=== PATIENT | female | born 1970 | race Caucasian/White ===

== ENCOUNTER 2017-11-04 19:08 | Emergency (ER) | payer OTHER ==
[~2017-11-04] VITALS: Ht 157.5 cm; Wt 70.8 kg
[2017-11-04] MEDS ORDERED: OSEL75CA15 (19:20)
[2017-11-04] MEDS ORDERED: HYDR473S34 (19:20)
[2017-11-04] MEDS ORDERED: CLON0.1T (19:20)
[2017-11-04] MEDS ORDERED: CEFD300C3 (19:20)
--- NOTE | 2017-11-04 19:28 | ED Back Pain ---
General Chief Complaint: Back Problems Stated Complaint: BACK PAIN Nursing Triage Note: LOWER BACK PAIN, NAUSEA TODAY. Nursing Sepsis Screen: No Definite Risk Source of Information: Patient Exam Limitations: No Limitations History of Present Illness Date Seen by Provider: Nov 04, 2017 Time Seen by Provider: 19:26 Initial Comments To ER with mid back pain, nausea today. No fever. Slight cough. She is on Tamiflu, hydrocodone/chlorpheniramine, Omnicef for testing positive for strep throat and influenza-like symptoms. She's been on these medicines since 11/02/17 prescribed by [facility] urgent care. Location: Paraspinous Muscles Timing/Duration: 1-2 Days Severity: Moderate Allergies and Home Medications Allergies Coded Allergies: No Known Drug Allergies (Unverified , 11/04/17) Home Medications Cefdinir 300 Mg Capsule, (Reported) Clonidine HCl 0.1 Mg Tablet, (Reported) Hydrocodone/Chlorphen P-Stirex 473 Ml Celia.er.12h, (Reported) Oseltamivir Phosphate 75 Mg Capsule, (Reported) Constitutional: see HPI EENTM: see HPI Respiratory: see HPI, cough Cardiovascular: no symptoms reported Genitourinary: no symptoms reported Musculoskeletal: no symptoms reported Skin: no symptoms reported Psychiatric/Neurological: No Symptoms Reported Past Otdvdys-Jtgiah-Jnkood Hx Patient Social History Alcohol Use: Rarely Uses Recreational Drug Use: No Smoking Status: Never a Smoker 2nd Hand Smoke Exposure: No Recent Foreign Travel: No Contact w/Someone Who Travel: No Recent Infectious Disease Expo: No Recent Hopitalizations: No Immunizations Up To Date Tetanus Booster (TDap): Unknown Seasonal Allergies Seasonal Allergies: Yes Surgeries History of Surgeries: Yes Surgeries: Appendectomy, Hysterectomy, Tonsillectomy Respiratory History of Respiratory Disorde: Yes Respiratory Disorders: Asthma Cardiovascular History of Cardiac Disorders: No Neurological History of Neurological Disord: No Reproductive System : No 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 Genitourinary History of Genitourinary Disor: No Gastrointestinal History of Gastrointestinal Di: No Musculoskeletal History of Musculoskeletal Dis: No Endocrine History of Endocrine Disorders: No HEENT History of HEENT Disorders: No Cancer History of Cancer: No Psychosocial History of Psychiatric Problem: No Integumentary History of Skin or Integumenta: No Blood Transfusions History of Blood Disorders: No Physical Exam Vital Signs Vital Sign - Last 12Hours 11/04/17 19:15 Temp 98.3 Pulse 109 Resp 18 B/P (MAP) 133/82 (99) Pulse Ox 95 O2 Delivery Room Air Capillary Refill : Less Than 3 Seconds General Appearance: No Apparent Distress, WD/WN HEENT: PERRL/EOMI, TMs Normal, Other (mild cobblestoning and erythema of the oropharynx without exudate. Tonsils are absent.) Neck: Full Range of Motion, Normal Inspection, Lymphadenopathy (L), Lymphadenopathy (R) Respiratory: Normal Breath Sounds, No Accessory Muscle Use, No Respiratory Distress Gastrointestinal: Non Tender, Soft Extremity: Normal Capillary Refill, Normal Inspection Neurologic/Psychiatric: Alert, Oriented x3 Skin: Normal Color, Warm/Dry Progress/Results/Core Measures Results/Orders Lab Results Laboratory Tests Test 11/04/17 19:20 11/04/17 19:25 11/04/17 20:10 11/04/17 20:38 Range/Units White Blood Count 21.5 H 4.3-11.0 10^3/uL Red Blood Count 4.46 4.35-5.85 10^6/uL Hemoglobin 13.4 11.5-16.0 G/DL Hematocrit 39 35-52 % Mean Corpuscular Volume 86 80-99 FL Mean Corpuscular Hemoglobin 30 25-34 PG Mean Corpuscular Hemoglobin Concent 35 32-36 G/DL Red Cell Distribution Width 13.0 10.0-14.5 % Platelet Count 293 130-400 10^3/uL Mean Platelet Volume 10.1 7.4-10.4 FL Neutrophils (%) (Auto) 81 H 42-75 % Lymphocytes (%) (Auto) 11 L 12-44 % Monocytes (%) (Auto) 5 0-12 % Eosinophils (%) (Auto) 2 0-10 % Basophils (%) (Auto) 1 0-10 % Neutrophils # (Auto) 17.5 H 1.8-7.8 X 10^3 Lymphocytes # (Auto) 2.4 1.0-4.0 X 10^3 Monocytes # (Auto) 1.1 H 0.0-1.0 X 10^3 Eosinophils # (Auto) 0.3 0.0-0.3 10^3/uL Basophils # (Auto) 0.2 H 0.0-0.1 10^3/uL Neutrophils % (Manual) 80 % Lymphocytes % (Manual) 15 % Monocytes % (Manual) 1 % Eosinophils % (Manual) 3 % Basophils % (Manual) 0 % Band Neutrophils 1 % Blood Morphology Comment NORMAL Sodium Level 140 135-145 MMOL/L Potassium Level 3.2 L 3.6-5.0 MMOL/L Chloride Level 98 98-107 MMOL/L Carbon Dioxide Level 24 21-32 MMOL/L Anion Gap 18 H 5-14 MMOL/L Blood Urea Nitrogen 10 7-18 MG/DL Creatinine 0.73 0.60-1.30 MG/DL Estimat Glomerular Filtration Rate > 60 BUN/Creatinine Ratio 14 Glucose Level 133 H 70-105 MG/DL Calcium Level 9.6 8.5-10.1 MG/DL Total Bilirubin 0.5 0.1-1.0 MG/DL Aspartate Amino Transf (AST/SGOT) 20 5-34 U/L Alanine Aminotransferase (ALT/SGPT) 45 0-55 U/L Alkaline Phosphatase 161 H 40-136 U/L Total Protein 8.6 H 6.4-8.2 GM/DL Albumin 4.1 3.2-4.5 GM/DL Lipase 34 8-78 U/L Urine Color YELLOW Urine Clarity SLIGHTLY CLOUDY Urine pH 5 5-9 Urine Specific Stedman 1.015 L 1.016-1.022 Urine Protein 2+ H NEGATIVE Urine Glucose (UA) NEGATIVE NEGATIVE Urine Ketones 3+ H NEGATIVE Urine Nitrite NEGATIVE NEGATIVE Urine Bilirubin NEGATIVE NEGATIVE Urine Urobilinogen NORMAL NORMAL MG/DL Urine Leukocyte Esterase 2+ H NEGATIVE Urine RBC (Auto) 3+ H NEGATIVE Urine RBC 2-5 H /HPF Urine WBC 5-10 H /HPF Urine Squamous Epithelial Cells 10-25 H /HPF Urine Crystals NONE /LPF Urine Bacteria TRACE /HPF Urine Casts NONE /LPF Urine Mucus MODERATE H /LPF Urine Yeast FEW H /HPF Urine Culture Indicated YES Urine Test NEGATIVE NEGATIVE Lactic Acid Level 1.08 0.50-2.00 MMOL/L Group A Streptococcus Screen NEGATIVE NEGATIVE My Orders Orders - MAYURI UREÑA APRN Cbc With Automated Diff (11/04/17 19:25) Comprehensive Metabolic Panel (11/04/17 19:25) Ua Culture If Indicated (11/04/17 19:25) Ketorolac Injection (Toradol Injection) (11/04/17 19:30) Lactated Ringers (Lr 1000 Ml Iv Solution (11/04/17 19:30) Lipase (11/04/17 19:25) Chest Pa/Lat (2 View) (11/04/17 19:25) Ondansetron Injection (Zofran Injectio (11/04/17 19:30) Saline Lock/Iv-Start (11/04/17 19:34) Manual Differential (11/04/17 19:20) Urine Culture (11/04/17 19:25) Ct Abdomen/Pelvis W (11/04/17 19:48) Hcg,Qualitative Urine (11/04/17 19:49) Iohexol Injection (Omnipaque 350 Mg/Ml 1 (11/04/17 20:00) Ns (Ivpb) (Sodium Chloride 0.9% Ivpb Bag (11/04/17 20:00) Blood Culture (11/04/17 19:52) Lactic Acid Analyzer (11/04/17 19:52) Rapid Strep A Screen (11/04/17 20:08) Ceftriaxone Injection (Rocephin Injectio (11/04/17 21:00) Potassium Chloride (Tablet) (Klor Con Ta (11/04/17 21:15) Fluconazole Tablet (Diflucan Tablet) (11/04/17 21:15) Potassium Chloride (Tablet) (K Dur Table (11/04/17 21:03) Fluconazole Tablet (Ed Only) (Diflucan T (11/04/17 21:03) Medications Given in ED Vital Signs/I&O Vital Sign - Last 12Hours 11/04/17 11/04/17 11/04/17 19:15 19:30 21:20 Temp 98.3 98.3 98.3 Pulse 109 72 Resp 18 16 B/P (MAP) 133/82 (99) Pulse Ox 95 98 O2 Delivery Room Air Room Air Intake and Output 11/05/17 00:00 Intake Total 1050 ml Balance 1050 ml Blood Pressure Mean: 99 Diagnostic Imaging Diagonstic Imaging: Xray Plain Films/CT/US/NM/MRI: chest Comments NAME: FILIPPO CABRAL Narcisa [facility] REC#: [id number] PT STATUS: REG ER : 1970 PHYSICIAN: MAYURI UREÑA APRN ADMIT DATE: 11/04/17/ER Draft Date of Exam:11/04/17 CHEST PA/LAT (2 VIEW) INDICATION: Left-sided chest pain PA and lateral chest Heart size and pulmonary vascularity are normal. Lungs are clear. There are no effusions or pneumothoraces. IMPRESSION: Negative chest Dictated on workstation # [id number] Dict: 11/04/171942 Trans: 11/04/171943 JOSE [id number] Interpreted by: MARINA GARBER MD Electronically signed by: NAME: FILIPPO CABRAL [facility] REC#: [id number] PT STATUS: REG ER : 1970 PHYSICIAN: MAYURI UREÑA CHHA ADMIT DATE: 11/04/17/ER Signed Date of Exam:11/04/17 CT ABDOMEN/PELVIS W PROCEDURE: CT abdomen and pelvis with contrast. TECHNIQUE: Multiple contiguous axial images were obtained through the abdomen and pelvis after administration of intravenous contrast. INDICATION: Left side abdominal pain Lung bases are clear. Liver appears normal. Gallbladder is present. Pancreas normal. Spleen is not enlarged. Kidneys and adrenals appear normal. There is diverticulosis of the colon with no evidence of diverticulitis. Small bowel is not dilated. Appendix appears to be surgically absent. Uterus appears to be surgically absent. There is no intraperitoneal free air or free fluid. IMPRESSION: Uncomplicated diverticulosis of the colon. No acute abnormalities seen. Dictated by: Dictated on workstation # [id number] Dict: 11/04/172011 Trans: 11/04/172025 JOSE [id number] Interpreted by: MARINA GARBER MD Electronically signed by: MARINA GARBER MD 11/04/172025 Departure Communication (Admissions) Progress Notes 2104-patient states that her back is feeling much better at this time. Her heart rate is down to 72, blood pressure 130s over 80s. Afebrile. She does have leukocytosis without obvious source. I will give Rocephin 1 g for the bladder infection as well as Diflucan and discharged home with return precautions. Impression Impression: Primary Impression: Leukocytosis Additional Impressions: Urinary tract infection recent streptococcal pharyngitis Disposition: HOME, SELF-CARE Condition: Stable Departure-Patient Inst. Decision time for Depature: 21:05 Referrals: [facility] (PCP/Family) Primary Care Physician Patient Instructions: Low Back Pain (DC), Urinary Tract Infection, Adult (DC) Add. Discharge Instructions: 1. Follow-up with your doctor next week for recheck. Please follow up within about 3-4 days. Your white blood cells were high tonight so we should recheck this next week. 2. Return to ER for any pain, fevers, any other concerns.. Continue taking your antibiotics. All discharge instructions reviewed with patient and/or family. Voiced understanding. Images Torso/Trunk 1 - Tenderness MAYURI UREÑA APRN Nov 04, 2017 19:28
[2017-11-04] MEDS ORDERED: LACTATED RINGERS 1,000 ML IV SCH (19:30)
[2017-11-04] MEDS ORDERED: ONDANSETRON 4 MG/2 ML (SDV) Z0FRAN IVP ONE (19:30)
[2017-11-04] MEDS ORDERED: KETOROLAC 30 MG/ML VIAL IVP ONE (19:30)
[2017-11-04 19:32] LABS: BILIRUBIN,URINE NEGATIVE (NEGATIVE); CLARITY,URINE SLIGHTLY CLOUDY; COLOR,URINE YELLOW; GLUCOSE, URINE (UA) NEGATIVE (NEGATIVE); KETONES,URINE 3+ (NEGATIVE); LEUKOCYTE ESTERASE ,URINE 2+ (NEGATIVE); NITRITE,URINE NEGATIVE (NEGATIVE); PH,URINE 5 (5-9); PROTEIN,URINE 2+ (NEGATIVE); UROBILINOGEN,URINE NORMAL (NORMAL)
[2017-11-04 19:33] LABS: BASOPHILS # (AUTO) 0.2 10^3/uL (0.0-0.1); BASOPHILS % (AUTO) 1 % (0-10); EOSINOPHILS # (AUTO) 0.3 10^3/uL (0.0-0.3); EOSINOPHILS % (AUTO) 2 % (0-10); HEMATOCRIT 39 % (35-52); HEMOGLOBIN 13.4 G/DL (11.5-16.0); LYMPHOCYTES # (AUTO) 2.4 X 10^3 (1.0-4.0); LYMPHOCYTES % (AUTO) 11 % (12-44); MEAN CORPUSCULAR HEMOGLOBIN 30 PG (25-34); MEAN CORPUSCULAR HGB CONC 35 G/DL (32-36); MEAN CORPUSCULAR VOLUME 86 FL (80-99); MEAN PLATELET VOLUME 10.1 FL (7.4-10.4); MONOCYTES # (AUTO) 1.1 X 10^3 (0.0-1.0); MONOCYTES % (AUTO) 5 % (0-12); NEUTROPHILS # (AUTO) 17.5 X 10^3 (1.8-7.8); NEUTROPHILS % (AUTO) 81 % (42-75); PLATELET COUNT 293 10^3/uL (130-400); RED BLOOD COUNT 4.46 10^6/uL (4.35-5.85); WHITE BLOOD COUNT 21.5 10^3/uL (4.3-11.0)
[2017-11-04 19:44] LABS: BACTERIA,URINE TRACE /HPF; YEAST,URINE FEW /HPF
--- NOTE | 2017-11-04 19:45 | Diagnostic Imaging Report ---
INDICATION: Left-sided chest pain PA and lateral chest Heart size and pulmonary vascularity are normal. Lungs are clear. There are no effusions or pneumothoraces. IMPRESSION: Negative chest Dictated by: Dictated on workstation # [id number]
[2017-11-04 19:49] LABS: BAND NEUTROPHILS 1 %; BASOPHILS % (MANUAL) 0 %; EOSINOPHILS % (MANUAL) 3 %; LYMPHOCYTES % (MANUAL) 15 %; MONOCYTES % (MANUAL) 1 %; NEUTROPHILS % (MANUAL) 80 %; RBC MORPH NORMAL
[2017-11-04 19:54] LABS: ALANINE AMINOTRANSFERASE 45 U/L (0-55); ALBUMIN 4.1 GM/DL (3.2-4.5); ALKALINE PHOSPHATASE 161 U/L (40-136); BILIRUBIN,TOTAL 0.5 MG/DL (0.1-1.0); BUN/CREATININE RATIO 14; CALCIUM 9.6 MG/DL (8.5-10.1); CARBON DIOXIDE 24 MMOL/L (21-32); CHLORIDE 98 MMOL/L (98-107); CREATININE SERUM 0.73 MG/DL (0.60-1.30); GFR ESTIMATED > 60; GLUCOSE 133 MG/DL (70-105); LIPASE 34 U/L (8-78); POTASSIUM 3.2 MMOL/L (3.6-5.0); SODIUM 140 MMOL/L (135-145); TOTAL PROTEIN 8.6 GM/DL (6.4-8.2)
[2017-11-04] MEDS ORDERED: NS 100 ML (IVPB) BAG IV ONE (20:00)
[2017-11-04] MEDS ORDERED: IOHEXOL 350 MG/ML 100 ML (OMNIPAQUE 350) VIAL IV ONE (20:00)
--- NOTE | 2017-11-04 20:16 | Diagnostic Imaging Report ---
PROCEDURE: CT abdomen and pelvis with contrast. TECHNIQUE: Multiple contiguous axial images were obtained through the abdomen and pelvis after administration of intravenous contrast. INDICATION: Left side abdominal pain Lung bases are clear. Liver appears normal. Gallbladder is present. Pancreas normal. Spleen is not enlarged. Kidneys and adrenals appear normal. There is diverticulosis of the colon with no evidence of diverticulitis. Small bowel is not dilated. Appendix appears to be surgically absent. Uterus appears to be surgically absent. There is no intraperitoneal free air or free fluid. IMPRESSION: Uncomplicated diverticulosis of the colon. No acute abnormalities seen. Dictated by: Dictated on workstation # [id number]
[2017-11-04] MEDS ORDERED: cefTRIAXone INJECTION 1,000 MG in D5W 50 ML IVPB SOLUTION 50 ML IV ONE (21:00)
[2017-11-04] MEDS ORDERED: KCL 20 MEQ TAB (K-DUR) PO ONE (21:03)
[2017-11-04] MEDS ORDERED: FLUCONAZOLE 150 MG TABLET (ED ONLY) ONE (21:03)
[2017-11-04] MEDS ORDERED: KCL 10 MEQ TAB (MICRO K) PO ONE (21:15)
[2017-11-04] MEDS ORDERED: fluCOnazole (DIFLUCAN) 100 MG TAB PO SCH (21:15)
[2017-11-04 21:20] VITALS: BP 134/71
== END 2017-11-04 21:20 | disposition home or self-care (01) ==
LOC: EDUNIT# 19:08 → ER 19:11
DX: D72.829 Elevated white blood cell count, unspecified (principal); N39.0 Urinary tract infection, site not specified; J02.0 Streptococcal pharyngitis; J45.909 Unspecified asthma, uncomplicated; Z90.710 Acquired absence of both cervix and uterus; Z90.89 Acquired absence of other organs; Z90.49 Acquired absence of other specified parts of digestive tract
CPT/HCPCS: 36415; 71046; 74177; 80053; 81000; 83605; 83690; 84703; 85007; 85027; 87040; 87088; 87430; 96374; 96375

== ENCOUNTER 2019-06-06 06:12 | Outpatient (CLI) | payer OTHER ==
[~2019-06-06] VITALS: Ht 157.5 cm; Wt 70.8 kg
[~2019-06-06 06:12] MED LIST: CEFD300C3; CLON0.1T; HYDR473S34; OSEL75CA15
[2019-06-06] MEDS ORDERED: RANI-613 PO (09:46)
[2019-06-06] MEDS ORDERED: ACYC400T7 PO (09:46)
== END 2019-06-07 09:22 | disposition home or self-care (01) ==
LOC: PREOP 06:12
PROVIDERS: ATTEND Surgery
DX: Z01.818 Encounter for other preprocedural examination (principal)

== ENCOUNTER 2019-06-11 06:42 | Day surgery (SDC) | payer BC, OTHER ==
[~2019-06-11] VITALS: Ht 157.5 cm; Wt 70.8 kg
[~2019-06-11 06:42] MED LIST changes: +ACYC400T7 PO; +RANI-613 PO
[2019-06-11 07:05] VITALS: BP 134/87
[2019-06-11] MEDS ORDERED: LACTATED RINGERS 1,000 ML IV ONE (07:12)
[2019-06-11] MEDS ORDERED: PROPOFOL INJECTION 50 ML IV ONE (07:18)
[2019-06-11] MEDS ORDERED: MIDAZOLAM 2 MG/2 ML (VERSED) VIAL ONE (07:18)
[2019-06-11] MEDS ORDERED: LACTATED RINGERS 1,000 ML IV STA (07:36)
--- NOTE | 2019-06-11 07:45 | Progress Note-Pre Operative ---
Pre-Operative Progress Note H&P Reviewed The H&P was reviewed, patient examined and no changes noted. Date Seen by Provider: Jun 11, 2019 Time Seen by Provider: 07:44 Date H&P Reviewed: Jun 11, 2019 Time H&P Reviewed: 07:45 Pre-Operative Diagnosis: blood in stools SOHEILA CAIN DO Jun 11, 2019 07:45
[2019-06-11 08:20] VITALS: BP 110/55
[2019-06-11 08:25] VITALS: BP 105/55
--- NOTE | 2019-06-11 08:28 | Progress Note-Post Operative ---
Post-Operative Progess Note Surgeon (s)/Sprinkler Worker (s) Surgeon SOHEILA CAIN DO Sprinkler Worker: na Pre-Operative Diagnosis blood in stools Post-Operative Diagnosis minimal diverticulosis, rectosigmoid polyp Procedure & Operative Findings Date of Procedure 06/11/19 Procedure Performed/Findings colonoscopy c snare polypectomy and lasha inking Anesthesia Type per cone picker Estimated Blood Loss Estimated blood loss (mL): min Specimens/Packing Specimens Removed rectosigmoid polyp SOHEILA CAIN DO Jun 11, 2019 08:28
[2019-06-11 08:30] VITALS: BP 110/59
--- NOTE | 2019-06-11 08:30 | Discharge Inst-Simple/Standard ---
Discharge Inst-Standard Patient Instructions/Follow Up Plan of Care/Instructions/FU: 2 weeks jesenia Activity as Tolerated: Yes Discharge Diet: Regular Diet (high fiber) SOHEILA CAIN DO Jun 11, 2019 08:30
[2019-06-11 08:55] VITALS: BP 130/72
[2019-06-11 09:11] VITALS: BP 110/59
--- NOTE | 2019-06-11 09:36 | OPERATIVE REPORT ---
DATE OF SERVICE: 06/11/2019 PREOPERATIVE DIAGNOSIS: Blood in stool. POSTOPERATIVE DIAGNOSES: 1. Minimal diverticulosis. 2. Rectosigmoid polyp. PROCEDURE: Colonoscopy with snare polypectomy with Veronica inking. SURGEON: Soheila Tucker DO ANESTHESIA: Per CALL CENTER RN. ESTIMATED BLOOD LOSS: None. COMPLICATIONS: None. INDICATIONS: The patient is a 48-year-old female with blood in stools. She understands risks and benefits of procedure and wished to proceed with procedure. Consent was signed in the chart. DESCRIPTION OF PROCEDURE: The patient was taken to the endoscopy suite, placed in left lateral recumbent position. Timeout was performed. Digital rectal exam was performed. There were no palpable polyps, masses or ulcerations. Scope was inserted in the rectum and advanced all the way to the cecum with minimal difficulty. Prep was adequate. Scope was then slowly retracted back. There were no polyps, masses or ulcerations of the cecum, ascending, transverse and descending colon. In the sigmoid colon, minimal amount of diverticulosis was present. No polyps, masses or ulcerations except over the rectosigmoid junction, a large pedunculated polyp was present. Snare polypectomy was performed. This had to be suctioned and withdrawn. Scope was inserted back into the area of snare polypectomy. Just distal to this area, 2 mL of Veronica ink was injected. The scope was then continuously retracted back noting no other polyps, masses or ulcerations. Once in the rectum, scope was retroflexed noting no other pathology. Scope was returned to its normal position, slowly withdrawn until completely removed. The patient tolerated the procedure well without any complications. She was taken to recovery room in stable condition. RECOMMENDATION: The patient will need repeat colonoscopy in 6 months to reevaluate this area. Any issues before that, will be seen at that time. The patient was recommended high fiber diet. Job ID: [id number] DocumentID: [id number] Dictated Date: 06/11/2019 08:33:16 Instrument Maker Date: 06/11/2019 09:36:07 Dictated By: SOHEILA TUCKER DO
--- NOTE | 2019-06-11 15:27 | Anesthesia-General Post-Op ---
MAC Patient Condition Mental Status/LOC: Same as Preop Cardiovascular: Satisfactory Nausea/Vomiting: Absent Respiratory: Satisfactory Pain: Controlled Complications: Absent Post Op Complications Complications None Follow Up Care/Instructions Patient Instructions None needed. Anesthesiology Discharge Order Discharge Order Patient was seen after the procedure and she was doing well, no complaints, stable vital signs, no apparent adverse anesthesia problems. PEDRO RAMIREZ DO Jun 11, 2019 15:27
== END 2019-06-11 09:00 | disposition home or self-care (01) ==
LOC: ENDO 06:42
PROVIDERS: ATTEND Surgery
DX: K62.1 Rectal polyp (principal); K51.40 Inflammatory polyps of colon without complications; K92.1 Melena; K21.9 Gastro-esophageal reflux disease without esophagitis; K57.30 Diverticulosis of large intestine without perforation or abscess without bleeding; J45.909 Unspecified asthma, uncomplicated; F41.9 Anxiety disorder, unspecified; Z90.89 Acquired absence of other organs; Z90.710 Acquired absence of both cervix and uterus; Z79.899 Other long term (current) drug therapy; Z88.0 Allergy status to penicillin; Z82.49 Family history of ischemic heart disease and other diseases of the circulatory system
CPT/HCPCS: 88305

== ENCOUNTER → 2019-09-23 | Outpatient (CLI) | payer BC ==
--- NOTE | 2019-09-23 11:29 | Diagnostic Imaging Report ---
PROCEDURE: MRI left joint lower extremity without contrast. TECHNIQUE: Multiplanar, multisequence non contrast-enhanced MRI of the left lower extremity was accomplished. INDICATION: Left ankle pain after injury. Pain is most pronounced at the posterolateral ankle. COMPARISON: None. FINDINGS: No acute fracture is seen in the left ankle. Alignment appears normal. No joint effusion is seen. The anterior and posterior syndesmotic ligaments are intact. The anterior talofibular ligament and posterior talofibular ligament are intact. The calcaneofibular ligament is intact. The deep fibers of the deltoid ligament demonstrate mild irregularity with small subcortical fluid signal at the medial talus. The spring ligament appears intact. There is thickening and increased signal at the origin of the central plantar fascia. There is partial tearing present. The sinus tarsi demonstrates normal fatty signal. The Achilles tendon is intact. There is mildly increased fluid in the peroneal tendon sheath without a tear seen. The flexor tendons appear intact. The extensor tendons are intact. The soft tissues about the ankle demonstrate no focal muscular atrophy. The tarsal tunnel is unremarkable. There is a small fluid collection at the lateral aspect of the posterior subtalar joint which measures 7 x 7 x 5 mm in size and likely represents a ganglion cyst. There is a fatty prominence overlying the anterolateral ankle measuring approximately 3.5 x 4.1 x 1.4 cm in size, may represent a subcutaneous lipoma. IMPRESSION: 1. Findings concerning for grade 2 sprain with underlying avulsive injury at the deep fibers of the deltoid ligament, however this does not correlate with the indicated site of pain. 2. Mild peroneal tenosynovitis. No tear is seen. 3. Small ganglion cyst at the lateral aspect of the posterior subtalar joint. 4. Fatty prominence at the anterolateral aspect of the left ankle, may represent a subcutaneous lipoma. 5. Findings concerning for plantar fasciitis with low-grade partial tearing of the fascia. Dictated by: Dictated on workstation # [id number]
== END ==
LOC: RAD 08:39
PROVIDERS: ATTEND Orthopaedic Surgery
DX: S86.012D Strain of left Achilles tendon, subsequent encounter (principal); M65.872 Other synovitis and tenosynovitis, left ankle and foot; M67.472 Ganglion, left ankle and foot; X58.XXXD Exposure to other specified factors, subsequent encounter
CPT/HCPCS: 73721

== ENCOUNTER 2020-02-21 06:30 | Outpatient (RCR) | payer BC ==
[~2020-02-21] VITALS: Ht 160 cm; Wt 71.8 kg
[~2020-02-21 06:30] MED LIST changes: +ACYC400T PO; +ESCI5TAB12 PO; -HYDR473S34; +HYDR473S61
== END 2020-02-21 15:43 | disposition home or self-care (01) ==
LOC: PREOP 06:30
PROVIDERS: ATTEND Surgery
DX: Z01.818 Encounter for other preprocedural examination (principal); Z11.59 Encounter for screening for other viral diseases; Z86.010 Personal history of colon polyps
CPT/HCPCS: 87635

== ENCOUNTER 2020-02-25 08:14 | Day surgery (SDC) | payer BC ==
[~2020-02-25] VITALS: Ht 160 cm; Wt 71.8 kg
[2020-02-25] VITALS (7 sets, daily range): BP systolic 103–132; BP diastolic 54–77
[~2020-02-25 08:14] MED LIST changes: +LACTATED RINGERS 1,000 ML IV ONE
[2020-02-25] MEDS ORDERED: LACTATED RINGERS 1,000 ML IV STA (08:23)
--- OUTSIDE RECORDS SUMMARY | 2020-02-25 08:36 | XMS REPORT | CCD ---
Author Author Kaleigh Faith Organization [facility] Address [address] [place] [address] Phone Care Team Providers Care Setup Technician Name Role Phone PP Unavailable CCM Unavailable Summary Purpose Interface Exchange Insurance Providers Payer name Policy type / Coverage type Covered libertarian ID Effective Begin Date Effective End Date [facility] mercial Insurance [id number] Unknown Unk nown Family history Mother Diagnosis Age At Onset Diabetes mellitus Type 2 Unknown Alcoholism Unknown Depression Unknown Father Diagnosis Age At Onset Diabetes mellitus Type 2 Unknown Social History Social History Element Codes Description Effective Dates Marital status Unknown M arried Garry 05/30/2019 Number of children Unknown 2 05/30/2019 Employment Unknown Curre ntly employed [employer] 05/30/[address]: 828613753077498 Current some days smoker 05/30/[address]: 878446014 Never drinks alcohol 05/30/2019 Allergies, Adverse Reactions, Alerts Substance Reaction Codes Entered Date Inactivated Date Status Penicillin Unknown 05/30/2019 No In active Date Active Past Medical History Illness Codes Condition Status Onset Date Resolved Date Pain in left ankle a nd joints of left foot ICD-9: 719.47 ICD-10: M25.572 Active 06/24/2019 Unknown Pain in left knee ICD-9: 719.46 ICD-10: M25.562 Active 06/24/2019 Unknown Encounter for genera l adult medical examination without abnormal findings ICD-9: V70.0 ICD-10: Z00.00 Active 05/30/2019 Unknown Generalized anxiety disorder ICD-9: 300.00 ICD-10: F41.1 Active 05/30/2019 Unknown Menopausal and femal e climacteric states ICD-9: 627.2 ICD-10: N95.1 Active 05/30/2019 Unknown Problems Condition Codes Effectiv e Dates Condition Status Pain in left ankle a nd joints of left foot ICD-9: 719.47 ICD-10: M25.572 06/24/2019 Active Pain in left knee ICD-9: 719.46 ICD-10: M25.562 06/24/2019 Active Encounter for genera l adult medical examination without abnormal findings ICD-9: V70.0 ICD-10: Z00.00 05/30/2019 Active Generalized anxiety disorder ICD-9: 300.00 ICD-10: F41.1 05/30/2019 Active Menopausal and femal e climacteric states ICD-9: 627.2 ICD-10: N95.1 05/30/2019 Active Medications Medication Codes Instruc tions Start Date Stop Date Sta tus Fill Instructions gabapentin 100 mg ca psule RxNorm: 758891 1 Capsule(s) PO QHS 06/27/2019 07/26/2019 Active naproxen 500 mg tablet RxNorm: 097974 1 Tablet(s) PO BID 06/24/2019 06/28/2019 Inactive escitalopram 5 mg ta blet RxNorm: 927259 1 Tablet(s) PO QHS 05/30/2019 11/25/2019 Active ranitidine 150 mg ca psule RxNorm: 736312 1 Capsule(s) PO BID No Start Date Active eszopiclone 1 mg tablet RxNorm: 458530 Tablet(s) PO as needed No Start Date Active acyclovir 400 mg tablet RxNorm: 616953 1 Tablet(s) PO PRN fever blisters No Start Date Active clonidine HCl 0.1 mg tablet RxNorm: 311189 Tablet(s) PO as needed No Start Date 05/29/2019 Inactive Medication Administered No Medication Administered data Immunizations No Immunization data Assessments Condition Codes Effectiv e Dates Pain in left knee ICD-10: M25.562 ICD-9: 719.46 06/27/2019 Pain in left ankle and joints of left foot ICD-10: M25.572 ICD-9: 719.47 06/27/2019 Generalized anxiety disorder ICD-10: F41.1 ICD-9: 300.00 05/30/2019 Encounter for general adult medical exam ination without abnormal findings ICD-10: Z00.00 ICD-9: V70.0 05/30/2019 Menopausal and female climacteric states ICD-10: N95.1 ICD-9: 627.2 05/30/2019 Reason For Visit Reason For Visit Effective Dates Notes lower leg pain 06/27/2019 lower leg pain 06/24/2019 anxiety 05/30/2019 Results No Results data Review of Systems System Result Effective Dates Constitutional No recent illness 06/27/2019 Constitutional No chills 06/27/2019 Constitutional No fever 06/27/2019 Eyes No eye erythema 09/2019 Ears/Nose/Throat/Neck No nasal discharge 06/27/2019 Cardiovascular No chest pain/pressure 06/27/2019 Cardiovascular No dyspnea 06/27/2019 Respiratory No cough 09/2019 Respiratory No dyspnea 0 06/27/2019 Musculoskeletal joint complaint 06/27/2019 Neurologic No alteration of consciousness 06/27/2019 Neurologic No mental status change 06/27/2019 Constitutional No recent illness 06/24/2019 Constitutional No chills 06/24/2019 Constitutional No fever 06/24/2019 Eyes No eye erythema 06/2019 Ears/Nose/Throat/Neck No nasal discharge 06/24/2019 Cardiovascular No chest pain/pressure 06/24/2019 Cardiovascular No dyspnea 06/24/2019 Respiratory No cough 06/2019 Respiratory No dyspnea 0 06/24/2019 Musculoskeletal joint complaint 06/24/2019 Neurologic No alteration of consciousness 06/24/2019 Neurologic No mental status change 06/24/2019 Constitutional No recent illness 05/30/2019 Constitutional No chills 05/30/2019 Constitutional No fatigue 05/30/2019 Constitutional No fever 05/30/2019 Constitutional No insomnia 05/30/2019 Constitutional No malaise 05/30/2019 Eyes No vision change Ears/Nose/Throat/Neck No dental pain 05/30/2019 Ears/Nose/Throat/Neck No dizziness 05/30/2019 Ears/Nose/Throat/Neck No dysphagia 05/30/2019 Ears/Nose/Throat/Neck No headache 05/30/2019 Ears/Nose/Throat/Neck No hearing loss 05/30/2019 Ears/Nose/Throat/Neck No nasal allergies 05/30/2019 Ears/Nose/Throat/Neck No sore throat 05/30/2019 Ears/Nose/Throat/Neck No postnasal drip 05/30/2019 Ears/Nose/Throat/Neck No sinus congestion 05/30/2019 Cardiovascular No chest pain/pressure 05/30/2019 Cardiovascular No dyspnea 05/30/2019 Cardiovascular No edema 05/30/2019 Cardiovascular No exercise intolerance 05/30/2019 Cardiovascular No fatigue 05/30/2019 Cardiovascular No near-syncope/dizziness 05/30/2019 Respiratory No chest tightness 05/30/2019 Respiratory No cough Respiratory No dyspnea 0 05/30/2019 Respiratory No pedal edema 05/30/2019 Gastrointestinal No abdominal pain 05/30/2019 Gastrointestinal No constipation 05/30/2019 Gastrointestinal No diarrhea 05/30/2019 Gastrointestinal No gastroesophageal reflu x 05/30/2019 Gastrointestinal No nausea 05/30/2019 Gastrointestinal No vomiting 05/30/2019 Genitourinary/Nephrology No dysuria 05/30/2019 Genitourinary/Nephrology No nocturia 05/30/2019 Genitourinary/Nephrology No urinary incontinence 05/30/2019 Musculoskeletal No stiffness 05/30/2019 Musculoskeletal No swelling 05/30/2019 Musculoskeletal No muscle weakness 05/30/2019 Musculoskeletal No myalgias 05/30/2019 Dermatologic No rash Dermatologic No sores Neurologic No dizziness 05/30/2019 Neurologic No headache 0 05/30/2019 Neurologic No neck pain 05/30/2019 Neurologic No syncope Psychiatric anxiety 05/16 Psychiatric No depression 05/30/2019 Physical Exam Exam Name System Name It em Name Status Result Effective Dates Notes Full Exam - Orthopedics Constitutional general appearance Overall: well nourished 06/27/2019 None Full Exam - Orthopedics Constitutional general appearance Overall: well developed 06/27/2019 None Full Exam - Orthopedics Constitutional general appearance Overall: in no acute distress 06/27/2019 None Full Exam - Orthopedics Eyes conjunctiva/eyelids Overall: conjunctiva clear 06/27/2019 None Full Exam - Orthopedics Eyes conjunctiva/eyelids Overall: eyelids normal 06/27/2019 None Full Exam - Orthopedics Ears/Nose/Throat lips/teeth/gingiva Overall: benign lips 06/27/2019 None Full Exam - Orthopedics Ears/Nose/Throat oral cavity/pharynx/larynx Overall: oral mucosa clear 06/27/2019 None Full Exam - Orthopedics Respiratory respiratory effort/rhythm Overall: no retractions 06/27/2019 None Full Exam - Orthopedics Respiratory respiratory effort/rhythm Overall: normal rate 06/27/2019 None Full Exam - Orthopedics MS: head/neck insp & palp - H/N Overall: head atraumatic 06/27/2019 None Full Exam - Orthopedics MS: left low er extremity insp & palp - LLE Ankle: joint swelling 06/27/2019 None Full Exam - Orthopedics MS: left low er extremity insp & palp - LLE Ankle: tender 06/27/2019 None Full Exam - Orthopedics MS: left low er extremity insp & palp - LLE Foot: tenderness at the calcaneus 06/27/2019 None Full Exam - Orthopedics Psychiatric orientation/consciousness Overall: oriented to person, place and time 06/27/2019 None Full Exam - Orthopedics Psychiatric mood and affect Overall: normal mood and affect 06/27/2019 None Full Exam - Orthopedics Psychiatric appearance Overall: well-groomed, good eye contact 06/27/2019 None Full Exam - Orthopedics MS: left low er extremity insp & palp - LLE Foot: tenderness at the metatarsals 06/27/2019 None Full Exam - Orthopedics Constitutional general appearance Overall: well nourished 06/24/2019 None Full Exam - Orthopedics Constitutional general appearance Overall: well developed 06/24/2019 None Full Exam - Orthopedics Constitutional general appearance Overall: in no acute distress 06/24/2019 None Full Exam - Orthopedics Eyes conjunctiva/eyelids Overall: conjunctiva clear 06/24/2019 None Full Exam - Orthopedics Eyes conjunctiva/eyelids Overall: eyelids normal 06/24/2019 None Full Exam - Orthopedics Ears/Nose/Throat lips/teeth/gingiva Overall: benign lips 06/24/2019 None Full Exam - Orthopedics Ears/Nose/Throat oral cavity/pharynx/larynx Overall: oral mucosa clear 06/24/2019 None Full Exam - Orthopedics Respiratory respiratory effort/rhythm Overall: no retractions 06/24/2019 None Full Exam - Orthopedics Respiratory respiratory effort/rhythm Overall: normal rate 06/24/2019 None Full Exam - Orthopedics Psychiatric orientation/consciousness Overall: oriented to person, place and time 06/24/2019 None Full Exam - Orthopedics Psychiatric mood and affect Overall: normal mood and affect 06/24/2019 None Full Exam - Orthopedics Psychiatric appearance Overall: well-groomed, good eye contact 06/24/2019 None Full Exam - Orthopedics MS: head/neck insp & palp - H/N Overall: head atraumatic 06/24/2019 None Full Exam - Orthopedics MS: left low er extremity insp & palp - LLE Knee: joint tenderness 06/24/2019 None Full Exam - Orthopedics MS: left low er extremity insp & palp - LLE Ankle: joint swelling 06/24/2019 None Full Exam - Orthopedics MS: left low er extremity insp & palp - LLE Ankle: tender 06/24/2019 None Full Exam - Orthopedics MS: left low er extremity insp & palp - LLE Foot: tenderness at the calcaneus 06/24/2019 None Full Exam - General 1994 Constitutional general appearance Development: well developed 05/30/2019 None Full Exam - General 1994 Constitutional general appearance Development: appears stated age 0805/30/2019 None Full Exam - General 1994 Constitutional general appearance Hygiene/Attention to Grooming: good hygiene 05/30/2019 None Full Exam - General 1994 Eyes conjunctiva/eyelids Overall: conjunctiva clear 05/30/2019 None Full Exam - General 1994 Eyes conjunctiva/eyelids Overall: cornea clear 05/30/2019 None Full Exam - General 1994 Eyes conjunctiva/eyelids Overall: eyelids normal 05/30/2019 None Full Exam - General 1994 Eyes pupils and irises Overall: pupils equal, round, reactive to light and accomodation 05/30/2019 None Full Exam - General 1994 Ears/Nose/Throat otoscopic exam Overall: external auditory canals clear 05/30/2019 None Full Exam - General 1994 Ears/Nose/Throat otoscopic exam Overall: tympanic membranes clear 05/30/2019 None Full Exam - General 1994 Ears/Nose/Throat lips/teeth/gingiva Overall: benign lips 05/30/2019 None Full Exam - General 1994 Ears/Nose/Throat lips/teeth/gingiva Overall: normal dentition 05/30/2019 None Full Exam - General 1994 Ears/Nose/Throat oral cavity/pharynx/larynx Overall: oral mucosa clear 05/30/2019 None Full Exam - General 1995 Ears/Nose/Throat oral cavity/pharynx/larynx Overall: oropharyngeal mucosa clear 05/30/2019 None Full Exam - General 1994 Ears/Nose/Throat oral cavity/pharynx/larynx Overall: hypopharynx benign 05/30/2019 None Full Exam - General 1994 Ears/Nose/Throat oral cavity/pharynx/larynx Overall: no masses 05/30/2019 None Full Exam - General 1994 Respiratory auscultation Overall: breath sounds clear bilaterally 05/30/2019 None Full Exam - General 1994 Respiratory respiratory effort/rhythm Overall: no retractions 05/30/2019 None Full Exam - General 1994 Respiratory respiratory effort/rhythm Overall: normal rate 05/30/2019 None Full Exam - General 1994 Cardiovascular extremities Overall: no clubbing 05/30/2019 None Full Exam - General 1994 Cardiovascular auscultation of heart Overall: regular rate 05/30/2019 None Full Exam - General 1994 Cardiovascular auscultation of heart Overall: normal heart sounds 05/30/2019 None Full Exam - General 1994 Abdomen abdominal exam Overall: no tenderness 05/30/2019 None Full Exam - General 1994 Abdomen abdominal exam Overall: normal bowel sounds 05/30/2019 None Full Exam - General 1994 Lymphatic neck nodes Overall: anterior cervical chain benign 05/30/2019 None Full Exam - General 1994 Lymphatic neck nodes Overall: posterior cervical chain benign 05/30/2019 None Full Exam - General 1994 Musculoskeletal spine, ribs and pelvis Overall: spine benign 05/30/2019 None Full Exam - General 1994 Musculoskeletal spine, ribs and pelvis Overall: sacroiliac joint benign 05/30/2019 None Full Exam - General 1994 Musculoskeletal spine, ribs and pelvis Overall: good posture 05/30/2019 None Full Exam - General 1994 Musculoskeletal head and neck Overall: head atraumatic 05/30/2019 None Full Exam - General 1994 Musculoskeletal head and neck Overall: cervical spine benign 05/30/2019 None Full Exam - General 1994 Integument inspection of skin Overall: few scattered moles, no gross abnormalities 05/30/2019 None Full Exam - General 1994 Neurologic deep tendon reflexes Overall: deep tendon reflexes intact 05/30/2019 None Full Exam - General 1994 Neurologic cranial nerves Overall: crainial nerves 2 - 12 grossly intact 05/30/2019 None Full Exam - General 1994 Psychiatric orientation/consciousness Overall: oriented to person, place and time 05/30/2019 None Full Exam - General 1994 Psychiatric mood and affect Overall: normal mood and affect 05/30/2019 None Procedures No Procedures data Vital Signs Date Vital 06/27/2019 Heart Rate 1: 68 bpm Height: Weight: 06/24/2019 Blood Pressure 1: 132/74 Code: 8480-6 BMI: 27.4 Code: 15219-9 Heart Rate 1: 66 bpm Height: 5'2" SpO2: 98% Weight: 150 lbs 05/30/2019 Blood Pressure 1: 104/60 Code: 8480-6 BMI: 27.5 Code: 93289-3 Heart Rate 1: 66 bpm Height: 5'2" SpO2: 98% Weight: 150 lbs 5 oz Functional Status No Functional Status data History of Present Illness Symptom Name Status Resu lt Effective Date Notes Location on the left 06/27/2019 None Quality constant 06/27/2019 None Onset and Resolution s udden in onset 06/27/2019 None Onset of Symptom 2 wee ks ago 06/27/2019 None Frequency of Episodes daily 06/27/2019 None Pertinent Findings dec reased range of motion 06/27/2019 None Pertinent Findings choe ping 06/27/2019 None Pertinent Findings pedro n with movement 06/27/2019 None Pertinent Findings sti ffness 06/27/2019 None Location on the left 06/24/2019 None Quality constant 06/24/2019 None Onset and Resolution s udden in onset 06/24/2019 None Onset of Symptom 2 wee ks ago 06/24/2019 None Frequency of Episodes daily 06/24/2019 None Pertinent Findings dec reased range of motion 06/24/2019 None Pertinent Findings choe ping 06/24/2019 None Pertinent Findings pedro n with movement 06/24/2019 None Pertinent Findings sti ffness 06/24/2019 None Quality intermittent 05/30/2019 None Onset and Resolution o ngoing 05/30/2019 None Quality intermittent 05/30/2019 None Onset and Resolution g radual in onset 05/30/2019 None Onset of Symptom 2 wee ks ago 05/30/2019 None Pertinent Findings blo ating 05/30/2019 hx of constipation Onset of Symptom Denie s _ years ago 05/30/2019 None Pertinent Findings Den ies nausea 05/30/2019 None Pertinent Findings Den ies decreased energy level 05/30/2019 None Advance Directives No Advance Directive data Encounters Encounter Performer Loca tion Codes Date 45139 EST. PATIENT, LEVEL III Diagnosis: Pain in left ankle and joints of left foot[ICD10: M25.572] Diagnosis: Pain in left knee[ICD10: M25.562] Jaycee Faith MD, [facility] CPT-4: 20999 06/27/2019 98229 EST. PATIENT, LEVEL III Diagnosis: Pain in left ankle and joints of left foot[ICD10: M25.572] Diagnosis: Pain in left knee[ICD10: M25.562] [facility] CPT-4: 50311 06/24/2019 ([id number]) PREV VISIT N EW AGE 40-64 Diagnosis: Encounter for general adult medical examination without abnormal findings[ICD10: Z00.00] [facility] CPT-4: 01932 05/30/2019 Plan of Care Planned Activity Notes C odes Status Date Visit Plan: Left knee, ankle, foot pain - will send RX - will refer to ortho - The pt is to use prn antiinflammatories to manage acute pain. The patient is to call the office if the pain is worsening or does not improve. 06/27/2019 Appointment: Jaycee Lindo WPtel: [facility] (30 min) Complex 06/27/2019 Patient Education: Patient Medication Summary Completed 06/27/2019 Care Plan: Referral Order SNOMED-CT : [id number] Pending 06/27/2019 Visit Plan: Left knee, ankle, foot pain - will send RX - if no improvement will refer to ortho - The pt is to use prn antiinflammatories to manage acute pain. The patient is to call the office if the pain is worsening or does not improve. 06/24/2019 Appointment: Jaycee Lindo WPtel: [facility] (30 min) Complex 06/24/2019 Patient Education: Patient Medication Summary Completed 06/24/2019 Visit Plan: Well Adult - pt was cou nseled about diet, exercise, and encouraged to follow a heart healthy diet and increase activity level. The patient was instructed to RTC yearly for well adult exams and PRN for acute illnesses. The pt was also instructed to have yearly labs for check of cholesterol, thyroid, chem panel, CBC, and renal functioning. Post-surgical menopause - I have advised the pt that we will look for her medications from [facility] to find out what her depo dose is so I can wean her off of it. Anxiety - the patient has uncontrolled anxiety and will benefit from an SSRI on a daily basis to attempt control of the symptoms of anxiety (tachycardia, overwhelming sensations, stress, insomnia, etc). stop clonidine due to hypotension 05/30/2019 Patient Education: Patient Medication Summary Completed 05/30/2019 Referral: Nathan Dudley Referral Appointment Confirmed Referral: Nathan Dudley Referral Completed Instructions Comment . Well Adult - pt wa s counseled about diet, exercise, and encouraged to follow a heart healthy diet and increase activity level. The patient was instructed to RTC yearly for well adult exams and PRN for acute illnesses. The pt was also instructed to have yearly labs for check of cholesterol, thyroid, chem panel, CBC, and renal functioning. Post-surgical menopause - I have advised the pt that we will look for her medications from [facility] to find out what her depo dose is so I can wean her off of it. Anxiety - the patient has uncontrolled anxiety and will benefit from an SSRI on a daily basis to attempt control of the symptoms of anxiety (tachycardia, overwhelming sensations, stress, insomnia, etc). stop clonidine due to hypotension tomorrow at 10:15 wi th the nurse practitioner. Left knee, ankle, foot pain - will send RX - will refer to ortho - The pt is to use prn antiinflammatories to manage acute pain. The patient is to call the office if the pain is worsening or does not improve. . Left knee, ankle, foot pain - will send RX - if no improvement will refer to ortho - The pt is to use prn antiinflammatories to manage acute pain. The patient is to call the office if the pain is worsening or does not improve.
--- OUTSIDE RECORDS SUMMARY | 2020-02-25 08:36 | XMS REPORT | CCD ---
Author Author Kaleigh Faith Organization [facility] Address [address] [place] [address] Phone Care Team Providers Care Wordpress Developer Name Role Phone PP Unavailable CCM Unavailable Summary Purpose Interface Exchange Insurance Providers Payer name Policy type / Coverage type Covered libertarian ID Effective Begin Date Effective End Date [facility] mercial Insurance [id number] Unknown Unk nown Family history Mother Diagnosis Age At Onset Diabetes mellitus Type 2 Unknown Alcoholism Unknown Depression Unknown Father Diagnosis Age At Onset Diabetes mellitus Type 2 Unknown Social History Social History Element Codes Description Effective Dates Marital status Unknown M arried Garry 05/30/2019 Number of children Unknown 2 05/30/2019 Employment Unknown Curre ntly employed [employer] 05/30/[address]: 313693890472958 Current some days smoker 05/30/[address]: 196832334 Never drinks alcohol 05/30/2019 Allergies, Adverse Reactions, [...] Instructions gabapentin 100 mg ca psule RxNorm: 449062 1 Capsule(s) PO QHS 06/27/2019 07/26/2019 Active naproxen 500 mg tablet RxNorm: 433615 1 Tablet(s) PO BID 06/24/2019 06/28/2019 Active escitalopram 5 mg ta blet RxNorm: 875539 1 Tablet(s) PO QHS 05/30/2019 11/25/2019 Active ranitidine 150 mg ca psule RxNorm: 445907 1 Capsule(s) PO BID No Start Date Active eszopiclone 1 mg tablet RxNorm: 949778 Tablet(s) PO as needed No Start Date Active acyclovir 400 mg tablet RxNorm: 965189 1 Tablet(s) PO PRN fever blisters No Start Date Active clonidine HCl 0.1 mg tablet RxNorm: 340228 Tablet(s) PO as needed No Start Date [...] 1: 132/74 Code: 8480-6 BMI: 27.4 Code: 72287-5 Heart Rate 1: 66 bpm Height: 5'2" SpO2: 98% Weight: 150 lbs 05/30/2019 Blood Pressure 1: 104/60 Code: 8480-6 BMI: 27.5 Code: 42628-2 Heart Rate 1: 66 bpm Height: 5'2" [...] Encounters Encounter Performer Loca tion Codes Date 60441 EST. PATIENT, LEVEL III Diagnosis: Pain in left ankle and joints of left foot[ICD10: M25.572] Diagnosis: Pain in left knee[ICD10: M25.562] Jaycee Faith MD, [facility] CPT-4: 95850 06/27/2019 10971 EST. PATIENT, LEVEL III Diagnosis: Pain in left ankle and joints of left foot[ICD10: M25.572] Diagnosis: Pain in left knee[ICD10: M25.562] [facility] CPT-4: 81292 06/24/2019 ([id number]) PREV VISIT N EW AGE 40-64 Diagnosis: Encounter for general adult medical examination without abnormal findings[ICD10: Z00.00] [facility] CPT-4: 29341 05/30/2019 Plan of Care Planned Activity Notes C odes Status Date Visit Plan: Left knee, ankle, foot pain - will send RX - will refer to ortho - The pt is to use prn antiinflammatories to manage acute pain. The patient is to call the office if the pain is worsening or does not improve. 06/27/2019 Patient Education: Patient Medication Summary Completed 06/27/2019 Care Plan: Referral Order SNOMED-CT : 701599908 Pending 06/27/2019 Visit Plan: Left knee, ankle, foot pain - will send RX - if no improvement will refer to ortho - The pt is to use prn antiinflammatories to manage acute pain. The patient is to call the office if the pain is worsening or does not improve. 06/24/2019 Appointment: Jaycee Lindo WPtel: [address] [place], [place] [phone] (30 min) [facility] 06/24/2019 Patient Education: Patient Medication Summary Completed [...] we will look for her medications from [facility] to find out what her depo [...] 05/30/2019 Referral: Nathan Dudley Referral Appointment Confirmed Instructions Comment . Well Adult - pt [...] we will look for her medications from [facility] to find out what her depo [...]
[2020-02-25] MEDS ORDERED: PROPOFOL INJECTION 50 ML IV ONE (08:37)
--- OUTSIDE RECORDS SUMMARY | 2020-02-25 08:37 | XMS REPORT | CCD ---
Author Author Kaleigh Faith Organization [facility] Address [address] [place] [address] Phone Care Team Providers Care Room Service Runner Name Role Phone PP Unavailable CCM Unavailable Summary Purpose Interface Exchange Insurance Providers Payer name Policy type / Coverage type Covered republican ID Effective Begin Date Effective End Date [facility] mercial Insurance [id number] Unknown Unk nown Family history Mother Diagnosis Age At Onset Diabetes mellitus Type 2 Unknown Alcoholism Unknown Depression Unknown Father Diagnosis Age At Onset Diabetes mellitus Type 2 Unknown Social History Social History Element Codes Description Effective Dates Marital status Unknown M arried Garry 05/30/2019 Number of children Unknown 2 05/30/2019 Employment Unknown Curre ntly employed [employer] 05/30/[address]: 990315218170768 Current some days smoker 05/30/[address]: 340203703 Never drinks alcohol 05/30/2019 Allergies, Adverse Reactions, [...] Date Stop Date Sta tus Fill Instructions naproxen 500 mg tablet RxNorm: 006052 1 Tablet(s) PO BID 06/24/2019 06/28/2019 Active escitalopram 5 mg ta blet RxNorm: 284948 1 Tablet(s) PO QHS 05/30/2019 11/25/2019 Active ranitidine 150 mg ca psule RxNorm: 212484 1 Capsule(s) PO BID No Start Date Active eszopiclone 1 mg tablet RxNorm: 269048 Tablet(s) PO as needed No Start Date Active acyclovir 400 mg tablet RxNorm: 054369 1 Tablet(s) PO PRN fever blisters No Start Date Active clonidine HCl 0.1 mg tablet RxNorm: 073028 Tablet(s) PO as needed No Start Date 05/29/2019 Inactive Medication Administered No Medication Administered data Immunizations No Immunization data Assessments Condition Codes Effectiv e Dates Pain in left ankle and joints of left foot ICD-10: M25.572 ICD-9: 719.47 06/24/2019 Pain in left knee ICD-10: M25.562 ICD-9: 719.46 06/24/2019 Generalized anxiety disorder ICD-10: F41.1 ICD-9: 300.00 05/30/2019 Encounter for general adult medical exam ination without abnormal findings ICD-10: Z00.00 ICD-9: V70.0 05/30/2019 Menopausal and female climacteric states ICD-10: N95.1 ICD-9: 627.2 05/30/2019 Reason For Visit Reason For Visit Effective Dates Notes lower leg pain 06/24/2019 anxiety 05/30/2019 Results No Results data Review of Systems System Result Effective Dates Constitutional No recent illness 06/24/2019 Constitutional No [...] - General 1994 Ears/Nose/Throat oral cavity/pharynx/larynx Overall: oropharyngeal mucosa clear [...] No Procedures data Vital Signs Date Vital 06/24/2019 Blood Pressure 1: 132/74 Code: 8480-6 BMI: 27.4 Code: 59968-6 Heart Rate 1: 66 bpm Height: 5'2" SpO2: 98% Weight: 150 lbs 05/30/2019 Blood Pressure 1: 104/60 Code: 8480-6 BMI: 27.5 Code: 32895-4 Heart Rate 1: 66 bpm Height: 5'2" SpO2: 98% Weight: 150 lbs 5 oz Functional Status No Functional Status data History of Present Illness Symptom Name Status Resu lt Effective Date Notes Location on the left 06/24/2019 None Quality [...] Encounters Encounter Performer Loca tion Codes Date 05250 EST. PATIENT, LEVEL III Diagnosis: Pain in left ankle and joints of left foot[ICD10: M25.572] Diagnosis: Pain in left knee[ICD10: M25.562] [facility] CPT-4: 36744 06/24/2019 (72058) PREV VISIT N EW AGE 40-64 Diagnosis: Encounter for general adult medical examination without abnormal findings[ICD10: Z00.00] [facility] CPT-4: 68365 05/30/2019 Plan of Care Planned Activity Notes C odes Status Date Visit Plan: Left knee, ankle, foot pain - will send RX - if no improvement will refer to ortho - The pt is to use prn antiinflammatories to manage acute pain. The patient is to call the office if the pain is worsening or does not improve. 06/24/2019 Patient Education: Patient Medication Summary Completed [...] we will look for her medications from [facility] to find out what her depo dose is so I can wean her off of it. Anxiety - the patient has uncontrolled anxiety and will benefit from an SSRI on a daily basis to attempt control of the symptoms of anxiety (tachycardia, overwhelming sensations, stress, insomnia, etc). stop clonidine due to hypotension 05/30/2019 Patient Education: Patient Medication Summary Completed 05/30/2019 Instructions Comment . Well Adult - pt [...] we will look for her medications from [facility] to find out what her depo dose is so I can wean her off of it. Anxiety - the patient has uncontrolled anxiety and will benefit from an SSRI on a daily basis to attempt control of the symptoms of anxiety (tachycardia, overwhelming sensations, stress, insomnia, etc). stop clonidine due to hypotension . Left knee, ankle, foot pain - will send RX - if no improvement will refer to ortho - The pt is to use prn antiinflammatories to manage acute pain. The patient is to call the office if the pain is worsening or does not improve.
--- OUTSIDE RECORDS SUMMARY | 2020-02-25 08:37 | XMS REPORT | Continuity of Care Document ---
Author Organization Unknown Address Unknown Phone Unavailable Allergies Active Description Code Type Severity Reaction Onset Reported/Identified Relationship to Patient Clinical Status Yes No Known Drug Allergies [id number] Drug Allergy Unknown N/A 11/04/2017 Yes Penicillins [id number] Drug Aller gy Unknown FROM CHILDHOOD 06/06/2019 Medications There is no data. Problems Date Dx Coded Attending Type Code Diagnosis Diagnosed By 09/14/1542 SOHEILA CAIN DO Ot Z01.818 ENCOUNTER FOR OTHER PREPROCEDURAL EXAMIN 09/14/1542 SOHEILA CAIN DO Ot Z11. 59 ENCOUNTER FOR SCREENING FOR OTHER VIRAL 09/14/1542 SOHEILA CAIN DO Ot Z86.010 PERSONAL HISTORY OF COLONIC POLYPS 11/04/2017 MAYURI UREÑA APRN Ot D72.829 ELEVATED WHITE BLOOD CELL COUNT, UNSPECI 11/04/2017 MAYURI UREÑA APRN Ot J02 .0 STREPTOCOCCAL PHARYNGITIS 11/04/2017 MAYURI UREÑA APRN Ot J45.909 UNSPECIFIED ASTHMA, UNCOMPLICATED 11/04/2017 MAYURI UREÑA APRN Ot M54 .6 PAIN IN THORACIC SPINE 11/04/2017 MAYURI UREÑA APRN Ot N39 .0 URINARY TRACT INFECTION, SITE NOT SPECIF 11/04/2017 MAYURI UREÑA APRN Ot Z90.49 ACQUIRED ABSENCE OF OTHER SPECIFIED PART 11/04/2017 MAYURI UREÑA APRN Ot Z90.710 ACQUIRED ABSENCE OF BOTH CERVIX AND UTER 11/04/2017 MAYURI UREÑA APRN Ot Z90.89 ACQUIRED ABSENCE OF OTHER ORGANS 06/07/2019 SOHEILA CAIN DO Ot Z01.818 ENCOUNTER FOR OTHER PREPROCEDURAL EXAMIN 06/07/2019 SOHEILA CAIN DO Ot Z01.818 ENCOUNTER FOR OTHER PREPROCEDURAL EXAMIN 06/11/2019 SOHEILA CAIN DO Ot F41. 9 ANXIETY DISORDER, UNSPECIFIED 06/11/2019 SOHEILA CAIN DO Ot J45.909 UNSPECIFIED ASTHMA, UNCOMPLICATED 06/11/2019 SOHEILA CAIN DO Ot K21. 9 GASTRO-ESOPHAGEAL REFLUX DISEASE WITHOUT 06/11/2019 SOHEILA CAIN DO Ot K51. 40 INFLAMMATORY POLYPS OF COLON WITHOUT COM 06/11/2019 SOHEILA CAIN DO Ot K57. 30 DVRTCLOS OF LG INT W/O PERFORATION OR AB 06/11/2019 SOHEILA CAIN DO Ot K62. 1 RECTAL POLYP 06/11/2019 SOHEILA CAIN DO Ot K92. 1 MELENA 06/11/2019 SOHEILA CAIN DO Ot Z79.899 OTHER LONGTERM (CURRENT) DRUG THERAPY 06/11/2019 SOHEILA CAIN DO Ot Z82. 49 FAMILY HX OF ISCHEM HEART DIS AND OTH DI 06/11/2019 SOHEILA CAIN DO Ot Z88. 0 ALLERGY STATUS TO PENICILLIN 06/11/2019 SOHEILA CAIN DO Ot Z90.710 ACQUIRED ABSENCE OF BOTH CERVIX AND UTER 06/11/2019 SOHEILA CAIN DO Ot Z90. 89 ACQUIRED ABSENCE OF OTHER ORGANS 06/18/2019 SOHEILA CAIN DO Ot F41. 9 ANXIETY DISORDER, UNSPECIFIED 06/18/2019 SOHEILA CAIN DO Ot J45.909 UNSPECIFIED ASTHMA, UNCOMPLICATED 06/18/2019 SOHEILA CAIN DO Ot K21. 9 GASTRO-ESOPHAGEAL REFLUX DISEASE WITHOUT 06/18/2019 SOHEILA CAIN DO Ot K51. 40 INFLAMMATORY POLYPS OF COLON WITHOUT COM 06/18/2019 SOHEILA CAIN DO Ot K57. 30 DVRTCLOS OF LG INT W/O PERFORATION OR AB 06/18/2019 SOHEILA CAIN DO Ot K62. 1 RECTAL POLYP 06/18/2019 SOHEILA CAIN DO Ot K92. 1 MELENA 06/18/2019 SOHEILA CAIN DO Ot Z79.899 OTHER LONGTERM (CURRENT) DRUG THERAPY 06/18/2019 SOHEILA CAIN DO Ot Z82. 49 FAMILY HX OF ISCHEM HEART DIS AND OTH DI 06/18/2019 SOHEILA CAIN DO Ot Z88. 0 ALLERGY STATUS TO PENICILLIN 06/18/2019 SOHEILA CAIN DO Ot Z90.710 ACQUIRED ABSENCE OF BOTH CERVIX AND UTER 06/18/2019 ANT SHEASOHEILA Parveen Ot Z90. 89 ACQUIRED ABSENCE OF OTHER ORGANS 09/27/2019 HAIDER SHELTON, ULISSES Thomson Ot M65.872 OTHER SYNOVITIS AND TENOSYNOVITIS, LEFT 09/27/2019 HAIDER SHELTON, ULISSES Thomson Ot M67.472 GANGLION, LEFT ANKLE AND FOOT 09/27/2019 HAIDER SHELTON, ULISSES Thomson Ot S86.012D STRAIN OF LEFT ACHILLES TENDON, SUBSEQUE 09/27/2019 ULISSES MALONEY MD Ot X58.XXXD EXPOSURE TO OTHER SPECIFIED FACTORS, SUB 09/27/2019 HAIDER SHELTON, ULISSES Thomson Ot M65.872 OTHER SYNOVITIS AND TENOSYNOVITIS, LEFT 09/27/2019 HAIDER SHELTON, ULISSES Thomson Ot M67.472 GANGLION, LEFT ANKLE AND FOOT 09/27/2019 HAIDER SHELTON, ULISSES Thomson Ot S86.012D STRAIN OF LEFT ACHILLES TENDON, SUBSEQUE 09/27/2019 ULISSES MALONEY MD Ot X58.XXXD EXPOSURE TO OTHER SPECIFIED FACTORS, SUB 11/01/2019 ULISSES MALONEY MD Ot M65.872 OTHER SYNOVITIS AND TENOSYNOVITIS, LEFT 11/01/2019 HAIDER SHELTON, ULISSES Thomson Ot M67.472 GANGLION, LEFT ANKLE AND FOOT 11/01/2019 ULISSES MALONEY MD Ot S86.012D STRAIN OF LEFT ACHILLES TENDON, SUBSEQUE 11/01/2019 ULISSES MALONEY MD Ot X58.XXXD EXPOSURE TO OTHER SPECIFIED FACTORS, SUB 12/13/2019 W N95.1 [place] pausal and female climacteric states [facility] 12/16/2019 W Z01.419 En counter for gynecological examination (general) (routine) without abnormal findings Farzana Cristina 12/17/2019 W Z01.419 En counter for gynecological examination (general) (routine) without abnormal findings Farzana Cristina 12/20/2019 W Z01.419 En counter for gynecological examination (general) (routine) without abnormal findings Farzana Cristina 12/31/2019 W N95.1 [place] pausal and female climacteric states [facility] Procedures There is no data. Results Test Result Range Complete blood count (CBC) with automate d white blood cell (WBC) differential - 11/04/17 19:20 Blood leukocytes automated count (number/volume) 21.5 10*3/uL 4.3-11.0 Blood erythrocytes automated count (number/volume) 4.46 10*6/uL 4.35-5.85 Venous blood hemoglobin measurement (mass/volume) 13.4 g/dL 11.5-16.0 Blood hematocrit (volume fraction) 39 % 35-52 Automated erythrocyte mean corpuscular volume 86 [ foz_us] 80-99 Automated erythrocyte mean corpuscular h emoglobin (mass per erythrocyte) 30 pg 25-34 Automated erythrocyte mean corpuscular h emoglobin concentration measurement (mass/volume) 35 g/dL 32-36 Automated erythrocyte distribution width ratio 13. 0 % 10.0- 14.5 Automated blood platelet count (count/volume) 293 10*3/uL 130-400 Automated blood platelet mean volume measurement 10.1 [foz_us] 7.4-10.4 Automated blood neutrophils/100 leukocytes 81 % 42-75 Automated blood lymphocytes/100 leukocytes 11 % 12-44 Blood monocytes/100 leukocytes 5 % 0-12 Automated blood eosinophils/100 leukocytes 2 % 0-10 Automated blood basophils/100 leukocytes 1 % 0-10 Blood neutrophils automated count (number/volume) 17.5 10*3 1.8-7.8 Blood lymphocytes automated count (number/volume) 2.4 10*3 1.0-4.0 Blood monocytes automated count (number/volume) 1. 1 10*3 0.0-1.0 Automated eosinophil count 0.3 10*3/uL 0 .0-0.3 Automated blood basophil count (count/volume) 0.2 10*3/uL 0.0-0.1 Blood manual differential performed dete ction - 11/04/17 19:20 Blood monocytes/100 leukocytes 1 % NRG Manual blood segmented neutrophils/100 leukocytes 80 % NRG Blood band neutrophils/100 leukocytes 1 % NRG Manual blood lymphocytes/100 leukocytes 15 % NRG Manual eosinophils/100 leukocytes in nose 3 % NRG Manual blood basophils/100 leukocytes 0 % NRG Blood erythrocyte morphology finding identification [facility] Comprehensive metabolic panel - 11/04/17 19:20 Serum or plasma sodium measurement (moles/volume) 140 mmol/L 135-145 Serum or plasma potassium measurement (moles/volume) 3.2 mmol/L 3.6-5.0 Serum or plasma chloride measurement (moles/volume) 98 mmol/L 98-107 Carbon dioxide 24 mmol/L 21-32 Serum or plasma anion gap determination (moles/volume) 18 mmol/L 5-14 Serum or plasma urea nitrogen measurement (mass/volume ) 10 mg/dL 7-18 Serum or plasma creatinine measurement (mass/volume) 0.73 mg/dL 0.60-1.30 Serum or plasma urea nitrogen/creatinine mass ratio 14 NRG Serum or plasma creatinine measurement w ith calculation of estimated glomerular filtration rate > NRG Serum or plasma glucose measurement (mass/volume) 133 mg/dL 70-105 Serum or plasma calcium measurement (mass/volume) 9.6 mg/dL 8.5-10.1 Serum or plasma total bilirubin measurement (mass/volu me) 0.5 mg/dL 0.1-1.0 Serum or plasma alkaline phosphatase obdulia surement (enzymatic activity/volume) 161 U/L 40-136 Serum or plasma aspartate aminotransfera se measurement (enzymatic activity/volume) 20 U/L 5-34 Serum or plasma alanine aminotransferase measurement (enzymatic activity/volume) 45 U/L 0-55 Serum or plasma protein measurement (mass/volume) 8.6 g/dL 6.4-8.2 Serum or plasma albumin measurement (mass/volume) 4.1 g/dL 3.2-4.5 Lipase - 11/04/17 19:20 Lipase 34 U/L 8-78 Complete urinalysis with reflex to cultu re - 11/04/17 19:25 Urine color determination YELLOW NRG Urine clarity determination SLIGHTLY CLOUDY NRG Urine pH measurement by test strip 5 5-9 Specific gravity of urine by test strip 1.015 1.016-1.022 Urine protein assay by test strip, semi-quantitative 2+ NEGATIVE Urine glucose detection by automated test strip NE GATIVE NEGATIVE Erythrocytes detection in urine sediment by light micr oscopy 3+ NEGATIVE Urine ketones detection by automated test strip 3+ NEGATIVE Urine nitrite detection by test strip NEGATIVE NEGATIVE Urine total bilirubin detection by test strip NEGA TIVE NEGATIVE Urine urobilinogen measurement by automated test strip (mass/volume) NORMAL NORMAL Urine leukocyte esterase detection by dipstick 2+ NEGATIVE Automated urine sediment erythrocyte cou nt by microscopy (number/high power field) [HPF] NRG Automated urine sediment leukocyte count by microscopy (number/high power field) [HPF] NRG Bacteria detection in urine sediment by light microsco py TRACE NRG Squamous epithelial cells detection in u rine sediment by light microscopy 10-25 NRG Crystals detection in urine sediment by light microsco py NONE NRG Casts detection in urine sediment by light microscopy NONE NRG Mucus detection in urine sediment by light microscopy MODERATE NRG Complete urinalysis with reflex to culture YES NRG Yeast detection in urine sediment by light microscopy FEW NRG Urine beta human chorionic gonadotropin (hCG) measurement - 11/04/17 19:25 Urine beta human chorionic gonadotropin (hCG) measurem ent NEGATIVE NEGATIVE Bacterial urine culture - 11/04/17 19:25 Bacterial urine culture [id number] NRG COLONY COUNT 10,000/ML - 100,000/ML NRG Blood lactic acid measurement (moles/vol ume) - 11/04/17 20:10 Blood lactic acid measurement (moles/volume) 1.08 mmol/L 0.50-2.00 Bacterial blood culture - 11/04/17 20:10 QUANTITY OF GROWTH . NRG Bacterial blood culture SEE COMMEN NRG Bacterial blood culture - 11/04/17 20:36 Bacterial blood culture NG NRG Streptococcus pyogenes antigen detection - 11/04/17 20:38 Streptococcus pyogenes antigen detection NEGATIVE NEGATIVE Bacterial throat culture - 11/04/17 20:3 8 Bacterial throat culture NBS NRG CMP - 01/08/18 11:54 GLUCOSE 77 mg/dL 65-99 UREA NITROGEN (BUN) 15 mg/dL 7-25 CREATININE 0.64 mg/dL 0.50-1.10 eGFR NON-AFR. SOMALI 105 mL/min/1.73m2 > OR = 60 eGFR 121 mL/min/1.73m2 > OR = 60 BUN/CREATININE RATIO NOT APPLICABLE (calc) 6-22 SODIUM 141 mmol/L 135-146 POTASSIUM 4.3 mmol/L 3.5-5.3 CHLORIDE 105 mmol/L 98-110 CARBON DIOXIDE 30 mmol/L 20-31 CALCIUM 9.3 mg/dL 8.6-10.2 PROTEIN, TOTAL 7.4 g/dL 6.1-8.1 ALBUMIN 4.7 g/dL 3.6-5.1 GLOBULIN 2.7 g/dL (calc) 1.9-3.7 ALBUMIN/GLOBULIN RATIO 1.7 (calc) 1.0-2. 5 BILIRUBIN, TOTAL 0.3 mg/dL 0.2-1.2 ALKALINE PHOSPHATASE 80 U/L 33-115 AST 26 U/L 10-35 ALT 30 U/L 6-29 TSH - 06/04/18 08:28 TSH 1.33 mIU/L NRG Coronavirus SARS-CoV-2 SO 2019 - 0 13:37 Coronavirus Ab [Units/volume] in Serum Negative Negative Encounters ACCT No. Visit Date/Time Discharge Status Pt. Type Provider Facility Loc./Unit Complaint [id number] 05/08/2019 12:57:00 05/08/2019 23:59: 00 DIS Outpatient BISHNU BAKER [id number] 04/07/2017 11:00:00 04/07/2017 23:59: 00 DIS Outpatient TYRON DANIELLE [id number] 03/30/2017 09:23:00 03/30/2017 23:59: 00 DIS Outpatient TYRON DANIELLE [id number] 05/02/2019 09:40:00 05/02/2019 23:59:5 9 CLS Outpatient BISHNU BAKER [facility] [id number] 06/04/2018 08:40:00 Document Registration [id number] 01/08/2018 11:20:00 Document Registration [id number] 05/14/2019 11:31:59 05/14/2019 23:59:5 9 CLS Outpatient [id number] 02/21/2020 06:30:00 15:43:00 DIS Outpatient SOHEILA CAIN DO [facility] PREOP COLONOSCOPY [id number] 01/21/2020 09:00:00 23:59:59 CLS Preadmit SOHEILA CAIN DO [facility] SDC HX POLYPS [id number] 09/23/2019 08:39:00 23:59:59 CLS Outpatient HAIDER SHELTON, ULISSES Thomson [facility] RAD STRAIN OF LT ACHILLES TENDON [id number] 06/11/2019 06:42:00 09:00:00 DIS Outpatient SOHEILA CAIN DO [facility] ENDO BLOOD IN STOOLS [id number] 06/06/2019 06:12:00 019 09:22:00 DIS Outpatient SOHEILA CAIN DO [facility] PREOP BLOOD IN STOOLS [id number] 11/04/2017 19:11:00 018 21:20:00 DIS Emergency MAYURI UREÑA APRN [facility] ER BACK PAIN [id number] 03/29/2017 11:37:00 017 23:59:59 CLS Preadmit TYRON DANIELLEP [facility] RAD SCREENING [id number] 02/25/2020 09:20:00 P EN Preadmit SOHEILA CAIN DO [facility] ENDO HX POLYPS
[2020-02-25] MEDS ORDERED: MIDAZOLAM 2 MG/2 ML (VERSED) VIAL ONE (08:38)
--- NOTE | 2020-02-25 09:08 | Progress Note-Post Operative ---
Post-Operative Progess Note Surgeon (s)/Cargo Broker (s) Surgeon SOHEILA CAIN DO Cargo Broker: na Pre-Operative Diagnosis history of colon polyps Post-Operative Diagnosis normal colon Procedure & Operative Findings Date of Procedure 02/25/20 Procedure Performed/Findings colonoscopy Anesthesia Type per special needs tutor Estimated Blood Loss Estimated blood loss (mL): min Specimens/Packing Specimens Removed SOHEILA Rivera DO February 25, 2020 09:08
--- NOTE | 2020-02-25 09:09 | Discharge Inst-Simple/Standard ---
Discharge Inst-Standard Patient Instructions/Follow Up Plan of Care/Instructions/FU: 5 years for repeat colonoscopy. Any issues before that be seen at that time. Activity as Tolerated: Yes Discharge Diet: Regular Diet SOHEILA CAIN DO February 25, 2020 09:09
--- NOTE | 2020-02-25 12:39 | OPERATIVE REPORT ---
DATE OF SERVICE: 02/25/2020 PREOPERATIVE DIAGNOSIS: History of polyps. POSTOPERATIVE DIAGNOSIS: Normal colon. PROCEDURE: Colonoscopy. SURGEON: Soheila Tucker DO ANESTHESIA: Per CELL MAKER. ESTIMATED BLOOD LOSS: None. COMPLICATIONS: None. INDICATIONS: The patient is a 49-year-old female with history of colon polyps. She understands risks and benefits of procedure and wished to proceed with procedure. Consent was signed in the chart. DESCRIPTION OF PROCEDURE: The patient was taken to the endoscopy suite, placed in left lateral recumbent position. Timeout was performed. Digital rectal exam was performed. There were no palpable polyps, masses or ulcerations. Scope was inserted in the rectum and advanced all the way to cecum with minimal difficulty. Prep was adequate. Scope was then slowly retracted back. There were no polyps, masses or ulcerations in the cecum, ascending, transverse and descending and sigmoid colon. The tattoo previously placed was identified. No evidence of any recurrence polyp. Scope was continuously retracted back in the rectum, it was also retroflexed noting no other pathology. Scope was returned to its normal position, slowly withdrawn until completely removed. The patient tolerated procedure well without any complications. She was taken to recovery room in stable condition. RECOMMENDATIONS: The patient will need repeat colonoscopy in 5 years. Any issues before that be seen at that time. Job ID: [id number] DocumentID: [id number] Dictated Date: 02/25/2020 09:11:34 Business And Services Instructor Date: 02/25/2020 12:39:00 Dictated By: SOHEILA TUCKER DO
--- NOTE | 2020-02-25 13:44 | Anesthesia-General Post-Op ---
MAC Patient Condition Mental Status/LOC: Same as Preop Cardiovascular: Satisfactory Nausea/Vomiting: Absent Respiratory: Satisfactory Pain: Controlled Complications: Absent Post Op Complications Complications None Follow Up Care/Instructions Patient Instructions None needed. Anesthesiology Discharge Order Discharge Order Patient is doing well, no complaints, stable vital signs, no apparent adverse anesthesia problems. No complications reported per nursing. FRANCIS SINHA CRNA February 25, 2020 13:44
== END 2020-02-25 09:50 | disposition home or self-care (01) ==
LOC: ENDO 08:14
PROVIDERS: ATTEND Surgery
DX: Z12.11 Encounter for screening for malignant neoplasm of colon (principal); K21.9 Gastro-esophageal reflux disease without esophagitis; J45.909 Unspecified asthma, uncomplicated; Z86.010 Personal history of colon polyps; Z88.0 Allergy status to penicillin; Z79.899 Other long term (current) drug therapy; Z87.891 Personal history of nicotine dependence; Z90.710 Acquired absence of both cervix and uterus; Z82.49 Family history of ischemic heart disease and other diseases of the circulatory system

== ENCOUNTER → 2021-09-20 | Outpatient (CLI) | payer BC ==
[~2021-09-20] MED LIST changes: -ACYC400T PO; +ACYC400T21 PO; +CLN.1T; -CLON0.1T; -ESCI5TAB12 PO; +ESCI5TAB16 PO; -LACTATED RINGERS 1,000 ML IV ONE
--- NOTE | 2021-09-20 16:34 | Diagnostic Imaging Report ---
PATIENT HISTORY: Chronic cough. TECHNIQUE: Two views of the chest. COMPARISON: 11/04/2017. FINDINGS: The lung volumes are normal. No focal consolidation is seen. No large pleural effusion or pneumothorax is seen. The cardiomediastinal silhouette is normal in size and contour. No acute osseous abnormality is seen. IMPRESSION: No acute pulmonary abnormality seen. Dictated by: Dictated on workstation # [id number]
== END ==
LOC: RAD 14:43
PROVIDERS: ATTEND Nurse Practitioner Family
DX: R05.3 Chronic cough (principal)
CPT/HCPCS: 71046

== ENCOUNTER 2021-10-07 05:28 | Outpatient (RCR) | payer BC ==
[~2021-10-07] VITALS: Ht 157.5 cm; Wt 72.6 kg
[~2021-10-07 05:28] MED LIST changes: +ATOR20TA66 PO; +ESCI-2 PO; +FEXO180T84 PO; +OMEP20TA7 PO; +RT-ALBUINH INH
[2021-10-12] MEDS ORDERED: PANT40TA2 PO (13:28)
== END 2021-10-07 08:39 | disposition home or self-care (01) ==
LOC: PREOP 05:28
PROVIDERS: ATTEND Surgery
DX: Z01.812 Encounter for preprocedural laboratory examination (principal); R13.10 Dysphagia, unspecified; Z20.822 Contact with and (suspected) exposure to COVID-19
CPT/HCPCS: 87635

== ENCOUNTER → 2021-10-12 | Day surgery (SDC) | payer BC ==
[~2021-10-12] VITALS: Ht 157.5 cm; Wt 72.6 kg
[~2021-10-12] MED LIST changes: +HURRICAINE EXT TUBE (BENZOCAINE) XX PRN; +LACTATED RINGERS 1,000 ML IV ONE; +LACTATED RINGERS 1,000 ML IV STA; +MIDAZOLAM 2 MG/2 ML (VERSED) VIAL ONE; +PANT40TA2 PO; +PROPOFOL INJECTION 50 ML IV ONE
--- OUTSIDE RECORDS SUMMARY | 2021-10-12 11:59 | XMS REPORT | CCD ---
Author Author Kaleigh Faith Organization Alena Faith MD, [facility] Address [address] [place] [address] Phone Care Team Providers Care Deputy Brand Inspector Name Role Phone Alena Faith PP Unavailable CCM Unavailable Summary Purpose Interface Exchange Insurance Providers Payer name Policy type / Coverage type Covered green party ID Effective Begin Date Effective End Date [facility] Commercial Insurance [id number] Unknown Unknown Family history Mother Diagnosis Age At Onset Diabetes mellitus Type 2 Unknown Alcoholism Unknown Depression Unknown Father Diagnosis Age At Onset Diabetes mellitus Type 2 Unknown Social History Social History Element Codes Description Effective Dates Marital status Unknown Garry 05/30/2019 Number of children Unknown 2 05/30/2019 Employment Unknown Currently employed [employer] 05/30/[address]: 05726532 Current some days smoker Alcohol history SNOMED CT: 072896636 Never drinks alcohol 2018 Allergies, Adverse Reactions, Alerts Substance Reaction Codes Entered Date Inactivated Date Status Penicillin Unknown 05/30/2019 No Inactive Date Active Problems Condition Codes Effective Dates Condition Status Chronic cough ICD-10: R05.3 ICD-9: 786.2 09/20/2021 Active Dysphagia ICD-10: r13.10 ICD-9: 787.20 09/20/2021 Active Laryngitis ICD-10: J04.0 ICD-9: 464.00 08/31/2021 Active Other allergic rhinitis ICD-10: J30.89 ICD-9: 477.8 05/26/2020 Active Acute bronchitis ICD-10: J20.9 ICD-9: 466.0 09/27/2019 Active Slow transit constipation ICD-10: K59.01 ICD-9: 564.01 08/31/2021 Active Cough ICD-10: R05.9 ICD-9: 786.2 08/09/2021 Active Encounter for screening mammogram for malignant neopla sm of breast ICD-10: Z12.31 ICD-9: V76.12 08/25/2020 Active Generalized anxiety disorder ICD-10: F41.9 ICD-9: 300.00 08/09/2021 Active Menopausal and female climacteric states ICD-10: N95.1 ICD-9: 627.2 05/30/2019 Active Encounter for general adult medical examination withou t abnormal findings ICD- 10: Z00.00 ICD-9: V70.0 05/30/2019 Active Screening, lipid ICD-10: Z13.220 ICD-9: V77.91 08/06/2020 Active Migraine without status migrainosus, not intractable, unspecified migraine type ICD-10: G43.909 ICD-9: 346.90 05/26/2020 Active Headache ICD-10: R51 ICD-9: 784.0 06/01/2020 Active Other acute sinusitis ICD-10: J01.80 ICD-9: 461.8 05/26/2020 Active Generalized anxiety disorder ICD-10: F41.1 ICD-9: 300.00 05/30/2019 Active Encounter for gynecological examination (general) (routine) without abnormal findings ICD-10: Z01.419 ICD-9: V72.31 12/16/2019 Active Cough ICD-10: R05 ICD-9: 786.2 09/27/2019 Active Body aches ICD-10: R52 ICD-9: 780.96 09/23/2019 Active Fever ICD-10: R50.9 ICD-9: 780.60 09/23/2019 Active Pain in left ankle and joints of left foot ICD-10: M25 .572 ICD-9: 719.47 06/24/2019 Active Pain in left knee ICD-10: M25.562 ICD-9: 719.46 06/24/2019 Active Medications Medication Codes Instructions Start Date Stop Date Status Fill Instructions escitalopram 10 mg tablet RxNorm: 457025 TAKE ONE TABLE T BY MOUTH EVERY NIGHT AT BEDTIME Tablet(s) Oral 09/29/2021 09/29/2021 Inactive albuterol sulfate HFA 90 mcg/actuation aerosol inhaler RxNor m: 0067873 Inhale 2 Inhalation every 4-6 hours as needed cough 09/20/2021 No Stop Date Activ e atorvastatin 20 mg tablet RxNorm: 344517 Take 1 Tablet( s) Oral every night at bedtime 09/01/2021 12/29/2021 Active Miralax 17 gram/dose oral powder RxNorm: 038869 Take 1 scoop Or al every day 08/31/2021 09/29/2021 Inactive Alysa Allergy 180 mg tablet RxNorm: 343944 Take 1 Tab let(s) Oral every day for first 5 days take twice daily 08/31/2021 No Stop Date Active omeprazole 20 mg tablet,delayed release RxNorm: 418022 Take 1 Tablet(s) Oral every day 08/31/2021 09/13/2021 Inactive prednisone 20 mg tablet RxNorm: 627268 Take 2 Tablet(s) Oral ev alex day 08/23/2021 08/27/2021 Inactive azithromycin 250 mg tablet RxNorm: 350140 Take 1 Tablet (s) Oral every day take 2 tablets day 1, then take 1 tablet daily on days 2-5 08/23/2021 08/27/20 21 Inactive Please disregard Cefdinir RX. cefdinir 300 mg capsule RxNorm: 674675 Take 1 Capsule(s) Oral t wo times a day 08/23/2021 08/23/2021 Inactive azithromycin 250 mg tablet RxNorm: 039861 Take 1 Tablet (s) Oral every day take 2 tablets day 1, then take 1 tablet daily on days 2-5 08/23/2021 08/23/20 21 Inactive Please disregard Cefdinir RX. promethazine 6.25 mg-codeine 10 mg/5 mL syrup RxNorm: 411311 Take 5 Milliliter(s) Oral every 4-6 hours as needed cough 08/09/2021 Inactive prednisone 20 mg tablet RxNorm: 083730 Take 2 Tablet(s) Oral ev alex day 08/09/2021 08/13/2021 Inactive promethazine 6.25 mg-codeine 10 mg/5 mL syrup RxNorm: 255506 Take 5 Milliliter(s) Oral every 4-6 hours as needed cough 08/09/2021 Inactive Kenalog 40 mg/mL suspension for injection RxNorm: 1218779 Take 1 Milliliter(s) Injection 08/09/2021 08/09/2021 Inactive alprazolam 0.5 mg tablet RxNorm: 274969 Take 1 Tablet(s ) Oral two times a day as needed FOR ANXIETY 07/30/2021 08/28/2021 Inactive alprazolam 0.5 mg tablet RxNorm: 912964 1 Tablet(s) Ora l two times a day as needed anxiety 06/03/2021 06/03/2021 Inactive Depo-Estradiol 5 mg/mL intramuscular oil RxNorm: 373862 0.75 Milliliter(s) Intramuscular 04/28/2021 04/28/2021 Inactive alprazolam 0.5 mg tablet RxNorm: 703398 1 Tablet(s) Ora l two times a day as needed anxiety 04/05/2021 04/05/2021 Inactive Depo-Estradiol 5 mg/mL intramuscular oil RxNorm: 476820 0.75 Milliliter(s) Intramuscular 03/03/2021 03/03/2021 Inactive alprazolam 0.5 mg tablet RxNorm: 608503 1 Tablet(s) Ora l two times a day as needed anxiety 03/01/2021 03/01/2021 Inactive alprazolam 0.5 mg tablet RxNorm: 366275 1 Tablet(s) Ora l two times a day as needed anxiety 01/28/2021 02/26/2021 Inactive Depo-Provera 150 mg/mL intramuscular suspension RxNorm: 1000 128 Milliliter(s) Intramuscular 01/05/2021 01/05/2021 Inactive alprazolam 0.5 mg tablet RxNorm: 502208 1 Tablet(s) Ora l two times a day as needed anxiety 12/30/2020 01/27/2021 Inactive escitalopram 10 mg tablet RxNorm: 022841 TAKE ONE TABLE T BY MOUTH EVERY NIGHT AT BEDTIME Tablet(s) Oral 12/30/2020 12/30/2020 Inactive escitalopram 5 mg tablet RxNorm: 382390 TAKE ONE TABLET BY MOUTH EVERY NIGHT AT BEDTIME 11/30/2020 12/29/2020 Inactive alprazolam 0.5 mg tablet RxNorm: 961605 1 Tablet(s) Ora l two times a day as needed anxiety 11/30/2020 12/29/2020 Inactive atorvastatin 20 mg tablet RxNorm: 938850 TAKE ONE TABLET BY RADHA TH DAILY 11/26/2020 11/26/2020 Inactive Depo-Estradiol 5 mg/mL intramuscular oil RxNorm: 236657 3/4 Milliliter(s) Intramuscular monthly 10/28/2020 12/27/2020 Inactive Depo-Provera 150 mg/mL intramuscular suspension RxNorm: 1000 128 Milliliter(s) Intramuscular 10/28/2020 10/28/2020 Inactive alprazolam 0.5 mg tablet RxNorm: 638590 1 Tablet(s) Ora l two times a day as needed anxiety 10/01/2020 10/29/2020 Inactive acyclovir 400 mg tablet RxNorm: 809007 TAKE ONE TABLET BY MOUTH FOUR TIMES A DAY 08/31/2020 09/01/2020 Inactive alprazolam 0.5 mg tablet RxNorm: 539456 1 Tablet(s) Ora l two times a day as needed anxiety 08/31/2020 09/29/2020 Inactive atorvastatin 20 mg tablet RxNorm: 239426 1 Tablet(s) Oral every day 08/18/2020 08/17/2020 Inactive atorvastatin 20 mg tablet RxNorm: 237707 1 Tablet(s) Oral every day 08/18/2020 11/25/2020 Inactive alprazolam 0.5 mg tablet RxNorm: 174457 1 Tablet(s) Ora l two times a day as needed anxiety 08/07/2020 08/30/2020 Inactive Depo-Provera 150 mg/mL intramuscular suspension RxNorm: 1000 128 Milliliter(s) Intramuscular 08/04/2020 08/04/2020 Inactive acyclovir 400 mg tablet RxNorm: 158410 TAKE ONE TABLET BY MOUTH FOUR TIMES A DAY 07/21/2020 08/30/2020 Inactive alprazolam 0.5 mg tablet RxNorm: 198785 1 Tablet(s) Ora l two times a day as needed anxiety 07/07/2020 08/05/2020 Inactive alprazolam 0.5 mg tablet RxNorm: 363706 1 Tablet(s) Ora l two times a day as needed anxiety 06/18/2020 07/05/2020 Inactive escitalopram 5 mg tablet RxNorm: 656972 1 Tablet(s) Oral every night at bedtime 06/08/2020 10/06/2020 Inactive prednisone 20 mg tablet RxNorm: 370921 2 Tablet(s) Oral every day 0 06/01/2020 06/06/2020 Inactive Depo-Provera 150 mg/mL intramuscular suspension RxNorm: 1000 128 0.75 Milliliter(s) Intramuscular 05/28/2020 05/28/2020 Inactive Kenalog 40 mg/mL suspension for injection RxNorm: 0610188 1 Milliliter(s) Injection 05/28/2020 05/28/2020 Inactive Zithromax Z-Kraig 250 mg tablet RxNorm: 376659 Tablet(s) Oral as directed 05/26/2020 04/04/2021 Inactive alprazolam 0.5 mg tablet RxNorm: 465236 1 Tablet(s) Ora l two times a day as needed anxiety 05/11/2020 06/09/2020 Inactive alprazolam 0.5 mg tablet RxNorm: 481246 1 Tablet(s) Ora l two times a day as needed anxiety 04/02/2020 05/10/2020 Inactive Depo-Provera 150 mg/mL intramuscular suspension RxNorm: 1000 128 Milliliter(s) Intramuscular 03/19/2020 03/19/2020 Inactive acyclovir 400 mg tablet RxNorm: 530742 1 Tablet(s) Oral four times a day fever blisters 01/02/2020 02/01/2020 Inactive Depo-Provera 150 mg/mL intramuscular suspension RxNorm: 1000 128 Milliliter(s) Intramuscular 12/27/2019 12/27/2019 Inactive pravastatin 10 mg tablet RxNorm: 806986 1 Tablet(s) Oral every night at bedtime 12/19/2019 12/18/2019 Inactive pravastatin 10 mg tablet RxNorm: 283374 1 Tablet(s) Oral every night at bedtime 12/19/2019 04/17/2020 Inactive Depo-Estradiol 5 mg/mL intramuscular oil RxNorm: 850392 3/4 Milliliter(s) Intramuscular monthly 10/24/2019 10/24/2019 Inactive Kenalog 40 mg/mL suspension for injection RxNorm: 9299720 Milliliter(s) Injection 09/27/2019 09/27/2019 Inactive Phenergan with Codeine Syrup RxNorm: 5-10 Millil iter(s) Oral Every 6 hrs as needed 09/27/2019 05/31/2020 Inactive prednisone 20 mg tablet RxNorm: 491724 2 Tablet(s) Oral every day 1 11/28/2018 10/02/2019 Inactive start tomorrow doxycycline hyclate 100 mg tablet RxNorm: 0943269 1 Tabl et(s) Oral two times a day 09/27/2019 10/04/2019 Inactive start if symptom s do not improve Depo-Estradiol 5 mg/mL intramuscular oil RxNorm: 310262 3/4 Milliliter(s) Intramuscular monthly 08/20/2019 08/20/2019 Inactive Depo-Estradiol 5 mg/mL intramuscular oil RxNorm: 232793 3/4 Milliliter(s) Intramuscular monthly 08/15/2019 09/14/2019 Inactive gabapentin 100 mg capsule RxNorm: 080983 1 Capsule(s) O ral every night at bedtime 07/31/2019 09/22/2019 Inactive gabapentin 100 mg capsule RxNorm: 296882 1 Capsule(s) PO QHS 201807/26/2019 Inactive naproxen 500 mg tablet RxNorm: 081328 1 Tablet(s) PO BID 06/24/2019 0 06/28/2019 Inactive escitalopram 5 mg tablet RxNorm: 908030 1 Tablet(s) PO QHS 05/30/20 19 09/22/2019 Inactive CoQ-10 oral RxNorm: 61707 oral 09/01/2021 Active ranitidine 150 mg capsule RxNorm: 898386 1 Capsule(s) PO BID 201809/22/2019 Inactive eszopiclone 1 mg tablet RxNorm: 669282 Tablet(s) PO as needed 06/0105/31/2020 Inactive acyclovir 400 mg tablet RxNorm: 558507 1 Tablet(s) PO PRN fever blisters 01/02/2020 01/01/2020 Inactive clonidine HCl 0.1 mg tablet RxNorm: 507214 Tablet(s) PO as needed 0 05/30/2019 05/29/2019 Inactive Medication Administered Medication Codes Instructions Start Date Status Kenalog 40 mg/mL suspension for injection RxNorm: 2927715 1Milli liter 08/09/2021 No longer Active Depo-Estradiol 5 mg/mL intramuscular oil RxNorm: 395684 0.75Mil liliter 04/28/2021 No longer Active Depo-Estradiol 5 mg/mL intramuscular oil RxNorm: 558022 0.75Mil liliter 03/03/2021 No longer Active Depo-Provera 150 mg/mL intramuscular suspension RxNorm: 1215304 Milliliter 01/05/2021 No longer Active Depo-Provera 150 mg/mL intramuscular suspension RxNorm: 2972031 Milliliter 10/28/2020 No longer Active Depo-Provera 150 mg/mL intramuscular suspension RxNorm: 1432873 Milliliter 08/04/2020 No longer Active Depo-Provera 150 mg/mL intramuscular suspension RxNorm: 6956620 0.75Milliliter 05/28/2020 No longer Active Kenalog 40 mg/mL suspension for injection RxNorm: 1506046 1Milli liter 05/28/2020 No longer Active Depo-Provera 150 mg/mL intramuscular suspension RxNorm: 0838364 Milliliter 03/19/2020 No longer Active Depo-Provera 150 mg/mL intramuscular suspension RxNorm: 7167547 Milliliter 12/27/2019 No longer Active Depo-Estradiol 5 mg/mL intramuscular oil RxNorm: 869580 3/4Mill ilitermonthly 10/24/2019 Active Kenalog 40 mg/mL suspension for injection RxNorm: 2902174 Millilite r 09/27/2019 No longer Active Depo-Estradiol 5 mg/mL intramuscular oil RxNorm: 865933 3/4Mill ilitermonthly 08/20/2019 Active Immunizations No Immunization data Results Observation Observation Code Item Item Code Result Date S [facility] Location Cbc With Differential Ord2 WBC 11.77 K/ul 021 Unknown Cbc With Differential Ord2 RBC 4.50 M/ul 08/31/20 21 Unknown Cbc With Differential Ord2 HGB 13.6 g/dl 08/31/20 21 Unknown Cbc With Differential Ord2 Neut% 69.1 % 08/31/20 21 Unknown Cbc With Differential Ord2 HCT 43.0 % 08/31/20 21 Unknown Cbc With Differential Ord2 MCV 95.6 fl 08/31/20 21 Unknown Cbc With Differential Ord2 Lymph% 22.0 % 08/31/20 21 Unknown Cbc With Differential Ord2 MCH 30.2 pg 08/31/20 21 Unknown Cbc With Differential Ord2 [place]% 6.0 % 08/31/20 21 Unknown Cbc With Differential Ord2 Eos% 2.6 % 08/31/20 21 Unknown Cbc With Differential Ord2 MCHC 31.6 pg 08/31/20 21 Unknown Cbc With Differential Ord2 PLT 288 K/ul 08/31/20 21 Unknown Cbc With Differential Ord2 Baso% 0.3 % 08/31/20 21 Unknown Cbc With Differential Ord2 RDW 13.5 % 08/31/20 21 Unknown Cbc With Differential Ord2 Neut ABS# 8.13 K/ul 08/31/20 21 Unknown Cbc With Differential Ord2 Lymph ABS# 2.59 K/ul 021 Unknown Cbc With Differential Ord2 [place] ABS# 0.7 K/ul 08/31/20 21 Unknown Cbc With Differential Ord2 Eos ABS# 0.3 K/ul 08/31/20 21 Unknown Cbc With Differential Ord2 Baso ABS# 0.0 K/ul 08/31/20 21 Unknown Comp Metabolic Xzb842 NA 142 mEq/L 08/31/2021 Unkn own Comp Metabolic Lgy869 K 4.4 mEq/L 08/31/2021 Unkn own Comp Metabolic Jqn167 CL 101 mEq/L 08/31/2021 Unkn own Comp Metabolic Fcr879 CO2 32.0 mEq/L 08/31/2021 Unk nown Comp Metabolic Fcb350 ANION GAP 13 08/31/2021 Unkn own Comp Metabolic Zjc652 GLUCOSE 89 mg/dL 08/31/2021 Unkn own Comp Metabolic Ejt751 Creat 0.7 mg/dL 08/31/2021 Unkn own Comp Metabolic Efa778 eGFR 90 ml/min/1.73m2 08/31/20 21 Unknown Comp Metabolic Sgk189 BUN 19 mg/dL 08/31/2021 Unkn own Comp Metabolic Ejf501 B/C Ratio 26.4 Ratio 08/31/2021 Unk nown Comp Metabolic Qoh327 CALCIUM 9.2 mg/dL 08/31/2021 Unkn own Comp Metabolic Dwb606 ALK PHOS 85 U/L 08/31/2021 Unkn own Comp Metabolic Bcu804 AST(SGOT) 16 U/L 08/31/2021 Unkn own Comp Metabolic Uod319 ALT(SGPT) 19 U/L 08/31/2021 Unkn own Comp Metabolic Fnt286 BILI T 0.6 mg/dL 08/31/2021 Unkn own Comp Metabolic Sru120 ALBUMIN 4.2 g/dL 08/31/2021 Unkn own Comp Metabolic Sye017 TPRO 7.1 g/dL 08/31/2021 Unkn own Comp Metabolic Qyd607 GLOB 2.9 g/dL 08/31/2021 Unkn own Comp Metabolic Jxe947 A/G Ratio 1.5 Ratio 08/31/2021 Unkn own Comp Metabolic Yqp138 Osmo 285 mOsmo 08/31/2021 Unkn own Tsh Ord6 TSH (3rd IS) 1.14 uIU/mL 08/31/2021 Unkn own Lipid Ord30 CHOL 233 mg/dL 08/31/2021 Unknown Lipid Ord30 HDL 54.0 mg/dl 08/31/2021 Unknown Lipid Ord30 TRIG 101 mg/dL 08/31/2021 Unknown Lipid Ord30 LDL 159 mg/dL 08/31/2021 Unknown Lipid Ord30 C/HDL 4.3 Ratio 08/31/2021 Unknown Lipid Ord30 CHOL 249 mg/dL 08/06/2020 Unknown Lipid Ord30 HDL 55.0 mg/dl 08/06/2020 Unknown Lipid Ord30 TRIG 82 mg/dL 08/06/2020 Unknown Lipid Ord30 LDL 178 mg/dL 08/06/2020 Unknown Lipid Ord30 C/HDL 4.5 Ratio 08/06/2020 Unknown Comp Metabolic Qcu020 NA 138 mEq/L 08/06/2020 Unkn own Comp Metabolic Gvh998 K 4.5 mEq/L 08/06/2020 Unkn own Comp Metabolic Bez746 CL 103 mEq/L 08/06/2020 Unkn own Comp Metabolic Wka804 CO2 28.0 mEq/L 08/06/2020 Unk nown Comp Metabolic Qri425 ANION GAP 12 08/06/2020 Unkn own Comp Metabolic Cqy428 GLUCOSE 90 mg/dL 08/06/2020 Unkn own Comp Metabolic Asv762 Creat 0.7 mg/dL 08/06/2020 Unkn own Comp Metabolic Xoo199 eGFR 88 ml/min/1.73m2 08/06/20 20 Unknown Comp Metabolic Oki852 BUN 20 mg/dL 08/06/2020 Unkn own Comp Metabolic Rgm570 B/C Ratio 27.0 Ratio 08/06/2020 Unk nown Comp Metabolic Xxr066 CALCIUM 9.5 mg/dL 08/06/2020 Unkn own Comp Metabolic Zkn813 ALK PHOS 87 U/L 08/06/2020 Unkn own Comp Metabolic Rqg868 AST(SGOT) 17 U/L 08/06/2020 Unkn own Comp Metabolic Djd846 ALT(SGPT) 20 U/L 08/06/2020 Unkn own Comp Metabolic Ile488 BILI T 0.6 mg/dL 08/06/2020 Unkn own Comp Metabolic Uay233 ALBUMIN 4.5 g/dL 08/06/2020 Unkn own Comp Metabolic Dst706 TPRO 7.6 g/dL 08/06/2020 Unkn own Comp Metabolic Upi417 GLOB 3.1 g/dL 08/06/2020 Unkn own Comp Metabolic Muy426 A/G Ratio 1.5 Ratio 08/06/2020 Unkn own Comp Metabolic Hjv815 Osmo 278 mOsmo 08/06/2020 Unkn own Cbc With Differential Ord2 WBC 10.56 K/ul 020 Unknown Cbc With Differential Ord2 RBC 4.44 M/ul 08/06/20 Unknown Cbc With Differential Ord2 HGB 14.0 g/dl 08/06/20 Unknown Cbc With Differential Ord2 HCT 42.8 % 08/06/20 Unknown Cbc With Differential Ord2 Neut% 73.9 % 08/06/20 Unknown Cbc With Differential Ord2 MCV 96.4 fl 08/06/20 Unknown Cbc With Differential Ord2 Lymph% 18.2 % 08/06/20 Unknown Cbc With Differential Ord2 MCH 31.5 pg 08/06/20 Unknown Cbc With Differential Ord2 [place]% 5.4 % 08/06/20 Unknown Cbc With Differential Ord2 MCHC 32.7 pg 08/06/20 Unknown Cbc With Differential Ord2 Eos% 2.2 % 08/06/20 Unknown Cbc With Differential Ord2 PLT 258 K/ul 08/06/20 Unknown Cbc With Differential Ord2 Baso% 0.3 % 08/06/20 Unknown Cbc With Differential Ord2 RDW 13.4 % 08/06/20 Unknown Cbc With Differential Ord2 Neut ABS# 7.81 K/ul 08/06/20 Unknown Cbc With Differential Ord2 Lymph ABS# 1.92 K/ul 020 Unknown Cbc With Differential Ord2 [place] ABS# 0.6 K/ul 08/06/20 Unknown Cbc With Differential Ord2 Eos ABS# 0.2 K/ul 08/06/20 Unknown Cbc With Differential Ord2 Baso ABS# 0.0 K/ul 10/22/20 20 Unknown Tsh Ord6 TSH (3rd IS) 1.38 uIU/mL 12/17/2019 Unkn own Comp Metabolic Bxf597 NA 141 mEq/L 12/17/2019 Unkn own Comp Metabolic Ttc604 K 4.3 mEq/L 12/17/2019 Unkn own Comp Metabolic Ypf955 CL 104 mEq/L 12/17/2019 Unkn own Comp Metabolic Koo178 CO2 29.0 mEq/L 12/17/2019 Unk nown Comp Metabolic Zsr899 ANION GAP 12 12/17/2019 Unkn own Comp Metabolic Tsb847 GLUCOSE 83 mg/dL 12/17/2019 Unkn own Comp Metabolic Bma950 Creat 0.7 mg/dL 12/17/2019 Unkn own Comp Metabolic Xad524 eGFR 102 ml/min/1.73m2 020 Unknown Comp Metabolic Wil224 BUN 16 mg/dL 12/17/2019 Unkn own Comp Metabolic Fqb352 B/C Ratio 24.6 Ratio 12/17/2019 Unk nown Comp Metabolic Bju244 CALCIUM 9.3 mg/dL 12/17/2019 Unkn own Comp Metabolic Wid669 ALK PHOS 79 U/L 12/17/2019 Unkn own Comp Metabolic Udt525 AST(SGOT) 19 U/L 12/17/2019 Unkn own Comp Metabolic Rnb909 ALT(SGPT) 26 U/L 12/17/2019 Unkn own Comp Metabolic Lsg663 BILI T 0.5 mg/dL 12/17/2019 Unkn own Comp Metabolic Vui961 ALBUMIN 4.2 g/dL 12/17/2019 Unkn own Comp Metabolic Jxa206 TPRO 7.0 g/dL 12/17/2019 Unkn own Comp Metabolic Twi695 GLOB 2.8 g/dL 12/17/2019 Unkn own Comp Metabolic Kaa921 A/G Ratio 1.5 Ratio 12/17/2019 Unkn own Comp Metabolic Nwe597 Osmo 282 mOsmo 12/17/2019 Unkn own Cbc With Differential Ord2 WBC 8.94 K/ul 12/17/19 20 Unknown Cbc With Differential Ord2 RBC 4.34 M/ul 12/17/19 20 Unknown Cbc With Differential Ord2 HGB 13.3 g/dl 12/17/19 20 Unknown Cbc With Differential Ord2 HCT 40.7 % 12/17/19 20 Unknown Cbc With Differential Ord2 Neut% 71.8 % 12/17/19 20 Unknown Cbc With Differential Ord2 MCV 93.8 fl 12/17/19 20 Unknown Cbc With Differential Ord2 Lymph% 19.5 % 12/17/19 20 Unknown Cbc With Differential Ord2 MCH 30.6 pg 12/17/19 20 Unknown Cbc With Differential Ord2 [place]% 6.2 % 12/17/19 20 Unknown Cbc With Differential Ord2 Eos% 2.2 % 12/17/19 20 Unknown Cbc With Differential Ord2 MCHC 32.7 pg 12/17/19 20 Unknown Cbc With Differential Ord2 Baso% 0.3 % 12/17/19 20 Unknown Cbc With Differential Ord2 PLT 262 K/ul 12/17/19 20 Unknown Cbc With Differential Ord2 RDW 13.4 % 12/17/19 20 Unknown Cbc With Differential Ord2 Neut ABS# 6.42 K/ul 12/17/19 20 Unknown Cbc With Differential Ord2 Lymph ABS# 1.74 K/ul 020 Unknown Cbc With Differential Ord2 [place] ABS# 0.6 K/ul 12/17/19 20 Unknown Cbc With Differential Ord2 Eos ABS# 0.2 K/ul 12/17/19 20 Unknown Cbc With Differential Ord2 Baso ABS# 0.0 K/ul 12/17/19 20 Unknown Lipid Ord30 CHOL 240 mg/dL 12/17/2019 Unknown Lipid Ord30 HDL 57.0 mg/dl 12/17/2019 Unknown Lipid Ord30 TRIG 80 mg/dL 12/17/2019 Unknown Lipid Ord30 LDL 167 mg/dL 12/17/2019 Unknown Lipid Ord30 C/HDL 4.2 Ratio 12/17/2019 Unknown C A/B FLU 1041136 Influenza A Scr Negative 09/23/2019 Unk nown C A/B FLU 1774464 Influenza B Scr Negative 09/23/2019 Unk nown C A/B FLU 8824802 Influenza Intrp B AG:PRID:PT:NOSE:NOM:IF See Footnote 09/23/2019 Unknown Procedures Procedure Codes Date THER/PROPH/DIAG INJ SC/IM CPT-4: 65018 04/28/2021 THER/PROPH/DIAG INJ SC/IM CPT-4: 55491 03/03/2021 THER/PROPH/DIAG INJ SC/IM CPT-4: 11416 01/05/2021 THER/PROPH/DIAG INJ SC/IM CPT-4: 44816 10/28/2020 THER/PROPH/DIAG INJ SC/IM CPT-4: 94070 08/04/2020 THER/PROPH/DIAG INJ SC/IM CPT-4: 23664 05/26/2020 TRIAMCINOLONE ACET INJ NOS 10 mg CPT-4: J3301 020 THER/PROPH/DIAG INJ SC/IM CPT-4: 83920 03/19/2020 THER/PROPH/DIAG INJ SC/IM CPT-4: 97343 12/27/2019 THER/PROPH/DIAG INJ SC/IM CPT-4: 78314 10/24/2019 TRIAMCINOLONE ACET INJ NOS 10 mg CPT-4: J3301 019 THER/PROPH/DIAG INJ SC/IM CPT-4: 35018 08/19/2019 Vital Signs Date Vital 09/20/2021 Blood Pressure 1: 110/80 Code: 8480-6 BMI: 30.2 Code: 56809-8 Heart Rate 1: 88 bpm Height: 5'2" Code: 8302-2 SpO2: 98% Temperature: 3 6.8 (C) / 98.2 (F) Weight: 165 lbs Code: 84927-4 08/31/2021 Blood Pressure 1: 156/82 Code: 8480-6 Heart Rate 1: 81 bpm Height: 5'2" Code: 8302-2 Height: 5'2" Code: 8302-2 SpO2: 99% Temperature: 3 6.2 (C) / 97.1 (F) Weight: Code: 50520-1 08/09/2021 Blood Pressure 1: 142/68 Code: 8480-6 BMI: 30.7 Code: 89854-5 Heart Rate 1: 63 bpm Height: 5'2" Code: 8302-2 SpO2: 97% Temperature: 3 6.4 (C) / 97.6 (F) Weight: 168 lbs Code: 79662-6 06/01/2020 Blood Pressure 1: 130/80 Code: 8480-6 BMI: 28.5 Code: 99137-5 Heart Rate 1: 69 bpm Height: 5'2" Code: 8302-2 SpO2: 97% Temperature: 3 6.9 (C) / 98.4 (F) Weight: 156 lbs Code: 08123-1 05/26/2020 Blood Pressure 1: 128/78 Code: 8480-6 Heart Rate 1: 74 bpm Height: Code: 8302-2 SpO2: 98% Weight: Code: 16330-4 04/02/2020 Height: Code: 8302-2 Weight: Code: 294 63-7 12/16/2019 Blood Pressure 1: 132/80 Code: 8480-6 BMI: 28.9 Code: 22598-0 Heart Rate 1: 68 bpm Height: 5'2" Code: 8302-2 SpO2: 97% Weight: 158 lb s Code: 02487-7 09/27/2019 Blood Pressure 1: 110/60 Code: 8480-6 BMI: 28.5 Code: 43782-1 Heart Rate 1: 76 bpm Height: 5'2" Code: 8302-2 SpO2: 98% Temperature: 3 6.9 (C) / 98.5 (F) Weight: 156 lbs Code: 10060-7 09/23/2019 Blood Pressure 1: 124/80 Code: 8480-6 Heart Rate 1: 81 bpm SpO2: 98% Temperature: 36.7 (C) / 98.1 (F) 08/19/2019 Blood Pressure 1: 130/78 Code: 8480-6 BMI: 28.0 Code: 45928-4 Heart Rate 1: 68 bpm Height: 5'2" Code: 8302-2 SpO2: 98% Weight: 153 lb s Code: 09187-4 06/27/2019 Heart Rate 1: 68 bpm Height: Code: 8302-2 Weigh t: Code: 02616-7 06/24/2019 Blood Pressure 1: 132/74 Code: 8480-6 BMI: 27.4 Code: 56880-2 Heart Rate 1: 66 bpm Height: 5'2" Code: 8302-2 SpO2: 98% Weight: 150 lb s Code: 13010-8 05/30/2019 Blood Pressure 1: 104/60 Code: 8480-6 BMI: 27.5 Code: 06346-0 Heart Rate 1: 66 bpm Height: 5'2" Code: 8302-2 SpO2: 98% Weight: 150 lb s 5 oz Code: 11235-1 Functional Status No Functional Status data Reason For Visit Reason For Visit Effective Dates Notes cough 09/20/2021 cough 08/31/2021 sinus congestion 08/09/2021 headache 06/01/2020 headache 05/26/2020 well woman exam (40-65 years) 12/16/2019 cough 09/27/2019 fever 09/23/2019 menopausal symptoms 08/19/2019 lower leg pain 06/27/2019 lower leg pain 06/24/2019 anxiety 05/30/2019 Encounters Encounter Performer Location Codes Date ([id number]) [id number] EST. PATIENT, LEVEL IV Diagnosis: Chronic cough[ICD10: R05.3] Diagnosis: Laryngitis[ICD10: J04.0] Diagnosis: Other allergic rhinitis[ICD10: J30.89] Diagnosis: Dysphagia[ICD10: r13.10] Mariel Faith MD, [facility] C PT-4: 92052 09/20/2021 ([id number]) [id number] EST. PATIENT, LEVEL IV Diagnosis: Acute bronchitis[ICD10: J20.9] Diagnosis: Laryngitis[ICD10: J04.0] Diagnosis: Other allergic rhinitis[ICD10: J30.89] Diagnosis: Slow transit constipation[ICD10: K59.01] Mariel Faith MD, [facility] CPT-4: 00776 08/31/2021 ([id number]) 91343 EST. PATIENT, LEVEL IV Diagnosis: Generalized anxiety disorder[ICD10: F41.9] Diagnosis: Cough[ICD10: R05.9] Diagnosis: Other allergic rhinitis[ICD10: J30.89] Diagnosis: Encounter for screening mammogram for malignant neoplasm of breast[ICD10: Z12.31] Mariel Faith MD, [facility] CPT-4: 98147 08/09/2021 ([id number]) 50064 EST. PATIENT, LEVEL III Diagnosis: Headache[ICD10: R51] Diagnosis: Other allergic rhinitis[ICD10: J30.89] [facility] CPT-4: 79534 06/01/2020 63978 EST. PATIENT, LEVEL III Diagnosis: Other acute sinusitis[ICD10: J01.80] Diagnosis: Other allergic rhinitis[ICD10: J30.89] Diagnosis: Migraine without status migrainosus, not intractable, unspecified migraine type[ICD10: G43.909] Diagnosis: Menopausal and female climacteric states[ICD10: N95.1] Jaycee Faith MD, [facility] CPT-4: 64238 05/26/2020 ([id number]) 49491 EST. PATIENT, LEVEL III Diagnosis: Generalized anxiety disorder[ICD10: F41.1] Alena Faith MD, [facility] CPT-4: 47707 04/02/2020 ([id number]) PREV VISIT EST AGE 40-64 Diagnosis: Encounter for gynecological examination (general) (routine) without abnormal findings[ICD10: Z01.419] Farzana Faith MD, [facility] CPT -4: 10016 12/16/2019 ([id number]) 77386 EST. PATIENT, LEVEL III Diagnosis: Cough[ICD10: R05] Diagnosis: Acute bronchitis[ICD10: J20.9] Farzana pulido MD, [facility] CPT-4: 91194 09/27/2019 ([id number]) 76804 EST. PATIENT, LEVEL III Diagnosis: Fever[ICD10: R50.9] Diagnosis: Body aches[ICD10: R52] Farzana Faith MD, [facility] CPT -4: 52955 09/23/2019 ([id number]) 73114 EST. PATIENT, LEVEL III Diagnosis: Menopausal and female climacteric states[ICD10: N95.1] Farzana Faith MD, [facility] CPT-4: 07967 08/19/2019 83267 EST. PATIENT, LEVEL III Diagnosis: Pain in left ankle and joints of left foot[ICD10: M25.572] Diagnosis: Pain in left knee[ICD10: M25.562] Jaycee gupta MD, [facility] CPT-4: 61090 06/27/2019 49676 EST. PATIENT, LEVEL III Diagnosis: Pain in left ankle and joints of left foot[ICD10: M25.572] Diagnosis: Pain in left knee[ICD10: M25.562] [facility] CPT-4: 20478 06/24/2019 ([id number]) PREV VISIT NEW AGE 40-64 Diagnosis: Encounter for general adult medical examination without abnormal findings[ICD10: Z00.00] [facility] CPT-4: 46978 05/30/2019 Plan of Care Planned Activity Notes Codes Status Date Visit Plan: Chronic cough/laryngitis - h as been persistent for the last 6 weeks, despite treatment of allergies, GERD, and URI with steroids and antibiotic. Will obtain CXR today and rx for Albuterol inhaler sent to pharmacy to see if improvement with use. Dysphagia - pt reports feeling as though food is getting caught in her esophagus. Pt was being treated for possible silent GERD as has had a persistent cough despite improvement in sinus congestion and drainage. Per pt request will refer for EGD with Dr. Cain. Pt reports family history of esophageal stricture. 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 09/20/2021 Appointment: [facility] Gil [facility] [place] (30 min) Complex 09/20/2021 Patient Education: Patient Medication Summary Completed 09/20/2021 Care Plan: CHEST X-RAY 2VW FRONTAL&LATL LOINC : 36346-6 Pending 09/20/2021 Visit Plan: Allergies - recent increase in nasal congestion that has been worsening cough. Has tried Claritin in the past without any relief. Discussed use of being aggressive with allergies to help decrease cough and loss of voice. Discussed use of Alysa twice a day x 5 days then decrease down to daily. BP elevated the last 2 visits, so discouraged use of Sudafed. Discussed us of Cloricidin HP as needed for congestions. Laryngitis - secondary to acute bronchitis that has worsened over the last month. Cough has improved, but pt reports tightness when lying down. Discussed possible silent GERD due to increas e in coughing. Recommended taking Omeprazole daily x 2 weeks. Acute Bronchitis - cough improved, denies chest congestion. Completed 2 rounds of antibiotics and 2 rounds of steroids. Discussed treat more aggressive with allergies and GERD. Pt encouraged to follow up in 2 weeks if no improvement. Slow transit constipation - encouraged use Miralax 1 capful daily, may titrate based on needed. Allergies exacerbation with cough - chronic - recommended pt to use allergy medication as prescribed. Pt has been counseled as to the appropriate use of the medication. Pt to call if allergy symptoms are not controlled with the medication. If using nasal spray, instructions as follows: Nasal spray- use twice daily, one spray per nostril twice daily, after 30 minutes, rinse out nose with saline spray.. Use opposite hand per nostril to spray in the nasal steroid allergy spray. Kenalog injection given at visit. Prednisone rx sent. Phenergan with codeine cough medicine sent. Screening mammogram - orders sent. Anxiety - controlled. Continue prn alprazolam at bedtime and escitalopram. Fasting lab orders sent 08/31/2021 Appointment: [phone] [facility] ([facility] min) Complex 08/31/2021 Patient Education: Patient Medication Summary Completed 08/31/2021 Patient Education: Patient Medication Summary Completed 08/23/2021 Visit Plan: Allergies exacerbation with cough - chronic - recommended pt to use allergy medication as prescribed. Pt has been counseled as to the appropriate use of the medication. Pt to call if allergy symptoms are not controlled with the medication. If using nasal spray, instructions as follows: Nasal spray- use twice daily, one spray per nostril twice daily, after 30 minutes, rinse out nose with saline spray.. Use opposite hand per nostril to spray in the nasal steroid allergy spray. Kenalog injection given at visit. Prednisone rx sent. Phenergan with codeine cough medicine sent. Screening mammogram - orders sent. Anxiety - controlled. Continue prn alprazolam at bedtime and escitalopram. Fasting lab orders sent 08/09/2021 Appointment: Mariel Gil [facility]el[facility] (30 min) Complex 08/09/2021 Patient Education: Patient Medication Summary Completed 08/09/2021 Patient Education: prednisone- [employer] [id number] Completed 08/09/2021 Appointment: Injection 04/28/2021 Patient Education: Patient Medication Summary Completed 04/28/2021 Appointment: Injection 03/03/2021 Patient Education: Patient Medication Summary Completed 03/03/2021 Appointment: Injection 03/01/2021 Appointment: Injection 01/05/2021 Patient Education: Patient Medication Summary Completed 01/05/2021 Appointment: Injection 10/28/2020 Patient Education: Patient Medication Summary Completed 10/28/2020 Patient Education: Patient Medication Summary Completed 08/25/2020 Patient Education: Patient Medication Summary Completed 08/06/2020 Appointment: Injection 08/04/2020 Patient Education: Patient Medication Summary Completed 08/04/2020 Visit Plan: Allergies - chronic - recomm ended pt to use allergy medication as prescribed. Pt has been counseled as to the appropriate use of the medication. Pt to call if allergy symptoms are not controlled with the medication. If using nasal spray, instructions as follows: Nasal spray- use twice daily, one spray per nostril twice daily, after 30 minutes, rinse out nose with saline spray.. Use opposite hand per nostril to spray in the nasal steroid allergy spray. Headache -will treat allergies/congestion - instructed patient to call if does not improve and we will order CT Head without contrast. 06/01/2020 Appointment: Farzana Cristina WPtel: [phone] [phone] (15 min) Moderate 06/01/2020 Patient Education: Patient Medication Summary Completed 06/01/2020 Visit Plan: Sinusitis - Pt has acute inf ection - pain in face, maxillary region, Pt informed to use decongestant, RX given to patient, sinus rinses also recommended. Call if symptoms do not show improvement. Allergies - chronic - recommended pt to use allergy medication as prescribed. Pt has been counseled as to the appropriate use of the medication. Pt to call if allergy symptoms are not controlled with the medication. If using nasal spray, instructions as follows: Nasal spray- use twice daily, one spray per nostril twice daily, after 30 minutes, rinse out nose with saline spray.. Use opposite hand per nostril to spray in the nasal steroid allergy spray. Migraine - will treat for sinus infection - pt is to notify clinic if symptoms do not improve, if they worsen, or with any changes, questions, or concerns. 05/26/2020 Appointment: Jaycee Lindo WPtel: [phone] [facility] (30 min) Complex 05/26/2020 Patient Education: Patient Medication Summary Completed 05/26/2020 Visit Plan: Anxiety - the patient has un controlled anxiety and will benefit from a short term dose of xanax for control of symptoms. 04/02/2020 Appointment: Alena Faith WPtel: [phone] [facility] TeleHealth 04/02/2020 Patient Education: Patient Medication Summary Completed 04/02/2020 Appointment: Injection 03/19/2020 Patient Education: Patient Medication Summary Completed 03/19/2020 Appointment: Injection 03/18/2020 Appointment: Injection 12/27/2019 Patient Education: Patient Medication Summary Completed 12/27/2019 Appointment: Alena Faith WPtel: [facility] Well Woman 12/24/2019 Visit Plan: Well Adult Female - exam com pleted. Pap and breast exam completed. Pt will be called with results of her testing. She was advised to continue with yearly annual exams. Safe sex practices discussed during office visit today. Call if any abnormal gynecologic issues during the next year, otherwise, RTC yearly or prn. 12/16/2019 Appointment: Farzana Cristina WPtel: [phone] Well Woman 12/16/2019 Patient Education: Patient Medication Summary Completed 12/16/2019 Appointment: Al[facility] Faith [facility]el[facility] (15 min) Moderate 12/03/2019 Appointment: Injection 10/24/2019 Patient Education: Patient Medication Summary Completed 10/24/2019 Visit Plan: Bronchitis - acute case of b ronchitis identified. Pt has been given antibiotics, breathing treatments as appropriate, and pt has been instructed to call if symptoms are not improved, or if symptoms acutely worsen. 09/27/2019 Appointment: Farzana Cristina WPtel: [phone] (15 min) Moderate 09/27/2019 Patient Education: Patient Medication Summary Completed 09/27/2019 Visit Plan: URI -viral -flu swab to r/o flu - Pt advised to increase fluids, vitamin C. Discussed natural and expected course of this diagnosis and need to alert me if symptoms do not follow expected course, or if any worse. 09/23/2019 Appointment: Farzana Cristina WPtel: [address] [place], [place] [phone] [place] (30 min) Complex 09/23/2019 Patient Education: Patient Medication Summary Completed 09/23/2019 Visit Plan: Post-surgical menopause - co ntinue to taper depo dose and eventually off medication completely -injection today in the office. 08/19/2019 Appointment: Farzana Cristina WPtel: [phone] [place] (15 min) Moderate 08/19/2019 Patient Education: Patient Medication Summary Completed 08/19/2019 Appointment: [facility] Cristina [facility]Ptel[phone] [place] (30 min) Complex 08/16/2019 Visit Plan: Left knee, ankle, foot pain - will send RX - will refer to ortho - The pt is to use prn antiinflammatories to manage acute pain. The patient is to call the office if the pain is worsening or does not improve. 06/27/2019 Appointment: Jaycee Lindo WPtel[facility] [place] (30 min) Complex 06/27/2019 Patient Education: Patient Medication Summary Completed 06/27/2019 Care Plan: Referral Order SNOMED-CT : [id number] Pending 06/27/2019 Visit Plan: Left knee, ankle, foot pain - will send RX - if no improvement will refer to ortho - The pt is to use prn antiinflammatories to manage acute pain. The patient is to call the office if the pain is worsening or does not improve. 06/24/2019 Appointment: Jaycee Lindo WPtel: [address] [place] [address] [place] (30 min) Complex 06/24/2019 Patient Education: Patient Medication Summary Completed 06/24/2019 Visit Plan: Well Adult - pt was counsele d about diet, exercise, and encouraged to follow [...] we will look for her medications from [facility] to find out what her depo dose is so I can wean her off of it. Anxiety - the patient has uncontrolled anxiety and will benefit from an SSRI on a daily basis to attempt control of the symptoms of anxiety (tachycardia, overwhelming sensations, stress, insomnia, etc). stop clonidine due to hypotension 05/30/2019 Patient Education: Patient Medication Summary Completed 05/30/2019 Referral: João Cain HPtel:[phone] [facility] [place] Referral Appointment Requested Referral: Nathan Dudley Referral Appointment Co nfirmed Referral: Nathan Dudley Referral Completed Instructions Comment Date CHEST XRAY TODAY ALBUTEROL INHALER 2 PUFFS EVERY 4-6 HOURS NEEDED WILL SEND REFERRAL TO DR CAIN FOR EGD WILL DISCUSS NEXT FOLLOW UP AFTER CHEST XRAY AND EFFECTIVENESS OF INHALER. CALL WITH UPDATE IN 1 WEEK. . Chronic cough/laryngitis - has been pe rsistent for the last 6 weeks, despite treatment of allergies, GERD, and URI with steroids and antibiotic. Will obtain CXR today and rx for Albuterol inhaler sent to pharmacy to see if improvement with use. Dysphagia - pt reports feeling as though food is getting caught in her esophagus. Pt was being treated for possible silent GERD as has had a persistent cough despite improvement in sinus congestion and drainage. Per pt request will refer for EGD with Dr. Cain. Pt reports family history of esophageal stricture. Allergies - pt reports sinus congestion and drainage has significantly improved since taking Alysa daily. 09/20/2021 GENERIC ALYSA OTC 1 TABLET TWICE A DAY FOR 5 DAYS, THEN DECREASE TO ONCE A DAY OMEPRAZOLE (GENERIC PRILOSEC) 20MG TAKE 1 DAILY X 14 CLORICIDIN HP OVER THE COUNTER DECONGESTANT NEEDED WHEN YOU FEEL MORE CONGESTED MIRALAX 17GM 1 CAPFUL MIX WITH WATER DAILY DUE FOR ANNUAL MAMMOGRAM- order faxed DUE TO [facility]NU[facility]- orders given at visit CONTINUE XYZOL OR ZYRTEC STEROID SHOT TODAY PREDNISONE TABLETS TAKE 2 TABLETS DAILY X 5 DAYS PHENERGAN W/CODEINE COUGH MEDICINE . Allergies - recent increase in nasal c ongestion that has been worsening cough. Has tried Claritin in the past without any relief. Discussed use of being aggressive with allergies to help decrease cough and loss of voice. Discussed use of Alysa twice a day x 5 days then decrease down to daily. BP elevated the last 2 visits, so discouraged use of Sudafed. Discussed us of Cloricidin HP as needed for congestions. Laryngitis - secondary to acute bronchitis that has worsened over the last month. Cough has improved, but pt reports tightness when lying down. Discussed possible silent GERD due to increase in coughing. Recommended taking Omeprazole daily x 2 weeks. Acute Bronchitis - cough improved, denies chest congestion. Completed 2 rounds of antibiotics and 2 rounds of steroids. Discussed treat more aggressive with allergies and GERD. Pt encouraged to follow up in 2 weeks if no improvement. Slow transit constipation - encouraged use Miralax 1 capful daily, may titrate based on needed. Allergies exacerbation with cough - chronic - recommended pt to use allergy medication as prescribed. Pt has been counseled as to the appropriate use of the medication. Pt to call if allergy symptoms are not controlled with the medication. If using nasal spray, instructions as follows: Nasal spray- use twice daily, one spray per nostril twice daily, after 30 minutes, rinse out nose with saline spray.. Use opposite hand per nostril to spray in the nasal steroid allergy spray. Kenalog injection given at visit. Prednisone rx sent. Phenergan with codeine cough medicine sent. Screening mammogram - orders sent. Anxiety - controlled. Continue prn alprazolam at bedtime and escitalopram. Fasting lab orders sent 08/31/2021 DUE FOR ANNUAL MAMMOGRAM- order faxed DUE TO [facility]- orders given at visit CONTINUE XYZOL OR ZYRTEC STEROID SHOT TODAY PREDNISONE TABLETS TAKE 2 TABLETS DAILY X 5 DAYS PHENERGAN W/CODEINE COUGH MEDICINE . Allergies exacerbation with cough - ch ronic - recommended pt to use allergy medication as prescribed. Pt has been counseled as to the appropriate use of the medication. Pt to call if allergy symptoms are not controlled with the medication. If using nasal spray, instructions as follows: Nasal spray- use twice daily, one spray per nostril twice daily, after 30 minutes, rinse out nose with saline spray.. Use opposite hand per nostril to spray in the nasal steroid allergy spray. Kenalog injection given at visit. Prednisone rx sent. Phenergan with codeine cough medicine sent. Screening mammogram - orders sent. Anxiety - controlled. Continue prn alprazolam at bedtime and escitalopram. Fasting lab orders sent 08/09/2021 . Allergies - chronic - recommended pt t o use allergy medication as prescribed. Pt has been counseled as to the appropriate use of the medication. Pt to call if allergy symptoms are not controlled with the medication. If using nasal spray, instructions as follows: Nasal spray- use twice daily, one spray per nostril twice daily, after 30 minutes, rinse out nose with saline spray.. Use opposite hand per nostril to spray in the nasal steroid allergy spray. Headache -will treat allergies/congestion - instructed patient to call if does not improve and we will order CT Head without contrast. 06/01/2020 . Sinusitis - Pt has acute infection - p ain in face, maxillary region, Pt informed to use decongestant, RX given to patient, sinus rinses also recommended. Call if symptoms do not show improvement. Allergies - chronic - recommended pt to use allergy medication as prescribed. Pt has been counseled as to the appropriate use of the medication. Pt to call if allergy symptoms are not controlled with the medication. If using nasal spray, instructions as follows: Nasal spray- use twice daily, one spray per nostril twice daily, after 30 minutes, rinse out nose with saline spray.. Use opposite hand per nostril to spray in the nasal steroid allergy spray. Migraine - will treat for sinus infection - pt is to notify clinic if symptoms do not improve, if they worsen, or with any changes, questions, or concerns. 05/26/2020 . Anxiety - the patient has uncontrolled anxiety and will benefit from a short term dose of xanax for control of symptoms. 04/02/2020 . Well Adult Female - exam completed. P ap and breast exam completed. Pt will be called with results of her testing. She was advised to continue with yearly annual exams. Safe sex practices discussed during office visit today. Call if any abnormal gynecologic issues during the next year, otherwise, RTC yearly or prn. 12/16/2019 kenaung . Bronchitis - acute case of bronchitis identified. Pt has been given antibiotics, breathing treatments as appropriate, and pt has been instructed to call if symptoms are not improved, or if symptoms acutely worsen. 09/27/2019 . URI -viral -flu swab to r/o flu - Pt a dvised to increase fluids, vitamin C. Discussed natural and expected course of this diagnosis and need to alert me if symptoms do not follow expected course, or if any worse. 09/23/2019 . Post-surgical menopause - continue to taper depo dose and eventually off medication completely -injection today in the office. 08/19/2019 tomorrow at 10:15 with the nurse pracdelilah isaacs. Left knee, ankle, foot pain - will send RX - will refer to ortho - The pt is to use prn antiinflammatories to manage acute pain. The patient is to call the office if the pain is worsening or does not improve. 06/27/2019 . Left knee, ankle, foot pain - will sen d RX - if no improvement will refer to ortho - The pt is to use prn antiinflammatories to manage acute pain. The patient is to call the office if the pain is worsening or does not improve. 06/24/2019 . Well Adult - pt was counseled about di et, exercise, and encouraged to follow a heart [...] we will look for her medications from [facility] to find out what her depo dose is so I can wean her off of it. Anxiety - the patient has uncontrolled anxiety and will benefit from an SSRI on a daily basis to attempt control of the symptoms of anxiety (tachycardia, overwhelming sensations, stress, insomnia, etc). stop clonidine due to hypotension 05/30/2019 Medical Equipment No Medical Equipment data Health Concerns Section Health Concerns data not found Goals Section Goals data not found Interventions Section Interventions data not found Health Status Evaluations/Outcomes Section Health Status Evaluations/Outcomes data not found Advance Directives No Advance Directive data
--- OUTSIDE RECORDS SUMMARY | 2021-10-12 11:59 | XMS REPORT | CCD ---
Author Author Kaleigh Faith Organization Alena Faith MD, [facility] Address [address] [place] [address] Phone Care Team Providers Care Gifted Program Teacher Name Role Phone Alena Faith PP Unavailable CCM Unavailable Summary Purpose Interface Exchange Insurance Providers Payer name Policy type / Coverage type Covered constitution party ID Effective Begin Date Effective End Date [facility] Commercial Insurance [id number] Unknown Unknown Family history Mother Diagnosis Age At Onset Diabetes mellitus Type 2 Unknown Alcoholism Unknown Depression Unknown Father Diagnosis Age At Onset Diabetes mellitus Type 2 Unknown Social History Social History Element Codes Description Effective Dates Marital status Unknown Garry 05/30/2019 Number of children Unknown 2 05/30/2019 Employment Unknown Currently employed [employer] 05/30/[address]: 47563508 Current some days smoker Alcohol history SNOMED CT: 605109574 Never drinks alcohol 2018 Allergies, Adverse Reactions, [...] Start Date Stop Date Status Fill Instructions albuterol sulfate HFA 90 mcg/actuation aerosol inhaler RxNor m: 2403267 Inhale 2 Inhalation every 4-6 hours as needed cough 09/20/2021 No Stop Date Activ e atorvastatin 20 mg tablet RxNorm: 373307 Take 1 Tablet( s) Oral every night at bedtime 09/01/2021 12/29/2021 Active Miralax 17 gram/dose oral powder RxNorm: 673730 Take 1 scoop Or al every day 08/31/2021 09/29/2021 Active Alysa Allergy 180 mg tablet RxNorm: 304736 Take 1 Tab let(s) Oral every day for first 5 days take twice daily 08/31/2021 No Stop Date Active omeprazole 20 mg tablet,delayed release RxNorm: 475043 Take 1 Tablet(s) Oral every day 08/31/2021 09/13/2021 Inactive prednisone 20 mg tablet RxNorm: 188136 Take 2 Tablet(s) Oral ev alex day 08/23/2021 08/27/2021 Inactive azithromycin 250 mg tablet RxNorm: 981353 Take 1 Tablet (s) Oral every day take 2 tablets day 1, then take 1 tablet daily on days 2-5 08/23/2021 08/27/20 21 Inactive Please disregard Cefdinir RX. cefdinir 300 mg capsule RxNorm: 097840 Take 1 Capsule(s) Oral t wo times a day 08/23/2021 08/23/2021 Inactive azithromycin 250 mg tablet RxNorm: 891606 Take 1 Tablet (s) Oral every day take 2 tablets day 1, then take 1 tablet daily on days 2-5 08/23/2021 08/23/20 21 Inactive Please disregard Cefdinir RX. promethazine 6.25 mg-codeine 10 mg/5 mL syrup RxNorm: 706535 Take 5 Milliliter(s) Oral every 4-6 hours as needed cough 08/09/2021 Inactive prednisone 20 mg tablet RxNorm: 453607 Take 2 Tablet(s) Oral ev alex day 08/09/2021 08/13/2021 Inactive promethazine 6.25 mg-codeine 10 mg/5 mL syrup RxNorm: 235981 Take 5 Milliliter(s) Oral every 4-6 hours as needed cough 08/09/2021 Inactive Kenalog 40 mg/mL suspension for injection RxNorm: 1805953 Take 1 Milliliter(s) Injection 08/09/2021 08/09/2021 Inactive alprazolam 0.5 mg tablet RxNorm: 295021 Take 1 Tablet(s ) Oral two times a day as needed FOR ANXIETY 07/30/2021 08/28/2021 Inactive alprazolam 0.5 mg tablet RxNorm: 580246 1 Tablet(s) Ora l two times a day as needed anxiety 06/03/2021 06/03/2021 Inactive Depo-Estradiol 5 mg/mL intramuscular oil RxNorm: 483011 0.75 Milliliter(s) Intramuscular 04/28/2021 04/28/2021 Inactive alprazolam 0.5 mg tablet RxNorm: 732016 1 Tablet(s) Ora l two times a day as needed anxiety 04/05/2021 04/05/2021 Inactive Depo-Estradiol 5 mg/mL intramuscular oil RxNorm: 739069 0.75 Milliliter(s) Intramuscular 03/03/2021 03/03/2021 Inactive alprazolam 0.5 mg tablet RxNorm: 955907 1 Tablet(s) Ora l two times a day as needed anxiety 03/01/2021 03/01/2021 Inactive alprazolam 0.5 mg tablet RxNorm: 241099 1 Tablet(s) Ora l two times a day as needed anxiety 01/28/2021 02/26/2021 Inactive Depo-Provera 150 mg/mL intramuscular suspension RxNorm: 1000 128 Milliliter(s) Intramuscular 01/05/2021 01/05/2021 Inactive escitalopram 10 mg tablet RxNorm: 550604 TAKE ONE TABLE T BY MOUTH EVERY NIGHT AT BEDTIME Tablet(s) Oral 12/30/2020 01/01/2021 Inactive alprazolam 0.5 mg tablet RxNorm: 875441 1 Tablet(s) Ora l two times a day as needed anxiety 12/30/2020 01/27/2021 Inactive escitalopram 5 mg tablet RxNorm: 186589 TAKE ONE TABLET BY MOUTH EVERY NIGHT AT BEDTIME 11/30/2020 12/29/2020 Inactive alprazolam 0.5 mg tablet RxNorm: 497201 1 Tablet(s) Ora l two times a day as needed anxiety 11/30/2020 12/29/2020 Inactive atorvastatin 20 mg tablet RxNorm: 895270 TAKE ONE TABLET BY RADHA TH DAILY 11/26/2020 11/26/2020 Inactive Depo-Estradiol 5 mg/mL intramuscular oil RxNorm: 943776 3/4 Milliliter(s) Intramuscular monthly 10/28/2020 12/27/2020 Inactive Depo-Provera 150 mg/mL intramuscular suspension RxNorm: 1000 128 Milliliter(s) Intramuscular 10/28/2020 10/28/2020 Inactive alprazolam 0.5 mg tablet RxNorm: 163679 1 Tablet(s) Ora l two times a day as needed anxiety 10/01/2020 10/29/2020 Inactive acyclovir 400 mg tablet RxNorm: 158622 TAKE ONE TABLET BY MOUTH FOUR TIMES A DAY 08/31/2020 09/01/2020 Inactive alprazolam 0.5 mg tablet RxNorm: 552408 1 Tablet(s) Ora l two times a day as needed anxiety 08/31/2020 09/29/2020 Inactive atorvastatin 20 mg tablet RxNorm: 204200 1 Tablet(s) Oral every day 08/18/2020 08/17/2020 Inactive atorvastatin 20 mg tablet RxNorm: 691158 1 Tablet(s) Oral every day 08/18/2020 11/25/2020 Inactive alprazolam 0.5 mg tablet RxNorm: 797185 1 Tablet(s) Ora l two times a day as needed anxiety 08/07/2020 08/30/2020 Inactive Depo-Provera 150 mg/mL intramuscular suspension RxNorm: 1000 128 Milliliter(s) Intramuscular 08/04/2020 08/04/2020 Inactive acyclovir 400 mg tablet RxNorm: 094161 TAKE ONE TABLET BY MOUTH FOUR TIMES A DAY 07/21/2020 08/30/2020 Inactive alprazolam 0.5 mg tablet RxNorm: 489699 1 Tablet(s) Ora l two times a day as needed anxiety 07/07/2020 08/05/2020 Inactive alprazolam 0.5 mg tablet RxNorm: 303025 1 Tablet(s) Ora l two times a day as needed anxiety 06/18/2020 07/05/2020 Inactive escitalopram 5 mg tablet RxNorm: 959012 1 Tablet(s) Oral every night at bedtime 06/08/2020 10/06/2020 Inactive prednisone 20 mg tablet RxNorm: 694465 2 Tablet(s) Oral every day 0 06/01/2020 06/06/2020 Inactive Depo-Provera 150 mg/mL intramuscular suspension RxNorm: 1000 128 0.75 Milliliter(s) Intramuscular 05/28/2020 05/28/2020 Inactive Kenalog 40 mg/mL suspension for injection RxNorm: 8262928 1 Milliliter(s) Injection 05/28/2020 05/28/2020 Inactive Zithromax Z-Kraig 250 mg tablet RxNorm: 549101 Tablet(s) Oral as directed 05/26/2020 04/04/2021 Inactive alprazolam 0.5 mg tablet RxNorm: 547875 1 Tablet(s) Ora l two times a day as needed anxiety 05/11/2020 06/09/2020 Inactive alprazolam 0.5 mg tablet RxNorm: 668638 1 Tablet(s) Ora l two times a day as needed anxiety 04/02/2020 05/10/2020 Inactive Depo-Provera 150 mg/mL intramuscular suspension RxNorm: 1000 128 Milliliter(s) Intramuscular 03/19/2020 03/19/2020 Inactive acyclovir 400 mg tablet RxNorm: 821486 1 Tablet(s) Oral four times a day fever blisters 01/02/2020 02/01/2020 Inactive Depo-Provera 150 mg/mL intramuscular suspension RxNorm: 1000 128 Milliliter(s) Intramuscular 12/27/2019 12/27/2019 Inactive pravastatin 10 mg tablet RxNorm: 724380 1 Tablet(s) Oral every night at bedtime 12/19/2019 12/18/2019 Inactive pravastatin 10 mg tablet RxNorm: 434670 1 Tablet(s) Oral every night at bedtime 12/19/2019 04/17/2020 Inactive Depo-Estradiol 5 mg/mL intramuscular oil RxNorm: 592841 3/4 Milliliter(s) Intramuscular monthly 10/24/2019 10/24/2019 Inactive Kenalog 40 mg/mL suspension for injection RxNorm: 4202260 Milliliter(s) Injection 09/27/2019 09/27/2019 Inactive Phenergan with Codeine Syrup RxNorm: 5-10 Millil iter(s) Oral Every 6 hrs as needed 09/27/2019 05/31/2020 Inactive prednisone 20 mg tablet RxNorm: 704291 2 Tablet(s) Oral every day 1 11/28/2018 10/02/2019 Inactive start tomorrow doxycycline hyclate 100 mg tablet RxNorm: 1981043 1 Tabl et(s) Oral two times a day 09/27/2019 10/04/2019 Inactive start if symptom s do not improve Depo-Estradiol 5 mg/mL intramuscular oil RxNorm: 612046 3/4 Milliliter(s) Intramuscular monthly 08/20/2019 08/20/2019 Inactive Depo-Estradiol 5 mg/mL intramuscular oil RxNorm: 327447 3/4 Milliliter(s) Intramuscular monthly 08/15/2019 09/14/2019 Inactive gabapentin 100 mg capsule RxNorm: 721375 1 Capsule(s) O ral every night at bedtime 07/31/2019 09/22/2019 Inactive gabapentin 100 mg capsule RxNorm: 572004 1 Capsule(s) PO QHS 201807/26/2019 Inactive naproxen 500 mg tablet RxNorm: 389363 1 Tablet(s) PO BID 06/24/2019 0 06/28/2019 Inactive escitalopram 5 mg tablet RxNorm: 143443 1 Tablet(s) PO QHS 05/30/20 19 09/22/2019 Inactive CoQ-10 oral RxNorm: 13015 oral 09/01/2021 Active ranitidine 150 mg capsule RxNorm: 535323 1 Capsule(s) PO BID 201809/22/2019 Inactive eszopiclone 1 mg tablet RxNorm: 462198 Tablet(s) PO as needed 06/0105/31/2020 Inactive acyclovir 400 mg tablet RxNorm: 344468 1 Tablet(s) PO PRN fever blisters 01/02/2020 01/01/2020 Inactive clonidine HCl 0.1 mg tablet RxNorm: 602357 Tablet(s) PO as needed 0 05/30/2019 05/29/2019 Inactive Medication Administered Medication Codes Instructions Start Date Status Kenalog 40 mg/mL suspension for injection RxNorm: 0916844 1Milli liter 08/09/2021 No longer Active Depo-Estradiol 5 mg/mL intramuscular oil RxNorm: 941319 0.75Mil liliter 04/28/2021 No longer Active Depo-Estradiol 5 mg/mL intramuscular oil RxNorm: 785563 0.75Mil liliter 03/03/2021 No longer Active Depo-Provera 150 mg/mL intramuscular suspension RxNorm: 1372978 Milliliter 01/05/2021 No longer Active Depo-Provera 150 mg/mL intramuscular suspension RxNorm: 3963440 Milliliter 10/28/2020 No longer Active Depo-Provera 150 mg/mL intramuscular suspension RxNorm: 2708149 Milliliter 08/04/2020 No longer Active Depo-Provera 150 mg/mL intramuscular suspension RxNorm: 1450047 0.75Milliliter 05/28/2020 No longer Active Kenalog 40 mg/mL suspension for injection RxNorm: 7861843 1Milli liter 05/28/2020 No longer Active Depo-Provera 150 mg/mL intramuscular suspension RxNorm: 0747128 Milliliter 03/19/2020 No longer Active Depo-Provera 150 mg/mL intramuscular suspension RxNorm: 6643328 Milliliter 12/27/2019 No longer Active Depo-Estradiol 5 mg/mL intramuscular oil RxNorm: 183845 3/4Mill ilitermonthly 10/24/2019 Active Kenalog 40 mg/mL suspension for injection RxNorm: 1450395 Millilite r 09/27/2019 No longer Active Depo-Estradiol 5 mg/mL intramuscular oil RxNorm: 942820 3/4Mill ilitermonthly 08/20/2019 Active Immunizations No Immunization data Results Observation Observation Code Item Item Code Result Date S [facility] Location Cbc With Differential Ord2 WBC 11.77 [...] 08/31/20 21 Unknown Cbc With Differential Ord2 [place]% 6.0 % 08/31/20 21 Unknown Cbc With [...] K/ul 021 Unknown Cbc With Differential Ord2 [place] ABS# 0.7 K/ul 08/31/20 21 Unknown Cbc With Differential Ord2 Eos ABS# 0.3 K/ul 08/31/20 21 Unknown Cbc With Differential Ord2 Baso ABS# 0.0 K/ul 08/31/20 21 Unknown Comp Metabolic Kbj783 NA 142 mEq/L 08/31/2021 Unkn own Comp Metabolic Acj386 K 4.4 mEq/L 08/31/2021 Unkn own Comp Metabolic Nxk314 CL 101 mEq/L 08/31/2021 Unkn own Comp Metabolic Xtm100 CO2 32.0 mEq/L 08/31/2021 Unk nown Comp Metabolic Uxg680 ANION GAP 13 08/31/2021 Unkn own Comp Metabolic Tmh022 GLUCOSE 89 mg/dL 08/31/2021 Unkn own Comp Metabolic Iux634 Creat 0.7 mg/dL 08/31/2021 Unkn own Comp Metabolic Pow187 eGFR 90 ml/min/1.73m2 08/31/20 21 Unknown Comp Metabolic Eua429 BUN 19 mg/dL 08/31/2021 Unkn own Comp Metabolic Voz179 B/C Ratio 26.4 Ratio 08/31/2021 Unk nown Comp Metabolic Wyp011 CALCIUM 9.2 mg/dL 08/31/2021 Unkn own Comp Metabolic Xhr746 ALK PHOS 85 U/L 08/31/2021 Unkn own Comp Metabolic Jrt173 AST(SGOT) 16 U/L 08/31/2021 Unkn own Comp Metabolic Puk194 ALT(SGPT) 19 U/L 08/31/2021 Unkn own Comp Metabolic Ldz049 BILI T 0.6 mg/dL 08/31/2021 Unkn own Comp Metabolic Wwn697 ALBUMIN 4.2 g/dL 08/31/2021 Unkn own Comp Metabolic Vki608 TPRO 7.1 g/dL 08/31/2021 Unkn own Comp Metabolic Ulr135 GLOB 2.9 g/dL 08/31/2021 Unkn own Comp Metabolic Lee043 A/G Ratio 1.5 Ratio 08/31/2021 Unkn own Comp Metabolic Hmv472 Osmo 285 mOsmo 08/31/2021 Unkn own Tsh [...] C/HDL 4.5 Ratio 08/06/2020 Unknown Comp Metabolic Tog400 NA 138 mEq/L 08/06/2020 Unkn own Comp Metabolic Rat065 K 4.5 mEq/L 08/06/2020 Unkn own Comp Metabolic Hze401 CL 103 mEq/L 08/06/2020 Unkn own Comp Metabolic Pql114 CO2 28.0 mEq/L 08/06/2020 Unk nown Comp Metabolic Xse289 ANION GAP 12 08/06/2020 Unkn own Comp Metabolic Wde458 GLUCOSE 90 mg/dL 08/06/2020 Unkn own Comp Metabolic Log200 Creat 0.7 mg/dL 08/06/2020 Unkn own Comp Metabolic Kav087 eGFR 88 ml/min/1.73m2 08/06/20 20 Unknown Comp Metabolic Hrv552 BUN 20 mg/dL 08/06/2020 Unkn own Comp Metabolic Bkr537 B/C Ratio 27.0 Ratio 08/06/2020 Unk nown Comp Metabolic Fkj317 CALCIUM 9.5 mg/dL 08/06/2020 Unkn own Comp Metabolic Cym789 ALK PHOS 87 U/L 08/06/2020 Unkn own Comp Metabolic Cjm680 AST(SGOT) 17 U/L 08/06/2020 Unkn own Comp Metabolic Wen034 ALT(SGPT) 20 U/L 08/06/2020 Unkn own Comp Metabolic Xwk563 BILI T 0.6 mg/dL 08/06/2020 Unkn own Comp Metabolic Yrl426 ALBUMIN 4.5 g/dL 08/06/2020 Unkn own Comp Metabolic Mxr520 TPRO 7.6 g/dL 08/06/2020 Unkn own Comp Metabolic Irc466 GLOB 3.1 g/dL 08/06/2020 Unkn own Comp Metabolic Kpk406 A/G Ratio 1.5 Ratio 08/06/2020 Unkn own Comp Metabolic Snf211 Osmo 278 mOsmo 08/06/2020 Unkn own Cbc [...] pg 08/06/20 Unknown Cbc With Differential Ord2 [place]% 5.4 % 08/06/20 Unknown Cbc With Differential Ord2 Eos% 2.2 % 08/06/20 Unknown Cbc With Differential Ord2 MCHC 32.7 pg 08/06/20 Unknown Cbc With Differential Ord2 PLT 258 K/ul 08/06/20 Unknown Cbc With Differential Ord2 Baso% 0.3 % 08/06/20 Unknown Cbc With Differential Ord2 Neut ABS# 7.81 K/ul 08/06/20 Unknown Cbc With Differential Ord2 RDW 13.4 % 08/06/20 Unknown Cbc With Differential Ord2 Lymph ABS# 1.92 K/ul 020 Unknown Cbc With Differential Ord2 [place] ABS# 0.6 K/ul 08/06/20 Unknown Cbc With Differential Ord2 Eos ABS# 0.2 K/ul 08/06/20 Unknown Cbc With Differential Ord2 Baso ABS# 0.0 K/ul 08/06/20 Unknown Tsh Ord6 TSH (3rd IS) 1.38 uIU/mL 12/17/2019 Unkn own Comp Metabolic Svw838 NA 141 mEq/L 12/17/2019 Unkn own Comp Metabolic Gzo597 K 4.3 mEq/L 12/17/2019 Unkn own Comp Metabolic Fzp977 CL 104 mEq/L 12/17/2019 Unkn own Comp Metabolic Ajp472 CO2 29.0 mEq/L 12/17/2019 Unk nown Comp Metabolic Lus386 ANION GAP 12 12/17/2019 Unkn own Comp Metabolic Lyn204 GLUCOSE 83 mg/dL 12/17/2019 Unkn own Comp Metabolic Amb293 Creat 0.7 mg/dL 12/17/2019 Unkn own Comp Metabolic Siu867 eGFR 102 ml/min/1.73m2 020 Unknown Comp Metabolic Uwm260 BUN 16 mg/dL 12/17/2019 Unkn own Comp Metabolic Feh753 B/C Ratio 24.6 Ratio 12/17/2019 Unk nown Comp Metabolic Fyo161 CALCIUM 9.3 mg/dL 12/17/2019 Unkn own Comp Metabolic Jdz816 ALK PHOS 79 U/L 12/17/2019 Unkn own Comp Metabolic Xeb237 AST(SGOT) 19 U/L 12/17/2019 Unkn own Comp Metabolic Whl656 ALT(SGPT) 26 U/L 12/17/2019 Unkn own Comp Metabolic Lss075 BILI T 0.5 mg/dL 12/17/2019 Unkn own Comp Metabolic Thn316 ALBUMIN 4.2 g/dL 12/17/2019 Unkn own Comp Metabolic Ejo463 TPRO 7.0 g/dL 12/17/2019 Unkn own Comp Metabolic Gct236 GLOB 2.8 g/dL 12/17/2019 Unkn own Comp Metabolic Leh172 A/G Ratio 1.5 Ratio 12/17/2019 Unkn own Comp Metabolic Zuz112 Osmo 282 mOsmo 12/17/2019 Unkn own Cbc [...] 12/17/19 20 Unknown Cbc With Differential Ord2 [place]% 6.2 % 12/17/19 20 Unknown Cbc With [...] K/ul 020 Unknown Cbc With Differential Ord2 [place] ABS# 0.6 K/ul 12/17/19 20 Unknown Cbc [...] 4.2 Ratio 12/17/2019 Unknown C A/B FLU 7579607 Influenza A Scr Negative 09/23/2019 Unk nown C A/B FLU [id number] Influenza B Scr Negative 09/23/2019 Unk nown C A/B FLU [id number] Influenza Intrp B AG:PRID:PT:NOSE:NOM:IF See Footnote 09/23/2019 Unknown Procedures Procedure Codes Date THER/PROPH/DIAG INJ SC/IM CPT-4: 89741 04/28/2021 THER/PROPH/DIAG INJ SC/IM CPT-4: 51994 03/03/2021 THER/PROPH/DIAG INJ SC/IM CPT-4: 79628 01/05/2021 THER/PROPH/DIAG INJ SC/IM CPT-4: 40608 10/28/2020 THER/PROPH/DIAG INJ SC/IM CPT-4: 89692 08/04/2020 THER/PROPH/DIAG INJ SC/IM CPT-4: 66079 05/26/2020 TRIAMCINOLONE ACET INJ NOS 10 mg CPT-4: J3301 020 THER/PROPH/DIAG INJ SC/IM CPT-4: 47178 03/19/2020 THER/PROPH/DIAG INJ SC/IM CPT-4: 35867 12/27/2019 THER/PROPH/DIAG INJ SC/IM CPT-4: 42097 10/24/2019 TRIAMCINOLONE ACET INJ NOS 10 mg CPT-4: J3301 019 THER/PROPH/DIAG INJ SC/IM CPT-4: 54817 08/19/2019 Vital Signs Date Vital 09/20/2021 Blood Pressure 1: 110/80 Code: 8480-6 BMI: 30.2 Code: 08899-3 Heart Rate 1: 88 bpm Height: 5'2" Code: 8302-2 SpO2: 98% Temperature: 3 6.8 (C) / 98.2 (F) Weight: 165 lbs Code: 65711-7 08/31/2021 Blood Pressure 1: 156/82 Code: 8480-6 Heart Rate 1: 81 bpm Height: 5'2" Code: 8302-2 Height: 5'2" Code: 8302-2 SpO2: 99% Temperature: 3 6.2 (C) / 97.1 (F) Weight: Code: 28927-8 08/09/2021 Blood Pressure 1: 142/68 Code: 8480-6 BMI: 30.7 Code: 20582-2 Heart Rate 1: 63 bpm Height: 5'2" Code: 8302-2 SpO2: 97% Temperature: 3 6.4 (C) / 97.6 (F) Weight: 168 lbs Code: 86382-7 06/01/2020 Blood Pressure 1: 130/80 Code: 8480-6 BMI: 28.5 Code: 99343-1 Heart Rate 1: 69 bpm Height: 5'2" Code: 8302-2 SpO2: 97% Temperature: 3 6.9 (C) / 98.4 (F) Weight: 156 lbs Code: 77225-6 05/26/2020 Blood Pressure 1: 128/78 Code: 8480-6 Heart Rate 1: 74 bpm Height: Code: 8302-2 SpO2: 98% Weight: Code: 74267-9 04/02/2020 Height: Code: 8302-2 Weight: Code: 294 63-7 12/16/2019 Blood Pressure 1: 132/80 Code: 8480-6 BMI: 28.9 Code: 59972-9 Heart Rate 1: 68 bpm Height: 5'2" Code: 8302-2 SpO2: 97% Weight: 158 lb s Code: 89778-6 09/27/2019 Blood Pressure 1: 110/60 Code: 8480-6 BMI: 28.5 Code: 96150-2 Heart Rate 1: 76 bpm Height: 5'2" Code: 8302-2 SpO2: 98% Temperature: 3 6.9 (C) / 98.5 (F) Weight: 156 lbs Code: 89416-5 09/23/2019 Blood Pressure 1: 124/80 Code: 8480-6 Heart Rate 1: 81 bpm SpO2: 98% Temperature: 36.7 (C) / 98.1 (F) 08/19/2019 Blood Pressure 1: 130/78 Code: 8480-6 BMI: 28.0 Code: 70003-8 Heart Rate 1: 68 bpm Height: 5'2" Code: 8302-2 SpO2: 98% Weight: 153 lb s Code: 81098-2 06/27/2019 Heart Rate 1: 68 bpm Height: Code: 8302-2 Weigh t: Code: 95258-2 06/24/2019 Blood Pressure 1: 132/74 Code: 8480-6 BMI: 27.4 Code: 22853-0 Heart Rate 1: 66 bpm Height: 5'2" Code: 8302-2 SpO2: 98% Weight: 150 lb s Code: 81144-7 05/30/2019 Blood Pressure 1: 104/60 Code: 8480-6 BMI: 27.5 Code: 52578-4 Heart Rate 1: 66 bpm Height: 5'2" Code: 8302-2 SpO2: 98% Weight: 150 lb s 5 oz Code: 59675-6 Functional Status No Functional Status data Reason For Visit Reason For Visit Effective Dates Notes cough 09/20/2021 cough 08/31/2021 sinus congestion 08/09/2021 headache 06/01/2020 headache 05/26/2020 well woman exam (40-65 years) 12/16/2019 cough 09/27/2019 fever 09/23/2019 menopausal symptoms 08/19/2019 lower leg pain 06/27/2019 lower leg pain 06/24/2019 anxiety 05/30/2019 Encounters Encounter Performer Location Codes Date () 74954 EST. PATIENT, LEVEL IV Diagnosis: Chronic cough[ICD10: R05.3] Diagnosis: Laryngitis[ICD10: J04.0] Diagnosis: Other allergic rhinitis[ICD10: J30.89] Diagnosis: Dysphagia[ICD10: r13.10] Mariel Faith MD, [facility] C PT-4: 94168 09/20/2021 ([id number]) 39758 EST. PATIENT, LEVEL IV Diagnosis: Acute bronchitis[ICD10: J20.9] Diagnosis: Laryngitis[ICD10: J04.0] Diagnosis: Other allergic rhinitis[ICD10: J30.89] Diagnosis: Slow transit constipation[ICD10: K59.01] Mariel aFith MD, [facility] CPT-4: 70832 08/31/2021 ([id number]) 66430 EST. PATIENT, LEVEL IV Diagnosis: Generalized anxiety disorder[ICD10: F41.9] Diagnosis: Cough[ICD10: R05.9] Diagnosis: Other allergic rhinitis[ICD10: J30.89] Diagnosis: Encounter for screening mammogram for malignant neoplasm of breast[ICD10: Z12.31] Mariel Faith MD, [facility] CPT-4: 44373 08/09/2021 ([id number]) 48402 EST. PATIENT, LEVEL III Diagnosis: Headache[ICD10: R51] Diagnosis: Other allergic rhinitis[ICD10: J30.89] Farzana Groves MD, [facility] CPT-4: 74569 06/01/2020 71381 EST. PATIENT, LEVEL III Diagnosis: Other acute sinusitis[ICD10: J01.80] Diagnosis: Other allergic rhinitis[ICD10: J30.89] Diagnosis: Migraine without status migrainosus, not intractable, unspecified migraine type[ICD10: G43.909] Diagnosis: Menopausal and female climacteric states[ICD10: N95.1] [facility] CPT-4: 49064 05/26/2020 ([id number]) 63410 EST. PATIENT, LEVEL III Diagnosis: Generalized anxiety disorder[ICD10: F41.1] [facility] CPT-4: 08261 04/02/2020 ([id number]) PREV VISIT EST AGE 40-64 Diagnosis: Encounter for gynecological examination (general) (routine) without abnormal findings[ICD10: Z01.419] Farzana Faith MD, [facility] CPT -4: 00466 12/16/2019 ([id number]) 41438 EST. PATIENT, LEVEL III Diagnosis: Cough[ICD10: R05] Diagnosis: Acute bronchitis[ICD10: J20.9] Farzana pulido MD, [facility] CPT-4: 13610 09/27/2019 ([id number]) 40254 EST. PATIENT, LEVEL III Diagnosis: Fever[ICD10: R50.9] Diagnosis: Body aches[ICD10: R52] Farzana Faith MD, [facility] CPT -4: 27553 09/23/2019 ([id number]) 75442 EST. PATIENT, LEVEL III Diagnosis: Menopausal and female climacteric states[ICD10: N95.1] Farzana Faith MD, [facility] CPT-4: 33193 08/19/2019 38974 EST. PATIENT, LEVEL III Diagnosis: Pain in left ankle and joints of left foot[ICD10: M25.572] Diagnosis: Pain in left knee[ICD10: M25.562] Jaycee gupta MD, [facility] CPT-4: 77575 06/27/2019 78333 EST. PATIENT, LEVEL III Diagnosis: Pain in left ankle and joints of left foot[ICD10: M25.572] Diagnosis: Pain in left knee[ICD10: M25.562] Jaycee gupta MD, [facility] CPT-4: 38876 06/24/2019 ([id number]) PREV VISIT NEW AGE 40-64 Diagnosis: Encounter for general adult medical examination without abnormal findings[ICD10: Z00.00] [facility] CPT-4: 20570 05/30/2019 Plan of Care Planned Activity Notes [...] Allergies - pt reports sinus congestion and dra chandler has significantly improved since taking Alysa daily. 09/20/2021 Patient Education: Patient Medication Summary Completed 09/20/2021 Care Plan: CHEST X-RAY 2VW FRONTAL&LATL LOINC : 34403-4 Pending 09/20/2021 Visit Plan: Allergies - recent [...] sent 08/31/2021 [phone] [facility] ([facility] Complex 08/31/2021 Patient Education: [...] orders sent 08/09/2021 [phone] [facility] ([facility] Complex 08/09/2021 Patient Education: Patient Medication Summary Completed 08/09/2021 Patient Education: prednisone- [employer] Coupon [id number] Completed 08/09/2021 Appointment: Injection 04/28/2021 Patient Education: [...] without contrast. 06/01/2020 Appointment: Farzana Cristina WPtel: [phone] [phone] (15 min) Moderate 06/01/2020 Patient Education: Patient [...] any changes, questions, or concerns. 05/26/2020 Appointment: Jayece Lindo WPtel: [phone] [facility] (30 min) Complex 05/26/2020 Patient Education: Patient Medication Summary Completed 05/26/2020 Visit Plan: Anxiety - the patient has un controlled anxiety and will benefit from a short term dose of xanax for control of symptoms. 04/02/2020 Appointment: Alena Faith WPtel: [facility] TeleHealth 04/02/2020 Patient Education: Patient Medication Summary Completed 04/02/2020 Appointment: Injection 03/19/2020 Patient Education: Patient Medication Summary Completed 03/19/2020 Appointment: Injection 03/18/2020 Appointment: Injection 12/27/2019 Patient Education: Patient Medication Summary Completed 12/27/2019 Appointment: Alena Faith WPtel[facility] [facility] 12/24/2019 Visit Plan: Well Adult Female - exam com pleted. Pap and breast exam completed. Pt will be called with results of her testing. She was advised to continue with yearly annual exams. Safe sex practices discussed during office visit today. Call if any abnormal gynecologic issues during the next year, otherwise, RTC yearly or prn. 12/16/2019 Appointment: Farzana Cristina WPtel: [phone] [facility] Woman 12/16/2019 Patient Education: Patient Medication Summary Completed 12/16/2019 Appointment: Alena Faith WPtel: [facility] (15 min) Moderate 12/03/2019 Appointment: Injection 10/24/2019 Patient Education: Patient Medication Summary Completed 10/24/2019 Visit Plan: Bronchitis - acute case of b ronchitis identified. Pt has been given antibiotics, breathing treatments as appropriate, and pt has been instructed to call if symptoms are not improved, or if symptoms acutely worsen. 09/27/2019 Appointment: Farzana Cristina WPtel: [address] [place], [place] [id number] (15 min) Moderate 09/27/2019 Patient Education: Patient Medication Summary Completed 09/27/2019 Visit Plan: URI -viral -flu swab to r/o flu - Pt advised to increase fluids, vitamin C. Discussed natural and expected course of this diagnosis and need to alert me if symptoms do not follow expected course, or if any worse. 09/23/2019 Appointment: Farzana Cristina WPtel: [phone] (30 min) Complex 09/23/2019 Patient Education: Patient Medication Summary Completed 09/23/2019 Visit Plan: Post-surgical menopause - co ntinue to taper depo dose and eventually off medication completely -injection today in the office. 08/19/2019 Appointment: Farzana Cristina WPtel: [phone] (15 min) Moderate 08/19/2019 Patient Education: Patient Medication Summary Completed 08/19/2019 [facility]ment: [phone] [phone] (30 min) Complex 08/16/2019 Visit Plan: Left knee, ankle, foot pain - will send RX - will refer to ortho - The pt is to use prn antiinflammatories to manage acute pain. The patient is to call the office if the pain is worsening or does not improve. 06/27/2019 Appointment: Jaycee Lindo WPtel: [phone] [phone] (30 min) Complex 06/27/2019 Patient Education: Patient Medication Summary Completed 06/27/2019 Care Plan: Referral Order SNOMED-CT : [id number] Pending 06/27/2019 Visit Plan: Left knee, ankle, foot pain - will send RX - if no improvement will refer to ortho - The pt is to use prn antiinflammatories to manage acute pain. The patient is to call the office if the pain is worsening or does not improve. 06/24/2019 Appointment: Jaycee Lindo WPtel[phone] ([facility] min) Complex 06/24/2019 Patient Education: Patient [...] look for her medications from [facility] to find out what her depo dose [...] Completed 05/30/2019 Referral: Nathan Dudley Referral Appointment Co nfirmed [...] year, otherwise, RTC yearly or prn. 12/16/2019 nurys . Bronchitis - acute case of bronchitis [...] 08/19/2019 tomorrow at 10:15 with the nurse sheron isaacs. Left knee, ankle, foot pain - [...] look for her medications from [facility] to find out what her depo dose [...]
--- OUTSIDE RECORDS SUMMARY | 2021-10-12 11:59 | XMS REPORT | CCD ---
Author Author Kaleigh Faith Organization Alena Faith MD, [facility] Address [address] [place] [address] Phone Care Team Providers Care Track And Field Coach Name Role Phone Alena Faith PP Unavailable CCM Unavailable Summary Purpose Interface Exchange Insurance Providers Payer name Policy type / Coverage type Covered democrat ID Effective Begin Date Effective End Date [facility] Commercial Insurance [id number] Unknown Unknown Family history Mother Diagnosis Age At Onset Diabetes mellitus Type 2 Unknown Alcoholism Unknown Depression Unknown Father Diagnosis Age At Onset Diabetes mellitus Type 2 Unknown Social History Social History Element Codes Description Effective Dates Marital status Unknown Garry 05/30/2019 Number of children Unknown 2 05/30/2019 Employment Unknown Currently employed [employer] 05/30/[address]: 16494438 Current some days smoker Alcohol history SNOMED CT: 333972433 Never drinks alcohol 2018 Allergies, Adverse Reactions, [...] HFA 90 mcg/actuation aerosol inhaler RxNor m: 4970137 Inhale 2 Inhalation every 4-6 hours as needed cough 09/20/2021 No Stop Date Activ e atorvastatin 20 mg tablet RxNorm: 934723 Take 1 Tablet( s) Oral every night at bedtime 09/01/2021 12/29/2021 Active Miralax 17 gram/dose oral powder RxNorm: 866851 Take 1 scoop Or al every day 08/31/2021 09/29/2021 Active Alysa Allergy 180 mg tablet RxNorm: 885409 Take 1 Tab let(s) Oral every day for first 5 days take twice daily 08/31/2021 No Stop Date Active omeprazole 20 mg tablet,delayed release RxNorm: 630149 Take 1 Tablet(s) Oral every day 08/31/2021 09/13/2021 Inactive prednisone 20 mg tablet RxNorm: 610787 Take 2 Tablet(s) Oral ev alex day 08/23/2021 08/27/2021 Inactive azithromycin 250 mg tablet RxNorm: 948932 Take 1 Tablet (s) Oral every day take 2 tablets day 1, then take 1 tablet daily on days 2-5 08/23/2021 08/27/20 21 Inactive Please disregard Cefdinir RX. cefdinir 300 mg capsule RxNorm: 936877 Take 1 Capsule(s) Oral t wo times a day 08/23/2021 08/23/2021 Inactive azithromycin 250 mg tablet RxNorm: 323338 Take 1 Tablet (s) Oral every day take 2 tablets day 1, then take 1 tablet daily on days 2-5 08/23/2021 08/23/20 21 Inactive Please disregard Cefdinir RX. promethazine 6.25 mg-codeine 10 mg/5 mL syrup RxNorm: 587227 Take 5 Milliliter(s) Oral every 4-6 hours as needed cough 08/09/2021 Inactive prednisone 20 mg tablet RxNorm: 731594 Take 2 Tablet(s) Oral ev alex day 08/09/2021 08/13/2021 Inactive promethazine 6.25 mg-codeine 10 mg/5 mL syrup RxNorm: 195386 Take 5 Milliliter(s) Oral every 4-6 hours as needed cough 08/09/2021 Inactive Kenalog 40 mg/mL suspension for injection RxNorm: 9407047 Take 1 Milliliter(s) Injection 08/09/2021 08/09/2021 Inactive alprazolam 0.5 mg tablet RxNorm: 254986 Take 1 Tablet(s ) Oral two times a day as needed FOR ANXIETY 07/30/2021 08/28/2021 Inactive alprazolam 0.5 mg tablet RxNorm: 051919 1 Tablet(s) Ora l two times a day as needed anxiety 06/03/2021 06/03/2021 Inactive Depo-Estradiol 5 mg/mL intramuscular oil RxNorm: 859011 0.75 Milliliter(s) Intramuscular 04/28/2021 04/28/2021 Inactive alprazolam 0.5 mg tablet RxNorm: 583885 1 Tablet(s) Ora l two times a day as needed anxiety 04/05/2021 04/05/2021 Inactive Depo-Estradiol 5 mg/mL intramuscular oil RxNorm: 493123 0.75 Milliliter(s) Intramuscular 03/03/2021 03/03/2021 Inactive alprazolam 0.5 mg tablet RxNorm: 557930 1 Tablet(s) Ora l two times a day as needed anxiety 03/01/2021 03/01/2021 Inactive alprazolam 0.5 mg tablet RxNorm: 209801 1 Tablet(s) Ora l two times a day as needed anxiety 01/28/2021 02/26/2021 Inactive Depo-Provera 150 mg/mL intramuscular suspension RxNorm: 1000 128 Milliliter(s) Intramuscular 01/05/2021 01/05/2021 Inactive escitalopram 10 mg tablet RxNorm: 663832 TAKE ONE TABLE T BY MOUTH EVERY NIGHT AT BEDTIME Tablet(s) Oral 12/30/2020 01/01/2021 Inactive alprazolam 0.5 mg tablet RxNorm: 307556 1 Tablet(s) Ora l two times a day as needed anxiety 12/30/2020 01/27/2021 Inactive escitalopram 5 mg tablet RxNorm: 718633 TAKE ONE TABLET BY MOUTH EVERY NIGHT AT BEDTIME 11/30/2020 12/29/2020 Inactive alprazolam 0.5 mg tablet RxNorm: 995545 1 Tablet(s) Ora l two times a day as needed anxiety 11/30/2020 12/29/2020 Inactive atorvastatin 20 mg tablet RxNorm: 161174 TAKE ONE TABLET BY RADHA TH DAILY 11/26/2020 11/26/2020 Inactive Depo-Estradiol 5 mg/mL intramuscular oil RxNorm: 575139 3/4 Milliliter(s) Intramuscular monthly 10/28/2020 12/27/2020 Inactive Depo-Provera 150 mg/mL intramuscular suspension RxNorm: 1000 128 Milliliter(s) Intramuscular 10/28/2020 10/28/2020 Inactive alprazolam 0.5 mg tablet RxNorm: 420574 1 Tablet(s) Ora l two times a day as needed anxiety 10/01/2020 10/29/2020 Inactive acyclovir 400 mg tablet RxNorm: 746757 TAKE ONE TABLET BY MOUTH FOUR TIMES A DAY 08/31/2020 09/01/2020 Inactive alprazolam 0.5 mg tablet RxNorm: 324055 1 Tablet(s) Ora l two times a day as needed anxiety 08/31/2020 09/29/2020 Inactive atorvastatin 20 mg tablet RxNorm: 472127 1 Tablet(s) Oral every day 08/18/2020 08/17/2020 Inactive atorvastatin 20 mg tablet RxNorm: 723746 1 Tablet(s) Oral every day 08/18/2020 11/25/2020 Inactive alprazolam 0.5 mg tablet RxNorm: 025524 1 Tablet(s) Ora l two times a day as needed anxiety 08/07/2020 08/30/2020 Inactive Depo-Provera 150 mg/mL intramuscular suspension RxNorm: 1000 128 Milliliter(s) Intramuscular 08/04/2020 08/04/2020 Inactive acyclovir 400 mg tablet RxNorm: 222676 TAKE ONE TABLET BY MOUTH FOUR TIMES A DAY 07/21/2020 08/30/2020 Inactive alprazolam 0.5 mg tablet RxNorm: 570876 1 Tablet(s) Ora l two times a day as needed anxiety 07/07/2020 08/05/2020 Inactive alprazolam 0.5 mg tablet RxNorm: 930340 1 Tablet(s) Ora l two times a day as needed anxiety 06/18/2020 07/05/2020 Inactive escitalopram 5 mg tablet RxNorm: 715752 1 Tablet(s) Oral every night at bedtime 06/08/2020 10/06/2020 Inactive prednisone 20 mg tablet RxNorm: 952300 2 Tablet(s) Oral every day 0 06/01/2020 06/06/2020 Inactive Depo-Provera 150 mg/mL intramuscular suspension RxNorm: 1000 128 0.75 Milliliter(s) Intramuscular 05/28/2020 05/28/2020 Inactive Kenalog 40 mg/mL suspension for injection RxNorm: 2942025 1 Milliliter(s) Injection 05/28/2020 05/28/2020 Inactive Zithromax Z-Kraig 250 mg tablet RxNorm: 537022 Tablet(s) Oral as directed 05/26/2020 04/04/2021 Inactive alprazolam 0.5 mg tablet RxNorm: 884676 1 Tablet(s) Ora l two times a day as needed anxiety 05/11/2020 06/09/2020 Inactive alprazolam 0.5 mg tablet RxNorm: 422131 1 Tablet(s) Ora l two times a day as needed anxiety 04/02/2020 05/10/2020 Inactive Depo-Provera 150 mg/mL intramuscular suspension RxNorm: 1000 128 Milliliter(s) Intramuscular 03/19/2020 03/19/2020 Inactive acyclovir 400 mg tablet RxNorm: 924411 1 Tablet(s) Oral four times a day fever blisters 01/02/2020 02/01/2020 Inactive Depo-Provera 150 mg/mL intramuscular suspension RxNorm: 1000 128 Milliliter(s) Intramuscular 12/27/2019 12/27/2019 Inactive pravastatin 10 mg tablet RxNorm: 113926 1 Tablet(s) Oral every night at bedtime 12/19/2019 12/18/2019 Inactive pravastatin 10 mg tablet RxNorm: 574582 1 Tablet(s) Oral every night at bedtime 12/19/2019 04/17/2020 Inactive Depo-Estradiol 5 mg/mL intramuscular oil RxNorm: 434100 3/4 Milliliter(s) Intramuscular monthly 10/24/2019 10/24/2019 Inactive Kenalog 40 mg/mL suspension for injection RxNorm: 5509528 Milliliter(s) Injection 09/27/2019 09/27/2019 Inactive Phenergan with Codeine Syrup RxNorm: 5-10 Millil iter(s) Oral Every 6 hrs as needed 09/27/2019 05/31/2020 Inactive prednisone 20 mg tablet RxNorm: 692734 2 Tablet(s) Oral every day 1 11/28/2018 10/02/2019 Inactive start tomorrow doxycycline hyclate 100 mg tablet RxNorm: 2698663 1 Tabl et(s) Oral two times a day 09/27/2019 10/04/2019 Inactive start if symptom s do not improve Depo-Estradiol 5 mg/mL intramuscular oil RxNorm: 388069 3/4 Milliliter(s) Intramuscular monthly 08/20/2019 08/20/2019 Inactive Depo-Estradiol 5 mg/mL intramuscular oil RxNorm: 613992 3/4 Milliliter(s) Intramuscular monthly 08/15/2019 09/14/2019 Inactive gabapentin 100 mg capsule RxNorm: 867497 1 Capsule(s) O ral every night at bedtime 07/31/2019 09/22/2019 Inactive gabapentin 100 mg capsule RxNorm: 153947 1 Capsule(s) PO QHS 201807/26/2019 Inactive naproxen 500 mg tablet RxNorm: 161210 1 Tablet(s) PO BID 06/24/2019 0 06/28/2019 Inactive escitalopram 5 mg tablet RxNorm: 489637 1 Tablet(s) PO QHS 05/30/20 19 09/22/2019 Inactive CoQ-10 oral RxNorm: 34999 oral 09/01/2021 Active ranitidine 150 mg capsule RxNorm: 432191 1 Capsule(s) PO BID 201809/22/2019 Inactive eszopiclone 1 mg tablet RxNorm: 548279 Tablet(s) PO as needed 06/0105/31/2020 Inactive acyclovir 400 mg tablet RxNorm: 252999 1 Tablet(s) PO PRN fever blisters 01/02/2020 01/01/2020 Inactive clonidine HCl 0.1 mg tablet RxNorm: 756803 Tablet(s) PO as needed 0 05/30/2019 05/29/2019 Inactive Medication Administered Medication Codes Instructions Start Date Status Kenalog 40 mg/mL suspension for injection RxNorm: 5039550 1Milli liter 08/09/2021 No longer Active Depo-Estradiol 5 mg/mL intramuscular oil RxNorm: 423895 0.75Mil liliter 04/28/2021 No longer Active Depo-Estradiol 5 mg/mL intramuscular oil RxNorm: 738894 0.75Mil liliter 03/03/2021 No longer Active Depo-Provera 150 mg/mL intramuscular suspension RxNorm: 8761853 Milliliter 01/05/2021 No longer Active Depo-Provera 150 mg/mL intramuscular suspension RxNorm: 6742970 Milliliter 10/28/2020 No longer Active Depo-Provera 150 mg/mL intramuscular suspension RxNorm: 1712861 Milliliter 08/04/2020 No longer Active Depo-Provera 150 mg/mL intramuscular suspension RxNorm: 7092411 0.75Milliliter 05/28/2020 No longer Active Kenalog 40 mg/mL suspension for injection RxNorm: 3720719 1Milli liter 05/28/2020 No longer Active Depo-Provera 150 mg/mL intramuscular suspension RxNorm: 8808036 Milliliter 03/19/2020 No longer Active Depo-Provera 150 mg/mL intramuscular suspension RxNorm: 0186950 Milliliter 12/27/2019 No longer Active Depo-Estradiol 5 mg/mL intramuscular oil RxNorm: 318603 3/4Mill ilitermonthly 10/24/2019 Active Kenalog 40 mg/mL suspension for injection RxNorm: 2943721 Millilite r 09/27/2019 No longer Active Depo-Estradiol 5 mg/mL intramuscular oil RxNorm: 810442 3/4Mill ilitermonthly 08/20/2019 Active Immunizations No Immunization data Results Observation Observation Code Item Item Code Result Date S [facility] Location Cbc With Differential Ord2 [...] 08/31/20 21 Unknown Cbc With Differential Ord2 [place]% 6.0 % 08/31/20 21 Unknown Cbc With [...] K/ul 021 Unknown Cbc With Differential Ord2 [place] ABS# 0.7 K/ul 08/31/20 21 Unknown Cbc With Differential Ord2 Eos ABS# 0.3 K/ul 08/31/20 21 Unknown Cbc With Differential Ord2 Baso ABS# 0.0 K/ul 08/31/20 21 Unknown Comp Metabolic Fjp706 NA 142 mEq/L 08/31/2021 Unkn own Comp Metabolic Miw319 K 4.4 mEq/L 08/31/2021 Unkn own Comp Metabolic Ais655 CL 101 mEq/L 08/31/2021 Unkn own Comp Metabolic Goz311 CO2 32.0 mEq/L 08/31/2021 Unk nown Comp Metabolic Pzv980 ANION GAP 13 08/31/2021 Unkn own Comp Metabolic Fel411 GLUCOSE 89 mg/dL 08/31/2021 Unkn own Comp Metabolic Gmc996 Creat 0.7 mg/dL 08/31/2021 Unkn own Comp Metabolic Jey647 eGFR 90 ml/min/1.73m2 08/31/20 21 Unknown Comp Metabolic Kvc738 BUN 19 mg/dL 08/31/2021 Unkn own Comp Metabolic Xek349 B/C Ratio 26.4 Ratio 08/31/2021 Unk nown Comp Metabolic Fzl853 CALCIUM 9.2 mg/dL 08/31/2021 Unkn own Comp Metabolic Yis257 ALK PHOS 85 U/L 08/31/2021 Unkn own Comp Metabolic Tyu925 AST(SGOT) 16 U/L 08/31/2021 Unkn own Comp Metabolic Mjw646 ALT(SGPT) 19 U/L 08/31/2021 Unkn own Comp Metabolic Pvj968 BILI T 0.6 mg/dL 08/31/2021 Unkn own Comp Metabolic Ckp793 ALBUMIN 4.2 g/dL 08/31/2021 Unkn own Comp Metabolic Glp178 TPRO 7.1 g/dL 08/31/2021 Unkn own Comp Metabolic Lim213 GLOB 2.9 g/dL 08/31/2021 Unkn own Comp Metabolic Beu865 A/G Ratio 1.5 Ratio 08/31/2021 Unkn own Comp Metabolic Ham227 Osmo 285 mOsmo 08/31/2021 Unkn own Tsh [...] C/HDL 4.5 Ratio 08/06/2020 Unknown Comp Metabolic Xpk299 NA 138 mEq/L 08/06/2020 Unkn own Comp Metabolic Qln492 K 4.5 mEq/L 08/06/2020 Unkn own Comp Metabolic Sdq999 CL 103 mEq/L 08/06/2020 Unkn own Comp Metabolic Rhz664 CO2 28.0 mEq/L 08/06/2020 Unk nown Comp Metabolic Gay653 ANION GAP 12 08/06/2020 Unkn own Comp Metabolic Yfw245 GLUCOSE 90 mg/dL 08/06/2020 Unkn own Comp Metabolic Lks314 Creat 0.7 mg/dL 08/06/2020 Unkn own Comp Metabolic Dgh086 eGFR 88 ml/min/1.73m2 08/06/20 20 Unknown Comp Metabolic Qcf419 BUN 20 mg/dL 08/06/2020 Unkn own Comp Metabolic Cve958 B/C Ratio 27.0 Ratio 08/06/2020 Unk nown Comp Metabolic Kxr203 CALCIUM 9.5 mg/dL 08/06/2020 Unkn own Comp Metabolic Bey632 ALK PHOS 87 U/L 08/06/2020 Unkn own Comp Metabolic Fhc317 AST(SGOT) 17 U/L 08/06/2020 Unkn own Comp Metabolic Jxh974 ALT(SGPT) 20 U/L 08/06/2020 Unkn own Comp Metabolic Jqs459 BILI T 0.6 mg/dL 08/06/2020 Unkn own Comp Metabolic Mfh996 ALBUMIN 4.5 g/dL 08/06/2020 Unkn own Comp Metabolic Fag522 TPRO 7.6 g/dL 08/06/2020 Unkn own Comp Metabolic Ndp608 GLOB 3.1 g/dL 08/06/2020 Unkn own Comp Metabolic Amt946 A/G Ratio 1.5 Ratio 08/06/2020 Unkn own Comp Metabolic Zid373 Osmo 278 mOsmo 08/06/2020 Unkn own Cbc [...] pg 08/06/20 Unknown Cbc With Differential Ord2 [place]% 5.4 % 08/06/20 Unknown Cbc With Differential [...] K/ul 020 Unknown Cbc With Differential Ord2 [place] ABS# 0.6 K/ul 08/06/20 Unknown Cbc With Differential Ord2 Eos ABS# 0.2 K/ul 08/06/20 Unknown Cbc With Differential Ord2 Baso ABS# 0.0 K/ul 08/06/20 Unknown Tsh Ord6 TSH (3rd IS) 1.38 uIU/mL 12/17/2019 Unkn own Comp Metabolic Zmm944 NA 141 mEq/L 12/17/2019 Unkn own Comp Metabolic Bgy783 K 4.3 mEq/L 12/17/2019 Unkn own Comp Metabolic Lyq312 CL 104 mEq/L 12/17/2019 Unkn own Comp Metabolic Xgu239 CO2 29.0 mEq/L 12/17/2019 Unk nown Comp Metabolic Ved797 ANION GAP 12 12/17/2019 Unkn own Comp Metabolic Tye770 GLUCOSE 83 mg/dL 12/17/2019 Unkn own Comp Metabolic Dmd734 Creat 0.7 mg/dL 12/17/2019 Unkn own Comp Metabolic Auw377 eGFR 102 ml/min/1.73m2 020 Unknown Comp Metabolic Pkb329 BUN 16 mg/dL 12/17/2019 Unkn own Comp Metabolic Wat910 B/C Ratio 24.6 Ratio 12/17/2019 Unk nown Comp Metabolic Ihe887 CALCIUM 9.3 mg/dL 12/17/2019 Unkn own Comp Metabolic All454 ALK PHOS 79 U/L 12/17/2019 Unkn own Comp Metabolic Nan799 AST(SGOT) 19 U/L 12/17/2019 Unkn own Comp Metabolic Doe413 ALT(SGPT) 26 U/L 12/17/2019 Unkn own Comp Metabolic Hsy979 BILI T 0.5 mg/dL 12/17/2019 Unkn own Comp Metabolic Kfk814 ALBUMIN 4.2 g/dL 12/17/2019 Unkn own Comp Metabolic Jkz844 TPRO 7.0 g/dL 12/17/2019 Unkn own Comp Metabolic Bsh349 GLOB 2.8 g/dL 12/17/2019 Unkn own Comp Metabolic Cpf353 A/G Ratio 1.5 Ratio 12/17/2019 Unkn own Comp Metabolic Nix100 Osmo 282 mOsmo 12/17/2019 Unkn own Cbc [...] 12/17/19 20 Unknown Cbc With Differential Ord2 [place]% 6.2 % 12/17/19 20 Unknown Cbc With [...] K/ul 020 Unknown Cbc With Differential Ord2 [place] ABS# 0.6 K/ul 12/17/19 20 Unknown Cbc [...] 4.2 Ratio 12/17/2019 Unknown C A/B FLU 3785267 Influenza A Scr Negative 09/23/2019 Unk nown C A/B FLU 0065634 Influenza B Scr Negative 09/23/2019 Unk nown C A/B FLU [id number] Influenza Intrp B AG:PRID:PT:NOSE:NOM:IF See Footnote 09/23/2019 Unknown Procedures Procedure Codes Date THER/PROPH/DIAG INJ SC/IM CPT-4: 77543 04/28/2021 THER/PROPH/DIAG INJ SC/IM CPT-4: 79792 03/03/2021 THER/PROPH/DIAG INJ SC/IM CPT-4: 08179 01/05/2021 THER/PROPH/DIAG INJ SC/IM CPT-4: 68709 10/28/2020 THER/PROPH/DIAG INJ SC/IM CPT-4: 24822 08/04/2020 THER/PROPH/DIAG INJ SC/IM CPT-4: 73682 05/26/2020 TRIAMCINOLONE ACET INJ NOS 10 mg CPT-4: J3301 020 THER/PROPH/DIAG INJ SC/IM CPT-4: 34083 03/19/2020 THER/PROPH/DIAG INJ SC/IM CPT-4: 55748 12/27/2019 THER/PROPH/DIAG INJ SC/IM CPT-4: 50652 10/24/2019 TRIAMCINOLONE ACET INJ NOS 10 mg CPT-4: J3301 019 THER/PROPH/DIAG INJ SC/IM CPT-4: 37576 08/19/2019 Vital Signs Date Vital 09/20/2021 Blood Pressure 1: 110/80 Code: 8480-6 BMI: 30.2 Code: 28778-6 Heart Rate 1: 88 bpm Height: 5'2" Code: 8302-2 SpO2: 98% Temperature: 3 6.8 (C) / 98.2 (F) Weight: 165 lbs Code: 65003-9 08/31/2021 Blood Pressure 1: 156/82 Code: 8480-6 Heart Rate 1: 81 bpm Height: 5'2" Code: 8302-2 Height: 5'2" Code: 8302-2 SpO2: 99% Temperature: 3 6.2 (C) / 97.1 (F) Weight: Code: 87548-3 08/09/2021 Blood Pressure 1: 142/68 Code: 8480-6 BMI: 30.7 Code: 41961-2 Heart Rate 1: 63 bpm Height: 5'2" Code: 8302-2 SpO2: 97% Temperature: 3 6.4 (C) / 97.6 (F) Weight: 168 lbs Code: 12261-4 06/01/2020 Blood Pressure 1: 130/80 Code: 8480-6 BMI: 28.5 Code: 11385-3 Heart Rate 1: 69 bpm Height: 5'2" Code: 8302-2 SpO2: 97% Temperature: 3 6.9 (C) / 98.4 (F) Weight: 156 lbs Code: 89699-2 05/26/2020 Blood Pressure 1: 128/78 Code: 8480-6 Heart Rate 1: 74 bpm Height: Code: 8302-2 SpO2: 98% Weight: Code: 83787-0 04/02/2020 Height: Code: 8302-2 Weight: Code: 294 63-7 12/16/2019 Blood Pressure 1: 132/80 Code: 8480-6 BMI: 28.9 Code: 90971-4 Heart Rate 1: 68 bpm Height: 5'2" Code: 8302-2 SpO2: 97% Weight: 158 lb s Code: 65786-5 09/27/2019 Blood Pressure 1: 110/60 Code: 8480-6 BMI: 28.5 Code: 32791-1 Heart Rate 1: 76 bpm Height: 5'2" Code: 8302-2 SpO2: 98% Temperature: 3 6.9 (C) / 98.5 (F) Weight: 156 lbs Code: 05564-5 09/23/2019 Blood Pressure 1: 124/80 Code: 8480-6 Heart Rate 1: 81 bpm SpO2: 98% Temperature: 36.7 (C) / 98.1 (F) 08/19/2019 Blood Pressure 1: 130/78 Code: 8480-6 BMI: 28.0 Code: 12702-7 Heart Rate 1: 68 bpm Height: 5'2" Code: 8302-2 SpO2: 98% Weight: 153 lb s Code: 22417-9 06/27/2019 Heart Rate 1: 68 bpm Height: Code: 8302-2 Weigh t: Code: 97141-8 06/24/2019 Blood Pressure 1: 132/74 Code: 8480-6 BMI: 27.4 Code: 75122-2 Heart Rate 1: 66 bpm Height: 5'2" Code: 8302-2 SpO2: 98% Weight: 150 lb s Code: 20593-7 05/30/2019 Blood Pressure 1: 104/60 Code: 8480-6 BMI: 27.5 Code: 38864-2 Heart Rate 1: 66 bpm Height: 5'2" Code: 8302-2 SpO2: 98% Weight: 150 lb s 5 oz Code: 62536-7 Functional Status No Functional Status data Reason For Visit Reason For Visit Effective Dates Notes cough 09/20/2021 cough 08/31/2021 sinus congestion 08/09/2021 headache 06/01/2020 headache 05/26/2020 well woman exam (40-65 years) 12/16/2019 cough 09/27/2019 fever 09/23/2019 menopausal symptoms 08/19/2019 lower leg pain 06/27/2019 lower leg pain 06/24/2019 anxiety 05/30/2019 Encounters Encounter Performer Location Codes Date () 96329 EST. PATIENT, LEVEL IV Diagnosis: Chronic cough[ICD10: R05.3] Diagnosis: Laryngitis[ICD10: J04.0] Diagnosis: Other allergic rhinitis[ICD10: J30.89] Diagnosis: Dysphagia[ICD10: r13.10] Mariel Faith MD, [facility] C PT-4: 93850 09/20/2021 ([id number]) 92870 EST. PATIENT, LEVEL IV Diagnosis: Acute bronchitis[ICD10: J20.9] Diagnosis: Laryngitis[ICD10: J04.0] Diagnosis: Other allergic rhinitis[ICD10: J30.89] Diagnosis: Slow transit constipation[ICD10: K59.01] Mariel Faith MD, [facility] CPT-4: 92248 08/31/2021 ([id number]) 45189 EST. PATIENT, LEVEL IV Diagnosis: Generalized anxiety disorder[ICD10: F41.9] Diagnosis: Cough[ICD10: R05.9] Diagnosis: Other allergic rhinitis[ICD10: J30.89] Diagnosis: Encounter for screening mammogram for malignant neoplasm of breast[ICD10: Z12.31] Mariel Faith MD, [facility] CPT-4: 12724 08/09/2021 ([id number]) 86236 EST. PATIENT, LEVEL III Diagnosis: Headache[ICD10: R51] Diagnosis: Other allergic rhinitis[ICD10: J30.89] Farzana Groves MD, [facility] CPT-4: 23947 06/01/2020 [id number] EST. PATIENT, LEVEL III Diagnosis: Other acute sinusitis[ICD10: J01.80] Diagnosis: Other allergic rhinitis[ICD10: J30.89] Diagnosis: Migraine without status migrainosus, not intractable, unspecified migraine type[ICD10: G43.909] Diagnosis: Menopausal and female climacteric states[ICD10: N95.1] [facility] CPT-4: 02509 05/26/2020 ([id number]) 17809 EST. PATIENT, LEVEL III Diagnosis: Generalized anxiety disorder[ICD10: F41.1] [facility] CPT-4: 84111 04/02/2020 ([id number]) PREV VISIT EST AGE 40-64 Diagnosis: Encounter for gynecological examination (general) (routine) without abnormal findings[ICD10: Z01.419] Farzana Faith MD, [facility] CPT -4: 42277 12/16/2019 ([id number]) 63279 EST. PATIENT, LEVEL III Diagnosis: Cough[ICD10: R05] Diagnosis: Acute bronchitis[ICD10: J20.9] Fazrana pulido MD, [facility] CPT-4: 51756 09/27/2019 ([id number]) 68206 EST. PATIENT, LEVEL III Diagnosis: Fever[ICD10: R50.9] Diagnosis: Body aches[ICD10: R52] Farzana Faith MD, [facility] CPT -4: 07230 09/23/2019 ([id number]) 92778 EST. PATIENT, LEVEL III Diagnosis: Menopausal and female climacteric states[ICD10: N95.1] Farzana Faith MD, [facility] CPT-4: 41072 08/19/2019 86637 EST. PATIENT, LEVEL III Diagnosis: Pain in left ankle and joints of left foot[ICD10: M25.572] Diagnosis: Pain in left knee[ICD10: M25.562] Jaycee gupta MD, [facility] CPT-4: 55583 06/27/2019 [id number] EST. PATIENT, LEVEL III Diagnosis: Pain in left ankle and joints of left foot[ICD10: M25.572] Diagnosis: Pain in left knee[ICD10: M25.562] Jaycee gupta MD, [facility] CPT-4: 76390 06/24/2019 ([id number]) PREV VISIT NEW AGE 40-64 Diagnosis: Encounter for general adult medical examination without abnormal findings[ICD10: Z00.00] [facility] CPT-4: 01110 05/30/2019 Plan of Care Planned Activity Notes [...] Alysa daily. 09/20/2021 [facility] [phone] [facility] [place] (30 min) Complex 09/20/2021 Patient Education: Patient Medication Summary Completed 09/20/2021 Care Plan: CHEST X-RAY 2VW FRONTAL&LATL LOINC : 07930-6 Pending 09/20/2021 Visit Plan: Allergies - recent [...] sent 08/31/2021 [facility]ment[facility] [phone] [facility] ([facility] min) Complex 08/31/2021 Patient Education: [...] sent 08/09/2021 [facility]ment[facility] [phone] [facility] ([facility] min) Complex 08/09/2021 Patient Education: Patient Medication Summary Completed 08/09/2021 Patient Education: prednisone- [employer] Coupon [id number] Completed 08/09/2021 Appointment: Injection 04/28/2021 Patient Education: [...] without contrast. 06/01/2020 Appointment: Farzana Cristina WPtel: [facility] [place] [phone] [place] [address] (15 min) Moderate 06/01/2020 Patient Education: Patient [...] or concerns. 05/26/2020 Appointment: Jaycee Lindo WPtel: [facility] (30 min) Complex 05/26/2020 Patient Education: Patient Medication Summary Completed 05/26/2020 Visit Plan: Anxiety - the patient has un controlled anxiety and will benefit from a short term dose of xanax for control of symptoms. 04/02/2020 Appointment: Alena Faith WPtel: [facility] TeleHealth 04/02/2020 Patient Education: Patient Medication Summary Completed 04/02/2020 Appointment: Injection 03/19/2020 Patient Education: Patient Medication Summary Completed 03/19/2020 Appointment: Injection 03/18/2020 Appointment: Injection 12/27/2019 Patient Education: Patient Medication Summary Completed 12/27/2019 Appointment: Alena Faith WPtel: [facility] [facility] 12/24/2019 Visit Plan: Well Adult Female - exam com pleted. Pap and breast exam completed. Pt will be called with results of her testing. She was advised to continue with yearly annual exams. Safe sex practices discussed during office visit today. Call if any abnormal gynecologic issues during the next year, otherwise, RTC yearly or prn. 12/16/2019 Appointment: Farzana Cristina WPtel: [id number] Well Woman 12/16/2019 Patient Education: Patient Medication Summary Completed 12/16/2019 Appointment: Alena Faith WPtel: [address] [place], [place] [id number] (15 min) Moderate 12/03/2019 Appointment: Injection 10/24/2019 Patient Education: Patient Medication Summary Completed 10/24/2019 Visit Plan: Bronchitis - acute case of b ronchitis identified. Pt has been given antibiotics, breathing treatments as appropriate, and pt has been instructed to call if symptoms are not improved, or if symptoms acutely worsen. 09/27/2019 Appointment: Farzana Cristina WPtel: [address] [place], [place] [id number] (15 min) Moderate 09/27/2019 Patient Education: Patient Medication Summary Completed 09/27/2019 Visit Plan: URI -viral -flu swab to r/o flu - Pt advised to increase fluids, vitamin C. Discussed natural and expected course of this diagnosis and need to alert me if symptoms do not follow expected course, or if any worse. 09/23/2019 Appointment: Farzana Cristina WPtel: [phone] (30 min) Complex 09/23/2019 Patient Education: Patient Medication Summary Completed 09/23/2019 Visit Plan: Post-surgical menopause - co ntinue to taper depo dose and eventually off medication completely -injection today in the office. 08/19/2019 Appointment: Farzana Cristina WPtel: [facility]5 [phone] [place] (15 min) Moderate 08/19/2019 Patient Education: Patient Medication Summary Completed 08/19/2019 Appointment: Farzana Cristina WPtel: [facility]5 [phone] [place] (30 min) Complex 08/16/2019 Visit Plan: Left knee, ankle, foot pain - will send RX - will refer to ortho - The pt is to use prn antiinflammatories to manage acute pain. The patient is to call the office if the pain is worsening or does not improve. 06/27/2019 Appointment: Jaycee Lindo WPtel: [phone] [place] (30 min) Complex 06/27/2019 Patient Education: Patient Medication Summary Completed 06/27/2019 Care Plan: Referral Order SNOMED-CT : [id number] Pending 06/27/2019 Visit Plan: Left knee, ankle, foot pain - will send RX - if no improvement will refer to ortho - The pt is to use prn antiinflammatories to manage acute pain. The patient is to call the office if the pain is worsening or does not improve. 06/24/2019 Appointment: Jaycee Lindo WPtel: [phone] (30 min) Complex 06/24/2019 Patient Education: [...] we will look for her medications from [facility] to find out what her depo [...] Medication Summary Completed 05/30/2019 [phone] [place] Referral Appointment Requested Referral: Nathan [...] year, otherwise, RTC yearly or prn. 12/16/2019 kenalog . Bronchitis - acute case of bronchitis [...] we will look for her medications from [facility] to find out what her depo [...]
--- OUTSIDE RECORDS SUMMARY | 2021-10-12 11:59 | XMS REPORT | CCD ---
Author Author Kaleigh Faith Organization Alena Faith MD, [facility] Address [address] [place] [address] Phone Care Team Providers Care Auctioneer Art Name Role Phone Alena Faith PP Unavailable CCM Unavailable Summary Purpose Interface Exchange Insurance Providers Payer name Policy type / Coverage type Covered libertarian ID Effective Begin Date Effective End Date [facility] Commercial Insurance [id number] Unknown Unknown Family history Mother Diagnosis Age At Onset Diabetes mellitus Type 2 Unknown Alcoholism Unknown Depression Unknown Father Diagnosis Age At Onset Diabetes mellitus Type 2 Unknown Social History Social History Element Codes Description Effective Dates Marital status Unknown Garry 05/30/2019 Number of children Unknown 2 05/30/2019 Employment Unknown Currently employed [employer] 05/30/[address]: 73648650 Current some days smoker Alcohol history SNOMED CT: 251710076 Never drinks alcohol 2018 Allergies, Adverse Reactions, [...] Start Date Stop Date Status Fill Instructions promethazine 6.25 mg-codeine 10 mg/5 mL syrup RxNorm: 078643 Take 5-10 Milliliter(s) Oral every 4-6 hours as needed cough 09/30/2021 10/09/2021 Active escitalopram 10 mg tablet RxNorm: 939783 TAKE ONE TABLE T BY MOUTH EVERY NIGHT AT BEDTIME Tablet(s) Oral 09/29/2021 09/29/2021 Inactive promethazine 6.25 mg-codeine 10 mg/5 mL syrup RxNorm: 848871 Take 5-10 Milliliter(s) Oral every 4-6 hours as needed cough 09/29/2021 1 Inactive promethazine 6.25 mg-codeine 10 mg/5 mL syrup RxNorm: 122405 Take 5-10 Milliliter(s) Oral every 4-6 hours as needed cough 09/29/2021 Inactive albuterol sulfate HFA 90 mcg/actuation aerosol inhaler RxNor m: 2346263 Inhale 2 Inhalation every 4-6 hours as needed cough 09/20/2021 No Stop Date Activ e atorvastatin 20 mg tablet RxNorm: 502501 Take 1 Tablet( s) Oral every night at bedtime 09/01/2021 12/29/2021 Active Miralax 17 gram/dose oral powder RxNorm: 007927 Take 1 scoop Or al every day 08/31/2021 09/29/2021 Inactive Alysa Allergy 180 mg tablet RxNorm: 225060 Take 1 Tab let(s) Oral every day for first 5 days take twice daily 08/31/2021 No Stop Date Active omeprazole 20 mg tablet,delayed release RxNorm: 340698 Take 1 Tablet(s) Oral every day 08/31/2021 09/13/2021 Inactive prednisone 20 mg tablet RxNorm: 872342 Take 2 Tablet(s) Oral ev 08/23/2021 08/27/2021 Inactive azithromycin 250 mg tablet RxNorm: 398983 Take 1 Tablet (s) Oral every day take 2 tablets day 1, then take 1 tablet daily on days 2-5 08/23/2021 08/27/20 21 Inactive Please disregard Cefdinir RX. cefdinir 300 mg capsule RxNorm: 386363 Take 1 Capsule(s) Oral t wo times a day 08/23/2021 08/23/2021 Inactive azithromycin 250 mg tablet RxNorm: 967273 Take 1 Tablet (s) Oral every day take 2 tablets day 1, then take 1 tablet daily on days 2-5 08/23/2021 08/23/20 21 Inactive Please disregard Cefdinir RX. promethazine 6.25 mg-codeine 10 mg/5 mL syrup RxNorm: 583579 Take 5 Milliliter(s) Oral every 4-6 hours as needed cough 08/09/2021 Inactive prednisone 20 mg tablet RxNorm: 197267 Take 2 Tablet(s) Oral ev alex day 08/09/2021 08/13/2021 Inactive promethazine 6.25 mg-codeine 10 mg/5 mL syrup RxNorm: 195875 Take 5 Milliliter(s) Oral every 4-6 hours as needed cough 08/09/2021 Inactive Kenalog 40 mg/mL suspension for injection RxNorm: 8645368 Take 1 Milliliter(s) Injection 08/09/2021 08/09/2021 Inactive alprazolam 0.5 mg tablet RxNorm: 813791 Take 1 Tablet(s ) Oral two times a day as needed FOR ANXIETY 07/30/2021 08/28/2021 Inactive alprazolam 0.5 mg tablet RxNorm: 795846 1 Tablet(s) Ora l two times a day as needed anxiety 06/03/2021 06/03/2021 Inactive Depo-Estradiol 5 mg/mL intramuscular oil RxNorm: 365580 0.75 Milliliter(s) Intramuscular 04/28/2021 04/28/2021 Inactive alprazolam 0.5 mg tablet RxNorm: 220689 1 Tablet(s) Ora l two times a day as needed anxiety 04/05/2021 04/05/2021 Inactive Depo-Estradiol 5 mg/mL intramuscular oil RxNorm: 487664 0.75 Milliliter(s) Intramuscular 03/03/2021 03/03/2021 Inactive alprazolam 0.5 mg tablet RxNorm: 306913 1 Tablet(s) Ora l two times a day as needed anxiety 03/01/2021 03/01/2021 Inactive alprazolam 0.5 mg tablet RxNorm: 023147 1 Tablet(s) Ora l two times a day as needed anxiety 01/28/2021 02/26/2021 Inactive Depo-Provera 150 mg/mL intramuscular suspension RxNorm: 1000 128 Milliliter(s) Intramuscular 01/05/2021 01/05/2021 Inactive alprazolam 0.5 mg tablet RxNorm: 671489 1 Tablet(s) Ora l two times a day as needed anxiety 12/30/2020 01/27/2021 Inactive escitalopram 10 mg tablet RxNorm: 007772 TAKE ONE TABLE T BY MOUTH EVERY NIGHT AT BEDTIME Tablet(s) Oral 12/30/2020 12/30/2020 Inactive escitalopram 5 mg tablet RxNorm: 870236 TAKE ONE TABLET BY MOUTH EVERY NIGHT AT BEDTIME 11/30/2020 12/29/2020 Inactive alprazolam 0.5 mg tablet RxNorm: 047402 1 Tablet(s) Ora l two times a day as needed anxiety 11/30/2020 12/29/2020 Inactive atorvastatin 20 mg tablet RxNorm: 174597 TAKE ONE TABLET BY RADHA TH DAILY 11/26/2020 11/26/2020 Inactive Depo-Estradiol 5 mg/mL intramuscular oil RxNorm: 370742 3/4 Milliliter(s) Intramuscular monthly 10/28/2020 12/27/2020 Inactive Depo-Provera 150 mg/mL intramuscular suspension RxNorm: 1000 128 Milliliter(s) Intramuscular 10/28/2020 10/28/2020 Inactive alprazolam 0.5 mg tablet RxNorm: 015599 1 Tablet(s) Ora l two times a day as needed anxiety 10/01/2020 10/29/2020 Inactive acyclovir 400 mg tablet RxNorm: 975258 TAKE ONE TABLET BY MOUTH FOUR TIMES A DAY 08/31/2020 09/01/2020 Inactive alprazolam 0.5 mg tablet RxNorm: 113798 1 Tablet(s) Ora l two times a day as needed anxiety 08/31/2020 09/29/2020 Inactive atorvastatin 20 mg tablet RxNorm: 220881 1 Tablet(s) Oral every day 08/18/2020 08/17/2020 Inactive atorvastatin 20 mg tablet RxNorm: 749531 1 Tablet(s) Oral every day 08/18/2020 11/25/2020 Inactive alprazolam 0.5 mg tablet RxNorm: 053808 1 Tablet(s) Ora l two times a day as needed anxiety 08/07/2020 08/30/2020 Inactive Depo-Provera 150 mg/mL intramuscular suspension RxNorm: 1000 128 Milliliter(s) Intramuscular 08/04/2020 08/04/2020 Inactive acyclovir 400 mg tablet RxNorm: 551269 TAKE ONE TABLET BY MOUTH FOUR TIMES A DAY 07/21/2020 08/30/2020 Inactive alprazolam 0.5 mg tablet RxNorm: 525787 1 Tablet(s) Ora l two times a day as needed anxiety 07/07/2020 08/05/2020 Inactive alprazolam 0.5 mg tablet RxNorm: 812850 1 Tablet(s) Ora l two times a day as needed anxiety 06/18/2020 07/05/2020 Inactive escitalopram 5 mg tablet RxNorm: 296651 1 Tablet(s) Oral every night at bedtime 06/08/2020 10/06/2020 Inactive prednisone 20 mg tablet RxNorm: 758878 2 Tablet(s) Oral every day 0 06/01/2020 06/06/2020 Inactive Depo-Provera 150 mg/mL intramuscular suspension RxNorm: 1000 128 0.75 Milliliter(s) Intramuscular 05/28/2020 05/28/2020 Inactive Kenalog 40 mg/mL suspension for injection RxNorm: 0782328 1 Milliliter(s) Injection 05/28/2020 05/28/2020 Inactive Zithromax Z-Kraig 250 mg tablet RxNorm: 028456 Tablet(s) Oral as directed 05/26/2020 04/04/2021 Inactive alprazolam 0.5 mg tablet RxNorm: 005200 1 Tablet(s) Ora l two times a day as needed anxiety 05/11/2020 06/09/2020 Inactive alprazolam 0.5 mg tablet RxNorm: 110420 1 Tablet(s) Ora l two times a day as needed anxiety 04/02/2020 05/10/2020 Inactive Depo-Provera 150 mg/mL intramuscular suspension RxNorm: 1000 128 Milliliter(s) Intramuscular 03/19/2020 03/19/2020 Inactive acyclovir 400 mg tablet RxNorm: 023878 1 Tablet(s) Oral four times a day fever blisters 01/02/2020 02/01/2020 Inactive Depo-Provera 150 mg/mL intramuscular suspension RxNorm: 1000 128 Milliliter(s) Intramuscular 12/27/2019 12/27/2019 Inactive pravastatin 10 mg tablet RxNorm: 595343 1 Tablet(s) Oral every night at bedtime 12/19/2019 12/18/2019 Inactive pravastatin 10 mg tablet RxNorm: 863880 1 Tablet(s) Oral every night at bedtime 12/19/2019 04/17/2020 Inactive Depo-Estradiol 5 mg/mL intramuscular oil RxNorm: 404239 3/4 Milliliter(s) Intramuscular monthly 10/24/2019 10/24/2019 Inactive Kenalog 40 mg/mL suspension for injection RxNorm: 9386971 Milliliter(s) Injection 09/27/2019 09/27/2019 Inactive Phenergan with Codeine Syrup RxNorm: 5-10 Millil iter(s) Oral Every 6 hrs as needed 09/27/2019 05/31/2020 Inactive prednisone 20 mg tablet RxNorm: 557197 2 Tablet(s) Oral every day 1 11/28/2018 10/02/2019 Inactive start tomorrow doxycycline hyclate 100 mg tablet RxNorm: 3867302 1 Tabl et(s) Oral two times a day 09/27/2019 10/04/2019 Inactive start if symptom s do not improve Depo-Estradiol 5 mg/mL intramuscular oil RxNorm: 232728 3/4 Milliliter(s) Intramuscular monthly 08/20/2019 08/20/2019 Inactive Depo-Estradiol 5 mg/mL intramuscular oil RxNorm: 037761 3/4 Milliliter(s) Intramuscular monthly 08/15/2019 09/14/2019 Inactive gabapentin 100 mg capsule RxNorm: 239830 1 Capsule(s) O ral every night at bedtime 07/31/2019 09/22/2019 Inactive gabapentin 100 mg capsule RxNorm: 415224 1 Capsule(s) PO QHS 201807/26/2019 Inactive naproxen 500 mg tablet RxNorm: 426690 1 Tablet(s) PO BID 06/24/2019 0 06/28/2019 Inactive escitalopram 5 mg tablet RxNorm: 987167 1 Tablet(s) PO QHS 05/30/20 19 09/22/2019 Inactive CoQ-10 oral RxNorm: 74319 oral 09/01/2021 Active ranitidine 150 mg capsule RxNorm: 564757 1 Capsule(s) PO BID 201809/22/2019 Inactive eszopiclone 1 mg tablet RxNorm: 345800 Tablet(s) PO as needed 06/0105/31/2020 Inactive acyclovir 400 mg tablet RxNorm: 286619 1 Tablet(s) PO PRN fever blisters 01/02/2020 01/01/2020 Inactive clonidine HCl 0.1 mg tablet RxNorm: 706077 Tablet(s) PO as needed 0 05/30/2019 05/29/2019 Inactive Medication Administered Medication Codes Instructions Start Date Status Kenalog 40 mg/mL suspension for injection RxNorm: 7572148 1Milli liter 08/09/2021 No longer Active Depo-Estradiol 5 mg/mL intramuscular oil RxNorm: 698790 0.75Mil liliter 04/28/2021 No longer Active Depo-Estradiol 5 mg/mL intramuscular oil RxNorm: 798926 0.75Mil liliter 03/03/2021 No longer Active Depo-Provera 150 mg/mL intramuscular suspension RxNorm: 5612789 Milliliter 01/05/2021 No longer Active Depo-Provera 150 mg/mL intramuscular suspension RxNorm: 3901122 Milliliter 10/28/2020 No longer Active Depo-Provera 150 mg/mL intramuscular suspension RxNorm: 0236791 Milliliter 08/04/2020 No longer Active Depo-Provera 150 mg/mL intramuscular suspension RxNorm: 3078647 0.75Milliliter 05/28/2020 No longer Active Kenalog 40 mg/mL suspension for injection RxNorm: 0131611 1Milli liter 05/28/2020 No longer Active Depo-Provera 150 mg/mL intramuscular suspension RxNorm: 6627677 Milliliter 03/19/2020 No longer Active Depo-Provera 150 mg/mL intramuscular suspension RxNorm: 5279637 Milliliter 12/27/2019 No longer Active Depo-Estradiol 5 mg/mL intramuscular oil RxNorm: 257496 3/4Mill ilitermonthly 10/24/2019 Active Kenalog 40 mg/mL suspension for injection RxNorm: 2300477 Millilite r 09/27/2019 No longer Active Depo-Estradiol 5 mg/mL intramuscular oil RxNorm: 516380 3/4Mill ilitermonthly 08/20/2019 Active Immunizations No Immunization data Results Observation Observation Code Item Item Code Result Date S ervice Location Cbc With Differential Ord2 WBC 11.77 [...] 08/31/20 21 Unknown Cbc With Differential Ord2 [place]% 6.0 % 08/31/20 21 Unknown Cbc With [...] K/ul 021 Unknown Cbc With Differential Ord2 [place] ABS# 0.7 K/ul 08/31/20 21 Unknown Cbc With Differential Ord2 Eos ABS# 0.3 K/ul 08/31/20 21 Unknown Cbc With Differential Ord2 Baso ABS# 0.0 K/ul 08/31/20 21 Unknown Comp Metabolic Jmf523 NA 142 mEq/L 08/31/2021 Unkn own Comp Metabolic Uux988 K 4.4 mEq/L 08/31/2021 Unkn own Comp Metabolic Bkp794 CL 101 mEq/L 08/31/2021 Unkn own Comp Metabolic Fao637 CO2 32.0 mEq/L 08/31/2021 Unk nown Comp Metabolic Pci187 ANION GAP 13 08/31/2021 Unkn own Comp Metabolic Kfq689 GLUCOSE 89 mg/dL 08/31/2021 Unkn own Comp Metabolic Emu189 Creat 0.7 mg/dL 08/31/2021 Unkn own Comp Metabolic Tbu076 eGFR 90 ml/min/1.73m2 08/31/20 21 Unknown Comp Metabolic Udt679 BUN 19 mg/dL 08/31/2021 Unkn own Comp Metabolic Zps700 B/C Ratio 26.4 Ratio 08/31/2021 Unk nown Comp Metabolic Omr896 CALCIUM 9.2 mg/dL 08/31/2021 Unkn own Comp Metabolic Rwz524 ALK PHOS 85 U/L 08/31/2021 Unkn own Comp Metabolic Mck288 AST(SGOT) 16 U/L 08/31/2021 Unkn own Comp Metabolic Vbk860 ALT(SGPT) 19 U/L 08/31/2021 Unkn own Comp Metabolic Egq175 BILI T 0.6 mg/dL 08/31/2021 Unkn own Comp Metabolic Nnq942 ALBUMIN 4.2 g/dL 08/31/2021 Unkn own Comp Metabolic Yxk193 TPRO 7.1 g/dL 08/31/2021 Unkn own Comp Metabolic Grl489 GLOB 2.9 g/dL 08/31/2021 Unkn own Comp Metabolic Jyu162 A/G Ratio 1.5 Ratio 08/31/2021 Unkn own Comp Metabolic Cjb546 Osmo 285 mOsmo 08/31/2021 Unkn own Tsh [...] C/HDL 4.5 Ratio 08/06/2020 Unknown Comp Metabolic Owr154 NA 138 mEq/L 08/06/2020 Unkn own Comp Metabolic Yqo934 K 4.5 mEq/L 08/06/2020 Unkn own Comp Metabolic Ofe385 CL 103 mEq/L 08/06/2020 Unkn own Comp Metabolic Gju239 CO2 28.0 mEq/L 08/06/2020 Unk nown Comp Metabolic Mtw843 ANION GAP 12 08/06/2020 Unkn own Comp Metabolic Gwh635 GLUCOSE 90 mg/dL 08/06/2020 Unkn own Comp Metabolic Dfi027 Creat 0.7 mg/dL 08/06/2020 Unkn own Comp Metabolic Bjr037 eGFR 88 ml/min/1.73m2 08/06/20 20 Unknown Comp Metabolic Pch406 BUN 20 mg/dL 08/06/2020 Unkn own Comp Metabolic Mcu464 B/C Ratio 27.0 Ratio 08/06/2020 Unk nown Comp Metabolic Ukz081 CALCIUM 9.5 mg/dL 08/06/2020 Unkn own Comp Metabolic Yis100 ALK PHOS 87 U/L 08/06/2020 Unkn own Comp Metabolic Phc659 AST(SGOT) 17 U/L 08/06/2020 Unkn own Comp Metabolic Dzz958 ALT(SGPT) 20 U/L 08/06/2020 Unkn own Comp Metabolic Oez113 BILI T 0.6 mg/dL 08/06/2020 Unkn own Comp Metabolic Epw581 ALBUMIN 4.5 g/dL 08/06/2020 Unkn own Comp Metabolic Gpr608 TPRO 7.6 g/dL 08/06/2020 Unkn own Comp Metabolic Bah062 GLOB 3.1 g/dL 08/06/2020 Unkn own Comp Metabolic Yrx451 A/G Ratio 1.5 Ratio 08/06/2020 Unkn own Comp Metabolic Meu644 Osmo 278 mOsmo 08/06/2020 Unkn own Cbc With Differential Ord2 WBC 10.56 K/ul 020 Unknown Cbc With Differential Ord2 RBC 4.44 M/ul 08/06/20 20 Unknown Cbc With Differential Ord2 HGB 14.0 g/dl 08/06/20 20 Unknown Cbc With Differential Ord2 HCT 42.8 % 08/06/20 Unknown Cbc With Differential Ord2 Neut% 73.9 % 08/06/20 Unknown Cbc With Differential Ord2 MCV 96.4 fl 08/06/20 Unknown Cbc With Differential Ord2 Lymph% 18.2 % 08/06/20 Unknown Cbc With Differential Ord2 MCH 31.5 pg 08/06/20 Unknown Cbc With Differential Ord2 [place]% 5.4 % 08/06/20 Unknown Cbc With Differential Ord2 MCHC 32.7 pg 08/06/20 Unknown Cbc With Differential Ord2 Eos% 2.2 % 10/22/20 20 Unknown Cbc With Differential Ord2 PLT 258 K/ul 08/06/20 20 Unknown Cbc With Differential Ord2 Baso% 0.3 % 08/06/20 Unknown Cbc With Differential Ord2 RDW 13.4 % 08/06/20 Unknown Cbc With Differential Ord2 Neut ABS# 7.81 K/ul 08/06/20 20 Unknown Cbc With Differential Ord2 Lymph ABS# 1.92 K/ul 020 Unknown Cbc With Differential Ord2 [place] ABS# 0.6 K/ul 08/06/20 20 Unknown Cbc With Differential Ord2 Eos ABS# 0.2 K/ul 08/06/20 20 Unknown Cbc With Differential Ord2 Baso ABS# 0.0 K/ul 08/06/20 20 Unknown Tsh Ord6 TSH (3rd IS) 1.38 uIU/mL 12/17/2019 Unkn own Comp Metabolic Uwa284 NA 141 mEq/L 12/17/2019 Unkn own Comp Metabolic Noq494 K 4.3 mEq/L 12/17/2019 Unkn own Comp Metabolic Aal265 CL 104 mEq/L 12/17/2019 Unkn own Comp Metabolic Tcr667 CO2 29.0 mEq/L 12/17/2019 Unk nown Comp Metabolic Ini517 ANION GAP 12 12/17/2019 Unkn own Comp Metabolic Dja567 GLUCOSE 83 mg/dL 12/17/2019 Unkn own Comp Metabolic Xne967 Creat 0.7 mg/dL 12/17/2019 Unkn own Comp Metabolic Fzt551 eGFR 102 ml/min/1.73m2 020 Unknown Comp Metabolic Vqf968 BUN 16 mg/dL 12/17/2019 Unkn own Comp Metabolic Yzb331 B/C Ratio 24.6 Ratio 12/17/2019 Unk nown Comp Metabolic Omk415 CALCIUM 9.3 mg/dL 12/17/2019 Unkn own Comp Metabolic Tew740 ALK PHOS 79 U/L 12/17/2019 Unkn own Comp Metabolic Sjt949 AST(SGOT) 19 U/L 12/17/2019 Unkn own Comp Metabolic Kbn773 ALT(SGPT) 26 U/L 12/17/2019 Unkn own Comp Metabolic Mfw303 BILI T 0.5 mg/dL 12/17/2019 Unkn own Comp Metabolic Dub701 ALBUMIN 4.2 g/dL 12/17/2019 Unkn own Comp Metabolic Xkz343 TPRO 7.0 g/dL 12/17/2019 Unkn own Comp Metabolic Bma794 GLOB 2.8 g/dL 12/17/2019 Unkn own Comp Metabolic Cgf565 A/G Ratio 1.5 Ratio 12/17/2019 Unkn own Comp Metabolic Swy798 Osmo 282 mOsmo 12/17/2019 Unkn own Cbc [...] 12/17/19 20 Unknown Cbc With Differential Ord2 [place]% 6.2 % 12/17/19 20 Unknown Cbc With [...] K/ul 020 Unknown Cbc With Differential Ord2 [place] ABS# 0.6 K/ul 12/17/19 20 Unknown Cbc [...] 4.2 Ratio 12/17/2019 Unknown C A/B FLU 4254209 Influenza A Scr Negative 09/23/2019 Unk nown C A/B FLU 6559434 Influenza B Scr Negative 09/23/2019 Unk nown C A/B FLU [id number] Influenza Intrp B AG:PRID:PT:NOSE:NOM:IF See Footnote 09/23/2019 Unknown Procedures Procedure Codes Date THER/PROPH/DIAG INJ SC/IM CPT-4: 03484 04/28/2021 THER/PROPH/DIAG INJ SC/IM CPT-4: 52983 03/03/2021 THER/PROPH/DIAG INJ SC/IM CPT-4: 97377 01/05/2021 THER/PROPH/DIAG INJ SC/IM CPT-4: 30615 10/28/2020 THER/PROPH/DIAG INJ SC/IM CPT-4: 91946 08/04/2020 THER/PROPH/DIAG INJ SC/IM CPT-4: 52678 05/26/2020 TRIAMCINOLONE ACET INJ NOS 10 mg CPT-4: J3301 020 THER/PROPH/DIAG INJ SC/IM CPT-4: 86709 03/19/2020 THER/PROPH/DIAG INJ SC/IM CPT-4: 76970 12/27/2019 THER/PROPH/DIAG INJ SC/IM CPT-4: 55036 10/24/2019 TRIAMCINOLONE ACET INJ NOS 10 mg CPT-4: J3301 019 THER/PROPH/DIAG INJ SC/IM CPT-4: 00436 08/19/2019 Vital Signs Date Vital 09/20/2021 Blood Pressure 1: 110/80 Code: 8480-6 BMI: 30.2 Code: 37376-8 Heart Rate 1: 88 bpm Height: 5'2" Code: 8302-2 SpO2: 98% Temperature: 3 6.8 (C) / 98.2 (F) Weight: 165 lbs Code: 11959-0 08/31/2021 Blood Pressure 1: 156/82 Code: 8480-6 Heart Rate 1: 81 bpm Height: 5'2" Code: 8302-2 Height: 5'2" Code: 8302-2 SpO2: 99% Temperature: 3 6.2 (C) / 97.1 (F) Weight: Code: 60623-6 08/09/2021 Blood Pressure 1: 142/68 Code: 8480-6 BMI: 30.7 Code: 74646-2 Heart Rate 1: 63 bpm Height: 5'2" Code: 8302-2 SpO2: 97% Temperature: 3 6.4 (C) / 97.6 (F) Weight: 168 lbs Code: 09578-3 06/01/2020 Blood Pressure 1: 130/80 Code: 8480-6 BMI: 28.5 Code: 79800-7 Heart Rate 1: 69 bpm Height: 5'2" Code: 8302-2 SpO2: 97% Temperature: 3 6.9 (C) / 98.4 (F) Weight: 156 lbs Code: 07500-5 05/26/2020 Blood Pressure 1: 128/78 Code: 8480-6 Heart Rate 1: 74 bpm Height: Code: 8302-2 SpO2: 98% Weight: Code: 17788-6 04/02/2020 Height: Code: 8302-2 Weight: Code: 294 63-7 12/16/2019 Blood Pressure 1: 132/80 Code: 8480-6 BMI: 28.9 Code: 89317-1 Heart Rate 1: 68 bpm Height: 5'2" Code: 8302-2 SpO2: 97% Weight: 158 lb s Code: 10722-1 09/27/2019 Blood Pressure 1: 110/60 Code: 8480-6 BMI: 28.5 Code: 35143-8 Heart Rate 1: 76 bpm Height: 5'2" Code: 8302-2 SpO2: 98% Temperature: 3 6.9 (C) / 98.5 (F) Weight: 156 lbs Code: 51840-7 09/23/2019 Blood Pressure 1: 124/80 Code: 8480-6 Heart Rate 1: 81 bpm SpO2: 98% Temperature: 36.7 (C) / 98.1 (F) 08/19/2019 Blood Pressure 1: 130/78 Code: 8480-6 BMI: 28.0 Code: 34112-3 Heart Rate 1: 68 bpm Height: 5'2" Code: 8302-2 SpO2: 98% Weight: 153 lb s Code: 96318-4 06/27/2019 Heart Rate 1: 68 bpm Height: Code: 8302-2 Weigh t: Code: 26791-2 06/24/2019 Blood Pressure 1: 132/74 Code: 8480-6 BMI: 27.4 Code: 23388-1 Heart Rate 1: 66 bpm Height: 5'2" Code: 8302-2 SpO2: 98% Weight: 150 lb s Code: 68522-7 05/30/2019 Blood Pressure 1: 104/60 Code: 8480-6 BMI: 27.5 Code: 65330-3 Heart Rate 1: 66 bpm Height: 5'2" Code: 8302-2 SpO2: 98% Weight: 150 lb s 5 oz Code: 74709-0 Functional Status No Functional Status data Reason For Visit Reason For Visit Effective Dates Notes cough 09/20/2021 cough 08/31/2021 sinus congestion 08/09/2021 headache 06/01/2020 headache 05/26/2020 well woman exam (40-65 years) 12/16/2019 cough 09/27/2019 fever 09/23/2019 menopausal symptoms 08/19/2019 lower leg pain 06/27/2019 lower leg pain 06/24/2019 anxiety 05/30/2019 Encounters Encounter Performer Location Codes Date 72905 EST. PATIENT, LEVEL IV Diagnosis: Chronic cough[ICD10: R05.3] Diagnosis: Laryngitis[ICD10: J04.0] Diagnosis: Other allergic rhinitis[ICD10: J30.89] Diagnosis: Dysphagia[ICD10: r13.10] Mariel Faith MD, [facility] C PT-4: 59932 09/20/2021 ([id number]) 57214 EST. PATIENT, LEVEL IV Diagnosis: Acute bronchitis[ICD10: J20.9] Diagnosis: Laryngitis[ICD10: J04.0] Diagnosis: Other allergic rhinitis[ICD10: J30.89] Diagnosis: Slow transit constipation[ICD10: K59.01] [facility] CPT-[facility]: 68160 08/31/2021 ([id number]) 80982 EST. PATIENT, LEVEL IV Diagnosis: Generalized anxiety disorder[ICD10: F41.9] Diagnosis: Cough[ICD10: R05.9] Diagnosis: Other allergic rhinitis[ICD10: J30.89] Diagnosis: Encounter for screening mammogram for malignant neoplasm of breast[ICD10: Z12.31] [facility] CPT-4: 24688 08/09/2021 ([id number]) 54001 EST. PATIENT, LEVEL III Diagnosis: Headache[ICD10: R51] Diagnosis: Other allergic rhinitis[ICD10: J30.89] Farzana Groves MD, [facility] CPT-4: 33484 06/01/2020 [id number] EST. PATIENT, LEVEL III Diagnosis: Other acute sinusitis[ICD10: J01.80] Diagnosis: Other allergic rhinitis[ICD10: J30.89] Diagnosis: Migraine without status migrainosus, not intractable, unspecified migraine type[ICD10: G43.909] Diagnosis: Menopausal and female climacteric states[ICD10: N95.1] Jaycee Faith MD, [facility] CPT-4: 06890 05/26/2020 ([id number]) 49610 EST. PATIENT, LEVEL III Diagnosis: Generalized anxiety disorder[ICD10: F41.1] Alena Faith MD, [facility] CPT-4: 97436 04/02/2020 ([id number]) PREV VISIT EST AGE 40-64 Diagnosis: Encounter for gynecological examination (general) (routine) without abnormal findings[ICD10: Z01.419] Farzana Faith MD, [facility] CPT -4: 50990 12/16/2019 ([id number]) 34469 EST. PATIENT, LEVEL III Diagnosis: Cough[ICD10: R05] Diagnosis: Acute bronchitis[ICD10: J20.9] Farzana pulido MD, [facility] CPT-4: 08057 09/27/2019 ([id number]) 76305 EST. PATIENT, LEVEL III Diagnosis: Fever[ICD10: R50.9] Diagnosis: Body aches[ICD10: R52] Farzana Faith MD, [facility] CPT -4: 97291 09/23/2019 ([id number]) 02624 EST. PATIENT, LEVEL III Diagnosis: Menopausal and female climacteric states[ICD10: N95.1] Farzana Faith MD, [facility] CPT-4: 12003 08/19/2019 73619 EST. PATIENT, LEVEL III Diagnosis: Pain in left ankle and joints of left foot[ICD10: M25.572] Diagnosis: Pain in left knee[ICD10: M25.562] [facility] CPT-4: 03957 06/27/2019 86090 EST. PATIENT, LEVEL III Diagnosis: Pain in left ankle and joints of left foot[ICD10: M25.572] Diagnosis: Pain in left knee[ICD10: M25.562] [facility] CPT-4: 15418 06/24/2019 ([id number]) PREV VISIT NEW AGE 40-64 Diagnosis: Encounter for general adult medical examination without abnormal findings[ICD10: Z00.00] [facility] CPT-4: 70109 05/30/2019 Plan of Care Planned Activity Notes [...] Alysa daily. 09/20/2021 Appointment: Mariel Gil WPtel[phone] [place] ([facility] Complex 09/20/2021 Patient Education: Patient Medication Summary Completed 09/20/2021 Care Plan: CHEST X-RAY 2VW FRONTAL&LATL LOINC : 19780-7 Pending 09/20/2021 Visit Plan: Allergies - recent [...] orders sent 08/31/2021 Appointment: Mariel Gil WPtel: [phone] [place] (30 min) Complex 08/31/2021 Patient Education: Patient [...] orders sent 08/09/2021 Appointment: Mariel Gil WPtel[id number] [place] ([facility] min) Complex 08/09/2021 Patient Education: Patient Medication Summary Completed 08/09/2021 Patient Education: prednisone- [employer] C[employer] [id number] Completed 08/09/2021 Appointment: Injection 04/28/2021 Patient Education: [...] without contrast. 06/01/2020 Appointment: Farzana Cristina WPtel: [address] [place], [place] [phone] (15 min) Moderate 06/01/2020 Patient Education: Patient [...] or concerns. 05/26/2020 Appointment: Jaycee Lindo WPtel: [address] [facility] (30 min) Complex 05/26/2020 Patient Education: Patient Medication Summary Completed 05/26/2020 Visit Plan: Anxiety - the patient has un controlled anxiety and will benefit from a short term dose of xanax for control of symptoms. 04/02/2020 Appointment: Alena Faith WPtel: [facility]6 [id number]Health 04/02/2020 Patient Education: Patient Medication Summary Completed 04/02/2020 Appointment: Injection 03/19/2020 Patient Education: Patient Medication Summary Completed 03/19/2020 Appointment: Injection 03/18/2020 Appointment: Injection 12/27/2019 Patient Education: Patient Medication Summary Completed 12/27/2019 Appointment: Alena Faith WPtel: [id number] Well Woman 12/24/2019 Visit Plan: Well Adult Female - exam com pleted. Pap and breast exam completed. Pt will be called with results of her testing. She was advised to continue with yearly annual exams. Safe sex practices discussed during office visit today. Call if any abnormal gynecologic issues during the next year, otherwise, RTC yearly or prn. 12/16/2019 Appointment: Farzana Cristina WPtel: [phone] Well Woman 12/16/2019 Patient Education: Patient Medication Summary Completed 12/16/2019 Appointment: Alena Faith WPtel: [phone] [id number] (15 min) Moderate 12/03/2019 Appointment: Injection 10/24/2019 Patient Education: Patient Medication Summary Completed 10/24/2019 Visit Plan: Bronchitis - acute case of b ronchitis identified. Pt has been given antibiotics, breathing treatments as appropriate, and pt has been instructed to call if symptoms are not improved, or if symptoms acutely worsen. 09/27/2019 Appointment: Farzana Cristina WPtel: [address] [place], [place] [phone] (15 min) Moderate 09/27/2019 Patient Education: Patient Medication Summary Completed 09/27/2019 Visit Plan: URI -viral -flu swab to r/o flu - Pt advised to increase fluids, vitamin C. Discussed natural and expected course of this diagnosis and need to alert me if symptoms do not follow expected course, or if any worse. 09/23/2019 Appointment: Farzana Cristina WPtel: [address] [place], [place] [phone] (30 min) Complex 09/23/2019 Patient Education: Patient Medication Summary Completed 09/23/2019 Visit Plan: Post-surgical menopause - co ntinue to taper depo dose and eventually off medication completely -injection today in the office. 08/19/2019 Appointment: Farzana Cristina WPtel: [address] [place], [place] [phone] (15 min) Moderate 08/19/2019 Patient Education: Patient Medication Summary Completed 08/19/2019 Appointment: Farzana Cristina WPtel: [address] [place], [place] [phone] (30 min) Complex 08/16/2019 Visit Plan: Left knee, ankle, foot pain - will send RX - will refer to ortho - The pt is to use prn antiinflammatories to manage acute pain. The patient is to call the office if the pain is worsening or does not improve. 06/27/2019 Appointment: Jaycee Lindo WPtel: [id number] (30 min) Complex 06/27/2019 Patient Education: Patient Medication Summary Completed 06/27/2019 Care Plan: Referral Order SNOMED-CT : [id number] Pending 06/27/2019 Visit Plan: Left knee, ankle, foot pain - will send RX - if no improvement will refer to ortho - The pt is to use prn antiinflammatories to manage acute pain. The patient is to call the office if the pain is worsening or does not improve. 06/24/2019 Appointment: Jaycee Lindo WPtel: [phone] [facility] (30 min) Complex 06/24/2019 Patient Education: [...] we will look for her medications from [facility] to find out what her depo [...] Medication Summary Completed 05/30/2019 Referral: João Cain HPtel:[phone] [id number] [facility] App[facility]ment Requested Referral: Nathan Dudley Referral [...] . Allergies exacerbation with cough - ch vania - recommended pt to use allergy medication [...] we will look for her medications from [facility] to find out what her depo [...]
--- OUTSIDE RECORDS SUMMARY | 2021-10-12 11:59 | XMS REPORT | CCD ---
Author Author Kaleigh Faith Organization Alena Faith MD, [facility] Address [address] [place] [address] Phone Care Team Providers Care Cartoon Animator Name Role Phone Alena Faith PP Unavailable CCM Unavailable Summary Purpose Interface Exchange Insurance Providers Payer name Policy type / Coverage type Covered democrat ID Effective Begin Date Effective End Date [facility] Commercial Insurance [id number] Unknown Unknown Family history Mother Diagnosis Age At Onset Diabetes mellitus Type 2 Unknown Alcoholism Unknown Depression Unknown Father Diagnosis Age At Onset Diabetes mellitus Type 2 Unknown Social History Social History Element Codes Description Effective Dates Marital status Unknown Garry 05/30/2019 Number of children Unknown 2 05/30/2019 Employment Unknown Currently employed [employer] 05/30/[address]: 82637822 Current some days smoker Alcohol history SNOMED CT: 867114347 Never drinks alcohol 2018 Allergies, Adverse Reactions, [...] 6.25 mg-codeine 10 mg/5 mL syrup RxNorm: 350555 Take 5-10 Milliliter(s) Oral every 4-6 hours as needed cough 09/29/2021 10/08/2021 Active escitalopram 10 mg tablet RxNorm: 831841 TAKE ONE TABLE T BY MOUTH EVERY NIGHT AT BEDTIME Tablet(s) Oral 09/29/2021 09/29/2021 Inactive promethazine 6.25 mg-codeine 10 mg/5 mL syrup RxNorm: 071635 Take 5-10 Milliliter(s) Oral every 4-6 hours as needed cough 09/29/2021 Inactive albuterol sulfate HFA 90 mcg/actuation aerosol inhaler RxNor m: 3142550 Inhale 2 Inhalation every 4-6 hours as needed cough 09/20/2021 No Stop Date Activ e atorvastatin 20 mg tablet RxNorm: 155655 Take 1 Tablet( s) Oral every night at bedtime 09/01/2021 12/29/2021 Active Miralax 17 gram/dose oral powder RxNorm: 563094 Take 1 scoop Or al every day 08/31/2021 09/29/2021 Inactive Alysa Allergy 180 mg tablet RxNorm: 598856 Take 1 Tab let(s) Oral every day for first 5 days take twice daily 08/31/2021 No Stop Date Active omeprazole 20 mg tablet,delayed release RxNorm: 021565 Take 1 Tablet(s) Oral every day 08/31/2021 09/13/2021 Inactive prednisone 20 mg tablet RxNorm: 582259 Take 2 Tablet(s) Oral ev alex day 08/23/2021 08/27/2021 Inactive azithromycin 250 mg tablet RxNorm: 706958 Take 1 Tablet (s) Oral every day take 2 tablets day 1, then take 1 tablet daily on days 2-5 08/23/2021 08/27/20 21 Inactive Please disregard Cefdinir RX. cefdinir 300 mg capsule RxNorm: 623187 Take 1 Capsule(s) Oral t wo times a day 08/23/2021 08/23/2021 Inactive azithromycin 250 mg tablet RxNorm: 808421 Take 1 Tablet (s) Oral every day take 2 tablets day 1, then take 1 tablet daily on days 2-5 08/23/2021 08/23/20 21 Inactive Please disregard Cefdinir RX. promethazine 6.25 mg-codeine 10 mg/5 mL syrup RxNorm: 333761 Take 5 Milliliter(s) Oral every 4-6 hours as needed cough 08/09/2021 Inactive prednisone 20 mg tablet RxNorm: 198166 Take 2 Tablet(s) Oral ev alex day 08/09/2021 08/13/2021 Inactive promethazine 6.25 mg-codeine 10 mg/5 mL syrup RxNorm: 295796 Take 5 Milliliter(s) Oral every 4-6 hours as needed cough 08/09/2021 Inactive Kenalog 40 mg/mL suspension for injection RxNorm: 9230324 Take 1 Milliliter(s) Injection 08/09/2021 08/09/2021 Inactive alprazolam 0.5 mg tablet RxNorm: 043167 Take 1 Tablet(s ) Oral two times a day as needed FOR ANXIETY 07/30/2021 08/28/2021 Inactive alprazolam 0.5 mg tablet RxNorm: 034052 1 Tablet(s) Ora l two times a day as needed anxiety 06/03/2021 06/03/2021 Inactive Depo-Estradiol 5 mg/mL intramuscular oil RxNorm: 093886 0.75 Milliliter(s) Intramuscular 04/28/2021 04/28/2021 Inactive alprazolam 0.5 mg tablet RxNorm: 535637 1 Tablet(s) Ora l two times a day as needed anxiety 04/05/2021 04/05/2021 Inactive Depo-Estradiol 5 mg/mL intramuscular oil RxNorm: 600197 0.75 Milliliter(s) Intramuscular 03/03/2021 03/03/2021 Inactive alprazolam 0.5 mg tablet RxNorm: 633345 1 Tablet(s) Ora l two times a day as needed anxiety 03/01/2021 03/01/2021 Inactive alprazolam 0.5 mg tablet RxNorm: 428270 1 Tablet(s) Ora l two times a day as needed anxiety 01/28/2021 02/26/2021 Inactive Depo-Provera 150 mg/mL intramuscular suspension RxNorm: 1000 128 Milliliter(s) Intramuscular 01/05/2021 01/05/2021 Inactive alprazolam 0.5 mg tablet RxNorm: 030403 1 Tablet(s) Ora l two times a day as needed anxiety 12/30/2020 01/27/2021 Inactive escitalopram 10 mg tablet RxNorm: 649375 TAKE ONE TABLE T BY MOUTH EVERY NIGHT AT BEDTIME Tablet(s) Oral 12/30/2020 12/30/2020 Inactive escitalopram 5 mg tablet RxNorm: 962756 TAKE ONE TABLET BY MOUTH EVERY NIGHT AT BEDTIME 11/30/2020 12/29/2020 Inactive alprazolam 0.5 mg tablet RxNorm: 494100 1 Tablet(s) Ora l two times a day as needed anxiety 11/30/2020 12/29/2020 Inactive atorvastatin 20 mg tablet RxNorm: 644770 TAKE ONE TABLET BY RADHA TH DAILY 11/26/2020 11/26/2020 Inactive Depo-Estradiol 5 mg/mL intramuscular oil RxNorm: 962319 3/4 Milliliter(s) Intramuscular monthly 10/28/2020 12/27/2020 Inactive Depo-Provera 150 mg/mL intramuscular suspension RxNorm: 1000 128 Milliliter(s) Intramuscular 10/28/2020 10/28/2020 Inactive alprazolam 0.5 mg tablet RxNorm: 908379 1 Tablet(s) Ora l two times a day as needed anxiety 10/01/2020 10/29/2020 Inactive acyclovir 400 mg tablet RxNorm: 216427 TAKE ONE TABLET BY MOUTH FOUR TIMES A DAY 08/31/2020 09/01/2020 Inactive alprazolam 0.5 mg tablet RxNorm: 418715 1 Tablet(s) Ora l two times a day as needed anxiety 08/31/2020 09/29/2020 Inactive atorvastatin 20 mg tablet RxNorm: 293207 1 Tablet(s) Oral every day 08/18/2020 08/17/2020 Inactive atorvastatin 20 mg tablet RxNorm: 228531 1 Tablet(s) Oral every day 08/18/2020 11/25/2020 Inactive alprazolam 0.5 mg tablet RxNorm: 781251 1 Tablet(s) Ora l two times a day as needed anxiety 08/07/2020 08/30/2020 Inactive Depo-Provera 150 mg/mL intramuscular suspension RxNorm: 1000 128 Milliliter(s) Intramuscular 08/04/2020 08/04/2020 Inactive acyclovir 400 mg tablet RxNorm: 186036 TAKE ONE TABLET BY MOUTH FOUR TIMES A DAY 07/21/2020 08/30/2020 Inactive alprazolam 0.5 mg tablet RxNorm: 984031 1 Tablet(s) Ora l two times a day as needed anxiety 07/07/2020 08/05/2020 Inactive alprazolam 0.5 mg tablet RxNorm: 509241 1 Tablet(s) Ora l two times a day as needed anxiety 06/18/2020 07/05/2020 Inactive escitalopram 5 mg tablet RxNorm: 859693 1 Tablet(s) Oral every night at bedtime 06/08/2020 10/06/2020 Inactive prednisone 20 mg tablet RxNorm: 427057 2 Tablet(s) Oral every day 0 06/01/2020 06/06/2020 Inactive Depo-Provera 150 mg/mL intramuscular suspension RxNorm: 1000 128 0.75 Milliliter(s) Intramuscular 05/28/2020 05/28/2020 Inactive Kenalog 40 mg/mL suspension for injection RxNorm: 1694957 1 Milliliter(s) Injection 05/28/2020 05/28/2020 Inactive Zithromax Z-Kraig 250 mg tablet RxNorm: 999730 Tablet(s) Oral as directed 05/26/2020 04/04/2021 Inactive alprazolam 0.5 mg tablet RxNorm: 070130 1 Tablet(s) Ora l two times a day as needed anxiety 05/11/2020 06/09/2020 Inactive alprazolam 0.5 mg tablet RxNorm: 916740 1 Tablet(s) Ora l two times a day as needed anxiety 04/02/2020 05/10/2020 Inactive Depo-Provera 150 mg/mL intramuscular suspension RxNorm: 1000 128 Milliliter(s) Intramuscular 03/19/2020 03/19/2020 Inactive acyclovir 400 mg tablet RxNorm: 979486 1 Tablet(s) Oral four times a day fever blisters 01/02/2020 02/01/2020 Inactive Depo-Provera 150 mg/mL intramuscular suspension RxNorm: 1000 128 Milliliter(s) Intramuscular 12/27/2019 12/27/2019 Inactive pravastatin 10 mg tablet RxNorm: 469617 1 Tablet(s) Oral every night at bedtime 12/19/2019 12/18/2019 Inactive pravastatin 10 mg tablet RxNorm: 414137 1 Tablet(s) Oral every night at bedtime 12/19/2019 04/17/2020 Inactive Depo-Estradiol 5 mg/mL intramuscular oil RxNorm: 362760 3/4 Milliliter(s) Intramuscular monthly 10/24/2019 10/24/2019 Inactive Kenalog 40 mg/mL suspension for injection RxNorm: 4342660 Milliliter(s) Injection 09/27/2019 09/27/2019 Inactive Phenergan with Codeine Syrup RxNorm: 5-10 Millil iter(s) Oral Every 6 hrs as needed 09/27/2019 05/31/2020 Inactive prednisone 20 mg tablet RxNorm: 916689 2 Tablet(s) Oral every day 1 11/28/2018 10/02/2019 Inactive start tomorrow doxycycline hyclate 100 mg tablet RxNorm: 9286521 1 Tabl et(s) Oral two times a day 09/27/2019 10/04/2019 Inactive start if symptom s do not improve Depo-Estradiol 5 mg/mL intramuscular oil RxNorm: 092171 3/4 Milliliter(s) Intramuscular monthly 08/20/2019 08/20/2019 Inactive Depo-Estradiol 5 mg/mL intramuscular oil RxNorm: 045786 3/4 Milliliter(s) Intramuscular monthly 08/15/2019 09/14/2019 Inactive gabapentin 100 mg capsule RxNorm: 472948 1 Capsule(s) O ral every night at bedtime 07/31/2019 09/22/2019 Inactive gabapentin 100 mg capsule RxNorm: 625214 1 Capsule(s) PO QHS 201807/26/2019 Inactive naproxen 500 mg tablet RxNorm: 791346 1 Tablet(s) PO BID 06/24/2019 0 06/28/2019 Inactive escitalopram 5 mg tablet RxNorm: 822986 1 Tablet(s) PO QHS 05/30/20 19 09/22/2019 Inactive CoQ-10 oral RxNorm: 84554 oral 09/01/2021 Active ranitidine 150 mg capsule RxNorm: 909659 1 Capsule(s) PO BID 201809/22/2019 Inactive eszopiclone 1 mg tablet RxNorm: 893218 Tablet(s) PO as needed 06/0105/31/2020 Inactive acyclovir 400 mg tablet RxNorm: 206488 1 Tablet(s) PO PRN fever blisters 01/02/2020 01/01/2020 Inactive clonidine HCl 0.1 mg tablet RxNorm: 796253 Tablet(s) PO as needed 0 05/30/2019 05/29/2019 Inactive Medication Administered Medication Codes Instructions Start Date Status Kenalog 40 mg/mL suspension for injection RxNorm: 3893150 1Milli liter 08/09/2021 No longer Active Depo-Estradiol 5 mg/mL intramuscular oil RxNorm: 704162 0.75Mil liliter 04/28/2021 No longer Active Depo-Estradiol 5 mg/mL intramuscular oil RxNorm: 064235 0.75Mil liliter 03/03/2021 No longer Active Depo-Provera 150 mg/mL intramuscular suspension RxNorm: 5353498 Milliliter 01/05/2021 No longer Active Depo-Provera 150 mg/mL intramuscular suspension RxNorm: 3436509 Milliliter 10/28/2020 No longer Active Depo-Provera 150 mg/mL intramuscular suspension RxNorm: 8602690 Milliliter 08/04/2020 No longer Active Depo-Provera 150 mg/mL intramuscular suspension RxNorm: 2043423 0.75Milliliter 05/28/2020 No longer Active Kenalog 40 mg/mL suspension for injection RxNorm: 3679833 1Milli liter 05/28/2020 No longer Active Depo-Provera 150 mg/mL intramuscular suspension RxNorm: 9058002 Milliliter 03/19/2020 No longer Active Depo-Provera 150 mg/mL intramuscular suspension RxNorm: 4131611 Milliliter 12/27/2019 No longer Active Depo-Estradiol 5 mg/mL intramuscular oil RxNorm: 834981 3/4Mill ilitermonthly 10/24/2019 Active Kenalog 40 mg/mL suspension for injection RxNorm: 1064773 Millilite r 09/27/2019 No longer Active Depo-Estradiol 5 mg/mL intramuscular oil RxNorm: 746388 3/4Mill ilitermonthly 08/20/2019 Active Immunizations No Immunization [...] 08/31/20 21 Unknown Cbc With Differential Ord2 Branch% 6.0 % 08/31/20 21 Unknown Cbc With [...] K/ul 021 Unknown Cbc With Differential Ord2 Branch ABS# 0.7 K/ul 08/31/20 21 Unknown Cbc With Differential Ord2 Eos ABS# 0.3 K/ul 08/31/20 21 Unknown Cbc With Differential Ord2 Baso ABS# 0.0 K/ul 08/31/20 21 Unknown Comp Metabolic Ucn772 NA 142 mEq/L 08/31/2021 Unkn own Comp Metabolic Uqt832 K 4.4 mEq/L 08/31/2021 Unkn own Comp Metabolic Ylp522 CL 101 mEq/L 08/31/2021 Unkn own Comp Metabolic Bnt472 CO2 32.0 mEq/L 08/31/2021 Unk nown Comp Metabolic Yoq617 ANION GAP 13 08/31/2021 Unkn own Comp Metabolic Vjl992 GLUCOSE 89 mg/dL 08/31/2021 Unkn own Comp Metabolic Ygt019 Creat 0.7 mg/dL 08/31/2021 Unkn own Comp Metabolic Xok934 eGFR 90 ml/min/1.73m2 08/31/20 21 Unknown Comp Metabolic Zix449 BUN 19 mg/dL 08/31/2021 Unkn own Comp Metabolic Phx653 B/C Ratio 26.4 Ratio 08/31/2021 Unk nown Comp Metabolic Lky841 CALCIUM 9.2 mg/dL 08/31/2021 Unkn own Comp Metabolic Pcp298 ALK PHOS 85 U/L 08/31/2021 Unkn own Comp Metabolic Dzj398 AST(SGOT) 16 U/L 08/31/2021 Unkn own Comp Metabolic Ckl559 ALT(SGPT) 19 U/L 08/31/2021 Unkn own Comp Metabolic Bze532 BILI T 0.6 mg/dL 08/31/2021 Unkn own Comp Metabolic Vyw572 ALBUMIN 4.2 g/dL 08/31/2021 Unkn own Comp Metabolic Qjq490 TPRO 7.1 g/dL 08/31/2021 Unkn own Comp Metabolic Vlv254 GLOB 2.9 g/dL 08/31/2021 Unkn own Comp Metabolic Jxt003 A/G Ratio 1.5 Ratio 08/31/2021 Unkn own Comp Metabolic Npn455 Osmo 285 mOsmo 08/31/2021 Unkn own Tsh [...] C/HDL 4.5 Ratio 08/06/2020 Unknown Comp Metabolic Kji920 NA 138 mEq/L 08/06/2020 Unkn own Comp Metabolic Svx607 K 4.5 mEq/L 08/06/2020 Unkn own Comp Metabolic Eeq800 CL 103 mEq/L 08/06/2020 Unkn own Comp Metabolic Eia707 CO2 28.0 mEq/L 08/06/2020 Unk nown Comp Metabolic Azy069 ANION GAP 12 08/06/2020 Unkn own Comp Metabolic Wbj899 GLUCOSE 90 mg/dL 08/06/2020 Unkn own Comp Metabolic Kfh967 Creat 0.7 mg/dL 08/06/2020 Unkn own Comp Metabolic Izx582 eGFR 88 ml/min/1.73m2 08/06/20 20 Unknown Comp Metabolic Bpm444 BUN 20 mg/dL 08/06/2020 Unkn own Comp Metabolic Hqr440 B/C Ratio 27.0 Ratio 08/06/2020 Unk nown Comp Metabolic Vxf301 CALCIUM 9.5 mg/dL 08/06/2020 Unkn own Comp Metabolic Ios243 ALK PHOS 87 U/L 08/06/2020 Unkn own Comp Metabolic Ikh921 AST(SGOT) 17 U/L 08/06/2020 Unkn own Comp Metabolic Sbk073 ALT(SGPT) 20 U/L 08/06/2020 Unkn own Comp Metabolic Nxm130 BILI T 0.6 mg/dL 08/06/2020 Unkn own Comp Metabolic Ccy961 ALBUMIN 4.5 g/dL 08/06/2020 Unkn own Comp Metabolic Tda191 TPRO 7.6 g/dL 08/06/2020 Unkn own Comp Metabolic Iwx926 GLOB 3.1 g/dL 08/06/2020 Unkn own Comp Metabolic Bty942 A/G Ratio 1.5 Ratio 08/06/2020 Unkn own Comp Metabolic Bic250 Osmo 278 mOsmo 08/06/2020 Unkn own Cbc [...] pg 08/06/20 Unknown Cbc With Differential Ord2 Branch% 5.4 % 08/06/20 Unknown Cbc With Differential Ord2 MCHC 32.7 pg 08/06/20 Unknown Cbc With Differential Ord2 Eos% 2.2 % 08/06/20 Unknown Cbc With Differential Ord2 PLT 258 K/ul 08/06/20 Unknown Cbc With Differential Ord2 Baso% 0.3 % 08/06/20 Unknown Cbc With Differential Ord2 RDW 13.4 % 10/22/20 20 Unknown Cbc With Differential Ord2 Neut ABS# 7.81 K/ul 08/06/20 20 Unknown Cbc With Differential Ord2 Lymph ABS# 1.92 K/ul 020 Unknown Cbc With Differential Ord2 Branch ABS# 0.6 K/ul 08/06/20 20 Unknown Cbc With Differential Ord2 Eos ABS# 0.2 K/ul 08/06/20 20 Unknown Cbc With Differential Ord2 Baso ABS# 0.0 K/ul 08/06/20 20 Unknown Tsh Ord6 TSH (3rd IS) 1.38 uIU/mL 12/17/2019 Unkn own Comp Metabolic Tay985 NA 141 mEq/L 12/17/2019 Unkn own Comp Metabolic Ffu861 K 4.3 mEq/L 12/17/2019 Unkn own Comp Metabolic Ulm030 CL 104 mEq/L 12/17/2019 Unkn own Comp Metabolic Vin305 CO2 29.0 mEq/L 12/17/2019 Unk nown Comp Metabolic Gmx794 ANION GAP 12 12/17/2019 Unkn own Comp Metabolic Kzk526 GLUCOSE 83 mg/dL 12/17/2019 Unkn own Comp Metabolic Tup426 Creat 0.7 mg/dL 12/17/2019 Unkn own Comp Metabolic Lar610 eGFR 102 ml/min/1.73m2 020 Unknown Comp Metabolic Bll767 BUN 16 mg/dL 12/17/2019 Unkn own Comp Metabolic Gca951 B/C Ratio 24.6 Ratio 12/17/2019 Unk nown Comp Metabolic Cyj621 CALCIUM 9.3 mg/dL 12/17/2019 Unkn own Comp Metabolic Ggt199 ALK PHOS 79 U/L 12/17/2019 Unkn own Comp Metabolic Bmo132 AST(SGOT) 19 U/L 12/17/2019 Unkn own Comp Metabolic Pvr002 ALT(SGPT) 26 U/L 12/17/2019 Unkn own Comp Metabolic Fym756 BILI T 0.5 mg/dL 12/17/2019 Unkn own Comp Metabolic Kuu671 ALBUMIN 4.2 g/dL 12/17/2019 Unkn own Comp Metabolic Kyb577 TPRO 7.0 g/dL 12/17/2019 Unkn own Comp Metabolic Njr886 GLOB 2.8 g/dL 12/17/2019 Unkn own Comp Metabolic Xdt735 A/G Ratio 1.5 Ratio 12/17/2019 Unkn own Comp Metabolic Alg503 Osmo 282 mOsmo 12/17/2019 Unkn own Cbc [...] 12/17/19 20 Unknown Cbc With Differential Ord2 Branch% 6.2 % 12/17/19 20 Unknown Cbc With [...] K/ul 020 Unknown Cbc With Differential Ord2 Branch ABS# 0.6 K/ul 12/17/19 20 Unknown Cbc [...] 4.2 Ratio 12/17/2019 Unknown C A/B FLU [id number] Influenza A Scr Negative 09/23/2019 Unk nown C A/B FLU [id number] Influenza B Scr Negative 09/23/2019 Unk nown C A/B FLU [id number] Influenza Intrp B AG:PRID:PT:NOSE:NOM:IF See Footnote 09/23/2019 Unknown Procedures Procedure Codes Date THER/PROPH/DIAG INJ SC/IM CPT-4: 33240 04/28/2021 THER/PROPH/DIAG INJ SC/IM CPT-4: 66039 03/03/2021 THER/PROPH/DIAG INJ SC/IM CPT-4: 48040 01/05/2021 THER/PROPH/DIAG INJ SC/IM CPT-4: 09625 10/28/2020 THER/PROPH/DIAG INJ SC/IM CPT-4: 37991 08/04/2020 THER/PROPH/DIAG INJ SC/IM CPT-4: 15941 05/26/2020 TRIAMCINOLONE ACET INJ NOS 10 mg CPT-4: J3301 020 THER/PROPH/DIAG INJ SC/IM CPT-4: 45491 03/19/2020 THER/PROPH/DIAG INJ SC/IM CPT-4: 11968 12/27/2019 THER/PROPH/DIAG INJ SC/IM CPT-4: 53612 10/24/2019 TRIAMCINOLONE ACET INJ NOS 10 mg CPT-4: J3301 019 THER/PROPH/DIAG INJ SC/IM CPT-4: 81119 08/19/2019 Vital Signs Date Vital 09/20/2021 Blood Pressure 1: 110/80 Code: 8480-6 BMI: 30.2 Code: 57381-1 Heart Rate 1: 88 bpm Height: 5'2" Code: 8302-2 SpO2: 98% Temperature: 3 6.8 (C) / 98.2 (F) Weight: 165 lbs Code: 45132-8 08/31/2021 Blood Pressure 1: 156/82 Code: 8480-6 Heart Rate 1: 81 bpm Height: 5'2" Code: 8302-2 Height: 5'2" Code: 8302-2 SpO2: 99% Temperature: 3 6.2 (C) / 97.1 (F) Weight: Code: 33269-2 08/09/2021 Blood Pressure 1: 142/68 Code: 8480-6 BMI: 30.7 Code: 02963-2 Heart Rate 1: 63 bpm Height: 5'2" Code: 8302-2 SpO2: 97% Temperature: 3 6.4 (C) / 97.6 (F) Weight: 168 lbs Code: 91090-1 06/01/2020 Blood Pressure 1: 130/80 Code: 8480-6 BMI: 28.5 Code: 67259-3 Heart Rate 1: 69 bpm Height: 5'2" Code: 8302-2 SpO2: 97% Temperature: 3 6.9 (C) / 98.4 (F) Weight: 156 lbs Code: 01130-6 05/26/2020 Blood Pressure 1: 128/78 Code: 8480-6 Heart Rate 1: 74 bpm Height: Code: 8302-2 SpO2: 98% Weight: Code: 38975-9 04/02/2020 Height: Code: 8302-2 Weight: Code: 294 63-7 12/16/2019 Blood Pressure 1: 132/80 Code: 8480-6 BMI: 28.9 Code: 99754-3 Heart Rate 1: 68 bpm Height: 5'2" Code: 8302-2 SpO2: 97% Weight: 158 lb s Code: 10951-3 09/27/2019 Blood Pressure 1: 110/60 Code: 8480-6 BMI: 28.5 Code: 91276-9 Heart Rate 1: 76 bpm Height: 5'2" Code: 8302-2 SpO2: 98% Temperature: 3 6.9 (C) / 98.5 (F) Weight: 156 lbs Code: 40477-0 09/23/2019 Blood Pressure 1: 124/80 Code: 8480-6 Heart Rate 1: 81 bpm SpO2: 98% Temperature: 36.7 (C) / 98.1 (F) 08/19/2019 Blood Pressure 1: 130/78 Code: 8480-6 BMI: 28.0 Code: 03834-2 Heart Rate 1: 68 bpm Height: 5'2" Code: 8302-2 SpO2: 98% Weight: 153 lb s Code: 50344-6 06/27/2019 Heart Rate 1: 68 bpm Height: Code: 8302-2 Weigh t: Code: 60059-9 06/24/2019 Blood Pressure 1: 132/74 Code: 8480-6 BMI: 27.4 Code: 34138-7 Heart Rate 1: 66 bpm Height: 5'2" Code: 8302-2 SpO2: 98% Weight: 150 lb s Code: 41993-1 05/30/2019 Blood Pressure 1: 104/60 Code: 8480-6 BMI: 27.5 Code: 33426-3 Heart Rate 1: 66 bpm Height: 5'2" Code: 8302-2 SpO2: 98% Weight: 150 lb s 5 oz Code: 62554-9 Functional Status No Functional Status data Reason For Visit Reason For Visit Effective Dates Notes cough 09/20/2021 cough 08/31/2021 sinus congestion 08/09/2021 headache 06/01/2020 headache 05/26/2020 well woman exam (40-65 years) 12/16/2019 cough 09/27/2019 fever 09/23/2019 menopausal symptoms 08/19/2019 lower leg pain 06/27/2019 lower leg pain 06/24/2019 anxiety 05/30/2019 Encounters Encounter Performer Location Codes Date ( EST. PATIENT, LEVEL IV Diagnosis: Chronic cough[ICD10: R05.3] Diagnosis: Laryngitis[ICD10: J04.0] Diagnosis: Other allergic rhinitis[ICD10: J30.89] Diagnosis: Dysphagia[ICD10: r13.10] Mariel Faith MD, [facility] C PT-4: 49586 09/20/2021 ([id number]) 86625 EST. PATIENT, LEVEL IV Diagnosis: Acute bronchitis[ICD10: J20.9] Diagnosis: Laryngitis[ICD10: J04.0] Diagnosis: Other allergic rhinitis[ICD10: J30.89] Diagnosis: Slow transit constipation[ICD10: K59.01] Mariel Faith MD, [facility] CPT-4: 03485 08/31/2021 ([id number]) 24328 EST. PATIENT, LEVEL IV Diagnosis: Generalized anxiety disorder[ICD10: F41.9] Diagnosis: Cough[ICD10: R05.9] Diagnosis: Other allergic rhinitis[ICD10: J30.89] Diagnosis: Encounter for screening mammogram for malignant neoplasm of breast[ICD10: Z12.31] Mariel Faith MD, [facility] CPT-4: 72656 08/09/2021 ([id number] 23025 EST. PATIENT, LEVEL III Diagnosis: Headache[ICD10: R51] Diagnosis: Other allergic rhinitis[ICD10: J30.89] Farzana Groves MD, [facility] CPT-4: 64351 06/01/2020 [id number] EST. PATIENT, LEVEL III Diagnosis: Other acute sinusitis[ICD10: J01.80] Diagnosis: Other allergic rhinitis[ICD10: J30.89] Diagnosis: Migraine without status migrainosus, not intractable, unspecified migraine type[ICD10: G43.909] Diagnosis: Menopausal and female climacteric states[ICD10: N95.1] Jaycee Faith MD, [facility] CPT-4: 17853 05/26/2020 ([id number]) 15900 EST. PATIENT, LEVEL III Diagnosis: Generalized anxiety disorder[ICD10: F41.1] Alena Faith MD, [facility] CPT-4: 65560 04/02/2020 ([id number]) PREV VISIT EST AGE 40-64 Diagnosis: Encounter for gynecological examination (general) (routine) without abnormal findings[ICD10: Z01.419] Farzana Faith MD, [facility] CPT -4: 40140 12/16/2019 ([id number]) 51890 EST. PATIENT, LEVEL III Diagnosis: Cough[ICD10: R05] Diagnosis: Acute bronchitis[ICD10: J20.9] Farzana pulido MD, [facility] CPT-4: 31279 09/27/2019 ([id number]) 62151 EST. PATIENT, LEVEL III Diagnosis: Fever[ICD10: R50.9] Diagnosis: Body aches[ICD10: R52] Farzana Faith MD, [facility] CPT -4: 27531 09/23/2019 ([id number]) 12197 EST. PATIENT, LEVEL III Diagnosis: Menopausal and female climacteric states[ICD10: N95.1] Farzana Faith MD, [facility] CPT-4: 62715 08/19/2019 [id number] EST. PATIENT, LEVEL III Diagnosis: Pain in left ankle and joints of left foot[ICD10: M25.572] Diagnosis: Pain in left knee[ICD10: M25.562] Jaycee gupta MD, [facility] CPT-4: 96728 06/27/2019 [id number] EST. PATIENT, LEVEL III Diagnosis: Pain in left ankle and joints of left foot[ICD10: M25.572] Diagnosis: Pain in left knee[ICD10: M25.562] [facility] CPT-4: 48750 06/24/2019 ([id number]) PREV VISIT NEW AGE 40-64 Diagnosis: Encounter for general adult medical examination without abnormal findings[ICD10: Z00.00] [facility] CPT-4: 65586 05/30/2019 Plan of Care Planned Activity Notes [...] daily. 09/20/2021 [phone] [id number] [place] ([facility] Complex 09/20/2021 Patient Education: Patient Medication Summary Completed 09/20/2021 Care Plan: CHEST X-RAY 2VW FRONTAL&LATL LOINC : 46661-4 Pending 09/20/2021 Visit Plan: Allergies - recent [...] sent 08/31/2021 [facility]ment[phone] [phone] ([facility] Complex 08/31/2021 Patient Education: [...] sent 08/09/2021 [facility]ment[phone] [facility] [place] ([facility] [place]) Complex 08/09/2021 Patient Education: Patient Medication Summary Completed 08/09/2021 Patient Education: prednisone- [employer] Coupon [id number] Completed 08/09/2021 Appointment: Injection 04/28/2021 Patient Education: [...] without contrast. 06/01/2020 Appointment: Farzana Cristina WPtel: [address] [place], [place] [phone] (15 min) Moderate 06/01/2020 Patient Education: Patient [...] or concerns. 05/26/2020 Appointment: Jaycee Lindo WPtel: [facility] [id number] (30 min) Complex 05/26/2020 Patient Education: Patient Medication Summary Completed 05/26/2020 Visit Plan: Anxiety - the patient has un controlled anxiety and will benefit from a short term dose of xanax for control of symptoms. 04/02/2020 Appointment: Alena Faith WPtel: [address] [place], [place] [phone] TeleHealth 04/02/2020 Patient Education: Patient Medication Summary Completed 04/02/2020 Appointment: Injection 03/19/2020 Patient Education: Patient Medication Summary Completed 03/19/2020 Appointment: Injection 03/18/2020 Appointment: Injection 12/27/2019 Patient Education: Patient Medication Summary Completed 12/27/2019 Appointment: Alena Faith WPtel: [address] [place], [place] [id number] [facility] 12/24/2019 Visit Plan: Well Adult Female - exam com pleted. Pap and breast exam completed. Pt will be called with results of her testing. She was advised to continue with yearly annual exams. Safe sex practices discussed during office visit today. Call if any abnormal gynecologic issues during the next year, otherwise, RTC yearly or prn. 12/16/2019 Appointment: Farzana Cristina WPtel: [id number] [facility] 12/16/2019 Patient Education: Patient Medication Summary Completed 12/16/2019 Appointment: Alena Faith WPtel: [address] [place], [place] [id number] [phone] min) Moderate 12/03/2019 Appointment: Injection 10/24/2019 Patient Education: Patient Medication Summary Completed 10/24/2019 Visit Plan: Bronchitis - acute case of b ronchitis identified. Pt has been given antibiotics, breathing treatments as appropriate, and pt has been instructed to call if symptoms are not improved, or if symptoms acutely worsen. 09/27/2019 Appointment: Farzana Cristina WPtel: [phone] [place] (15 min) Moderate 09/27/2019 Patient Education: Patient Medication Summary Completed 09/27/2019 Visit Plan: URI -viral -flu swab to r/o flu - Pt advised to increase fluids, vitamin C. Discussed natural and expected course of this diagnosis and need to alert me if symptoms do not follow expected course, or if any worse. 09/23/2019 Appointment: Farzana Cristina WPtel: [address] [place], [place] [phone] [place] (30 min) Complex 09/23/2019 Patient Education: Patient Medication Summary Completed 09/23/2019 Visit Plan: Post-surgical menopause - co ntinue to taper depo dose and eventually off medication completely -injection today in the office. 08/19/2019 Appointment: Farzana Cristina WPtel: [phone] [place] (15 min) Moderate 08/19/2019 Patient Education: Patient Medication Summary Completed 08/19/2019 Appointment: Farzana Cristina WPtel: [phone] [place] (30 min) Complex 08/16/2019 Visit Plan: Left knee, ankle, foot pain - will send RX - will refer to ortho - The pt is to use prn antiinflammatories to manage acute pain. The patient is to call the office if the pain is worsening or does not improve. 06/27/2019 Appointment: Jaycee Lindo WPtel: [address] [place], [place] [phone] [place] (30 min) Complex 06/27/2019 Patient Education: Patient Medication Summary Completed 06/27/2019 Care Plan: Referral Order SNOMED-CT : [id number] Pending 06/27/2019 Visit Plan: Left knee, ankle, foot pain - will send RX - if no improvement will refer to ortho - The pt is to use prn antiinflammatories to manage acute pain. The patient is to call the office if the pain is worsening or does not improve. 06/24/2019 Appointment: Jaycee Lindo WPtel: [address] [place], [place] [phone] [place] (30 min) Complex 06/24/2019 Patient Education: [...] we will look for her medications from [facility] to find out what her [...] Medication Summary Completed 05/30/2019 Referral: João Cain HPtel:[phone] [facility] [place] [place] Referral Appointment Requested Referral: Nathan Dudley [...] . Allergies exacerbation with cough - ch ron - recommended pt to use allergy medication [...] we will look for her medications from [facility] to find out what her [...]
--- OUTSIDE RECORDS SUMMARY | 2021-10-12 11:59 | XMS REPORT | CCD ---
Author Author Kaleigh Faith Organization Alena Faith MD, [facility] Address [address] [place] [address] Phone Care Team Providers Care Bicycle Racer Name Role Phone Alena Faith PP Unavailable CCM Unavailable Summary Purpose Interface Exchange Insurance Providers Payer name Policy type / Coverage type Covered democrat ID Effective Begin Date Effective End Date [facility] Commercial Insurance [id number] Unknown Unknown Family history Mother Diagnosis Age At Onset Diabetes mellitus Type 2 Unknown Alcoholism Unknown Depression Unknown Father Diagnosis Age At Onset Diabetes mellitus Type 2 Unknown Social History Social History Element Codes Description Effective Dates Marital status Unknown Garry 05/30/2019 Number of children Unknown 2 05/30/2019 Employment Unknown Currently employed [employer] 05/30/[address]: 14683346 Current some days smoker Alcohol history SNOMED CT: 457325873 Never drinks alcohol 2018 Allergies, Adverse Reactions, Alerts Substance Reaction Codes Entered Date Inactivated Date Status Penicillin Unknown 05/30/2019 No Inactive Date Active Problems Condition Codes Effective Dates Condition Status Acute bronchitis ICD-10: J20.9 ICD-9: 466.0 09/27/2019 Active Laryngitis ICD-10: J04.0 ICD-9: 464.00 08/31/2021 Active Other allergic rhinitis ICD-10: J30.89 ICD-9: 477.8 05/26/2020 Active Slow transit constipation ICD-10: K59.01 ICD-9: [...] Start Date Stop Date Status Fill Instructions atorvastatin 20 mg tablet RxNorm: 639125 Take 1 Tablet( s) Oral every night at bedtime 09/01/2021 12/29/2021 Active Miralax 17 gram/dose oral powder RxNorm: 058144 Take 1 scoop Or al every day 08/31/2021 09/29/2021 Active Alysa Allergy 180 mg tablet RxNorm: 403391 Take 1 Tab let(s) Oral every day for first 5 days take twice daily 08/31/2021 No Stop Date Active omeprazole 20 mg tablet,delayed release RxNorm: 429754 Take 1 Tablet(s) Oral every day 08/31/2021 09/13/2021 Active prednisone 20 mg tablet RxNorm: 242137 Take 2 Tablet(s) Oral ev alex day 08/23/2021 08/27/2021 Inactive azithromycin 250 mg tablet RxNorm: 715356 Take 1 Tablet (s) Oral every day take 2 tablets day 1, then take 1 tablet daily on days 2-5 08/23/2021 08/27/20 21 Inactive Please disregard Cefdinir RX. cefdinir 300 mg capsule RxNorm: 297071 Take 1 Capsule(s) Oral t wo times a day 08/23/2021 08/23/2021 Inactive azithromycin 250 mg tablet RxNorm: 096254 Take 1 Tablet (s) Oral every day take 2 tablets day 1, then take 1 tablet daily on days 2-5 08/23/2021 08/23/20 21 Inactive Please disregard Cefdinir RX. promethazine 6.25 mg-codeine 10 mg/5 mL syrup RxNorm: 687235 Take 5 Milliliter(s) Oral every 4-6 hours as needed cough 08/09/2021 Inactive prednisone 20 mg tablet RxNorm: 495802 Take 2 Tablet(s) Oral ev alex day 08/09/2021 08/13/2021 Inactive promethazine 6.25 mg-codeine 10 mg/5 mL syrup RxNorm: 920792 Take 5 Milliliter(s) Oral every 4-6 hours as needed cough 08/09/2021 Inactive Kenalog 40 mg/mL suspension for injection RxNorm: 6132344 Take 1 Milliliter(s) Injection 08/09/2021 08/09/2021 Inactive alprazolam 0.5 mg tablet RxNorm: 167324 Take 1 Tablet(s ) Oral two times a day as needed FOR ANXIETY 07/30/2021 08/28/2021 Inactive alprazolam 0.5 mg tablet RxNorm: 123283 1 Tablet(s) Ora l two times a day as needed anxiety 06/03/2021 06/03/2021 Inactive Depo-Estradiol 5 mg/mL intramuscular oil RxNorm: 706890 0.75 Milliliter(s) Intramuscular 04/28/2021 04/28/2021 Inactive alprazolam 0.5 mg tablet RxNorm: 961698 1 Tablet(s) Ora l two times a day as needed anxiety 04/05/2021 04/05/2021 Inactive Depo-Estradiol 5 mg/mL intramuscular oil RxNorm: 718965 0.75 Milliliter(s) Intramuscular 03/03/2021 03/03/2021 Inactive alprazolam 0.5 mg tablet RxNorm: 371914 1 Tablet(s) Ora l two times a day as needed anxiety 03/01/2021 03/01/2021 Inactive alprazolam 0.5 mg tablet RxNorm: 762199 1 Tablet(s) Ora l two times a day as needed anxiety 01/28/2021 02/26/2021 Inactive Depo-Provera 150 mg/mL intramuscular suspension RxNorm: 1000 128 Milliliter(s) Intramuscular 01/05/2021 01/05/2021 Inactive escitalopram 10 mg tablet RxNorm: 303211 TAKE ONE TABLE T BY MOUTH EVERY NIGHT AT BEDTIME Tablet(s) Oral 12/30/2020 01/01/2021 Inactive alprazolam 0.5 mg tablet RxNorm: 290300 1 Tablet(s) Ora l two times a day as needed anxiety 12/30/2020 01/27/2021 Inactive escitalopram 5 mg tablet RxNorm: 011179 TAKE ONE TABLET BY MOUTH EVERY NIGHT AT BEDTIME 11/30/2020 12/29/2020 Inactive alprazolam 0.5 mg tablet RxNorm: 035246 1 Tablet(s) Ora l two times a day as needed anxiety 11/30/2020 12/29/2020 Inactive atorvastatin 20 mg tablet RxNorm: 519617 TAKE ONE TABLET BY RADHA TH DAILY 11/26/2020 11/26/2020 Inactive Depo-Estradiol 5 mg/mL intramuscular oil RxNorm: 020364 3/4 Milliliter(s) Intramuscular monthly 10/28/2020 12/27/2020 Inactive Depo-Provera 150 mg/mL intramuscular suspension RxNorm: 1000 128 Milliliter(s) Intramuscular 10/28/2020 10/28/2020 Inactive alprazolam 0.5 mg tablet RxNorm: 775460 1 Tablet(s) Ora l two times a day as needed anxiety 10/01/2020 10/29/2020 Inactive acyclovir 400 mg tablet RxNorm: 855827 TAKE ONE TABLET BY MOUTH FOUR TIMES A DAY 08/31/2020 09/01/2020 Inactive alprazolam 0.5 mg tablet RxNorm: 994169 1 Tablet(s) Ora l two times a day as needed anxiety 08/31/2020 09/29/2020 Inactive atorvastatin 20 mg tablet RxNorm: 393488 1 Tablet(s) Oral every day 08/18/2020 08/17/2020 Inactive atorvastatin 20 mg tablet RxNorm: 185435 1 Tablet(s) Oral every day 08/18/2020 11/25/2020 Inactive alprazolam 0.5 mg tablet RxNorm: 697697 1 Tablet(s) Ora l two times a day as needed anxiety 08/07/2020 08/30/2020 Inactive Depo-Provera 150 mg/mL intramuscular suspension RxNorm: 1000 128 Milliliter(s) Intramuscular 08/04/2020 08/04/2020 Inactive acyclovir 400 mg tablet RxNorm: 706579 TAKE ONE TABLET BY MOUTH FOUR TIMES A DAY 07/21/2020 08/30/2020 Inactive alprazolam 0.5 mg tablet RxNorm: 586841 1 Tablet(s) Ora l two times a day as needed anxiety 07/07/2020 08/05/2020 Inactive alprazolam 0.5 mg tablet RxNorm: 852665 1 Tablet(s) Ora l two times a day as needed anxiety 06/18/2020 07/05/2020 Inactive escitalopram 5 mg tablet RxNorm: 393911 1 Tablet(s) Oral every night at bedtime 06/08/2020 10/06/2020 Inactive prednisone 20 mg tablet RxNorm: 592109 2 Tablet(s) Oral every day 0 06/01/2020 06/06/2020 Inactive Depo-Provera 150 mg/mL intramuscular suspension RxNorm: 1000 128 0.75 Milliliter(s) Intramuscular 05/28/2020 05/28/2020 Inactive Kenalog 40 mg/mL suspension for injection RxNorm: 7716619 1 Milliliter(s) Injection 05/28/2020 05/28/2020 Inactive Zithromax Z-Kraig 250 mg tablet RxNorm: 986061 Tablet(s) Oral as directed 05/26/2020 04/04/2021 Inactive alprazolam 0.5 mg tablet RxNorm: 931163 1 Tablet(s) Ora l two times a day as needed anxiety 05/11/2020 06/09/2020 Inactive alprazolam 0.5 mg tablet RxNorm: 623976 1 Tablet(s) Ora l two times a day as needed anxiety 04/02/2020 05/10/2020 Inactive Depo-Provera 150 mg/mL intramuscular suspension RxNorm: 1000 128 Milliliter(s) Intramuscular 03/19/2020 03/19/2020 Inactive acyclovir 400 mg tablet RxNorm: 941457 1 Tablet(s) Oral four times a day fever blisters 01/02/2020 02/01/2020 Inactive Depo-Provera 150 mg/mL intramuscular suspension RxNorm: 1000 128 Milliliter(s) Intramuscular 12/27/2019 12/27/2019 Inactive pravastatin 10 mg tablet RxNorm: 834024 1 Tablet(s) Oral every night at bedtime 12/19/2019 12/18/2019 Inactive pravastatin 10 mg tablet RxNorm: 060171 1 Tablet(s) Oral every night at bedtime 12/19/2019 04/17/2020 Inactive Depo-Estradiol 5 mg/mL intramuscular oil RxNorm: 802469 3/4 Milliliter(s) Intramuscular monthly 10/24/2019 10/24/2019 Inactive Kenalog 40 mg/mL suspension for injection RxNorm: 7624952 Milliliter(s) Injection 09/27/2019 09/27/2019 Inactive Phenergan with Codeine Syrup RxNorm: 5-10 Millil iter(s) Oral Every 6 hrs as needed 09/27/2019 05/31/2020 Inactive prednisone 20 mg tablet RxNorm: 651542 2 Tablet(s) Oral every day 1 11/28/2018 10/02/2019 Inactive start tomorrow doxycycline hyclate 100 mg tablet RxNorm: 4283692 1 Tabl et(s) Oral two times a day 09/27/2019 10/04/2019 Inactive start if symptom s do not improve Depo-Estradiol 5 mg/mL intramuscular oil RxNorm: 666144 3/4 Milliliter(s) Intramuscular monthly 08/20/2019 08/20/2019 Inactive Depo-Estradiol 5 mg/mL intramuscular oil RxNorm: 093595 3/4 Milliliter(s) Intramuscular monthly 08/15/2019 09/14/2019 Inactive gabapentin 100 mg capsule RxNorm: 864705 1 Capsule(s) O ral every night at bedtime 07/31/2019 09/22/2019 Inactive gabapentin 100 mg capsule RxNorm: 687157 1 Capsule(s) PO QHS 201807/26/2019 Inactive naproxen 500 mg tablet RxNorm: 725365 1 Tablet(s) PO BID 06/24/2019 0 06/28/2019 Inactive escitalopram 5 mg tablet RxNorm: 343404 1 Tablet(s) PO QHS 05/30/20 19 09/22/2019 Inactive CoQ-10 oral RxNorm: 93419 oral 09/01/2021 Active ranitidine 150 mg capsule RxNorm: 753929 1 Capsule(s) PO BID 201809/22/2019 Inactive eszopiclone 1 mg tablet RxNorm: 325898 Tablet(s) PO as needed 06/0105/31/2020 Inactive acyclovir 400 mg tablet RxNorm: 193994 1 Tablet(s) PO PRN fever blisters 01/02/2020 01/01/2020 Inactive clonidine HCl 0.1 mg tablet RxNorm: 451981 Tablet(s) PO as needed 0 05/30/2019 05/29/2019 Inactive Medication Administered Medication Codes Instructions Start Date Status Kenalog 40 mg/mL suspension for injection RxNorm: 2790837 1Milli liter 08/09/2021 No longer Active Depo-Estradiol 5 mg/mL intramuscular oil RxNorm: 894908 0.75Mil liliter 04/28/2021 No longer Active Depo-Estradiol 5 mg/mL intramuscular oil RxNorm: 581640 0.75Mil liliter 03/03/2021 No longer Active Depo-Provera 150 mg/mL intramuscular suspension RxNorm: 4624576 Milliliter 01/05/2021 No longer Active Depo-Provera 150 mg/mL intramuscular suspension RxNorm: 2168202 Milliliter 10/28/2020 No longer Active Depo-Provera 150 mg/mL intramuscular suspension RxNorm: 7234908 Milliliter 08/04/2020 No longer Active Depo-Provera 150 mg/mL intramuscular suspension RxNorm: 1116041 0.75Milliliter 05/28/2020 No longer Active Kenalog 40 mg/mL suspension for injection RxNorm: 7834012 1Milli liter 05/28/2020 No longer Active Depo-Provera 150 mg/mL intramuscular suspension RxNorm: 0208176 Milliliter 03/19/2020 No longer Active Depo-Provera 150 mg/mL intramuscular suspension RxNorm: 6841293 Milliliter 12/27/2019 No longer Active Depo-Estradiol 5 mg/mL intramuscular oil RxNorm: 093912 3/4Mill ilitermonthly 10/24/2019 Active Kenalog 40 mg/mL suspension for injection RxNorm: 0226335 Millilite r 09/27/2019 No longer Active Depo-Estradiol 5 mg/mL intramuscular oil RxNorm: 232593 3/4Mill ilitermonthly 08/20/2019 Active Immunizations No Immunization data Results Observation Observation Code Item Item Code Result Date S [facility] Location Cbc With Differential Ord2 WBC [...] 08/31/20 21 Unknown Cbc With Differential Ord2 [place]% 6.0 % 08/31/20 21 Unknown Cbc With Differential Ord2 Eos% 2.6 % 08/31/20 21 Unknown Cbc With Differential Ord2 MCHC 31.6 pg 08/31/20 21 Unknown Cbc With Differential Ord2 PLT 288 K/ul 08/31/20 21 Unknown Cbc With Differential Ord2 Baso% 0.3 % 08/31/20 21 Unknown Cbc With Differential Ord2 RDW 13.5 % 08/31/20 21 Unknown Cbc With Differential Ord2 Neut ABS# 8.13 K/ul 11/16/20 21 Unknown Cbc With Differential Ord2 Lymph ABS# 2.59 K/ul 021 Unknown Cbc With Differential Ord2 [place] ABS# 0.7 K/ul 08/31/20 21 Unknown Cbc With Differential Ord2 Eos ABS# 0.3 K/ul 08/31/20 21 Unknown Cbc With Differential Ord2 Baso ABS# 0.0 K/ul 08/31/20 21 Unknown Comp Metabolic Imy088 NA 142 mEq/L 08/31/2021 Unkn own Comp Metabolic Aqm796 K 4.4 mEq/L 08/31/2021 Unkn own Comp Metabolic Ogh745 CL 101 mEq/L 08/31/2021 Unkn own Comp Metabolic Rec770 CO2 32.0 mEq/L 08/31/2021 Unk nown Comp Metabolic Cjl734 ANION GAP 13 08/31/2021 Unkn own Comp Metabolic Uue543 GLUCOSE 89 mg/dL 08/31/2021 Unkn own Comp Metabolic Rwp614 Creat 0.7 mg/dL 08/31/2021 Unkn own Comp Metabolic Brd281 eGFR 90 ml/min/1.73m2 08/31/20 21 Unknown Comp Metabolic Xvz464 BUN 19 mg/dL 08/31/2021 Unkn own Comp Metabolic Zka968 B/C Ratio 26.4 Ratio 08/31/2021 Unk nown Comp Metabolic Vip946 CALCIUM 9.2 mg/dL 08/31/2021 Unkn own Comp Metabolic Lel041 ALK PHOS 85 U/L 08/31/2021 Unkn own Comp Metabolic Zvf993 AST(SGOT) 16 U/L 08/31/2021 Unkn own Comp Metabolic Unm654 ALT(SGPT) 19 U/L 08/31/2021 Unkn own Comp Metabolic Qqs961 BILI T 0.6 mg/dL 08/31/2021 Unkn own Comp Metabolic Tdl264 ALBUMIN 4.2 g/dL 08/31/2021 Unkn own Comp Metabolic Bft966 TPRO 7.1 g/dL 08/31/2021 Unkn own Comp Metabolic Exk688 GLOB 2.9 g/dL 08/31/2021 Unkn own Comp Metabolic Qod057 A/G Ratio 1.5 Ratio 08/31/2021 Unkn own Comp Metabolic Zcz059 Osmo 285 mOsmo 08/31/2021 Unkn own Tsh [...] C/HDL 4.5 Ratio 08/06/2020 Unknown Comp Metabolic Idc612 NA 138 mEq/L 08/06/2020 Unkn own Comp Metabolic Aek149 K 4.5 mEq/L 08/06/2020 Unkn own Comp Metabolic Yol262 CL 103 mEq/L 08/06/2020 Unkn own Comp Metabolic Xxq498 CO2 28.0 mEq/L 08/06/2020 Unk nown Comp Metabolic Yvk184 ANION GAP 12 08/06/2020 Unkn own Comp Metabolic Nos425 GLUCOSE 90 mg/dL 08/06/2020 Unkn own Comp Metabolic Tbw157 Creat 0.7 mg/dL 08/06/2020 Unkn own Comp Metabolic Xxk138 eGFR 88 ml/min/1.73m2 08/06/20 20 Unknown Comp Metabolic Vxo424 BUN 20 mg/dL 08/06/2020 Unkn own Comp Metabolic Nri073 B/C Ratio 27.0 Ratio 08/06/2020 Unk nown Comp Metabolic Ujk015 CALCIUM 9.5 mg/dL 08/06/2020 Unkn own Comp Metabolic Uyb467 ALK PHOS 87 U/L 08/06/2020 Unkn own Comp Metabolic Hix326 AST(SGOT) 17 U/L 08/06/2020 Unkn own Comp Metabolic Tmn556 ALT(SGPT) 20 U/L 08/06/2020 Unkn own Comp Metabolic Wix633 BILI T 0.6 mg/dL 08/06/2020 Unkn own Comp Metabolic Vre714 ALBUMIN 4.5 g/dL 08/06/2020 Unkn own Comp Metabolic Ypv804 TPRO 7.6 g/dL 08/06/2020 Unkn own Comp Metabolic Kgy053 GLOB 3.1 g/dL 08/06/2020 Unkn own Comp Metabolic Uol704 A/G Ratio 1.5 Ratio 08/06/2020 Unkn own Comp Metabolic Bkf732 Osmo 278 mOsmo 08/06/2020 Unkn own Cbc [...] pg 08/06/20 Unknown Cbc With Differential Ord2 [place]% 5.4 % 08/06/20 Unknown Cbc With Differential [...] K/ul 020 Unknown Cbc With Differential Ord2 [place] ABS# 0.6 K/ul 08/06/20 Unknown Cbc With Differential Ord2 Eos ABS# 0.2 K/ul 08/06/20 Unknown Cbc With Differential Ord2 Baso ABS# 0.0 K/ul 08/06/20 Unknown Tsh Ord6 TSH (3rd IS) 1.38 uIU/mL 12/17/2019 Unkn own Comp Metabolic Kdv973 NA 141 mEq/L 12/17/2019 Unkn own Comp Metabolic Bbs098 K 4.3 mEq/L 12/17/2019 Unkn own Comp Metabolic Gbw319 CL 104 mEq/L 12/17/2019 Unkn own Comp Metabolic Jfa003 CO2 29.0 mEq/L 12/17/2019 Unk nown Comp Metabolic Min519 ANION GAP 12 12/17/2019 Unkn own Comp Metabolic Vuk462 GLUCOSE 83 mg/dL 12/17/2019 Unkn own Comp Metabolic Cfs235 Creat 0.7 mg/dL 12/17/2019 Unkn own Comp Metabolic Ydf295 eGFR 102 ml/min/1.73m2 020 Unknown Comp Metabolic Dsr513 BUN 16 mg/dL 12/17/2019 Unkn own Comp Metabolic Ivx954 B/C Ratio 24.6 Ratio 12/17/2019 Unk nown Comp Metabolic Dwm902 CALCIUM 9.3 mg/dL 12/17/2019 Unkn own Comp Metabolic Pgz003 ALK PHOS 79 U/L 12/17/2019 Unkn own Comp Metabolic Mjh177 AST(SGOT) 19 U/L 12/17/2019 Unkn own Comp Metabolic Rcu401 ALT(SGPT) 26 U/L 12/17/2019 Unkn own Comp Metabolic Jcy786 BILI T 0.5 mg/dL 12/17/2019 Unkn own Comp Metabolic Qlw460 ALBUMIN 4.2 g/dL 12/17/2019 Unkn own Comp Metabolic Bnp668 TPRO 7.0 g/dL 12/17/2019 Unkn own Comp Metabolic Emr789 GLOB 2.8 g/dL 12/17/2019 Unkn own Comp Metabolic Ftw466 A/G Ratio 1.5 Ratio 12/17/2019 Unkn own Comp Metabolic Sab200 Osmo 282 mOsmo 12/17/2019 Unkn own Cbc [...] 12/17/19 20 Unknown Cbc With Differential Ord2 [place]% 6.2 % 12/17/19 20 Unknown Cbc With [...] K/ul 020 Unknown Cbc With Differential Ord2 [place] ABS# 0.6 K/ul 12/17/19 20 Unknown Cbc [...] 4.2 Ratio 12/17/2019 Unknown C A/B FLU [id number] Influenza A Scr Negative 09/23/2019 Unk nown C A/B FLU [id number] Influenza B Scr Negative 09/23/2019 Unk nown C A/B FLU [id number] Influenza Intrp B AG:PRID:PT:NOSE:NOM:IF See Footnote 09/23/2019 Unknown Procedures Procedure Codes Date THER/PROPH/DIAG INJ SC/IM CPT-4: 77755 04/28/2021 THER/PROPH/DIAG INJ SC/IM CPT-4: 94575 03/03/2021 THER/PROPH/DIAG INJ SC/IM CPT-4: 54629 01/05/2021 THER/PROPH/DIAG INJ SC/IM CPT-4: 42753 10/28/2020 THER/PROPH/DIAG INJ SC/IM CPT-4: 09993 08/04/2020 THER/PROPH/DIAG INJ SC/IM CPT-4: 84893 05/26/2020 TRIAMCINOLONE ACET INJ NOS 10 mg CPT-4: J3301 020 THER/PROPH/DIAG INJ SC/IM CPT-4: 29225 03/19/2020 THER/PROPH/DIAG INJ SC/IM CPT-4: 99019 12/27/2019 THER/PROPH/DIAG INJ SC/IM CPT-4: 43250 10/24/2019 TRIAMCINOLONE ACET INJ NOS 10 mg CPT-4: J3301 019 THER/PROPH/DIAG INJ SC/IM CPT-4: 36313 08/19/2019 Vital Signs Date Vital 08/31/2021 Blood Pressure 1: 156/82 Code: 8480-6 Heart Rate 1: 81 bpm Height: 5'2" Code: 8302-2 Height: 5'2" Code: 8302-2 SpO2: 99% Temperature: 3 6.2 (C) / 97.1 (F) Weight: Code: 32930-7 08/09/2021 Blood Pressure 1: 142/68 Code: 8480-6 BMI: 30.7 Code: 30157-5 Heart Rate 1: 63 bpm Height: 5'2" Code: 8302-2 SpO2: 97% Temperature: 3 6.4 (C) / 97.6 (F) Weight: 168 lbs Code: 52908-5 06/01/2020 Blood Pressure 1: 130/80 Code: 8480-6 BMI: 28.5 Code: 10418-0 Heart Rate 1: 69 bpm Height: 5'2" Code: 8302-2 SpO2: 97% Temperature: 3 6.9 (C) / 98.4 (F) Weight: 156 lbs Code: 94536-6 05/26/2020 Blood Pressure 1: 128/78 Code: 8480-6 Heart Rate 1: 74 bpm Height: Code: 8302-2 SpO2: 98% Weight: Code: 09447-9 04/02/2020 Height: Code: 8302-2 Weight: Code: 294 63-7 12/16/2019 Blood Pressure 1: 132/80 Code: 8480-6 BMI: 28.9 Code: 65330-8 Heart Rate 1: 68 bpm Height: 5'2" Code: 8302-2 SpO2: 97% Weight: 158 lb s Code: 65765-3 09/27/2019 Blood Pressure 1: 110/60 Code: 8480-6 BMI: 28.5 Code: 06198-6 Heart Rate 1: 76 bpm Height: 5'2" Code: 8302-2 SpO2: 98% Temperature: 3 6.9 (C) / 98.5 (F) Weight: 156 lbs Code: 79449-0 09/23/2019 Blood Pressure 1: 124/80 Code: 8480-6 Heart Rate 1: 81 bpm SpO2: 98% Temperature: 36.7 (C) / 98.1 (F) 08/19/2019 Blood Pressure 1: 130/78 Code: 8480-6 BMI: 28.0 Code: 83499-0 Heart Rate 1: 68 bpm Height: 5'2" Code: 8302-2 SpO2: 98% Weight: 153 lb s Code: 18456-7 06/27/2019 Heart Rate 1: 68 bpm Height: Code: 8302-2 Weigh t: Code: 90200-8 06/24/2019 Blood Pressure 1: 132/74 Code: 8480-6 BMI: 27.4 Code: 04785-6 Heart Rate 1: 66 bpm Height: 5'2" Code: 8302-2 SpO2: 98% Weight: 150 lb s Code: 55200-7 05/30/2019 Blood Pressure 1: 104/60 Code: 8480-6 BMI: 27.5 Code: 94574-7 Heart Rate 1: 66 bpm Height: 5'2" Code: 8302-2 SpO2: 98% Weight: 150 lb s 5 oz Code: 15659-7 Functional Status No Functional Status data Reason For Visit Reason For Visit Effective Dates Notes cough 08/31/2021 sinus congestion 08/09/2021 headache 06/01/2020 headache 05/26/2020 well woman exam (40-65 years) 12/16/2019 cough 09/27/2019 fever 09/23/2019 menopausal symptoms 08/19/2019 lower leg pain 06/27/2019 lower leg pain 06/24/2019 anxiety 05/30/2019 Encounters Encounter Performer Location Codes Date ([id number]) 34840 EST. PATIENT, LEVEL IV Diagnosis: Acute bronchitis[ICD10: J20.9] Diagnosis: Laryngitis[ICD10: J04.0] Diagnosis: Other allergic rhinitis[ICD10: J30.89] Diagnosis: Slow transit constipation[ICD10: K59.01] Mariel Faith MD, [facility] CPT-4: 51470 08/31/2021 ([id number]) 94795 EST. PATIENT, LEVEL IV Diagnosis: Generalized anxiety disorder[ICD10: F41.9] Diagnosis: Cough[ICD10: R05.9] Diagnosis: Other allergic rhinitis[ICD10: J30.89] Diagnosis: Encounter for screening mammogram for malignant neoplasm of breast[ICD10: Z12.31] Mariel Faith MD, [facility] CPT-4: 44907 08/09/2021 ([id number]) 40823 EST. PATIENT, LEVEL III Diagnosis: Headache[ICD10: R51] Diagnosis: Other allergic rhinitis[ICD10: J30.89] Farzana Groves MD, [facility] CPT-4: 76543 06/01/2020 86982 EST. PATIENT, LEVEL III Diagnosis: Other acute sinusitis[ICD10: J01.80] Diagnosis: Other allergic rhinitis[ICD10: J30.89] Diagnosis: Migraine without status migrainosus, not intractable, unspecified migraine type[ICD10: G43.909] Diagnosis: Menopausal and female climacteric states[ICD10: N95.1] Jaycee Faith MD, [facility] CPT-4: 44204 05/26/2020 ([id number]) 70997 EST. PATIENT, LEVEL III Diagnosis: Generalized anxiety disorder[ICD10: F41.1] Alena Faith MD, [facility] CPT-4: 81635 04/02/2020 ([id number]) PREV VISIT EST AGE 40-64 Diagnosis: Encounter for gynecological examination (general) (routine) without abnormal findings[ICD10: Z01.419] Farzana Faith MD, [facility] CPT -4: 40567 12/16/2019 ([id number]) 43055 EST. PATIENT, LEVEL III Diagnosis: Cough[ICD10: R05] Diagnosis: Acute bronchitis[ICD10: J20.9] Farzana pulido MD, [facility] CPT-4: 83628 09/27/2019 ([id number]) 64220 EST. PATIENT, LEVEL III Diagnosis: Fever[ICD10: R50.9] Diagnosis: Body aches[ICD10: R52] Farzana Faith MD, [facility] CPT -4: 95256 09/23/2019 ([id number]) 53199 EST. PATIENT, LEVEL III Diagnosis: Menopausal and female climacteric states[ICD10: N95.1] Farzana Faith MD, [facility] CPT-4: 59763 08/19/2019 77425 EST. PATIENT, LEVEL III Diagnosis: Pain in left ankle and joints of left foot[ICD10: M25.572] Diagnosis: Pain in left knee[ICD10: M25.562] [facility] CPT-4: 98132 06/27/2019 [id number] EST. PATIENT, LEVEL III Diagnosis: Pain in left ankle and joints of left foot[ICD10: M25.572] Diagnosis: Pain in left knee[ICD10: M25.562] [facility] CPT-4: 33746 06/24/2019 ([id number]) PREV VISIT NEW AGE 40-64 Diagnosis: Encounter for general adult medical examination without abnormal findings[ICD10: Z00.00] [facility] CPT-4: 27899 05/30/2019 Plan of Care Planned Activity Notes Codes Status Date Visit Plan: Allergies - recent increase in [...] Completed 08/09/2021 Patient Education: prednisone- [employer] Coupon [id number] Completed 08/09/2021 Appointment: Injection 04/28/2021 Patient Education: [...] without contrast. 06/01/2020 Appointment: Farzana Cristina WPtel: [facility] [place] [phone] [place] [address] (15 min) Moderate 06/01/2020 Patient Education: Patient [...] or concerns. 05/26/2020 Appointment: Jaycee Lindo WPtel: [facility]8 [facility]66[facility] (30 min) Complex 05/26/2020 Patient Education: Patient Medication Summary Completed 05/26/2020 Visit Plan: Anxiety - the patient has un controlled anxiety and will benefit from a short term dose of xanax for control of symptoms. 04/02/2020 Appointment: Alena Faith WPtel: [facility]3 [facility]66[facility] TeleHealth 04/02/2020 Patient Education: Patient Medication Summary Completed 04/02/2020 Appointment: Injection 03/19/2020 Patient Education: Patient Medication Summary Completed 03/19/2020 Appointment: Injection 03/18/2020 Appointment: Injection 12/27/2019 Patient Education: Patient Medication Summary Completed 12/27/2019 Appointment: Alena Faith WPtel: [address] [place], [place] [phone] [facility] 12/24/2019 Visit Plan: Well Adult Female - exam com pleted. Pap and breast exam completed. Pt will be called with results of her testing. She was advised to continue with yearly annual exams. Safe sex practices discussed during office visit today. Call if any abnormal gynecologic issues during the next year, otherwise, RTC yearly or prn. 12/16/2019 Appointment: Farzana Cristina WPtel: [address] [place], [place] [phone] [facility] 12/16/2019 Patient Education: Patient Medication Summary Completed 12/16/2019 Appointment: Alena Faith WPtel: [address] [place], [place] [phone] (15 min) Moderate 12/03/2019 Appointment: Injection 10/24/2019 Patient Education: Patient Medication Summary Completed 10/24/2019 Visit Plan: Bronchitis - acute case of b ronchitis identified. Pt has been given antibiotics, breathing treatments as appropriate, and pt has been instructed to call if symptoms are not improved, or if symptoms acutely worsen. 09/27/2019 Appointment: Farzana Cristina WPtel: [address] [place], [place] [phone] (15 min) Moderate 09/27/2019 Patient Education: Patient Medication Summary Completed 09/27/2019 Visit Plan: URI -viral -flu swab to r/o flu - Pt advised to increase fluids, vitamin C. Discussed natural and expected course of this diagnosis and need to alert me if symptoms do not follow expected course, or if any worse. 09/23/2019 Appointment: Farzana Cristina WPtel: [facility] [phone] (30 min) Complex 09/23/2019 Patient Education: Patient Medication Summary Completed 09/23/2019 Visit Plan: Post-surgical menopause - co ntinue to taper depo dose and eventually off medication completely -injection today in the office. 08/19/2019 Appointment: Farzana Cristina WPtel: [facility] [phone] [place] (15 min) Moderate 08/19/2019 Patient Education: Patient Medication Summary Completed 08/19/2019 Appointment: Farzana Cristina WPtel: [facility] [phone] [place] (30 min) Complex 08/16/2019 Visit Plan: Left knee, ankle, foot pain - will send RX - will refer to ortho - The pt is to use prn antiinflammatories to manage acute pain. The patient is to call the office if the pain is worsening or does not improve. 06/27/2019 Appointment: Jaycee Lindo WPtel: [facility] [phone] (30 min) Complex 06/27/2019 Patient Education: Patient Medication Summary Completed 06/27/2019 Care Plan: Referral Order SNOMED-CT : [id number] Pending 06/27/2019 Visit Plan: Left knee, ankle, foot pain - will send RX - if no improvement will refer to ortho - The pt is to use prn antiinflammatories to manage acute pain. The patient is to call the office if the pain is worsening or does not improve. 06/24/2019 Appointment: Jaycee Lindo WPtel: [facility] [phone] (30 min) Complex 06/24/2019 Patient Education: [...] we will look for her medications from [facility] to find out what her [...] Referral: Nathan Dudley Referral Completed Instructions Comment GENERIC ALYSA OTC 1 TABLET TWICE A [...] bedtime and escitalopram. Fasting lab orders sent DUE FOR ANNUAL MAMMOGRAM- order faxed DUE [...] bedtime and escitalopram. Fasting lab orders sent . Allergies - chronic - recommended pt [...] we will order CT Head without contrast. . Sinusitis - Pt has acute infection [...] or with any changes, questions, or concerns. . Anxiety - the patient has uncontrolled anxiety and will benefit from a short term dose of xanax for control of symptoms. . Well Adult Female - exam completed. P ap and breast exam completed. Pt will be called with results of her testing. She was advised to continue with yearly annual exams. Safe sex practices discussed during office visit today. Call if any abnormal gynecologic issues during the next year, otherwise, RTC yearly or prn. kenalog . Bronchitis - acute case of bronchitis identified. Pt has been given antibiotics, breathing treatments as appropriate, and pt has been instructed to call if symptoms are not improved, or if symptoms acutely worsen. . URI -viral -flu swab to r/o flu - Pt a dvised to increase fluids, vitamin C. Discussed natural and expected course of this diagnosis and need to alert me if symptoms do not follow expected course, or if any worse. . Post-surgical menopause - continue to taper depo dose and eventually off medication completely -injection today in the office. tomorrow at 10:15 with the nurse pracdelilah [...] is worsening or does not improve. . Well Adult - pt was counseled [...] we will look for her medications from [facility] to find out what her depo dose is so I can wean her off of it. Anxiety - the patient has uncontrolled anxiety and will benefit from an SSRI on a daily basis to attempt control of the symptoms of anxiety (tachycardia, overwhelming sensations, stress, insomnia, etc). stop clonidine due to hypotension Medical Equipment No Medical Equipment data Health Concerns Section Health Concerns data not found Goals Section Goals data not found Interventions Section Interventions data not found Health Status Evaluations/Outcomes Section Health Status Evaluations/Outcomes data not found Advance Directives No Advance Directive data
--- OUTSIDE RECORDS SUMMARY | 2021-10-12 12:00 | XMS REPORT | CCD ---
Author Author Kaleigh Faith Organization Alena Faith MD, [facility] Address [address] [place] [address] Phone Care Team Providers Care Shower Maid Name Role Phone Alena Faith PP Unavailable CCM Unavailable Summary Purpose Interface Exchange Insurance Providers Payer name Policy type / Coverage type Covered democrat ID Effective Begin Date Effective End Date [facility] Commercial Insurance [id number] Unknown Unknown Family history Mother Diagnosis Age At Onset Diabetes mellitus Type 2 Unknown Alcoholism Unknown Depression Unknown Father Diagnosis Age At Onset Diabetes mellitus Type 2 Unknown Social History Social History Element Codes Description Effective Dates Marital status Unknown Garry 05/30/2019 Number of children Unknown 2 05/30/2019 Employment Unknown Currently employed [employer] 05/30/[address]: 35613800 Current some days smoker Alcohol history SNOMED CT: 589417674 Never drinks alcohol 2018 Allergies, Adverse Reactions, [...] Fill Instructions atorvastatin 20 mg tablet RxNorm: 680060 Take 1 Tablet( s) Oral every night at bedtime 09/01/2021 12/29/2021 Active Miralax 17 gram/dose oral powder RxNorm: 493977 Take 1 scoop Or al every day 08/31/2021 09/29/2021 Active Alysa Allergy 180 mg tablet RxNorm: 895463 Take 1 Tab let(s) Oral every day for first 5 days take twice daily 08/31/2021 No Stop Date Active omeprazole 20 mg tablet,delayed release RxNorm: 936358 Take 1 Tablet(s) Oral every day 08/31/2021 09/13/2021 Active prednisone 20 mg tablet RxNorm: 470269 Take 2 Tablet(s) Oral ev alex day 08/23/2021 08/27/2021 Inactive azithromycin 250 mg tablet RxNorm: 103285 Take 1 Tablet (s) Oral every day take 2 tablets day 1, then take 1 tablet daily on days 2-5 08/23/2021 08/27/20 21 Inactive Please disregard Cefdinir RX. cefdinir 300 mg capsule RxNorm: 409282 Take 1 Capsule(s) Oral t wo times a day 08/23/2021 08/23/2021 Inactive azithromycin 250 mg tablet RxNorm: 611591 Take 1 Tablet (s) Oral every day take 2 tablets day 1, then take 1 tablet daily on days 2-5 08/23/2021 08/23/20 21 Inactive Please disregard Cefdinir RX. promethazine 6.25 mg-codeine 10 mg/5 mL syrup RxNorm: 945909 Take 5 Milliliter(s) Oral every 4-6 hours as needed cough 08/09/2021 Inactive prednisone 20 mg tablet RxNorm: 130616 Take 2 Tablet(s) Oral ev alex day 08/09/2021 08/13/2021 Inactive promethazine 6.25 mg-codeine 10 mg/5 mL syrup RxNorm: 984856 Take 5 Milliliter(s) Oral every 4-6 hours as needed cough 08/09/2021 Inactive Kenalog 40 mg/mL suspension for injection RxNorm: 6093315 Take 1 Milliliter(s) Injection 08/09/2021 08/09/2021 Inactive alprazolam 0.5 mg tablet RxNorm: 633200 Take 1 Tablet(s ) Oral two times a day as needed FOR ANXIETY 07/30/2021 08/28/2021 Inactive alprazolam 0.5 mg tablet RxNorm: 091013 1 Tablet(s) Ora l two times a day as needed anxiety 06/03/2021 06/03/2021 Inactive Depo-Estradiol 5 mg/mL intramuscular oil RxNorm: 998543 0.75 Milliliter(s) Intramuscular 04/28/2021 04/28/2021 Inactive alprazolam 0.5 mg tablet RxNorm: 856819 1 Tablet(s) Ora l two times a day as needed anxiety 04/05/2021 04/05/2021 Inactive Depo-Estradiol 5 mg/mL intramuscular oil RxNorm: 702311 0.75 Milliliter(s) Intramuscular 03/03/2021 03/03/2021 Inactive alprazolam 0.5 mg tablet RxNorm: 227226 1 Tablet(s) Ora l two times a day as needed anxiety 03/01/2021 03/01/2021 Inactive alprazolam 0.5 mg tablet RxNorm: 234368 1 Tablet(s) Ora l two times a day as needed anxiety 01/28/2021 02/26/2021 Inactive Depo-Provera 150 mg/mL intramuscular suspension RxNorm: 1000 128 Milliliter(s) Intramuscular 01/05/2021 01/05/2021 Inactive escitalopram 10 mg tablet RxNorm: 522025 TAKE ONE TABLE T BY MOUTH EVERY NIGHT AT BEDTIME Tablet(s) Oral 12/30/2020 01/01/2021 Inactive alprazolam 0.5 mg tablet RxNorm: 763626 1 Tablet(s) Ora l two times a day as needed anxiety 12/30/2020 01/27/2021 Inactive escitalopram 5 mg tablet RxNorm: 891183 TAKE ONE TABLET BY MOUTH EVERY NIGHT AT BEDTIME 11/30/2020 12/29/2020 Inactive alprazolam 0.5 mg tablet RxNorm: 316785 1 Tablet(s) Ora l two times a day as needed anxiety 11/30/2020 12/29/2020 Inactive atorvastatin 20 mg tablet RxNorm: 932827 TAKE ONE TABLET BY RADHA TH DAILY 11/26/2020 11/26/2020 Inactive Depo-Estradiol 5 mg/mL intramuscular oil RxNorm: 713541 3/4 Milliliter(s) Intramuscular monthly 10/28/2020 12/27/2020 Inactive Depo-Provera 150 mg/mL intramuscular suspension RxNorm: 1000 128 Milliliter(s) Intramuscular 10/28/2020 10/28/2020 Inactive alprazolam 0.5 mg tablet RxNorm: 486011 1 Tablet(s) Ora l two times a day as needed anxiety 10/01/2020 10/29/2020 Inactive acyclovir 400 mg tablet RxNorm: 100427 TAKE ONE TABLET BY MOUTH FOUR TIMES A DAY 08/31/2020 09/01/2020 Inactive alprazolam 0.5 mg tablet RxNorm: 695779 1 Tablet(s) Ora l two times a day as needed anxiety 08/31/2020 09/29/2020 Inactive atorvastatin 20 mg tablet RxNorm: 910495 1 Tablet(s) Oral every day 08/18/2020 08/17/2020 Inactive atorvastatin 20 mg tablet RxNorm: 901908 1 Tablet(s) Oral every day 08/18/2020 11/25/2020 Inactive alprazolam 0.5 mg tablet RxNorm: 535562 1 Tablet(s) Ora l two times a day as needed anxiety 08/07/2020 08/30/2020 Inactive Depo-Provera 150 mg/mL intramuscular suspension RxNorm: 1000 128 Milliliter(s) Intramuscular 08/04/2020 08/04/2020 Inactive acyclovir 400 mg tablet RxNorm: 259954 TAKE ONE TABLET BY MOUTH FOUR TIMES A DAY 07/21/2020 08/30/2020 Inactive alprazolam 0.5 mg tablet RxNorm: 617613 1 Tablet(s) Ora l two times a day as needed anxiety 07/07/2020 08/05/2020 Inactive alprazolam 0.5 mg tablet RxNorm: 992620 1 Tablet(s) Ora l two times a day as needed anxiety 06/18/2020 07/05/2020 Inactive escitalopram 5 mg tablet RxNorm: 036631 1 Tablet(s) Oral every night at bedtime 06/08/2020 10/06/2020 Inactive prednisone 20 mg tablet RxNorm: 318562 2 Tablet(s) Oral every day 0 06/01/2020 06/06/2020 Inactive Depo-Provera 150 mg/mL intramuscular suspension RxNorm: 1000 128 0.75 Milliliter(s) Intramuscular 05/28/2020 05/28/2020 Inactive Kenalog 40 mg/mL suspension for injection RxNorm: 1917928 1 Milliliter(s) Injection 05/28/2020 05/28/2020 Inactive Zithromax Z-Kraig 250 mg tablet RxNorm: 952157 Tablet(s) Oral as directed 05/26/2020 04/04/2021 Inactive alprazolam 0.5 mg tablet RxNorm: 914199 1 Tablet(s) Ora l two times a day as needed anxiety 05/11/2020 06/09/2020 Inactive alprazolam 0.5 mg tablet RxNorm: 495072 1 Tablet(s) Ora l two times a day as needed anxiety 04/02/2020 05/10/2020 Inactive Depo-Provera 150 mg/mL intramuscular suspension RxNorm: 1000 128 Milliliter(s) Intramuscular 03/19/2020 03/19/2020 Inactive acyclovir 400 mg tablet RxNorm: 035816 1 Tablet(s) Oral four times a day fever blisters 01/02/2020 02/01/2020 Inactive Depo-Provera 150 mg/mL intramuscular suspension RxNorm: 1000 128 Milliliter(s) Intramuscular 12/27/2019 12/27/2019 Inactive pravastatin 10 mg tablet RxNorm: 321614 1 Tablet(s) Oral every night at bedtime 12/19/2019 12/18/2019 Inactive pravastatin 10 mg tablet RxNorm: 543076 1 Tablet(s) Oral every night at bedtime 12/19/2019 04/17/2020 Inactive Depo-Estradiol 5 mg/mL intramuscular oil RxNorm: 974327 3/4 Milliliter(s) Intramuscular monthly 10/24/2019 10/24/2019 Inactive Kenalog 40 mg/mL suspension for injection RxNorm: 0679192 Milliliter(s) Injection 09/27/2019 09/27/2019 Inactive Phenergan with Codeine Syrup RxNorm: 5-10 Millil iter(s) Oral Every 6 hrs as needed 09/27/2019 05/31/2020 Inactive prednisone 20 mg tablet RxNorm: 995954 2 Tablet(s) Oral every day 1 11/28/2018 10/02/2019 Inactive start tomorrow doxycycline hyclate 100 mg tablet RxNorm: 9611281 1 Tabl et(s) Oral two times a day 09/27/2019 10/04/2019 Inactive start if symptom s do not improve Depo-Estradiol 5 mg/mL intramuscular oil RxNorm: 507411 3/4 Milliliter(s) Intramuscular monthly 08/20/2019 08/20/2019 Inactive Depo-Estradiol 5 mg/mL intramuscular oil RxNorm: 520215 3/4 Milliliter(s) Intramuscular monthly 08/15/2019 09/14/2019 Inactive gabapentin 100 mg capsule RxNorm: 794942 1 Capsule(s) O ral every night at bedtime 07/31/2019 09/22/2019 Inactive gabapentin 100 mg capsule RxNorm: 171621 1 Capsule(s) PO QHS 201807/26/2019 Inactive naproxen 500 mg tablet RxNorm: 732693 1 Tablet(s) PO BID 06/24/2019 0 06/28/2019 Inactive escitalopram 5 mg tablet RxNorm: 875900 1 Tablet(s) PO QHS 05/30/20 19 09/22/2019 Inactive CoQ-10 oral RxNorm: 21035 oral 09/01/2021 Active ranitidine 150 mg capsule RxNorm: 896067 1 Capsule(s) PO BID 201809/22/2019 Inactive eszopiclone 1 mg tablet RxNorm: 024764 Tablet(s) PO as needed 06/0105/31/2020 Inactive acyclovir 400 mg tablet RxNorm: 093679 1 Tablet(s) PO PRN fever blisters 01/02/2020 01/01/2020 Inactive clonidine HCl 0.1 mg tablet RxNorm: 783037 Tablet(s) PO as needed 0 05/30/2019 05/29/2019 Inactive Medication Administered Medication Codes Instructions Start Date Status Kenalog 40 mg/mL suspension for injection RxNorm: 2767528 1Milli liter 08/09/2021 No longer Active Depo-Estradiol 5 mg/mL intramuscular oil RxNorm: 825695 0.75Mil liliter 04/28/2021 No longer Active Depo-Estradiol 5 mg/mL intramuscular oil RxNorm: 542869 0.75Mil liliter 03/03/2021 No longer Active Depo-Provera 150 mg/mL intramuscular suspension RxNorm: 7119847 Milliliter 01/05/2021 No longer Active Depo-Provera 150 mg/mL intramuscular suspension RxNorm: 1603604 Milliliter 10/28/2020 No longer Active Depo-Provera 150 mg/mL intramuscular suspension RxNorm: 8892271 Milliliter 08/04/2020 No longer Active Depo-Provera 150 mg/mL intramuscular suspension RxNorm: 1406403 0.75Milliliter 05/28/2020 No longer Active Kenalog 40 mg/mL suspension for injection RxNorm: 8354357 1Milli liter 05/28/2020 No longer Active Depo-Provera 150 mg/mL intramuscular suspension RxNorm: 5439698 Milliliter 03/19/2020 No longer Active Depo-Provera 150 mg/mL intramuscular suspension RxNorm: 5128137 Milliliter 12/27/2019 No longer Active Depo-Estradiol 5 mg/mL intramuscular oil RxNorm: 208541 3/4Mill ilitermonthly 10/24/2019 Active Kenalog 40 mg/mL suspension for injection RxNorm: 3467804 Millilite r 09/27/2019 No longer Active Depo-Estradiol 5 mg/mL intramuscular oil RxNorm: 857128 3/4Mill ilitermonthly 08/20/2019 Active Immunizations No Immunization data Results Observation Observation Code Item Item Code Result Date S [facility] Location Cbc With Differential Ord2 WBC [...] 08/31/20 21 Unknown Cbc With Differential Ord2 Bailey% 6.0 % 08/31/20 21 Unknown Cbc With [...] K/ul 021 Unknown Cbc With Differential Ord2 Bailey ABS# 0.7 K/ul 08/31/20 21 Unknown Cbc With Differential Ord2 Eos ABS# 0.3 K/ul 08/31/20 21 Unknown Cbc With Differential Ord2 Baso ABS# 0.0 K/ul 08/31/20 21 Unknown Comp Metabolic Hqk002 NA 142 mEq/L 08/31/2021 Unkn own Comp Metabolic Yqm467 K 4.4 mEq/L 08/31/2021 Unkn own Comp Metabolic Vwg938 CL 101 mEq/L 08/31/2021 Unkn own Comp Metabolic Wdl058 CO2 32.0 mEq/L 08/31/2021 Unk nown Comp Metabolic Ftu128 ANION GAP 13 08/31/2021 Unkn own Comp Metabolic Rtl898 GLUCOSE 89 mg/dL 08/31/2021 Unkn own Comp Metabolic Szo919 Creat 0.7 mg/dL 08/31/2021 Unkn own Comp Metabolic Dcg554 eGFR 90 ml/min/1.73m2 08/31/20 21 Unknown Comp Metabolic Uyj746 BUN 19 mg/dL 08/31/2021 Unkn own Comp Metabolic Cfk654 B/C Ratio 26.4 Ratio 08/31/2021 Unk nown Comp Metabolic Xny941 CALCIUM 9.2 mg/dL 08/31/2021 Unkn own Comp Metabolic Wgm651 ALK PHOS 85 U/L 08/31/2021 Unkn own Comp Metabolic Gas769 AST(SGOT) 16 U/L 08/31/2021 Unkn own Comp Metabolic Bdu779 ALT(SGPT) 19 U/L 08/31/2021 Unkn own Comp Metabolic Jml475 BILI T 0.6 mg/dL 08/31/2021 Unkn own Comp Metabolic Qox231 ALBUMIN 4.2 g/dL 08/31/2021 Unkn own Comp Metabolic Jes160 TPRO 7.1 g/dL 08/31/2021 Unkn own Comp Metabolic Vnv016 GLOB 2.9 g/dL 08/31/2021 Unkn own Comp Metabolic Xpu612 A/G Ratio 1.5 Ratio 08/31/2021 Unkn own Comp Metabolic Yfk514 Osmo 285 mOsmo 08/31/2021 Unkn own Tsh [...] C/HDL 4.5 Ratio 08/06/2020 Unknown Comp Metabolic Clf762 NA 138 mEq/L 08/06/2020 Unkn own Comp Metabolic Ubv643 K 4.5 mEq/L 08/06/2020 Unkn own Comp Metabolic Cjs448 CL 103 mEq/L 08/06/2020 Unkn own Comp Metabolic Koo617 CO2 28.0 mEq/L 08/06/2020 Unk nown Comp Metabolic Ykl737 ANION GAP 12 08/06/2020 Unkn own Comp Metabolic Aqg159 GLUCOSE 90 mg/dL 08/06/2020 Unkn own Comp Metabolic Zlt699 Creat 0.7 mg/dL 08/06/2020 Unkn own Comp Metabolic Axp020 eGFR 88 ml/min/1.73m2 08/06/20 20 Unknown Comp Metabolic Vmn791 BUN 20 mg/dL 08/06/2020 Unkn own Comp Metabolic Vtf956 B/C Ratio 27.0 Ratio 08/06/2020 Unk nown Comp Metabolic Tvu474 CALCIUM 9.5 mg/dL 08/06/2020 Unkn own Comp Metabolic Ubo353 ALK PHOS 87 U/L 08/06/2020 Unkn own Comp Metabolic Zrn974 AST(SGOT) 17 U/L 08/06/2020 Unkn own Comp Metabolic Lqh325 ALT(SGPT) 20 U/L 08/06/2020 Unkn own Comp Metabolic Ybc521 BILI T 0.6 mg/dL 08/06/2020 Unkn own Comp Metabolic Gcz003 ALBUMIN 4.5 g/dL 08/06/2020 Unkn own Comp Metabolic Wak650 TPRO 7.6 g/dL 08/06/2020 Unkn own Comp Metabolic Lum986 GLOB 3.1 g/dL 08/06/2020 Unkn own Comp Metabolic Gct219 A/G Ratio 1.5 Ratio 08/06/2020 Unkn own Comp Metabolic Axz413 Osmo 278 mOsmo 08/06/2020 Unkn own Cbc [...] pg 08/06/20 Unknown Cbc With Differential Ord2 Bailey% 5.4 % 08/06/20 Unknown Cbc With Differential [...] K/ul 020 Unknown Cbc With Differential Ord2 Bailey ABS# 0.6 K/ul 08/06/20 Unknown Cbc With Differential Ord2 Eos ABS# 0.2 K/ul 08/06/20 Unknown Cbc With Differential Ord2 Baso ABS# 0.0 K/ul 08/06/20 Unknown Tsh Ord6 TSH (3rd IS) 1.38 uIU/mL 12/17/2019 Unkn own Comp Metabolic Kfl887 NA 141 mEq/L 12/17/2019 Unkn own Comp Metabolic Lzi017 K 4.3 mEq/L 12/17/2019 Unkn own Comp Metabolic Hve536 CL 104 mEq/L 12/17/2019 Unkn own Comp Metabolic Pfn549 CO2 29.0 mEq/L 12/17/2019 Unk nown Comp Metabolic Pbt714 ANION GAP 12 12/17/2019 Unkn own Comp Metabolic Oms805 GLUCOSE 83 mg/dL 12/17/2019 Unkn own Comp Metabolic Jel250 Creat 0.7 mg/dL 12/17/2019 Unkn own Comp Metabolic Wiy694 eGFR 102 ml/min/1.73m2 020 Unknown Comp Metabolic Fsg805 BUN 16 mg/dL 12/17/2019 Unkn own Comp Metabolic Jvr294 B/C Ratio 24.6 Ratio 12/17/2019 Unk nown Comp Metabolic Crz641 CALCIUM 9.3 mg/dL 12/17/2019 Unkn own Comp Metabolic Plr312 ALK PHOS 79 U/L 12/17/2019 Unkn own Comp Metabolic Nrn056 AST(SGOT) 19 U/L 12/17/2019 Unkn own Comp Metabolic Dvl858 ALT(SGPT) 26 U/L 12/17/2019 Unkn own Comp Metabolic Ljl512 BILI T 0.5 mg/dL 12/17/2019 Unkn own Comp Metabolic Tot226 ALBUMIN 4.2 g/dL 12/17/2019 Unkn own Comp Metabolic Upu628 TPRO 7.0 g/dL 12/17/2019 Unkn own Comp Metabolic Qnb752 GLOB 2.8 g/dL 12/17/2019 Unkn own Comp Metabolic Zgh944 A/G Ratio 1.5 Ratio 12/17/2019 Unkn own Comp Metabolic Fcg598 Osmo 282 mOsmo 12/17/2019 Unkn own Cbc [...] 12/17/19 20 Unknown Cbc With Differential Ord2 Bailey% 6.2 % 12/17/19 20 Unknown Cbc With [...] K/ul 020 Unknown Cbc With Differential Ord2 Bailey ABS# 0.6 K/ul 12/17/19 20 Unknown Cbc [...] 4.2 Ratio 12/17/2019 Unknown C A/B FLU [id number] Influenza A Scr Negative 09/23/2019 Unk nown C A/B FLU [id number] Influenza B Scr Negative 09/23/2019 Unk nown C A/B FLU [id number] Influenza Intrp B AG:PRID:PT:NOSE:NOM:IF See Footnote 09/23/2019 Unknown Procedures Procedure Codes Date THER/PROPH/DIAG INJ SC/IM CPT-4: 07406 04/28/2021 THER/PROPH/DIAG INJ SC/IM CPT-4: 60035 03/03/2021 THER/PROPH/DIAG INJ SC/IM CPT-4: 98863 01/05/2021 THER/PROPH/DIAG INJ SC/IM CPT-4: 79360 10/28/2020 THER/PROPH/DIAG INJ SC/IM CPT-4: 47403 08/04/2020 THER/PROPH/DIAG INJ SC/IM CPT-4: 26000 05/26/2020 TRIAMCINOLONE ACET INJ NOS 10 mg CPT-4: J3301 020 THER/PROPH/DIAG INJ SC/IM CPT-4: 66019 03/19/2020 THER/PROPH/DIAG INJ SC/IM CPT-4: 75562 12/27/2019 THER/PROPH/DIAG INJ SC/IM CPT-4: 52959 10/24/2019 TRIAMCINOLONE ACET INJ NOS 10 mg CPT-4: J3301 019 THER/PROPH/DIAG INJ SC/IM CPT-4: 29715 08/19/2019 Vital Signs Date Vital 08/31/2021 Blood Pressure 1: 156/82 Code: 8480-6 Heart Rate 1: 81 bpm Height: 5'2" Code: 8302-2 Height: 5'2" Code: 8302-2 SpO2: 99% Temperature: 3 6.2 (C) / 97.1 (F) Weight: Code: 42674-3 08/09/2021 Blood Pressure 1: 142/68 Code: 8480-6 BMI: 30.7 Code: 11900-1 Heart Rate 1: 63 bpm Height: 5'2" Code: 8302-2 SpO2: 97% Temperature: 3 6.4 (C) / 97.6 (F) Weight: 168 lbs Code: 14509-4 06/01/2020 Blood Pressure 1: 130/80 Code: 8480-6 BMI: 28.5 Code: 06920-8 Heart Rate 1: 69 bpm Height: 5'2" Code: 8302-2 SpO2: 97% Temperature: 3 6.9 (C) / 98.4 (F) Weight: 156 lbs Code: 98614-5 05/26/2020 Blood Pressure 1: 128/78 Code: 8480-6 Heart Rate 1: 74 bpm Height: Code: 8302-2 SpO2: 98% Weight: Code: 61084-0 04/02/2020 Height: Code: 8302-2 Weight: Code: 294 63-7 12/16/2019 Blood Pressure 1: 132/80 Code: 8480-6 BMI: 28.9 Code: 23399-2 Heart Rate 1: 68 bpm Height: 5'2" Code: 8302-2 SpO2: 97% Weight: 158 lb s Code: 61597-1 09/27/2019 Blood Pressure 1: 110/60 Code: 8480-6 BMI: 28.5 Code: 50267-4 Heart Rate 1: 76 bpm Height: 5'2" Code: 8302-2 SpO2: 98% Temperature: 3 6.9 (C) / 98.5 (F) Weight: 156 lbs Code: 02485-3 09/23/2019 Blood Pressure 1: 124/80 Code: 8480-6 Heart Rate 1: 81 bpm SpO2: 98% Temperature: 36.7 (C) / 98.1 (F) 08/19/2019 Blood Pressure 1: 130/78 Code: 8480-6 BMI: 28.0 Code: 06447-8 Heart Rate 1: 68 bpm Height: 5'2" Code: 8302-2 SpO2: 98% Weight: 153 lb s Code: 23136-9 06/27/2019 Heart Rate 1: 68 bpm Height: Code: 8302-2 Weigh t: Code: 69513-9 06/24/2019 Blood Pressure 1: 132/74 Code: 8480-6 BMI: 27.4 Code: 17338-1 Heart Rate 1: 66 bpm Height: 5'2" Code: 8302-2 SpO2: 98% Weight: 150 lb s Code: 73644-9 05/30/2019 Blood Pressure 1: 104/60 Code: 8480-6 BMI: 27.5 Code: 45747-2 Heart Rate 1: 66 bpm Height: 5'2" Code: 8302-2 SpO2: 98% Weight: 150 lb s 5 oz Code: 52779-1 Functional Status No Functional Status data Reason For Visit Reason For Visit Effective Dates Notes cough 08/31/2021 sinus congestion 08/09/2021 headache 06/01/2020 headache 05/26/2020 well woman exam (40-65 years) 12/16/2019 cough 09/27/2019 fever 09/23/2019 menopausal symptoms 08/19/2019 lower leg pain 06/27/2019 lower leg pain 06/24/2019 anxiety 05/30/2019 Encounters Encounter Performer Location Codes Date ([id number]) 29919 EST. PATIENT, LEVEL IV Diagnosis: Acute bronchitis[ICD10: J20.9] Diagnosis: Laryngitis[ICD10: J04.0] Diagnosis: Other allergic rhinitis[ICD10: J30.89] Diagnosis: Slow transit constipation[ICD10: K59.01] Mariel Faith MD, [facility] CPT-4: 73607 08/31/2021 ([id number]) 50822 EST. PATIENT, LEVEL IV Diagnosis: Generalized anxiety disorder[ICD10: F41.9] Diagnosis: Cough[ICD10: R05.9] Diagnosis: Other allergic rhinitis[ICD10: J30.89] Diagnosis: Encounter for screening mammogram for malignant neoplasm of breast[ICD10: Z12.31] Mariel Faith MD, [facility] CPT-4: 31392 08/09/2021 ([id number]) 56090 EST. PATIENT, LEVEL III Diagnosis: Headache[ICD10: R51] Diagnosis: Other allergic rhinitis[ICD10: J30.89] Farzana Groves MD, [facility] CPT-4: 35258 06/01/2020 29866 EST. PATIENT, LEVEL III Diagnosis: Other acute sinusitis[ICD10: J01.80] Diagnosis: Other allergic rhinitis[ICD10: J30.89] Diagnosis: Migraine without status migrainosus, not intractable, unspecified migraine type[ICD10: G43.909] Diagnosis: Menopausal and female climacteric states[ICD10: N95.1] Jaycee Faith MD, [facility] CPT-4: 06837 05/26/2020 ([id number]) 85764 EST. PATIENT, LEVEL III Diagnosis: Generalized anxiety disorder[ICD10: F41.1] Alena Faith MD, [facility] CPT-4: 27442 04/02/2020 ([id number]) PREV VISIT EST AGE 40-64 Diagnosis: Encounter for gynecological examination (general) (routine) without abnormal findings[ICD10: Z01.419] Farzana Faith MD, [facility] CPT -4: 60634 12/16/2019 ([id number]) 52174 EST. PATIENT, LEVEL III Diagnosis: Cough[ICD10: R05] Diagnosis: Acute bronchitis[ICD10: J20.9] Farznaa pulido MD, [facility] CPT-4: 44811 09/27/2019 ([id number]) 68568 EST. PATIENT, LEVEL III Diagnosis: Fever[ICD10: R50.9] Diagnosis: Body aches[ICD10: R52] Farzana Faith MD, [facility] CPT -4: 57146 09/23/2019 ([id number]) 20436 EST. PATIENT, LEVEL III Diagnosis: Menopausal and female climacteric states[ICD10: N95.1] Farzana Faith MD, [facility] CPT-4: 53023 08/19/2019 96400 EST. PATIENT, LEVEL III Diagnosis: Pain in left ankle and joints of left foot[ICD10: M25.572] Diagnosis: Pain in left knee[ICD10: M25.562] [facility] CPT-4: 77307 06/27/2019 36373 EST. PATIENT, LEVEL III Diagnosis: Pain in left ankle and joints of left foot[ICD10: M25.572] Diagnosis: Pain in left knee[ICD10: M25.562] [facility] CPT-4: 71659 06/24/2019 ([id number]) PREV VISIT NEW AGE 40-64 Diagnosis: Encounter for general adult medical examination without abnormal findings[ICD10: Z00.00] [facility] CPT-4: 63269 05/30/2019 Plan of Care Planned Activity Notes [...] sent 08/31/2021 [facility]ment[phone] [facility] ([facility] 08/31/2021 Patient [...] sent 08/09/2021 [facility]ment[phone] [facility] ([facility] Complex 08/09/2021 Patient Education: Patient Medication Summary Completed 08/09/2021 Patient Education: prednisone- [employer] Coupon [id number] Completed 08/09/2021 Appointment: Injection 04/28/2021 Patient Education: [...] without contrast. 06/01/2020 Appointment: Farzana Cristina WPtel: [facility] [place] [phone] [place] [address] (15 min) Moderate 06/01/2020 Patient Education: Patient [...] or concerns. 05/26/2020 Appointment: Jaycee Lindo WPtel: [facility] (30 min) Complex 05/26/2020 Patient Education: Patient Medication Summary Completed 05/26/2020 Visit Plan: Anxiety - the patient has un controlled anxiety and will benefit from a short term dose of xanax for control of symptoms. 04/02/2020 Appointment: Alena Faith WPtel: [facility]6 [facility]66[facility] TeleHealth 04/02/2020 Patient Education: Patient Medication Summary Completed 04/02/2020 Appointment: Injection 03/19/2020 Patient Education: Patient Medication Summary Completed 03/19/2020 Appointment: Injection 03/18/2020 Appointment: Injection 12/27/2019 Patient Education: Patient Medication Summary Completed 12/27/2019 Appointment: Alena Faith WPtel: [address] [place], [place] [phone] [facility] 12/24/2019 Visit Plan: Well Adult Female - exam com pleted. Pap and breast exam completed. Pt will be called with results of her testing. She was advised to continue with yearly annual exams. Safe sex practices discussed during office visit today. Call if any abnormal gynecologic issues during the next year, otherwise, RTC yearly or prn. 12/16/2019 Appointment: Farzana Cristina WPtel: [address] [place], [place] [phone] [facility] 12/16/2019 Patient Education: Patient Medication Summary Completed 12/16/2019 Appointment: Alena Faith WPtel: [address] [place], [place] [address] (15 min) Moderate 12/03/2019 Appointment: Injection 10/24/2019 Patient Education: Patient Medication Summary Completed 10/24/2019 Visit Plan: Bronchitis - acute case of b ronchitis identified. Pt has been given antibiotics, breathing treatments as appropriate, and pt has been instructed to call if symptoms are not improved, or if symptoms acutely worsen. 09/27/2019 Appointment: Farzana Cristina WPtel: [address] [place], [place] [phone] (15 min) Moderate 09/27/2019 Patient Education: Patient Medication Summary Completed 09/27/2019 Visit Plan: URI -viral -flu swab to r/o flu - Pt advised to increase fluids, vitamin C. Discussed natural and expected course of this diagnosis and need to alert me if symptoms do not follow expected course, or if any worse. 09/23/2019 Appointment: Farzana Cristina WPtel: [phone] (30 min) Complex 09/23/2019 Patient Education: Patient Medication Summary Completed 09/23/2019 Visit Plan: Post-surgical menopause - co ntinue to taper depo dose and eventually off medication completely -injection today in the office. 08/19/2019 Appointment: Farzana Cristina WPtel: [phone] [place] (15 min) Moderate 08/19/2019 Patient Education: Patient Medication Summary Completed 08/19/2019 Appointment: Farzana Cristina WPtel: [phone] [place] (30 min) Complex 08/16/2019 Visit Plan: Left knee, ankle, foot pain - will send RX - will refer to ortho - The pt is to use prn antiinflammatories to manage acute pain. The patient is to call the office if the pain is worsening or does not improve. 06/27/2019 Appointment: Jaycee Lindo WPtel: [facility] (30 min) Complex 06/27/2019 Patient Education: Patient Medication Summary Completed 06/27/2019 Care Plan: Referral Order SNOMED-CT : [id number] Pending 06/27/2019 Visit Plan: Left knee, ankle, foot pain - will send RX - if no improvement will refer to ortho - The pt is to use prn antiinflammatories to manage acute pain. The patient is to call the office if the pain is worsening or does not improve. 06/24/2019 Appointment: Jaycee Lindo WPtel: [facility] (30 min) Complex 06/24/2019 Patient [...] we will look for her medications from [facility] to find out what her depo [...] we will look for her medications from [facility] to find out what her depo [...]
--- OUTSIDE RECORDS SUMMARY | 2021-10-12 12:00 | XMS REPORT | CCD ---
Author Author Kaleigh Faith Organization [facility] Address [address] [place] [address] Phone Care Team Providers Care Glass Selector Name Role Phone [facility] Unavailable CCM Unavailable Summary Purpose Interface Exchange Insurance Providers Payer name Policy type / Coverage type Covered alliance party ID Effective Begin Date Effective End Date [facility] Commercial Insurance [id number] Unknown Unknown Family history Mother Diagnosis Age At Onset Diabetes mellitus Type 2 Unknown Alcoholism Unknown Depression Unknown Father Diagnosis Age At Onset Diabetes mellitus Type 2 Unknown Social History Social History Element Codes Description Effective Dates Marital status Unknown Garry 05/30/2019 Number of children Unknown 2 05/30/2019 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 Current some days smoker Alcohol history SNOMED CT: 427663802 Never drinks alcohol 2018 Allergies, Adverse Reactions, Alerts Substance Reaction Codes Entered Date Inactivated Date Status Penicillin Unknown 05/30/2019 No Inactive Date Active Problems Condition Codes Effective Dates Condition Status Acute bronchitis ICD-10: J20.9 ICD-9: 466.0 09/27/2019 Active Cough ICD-10: R05.9 ICD-9: 786.2 08/09/2021 Active Encounter for screening mammogram for malignant neopla sm of breast ICD-10: Z12.31 ICD-9: V76.12 08/25/2020 Active Generalized anxiety disorder ICD-10: F41.9 ICD-9: 300.00 08/09/2021 Active Other allergic rhinitis ICD-10: J30.89 ICD-9: 477.8 05/26/2020 Active Menopausal and female climacteric states ICD-10: [...] Start Date Stop Date Status Fill Instructions prednisone 20 mg tablet RxNorm: 711402 Take 2 Tablet(s) Oral ev alex day 08/23/2021 08/27/2021 Active cefdinir 300 mg capsule RxNorm: 737778 Take 1 Capsule(s) Oral t wo times a day 08/23/2021 08/29/2021 Active promethazine 6.25 mg-codeine 10 mg/5 mL syrup RxNorm: 274930 Take 5 Milliliter(s) Oral every 4-6 hours as needed cough 08/09/2021 Inactive prednisone 20 mg tablet RxNorm: 981416 Take 2 Tablet(s) Oral ev alex day 08/09/2021 08/13/2021 Inactive promethazine 6.25 mg-codeine 10 mg/5 mL syrup RxNorm: 193590 Take 5 Milliliter(s) Oral every 4-6 hours as needed cough 08/09/2021 Inactive Kenalog 40 mg/mL suspension for injection RxNorm: 8682681 Take 1 Milliliter(s) Injection 08/09/2021 08/09/2021 Inactive alprazolam 0.5 mg tablet RxNorm: 582416 Take 1 Tablet(s ) Oral two times a day as needed FOR ANXIETY 07/30/2021 08/28/2021 Active alprazolam 0.5 mg tablet RxNorm: 790201 1 Tablet(s) Ora l two times a day as needed anxiety 06/03/2021 06/03/2021 Inactive Depo-Estradiol 5 mg/mL intramuscular oil RxNorm: 576509 0.75 Milliliter(s) Intramuscular 04/28/2021 04/28/2021 Inactive alprazolam 0.5 mg tablet RxNorm: 725419 1 Tablet(s) Ora l two times a day as needed anxiety 04/05/2021 04/05/2021 Inactive Depo-Estradiol 5 mg/mL intramuscular oil RxNorm: 013453 0.75 Milliliter(s) Intramuscular 03/03/2021 03/03/2021 Inactive alprazolam 0.5 mg tablet RxNorm: 051421 1 Tablet(s) Ora l two times a day as needed anxiety 03/01/2021 03/01/2021 Inactive alprazolam 0.5 mg tablet RxNorm: 728155 1 Tablet(s) Ora l two times a day as needed anxiety 01/28/2021 02/26/2021 Inactive Depo-Provera 150 mg/mL intramuscular suspension RxNorm: 1000 128 Milliliter(s) Intramuscular 01/05/2021 01/05/2021 Inactive escitalopram 10 mg tablet RxNorm: 837834 TAKE ONE TABLE T BY MOUTH EVERY NIGHT AT BEDTIME Tablet(s) Oral 12/30/2020 01/01/2021 Inactive alprazolam 0.5 mg tablet RxNorm: 111723 1 Tablet(s) Ora l two times a day as needed anxiety 12/30/2020 01/27/2021 Inactive escitalopram 5 mg tablet RxNorm: 911065 TAKE ONE TABLET BY MOUTH EVERY NIGHT AT BEDTIME 11/30/2020 12/29/2020 Inactive alprazolam 0.5 mg tablet RxNorm: 360624 1 Tablet(s) Ora l two times a day as needed anxiety 11/30/2020 12/29/2020 Inactive atorvastatin 20 mg tablet RxNorm: 524711 TAKE ONE TABLET BY RADHA TH DAILY 11/26/2020 No Stop Date Active Depo-Estradiol 5 mg/mL intramuscular oil RxNorm: 467289 3/4 Milliliter(s) Intramuscular monthly 10/28/2020 12/27/2020 Inactive Depo-Provera 150 mg/mL intramuscular suspension RxNorm: 1000 128 Milliliter(s) Intramuscular 10/28/2020 10/28/2020 Inactive alprazolam 0.5 mg tablet RxNorm: 485477 1 Tablet(s) Ora l two times a day as needed anxiety 10/01/2020 10/29/2020 Inactive acyclovir 400 mg tablet RxNorm: 866451 TAKE ONE TABLET BY MOUTH FOUR TIMES A DAY 08/31/2020 09/01/2020 Inactive alprazolam 0.5 mg tablet RxNorm: 932892 1 Tablet(s) Ora l two times a day as needed anxiety 08/31/2020 09/29/2020 Inactive atorvastatin 20 mg tablet RxNorm: 288267 1 Tablet(s) Oral every day 08/18/2020 08/17/2020 Inactive atorvastatin 20 mg tablet RxNorm: 945051 1 Tablet(s) Oral every day 08/18/2020 11/25/2020 Inactive alprazolam 0.5 mg tablet RxNorm: 405134 1 Tablet(s) Ora l two times a day as needed anxiety 08/07/2020 08/30/2020 Inactive Depo-Provera 150 mg/mL intramuscular suspension RxNorm: 1000 128 Milliliter(s) Intramuscular 08/04/2020 08/04/2020 Inactive acyclovir 400 mg tablet RxNorm: 922812 TAKE ONE TABLET BY MOUTH FOUR TIMES A DAY 07/21/2020 08/30/2020 Inactive alprazolam 0.5 mg tablet RxNorm: 110666 1 Tablet(s) Ora l two times a day as needed anxiety 07/07/2020 08/05/2020 Inactive alprazolam 0.5 mg tablet RxNorm: 426877 1 Tablet(s) Ora l two times a day as needed anxiety 06/18/2020 07/05/2020 Inactive escitalopram 5 mg tablet RxNorm: 793831 1 Tablet(s) Oral every night at bedtime 06/08/2020 10/06/2020 Inactive prednisone 20 mg tablet RxNorm: 384841 2 Tablet(s) Oral every day 0 06/01/2020 06/06/2020 Inactive Depo-Provera 150 mg/mL intramuscular suspension RxNorm: 1000 128 0.75 Milliliter(s) Intramuscular 05/28/2020 05/28/2020 Inactive Kenalog 40 mg/mL suspension for injection RxNorm: 0867716 1 Milliliter(s) Injection 05/28/2020 05/28/2020 Inactive Zithromax Z-Kraig 250 mg tablet RxNorm: 298360 Tablet(s) Oral as directed 05/26/2020 04/04/2021 Inactive alprazolam 0.5 mg tablet RxNorm: 606519 1 Tablet(s) Ora l two times a day as needed anxiety 05/11/2020 06/09/2020 Inactive alprazolam 0.5 mg tablet RxNorm: 113753 1 Tablet(s) Ora l two times a day as needed anxiety 04/02/2020 05/10/2020 Inactive Depo-Provera 150 mg/mL intramuscular suspension RxNorm: 1000 128 Milliliter(s) Intramuscular 03/19/2020 03/19/2020 Inactive acyclovir 400 mg tablet RxNorm: 854612 1 Tablet(s) Oral four times a day fever blisters 01/02/2020 02/01/2020 Inactive Depo-Provera 150 mg/mL intramuscular suspension RxNorm: 1000 128 Milliliter(s) Intramuscular 12/27/2019 12/27/2019 Inactive pravastatin 10 mg tablet RxNorm: 116164 1 Tablet(s) Oral every night at bedtime 12/19/2019 12/18/2019 Inactive pravastatin 10 mg tablet RxNorm: 939107 1 Tablet(s) Oral every night at bedtime 12/19/2019 04/17/2020 Inactive Depo-Estradiol 5 mg/mL intramuscular oil RxNorm: 642732 3/4 Milliliter(s) Intramuscular monthly 10/24/2019 10/24/2019 Inactive Kenalog 40 mg/mL suspension for injection RxNorm: 0700396 Milliliter(s) Injection 09/27/2019 09/27/2019 Inactive Phenergan with Codeine Syrup RxNorm: 5-10 Millil iter(s) Oral Every 6 hrs as needed 09/27/2019 05/31/2020 Inactive prednisone 20 mg tablet RxNorm: 582978 2 Tablet(s) Oral every day 1 11/28/2018 10/02/2019 Inactive start tomorrow doxycycline hyclate 100 mg tablet RxNorm: 6046160 1 Tabl et(s) Oral two times a day 09/27/2019 10/04/2019 Inactive start if symptom s do not improve Depo-Estradiol 5 mg/mL intramuscular oil RxNorm: 636303 3/4 Milliliter(s) Intramuscular monthly 08/20/2019 08/20/2019 Inactive Depo-Estradiol 5 mg/mL intramuscular oil RxNorm: 137129 3/4 Milliliter(s) Intramuscular monthly 08/15/2019 09/14/2019 Inactive gabapentin 100 mg capsule RxNorm: 653196 1 Capsule(s) O ral every night at bedtime 07/31/2019 09/22/2019 Inactive gabapentin 100 mg capsule RxNorm: 562872 1 Capsule(s) PO QHS 201807/26/2019 Inactive naproxen 500 mg tablet RxNorm: 013388 1 Tablet(s) PO BID 06/24/2019 0 06/28/2019 Inactive escitalopram 5 mg tablet RxNorm: 521748 1 Tablet(s) PO QHS 05/30/20 19 09/22/2019 Inactive ranitidine 150 mg capsule RxNorm: 630702 1 Capsule(s) PO BID 201809/22/2019 Inactive eszopiclone 1 mg tablet RxNorm: 397428 Tablet(s) PO as needed 06/0105/31/2020 Inactive acyclovir 400 mg tablet RxNorm: 241806 1 Tablet(s) PO PRN fever blisters 01/02/2020 01/01/2020 Inactive clonidine HCl 0.1 mg tablet RxNorm: 370873 Tablet(s) PO as needed 0 05/30/2019 05/29/2019 Inactive Medication Administered Medication Codes Instructions Start Date Status Kenalog 40 mg/mL suspension for injection RxNorm: 0011450 1Milli liter 08/09/2021 No longer Active Depo-Estradiol 5 mg/mL intramuscular oil RxNorm: 490792 0.75Mil liliter 04/28/2021 No longer Active Depo-Estradiol 5 mg/mL intramuscular oil RxNorm: 589941 0.75Mil liliter 03/03/2021 No longer Active Depo-Provera 150 mg/mL intramuscular suspension RxNorm: 5201981 Milliliter 01/05/2021 No longer Active Depo-Provera 150 mg/mL intramuscular suspension RxNorm: 8983300 Milliliter 10/28/2020 No longer Active Depo-Provera 150 mg/mL intramuscular suspension RxNorm: 7746476 Milliliter 08/04/2020 No longer Active Depo-Provera 150 mg/mL intramuscular suspension RxNorm: 5982343 0.75Milliliter 05/28/2020 No longer Active Kenalog 40 mg/mL suspension for injection RxNorm: 6549196 1Milli liter 05/28/2020 No longer Active Depo-Provera 150 mg/mL intramuscular suspension RxNorm: 4512372 Milliliter 03/19/2020 No longer Active Depo-Provera 150 mg/mL intramuscular suspension RxNorm: 6217166 Milliliter 12/27/2019 No longer Active Depo-Estradiol 5 mg/mL intramuscular oil RxNorm: 749235 3/4Mill ilitermonthly 10/24/2019 Active Kenalog 40 mg/mL suspension for injection RxNorm: 4360115 Millilite r 09/27/2019 No longer Active Depo-Estradiol 5 mg/mL intramuscular oil RxNorm: 942719 3/4Mill ilitermonthly 08/20/2019 Active Immunizations No Immunization data Results Observation Observation Code Item Item Code Result Date S ervice Location Lipid Ord30 CHOL 249 mg/dL 08/06/2020 Unknown Lipid Ord30 HDL 55.0 mg/dl 08/06/2020 Unknown Lipid Ord30 TRIG 82 mg/dL 08/06/2020 Unknown Lipid Ord30 LDL 178 mg/dL 08/06/2020 Unknown Lipid Ord30 C/HDL 4.5 Ratio 08/06/2020 Unknown Comp Metabolic Hvm753 NA 138 mEq/L 08/06/2020 Unkn own Comp Metabolic Naq423 K 4.5 mEq/L 08/06/2020 Unkn own Comp Metabolic Vvl774 CL 103 mEq/L 08/06/2020 Unkn own Comp Metabolic Fwr751 CO2 28.0 mEq/L 08/06/2020 Unk nown Comp Metabolic Bxk879 ANION GAP 12 08/06/2020 Unkn own Comp Metabolic Pcj336 GLUCOSE 90 mg/dL 08/06/2020 Unkn own Comp Metabolic Vpq465 Creat 0.7 mg/dL 08/06/2020 Unkn own Comp Metabolic Cab938 eGFR 88 ml/min/1.73m2 08/06/20 20 Unknown Comp Metabolic Ryu014 BUN 20 mg/dL 08/06/2020 Unkn own Comp Metabolic Xxb023 B/C Ratio 27.0 Ratio 08/06/2020 Unk nown Comp Metabolic Spp899 CALCIUM 9.5 mg/dL 08/06/2020 Unkn own Comp Metabolic Ijy142 ALK PHOS 87 U/L 08/06/2020 Unkn own Comp Metabolic Uwa701 AST(SGOT) 17 U/L 08/06/2020 Unkn own Comp Metabolic Kvh717 ALT(SGPT) 20 U/L 08/06/2020 Unkn own Comp Metabolic Vuo521 BILI T 0.6 mg/dL 08/06/2020 Unkn own Comp Metabolic Utc676 ALBUMIN 4.5 g/dL 08/06/2020 Unkn own Comp Metabolic Nsd631 TPRO 7.6 g/dL 08/06/2020 Unkn own Comp Metabolic Xdd886 GLOB 3.1 g/dL 08/06/2020 Unkn own Comp Metabolic Giz036 A/G Ratio 1.5 Ratio 08/06/2020 Unkn own Comp Metabolic Oyp217 Osmo 278 mOsmo 08/06/2020 Unkn own Cbc [...] pg 08/06/20 Unknown Cbc With Differential Ord2 [place]% 5.4 % 08/06/20 Unknown Cbc With Differential Ord2 Eos% 2.2 % 10/22/20 20 Unknown Cbc With Differential Ord2 MCHC 32.7 pg 08/06/20 20 Unknown Cbc With Differential Ord2 PLT 258 K/ul 08/06/20 20 Unknown Cbc With Differential Ord2 Baso% 0.3 % 08/06/20 Unknown Cbc With Differential Ord2 Neut ABS# 7.81 K/ul 08/06/20 20 Unknown Cbc With Differential Ord2 RDW 13.4 % 08/06/20 Unknown Cbc With Differential Ord2 Lymph ABS# 1.92 K/ul 020 Unknown Cbc With Differential Ord2 [place] ABS# 0.6 K/ul 08/06/20 20 Unknown Cbc With Differential Ord2 Eos ABS# 0.2 K/ul 08/06/20 20 Unknown Cbc With Differential Ord2 Baso ABS# 0.0 K/ul 08/06/20 Unknown Tsh Ord6 TSH (3rd IS) 1.38 uIU/mL 12/17/2019 Unkn own Comp Metabolic Mnl054 NA 141 mEq/L 12/17/2019 Unkn own Comp Metabolic Ywy578 K 4.3 mEq/L 12/17/2019 Unkn own Comp Metabolic Gws309 CL 104 mEq/L 12/17/2019 Unkn own Comp Metabolic Exb907 CO2 29.0 mEq/L 12/17/2019 Unk nown Comp Metabolic Kjh516 ANION GAP 12 12/17/2019 Unkn own Comp Metabolic Vgd981 GLUCOSE 83 mg/dL 12/17/2019 Unkn own Comp Metabolic Suo825 Creat 0.7 mg/dL 12/17/2019 Unkn own Comp Metabolic Doz694 eGFR 102 ml/min/1.73m2 020 Unknown Comp Metabolic Wmg814 BUN 16 mg/dL 12/17/2019 Unkn own Comp Metabolic Itc146 B/C Ratio 24.6 Ratio 12/17/2019 Unk nown Comp Metabolic Lcj807 CALCIUM 9.3 mg/dL 12/17/2019 Unkn own Comp Metabolic Wxe905 ALK PHOS 79 U/L 12/17/2019 Unkn own Comp Metabolic Zbv637 AST(SGOT) 19 U/L 12/17/2019 Unkn own Comp Metabolic Nud090 ALT(SGPT) 26 U/L 12/17/2019 Unkn own Comp Metabolic Cfa266 BILI T 0.5 mg/dL 12/17/2019 Unkn own Comp Metabolic Njs174 ALBUMIN 4.2 g/dL 12/17/2019 Unkn own Comp Metabolic Qfw277 TPRO 7.0 g/dL 12/17/2019 Unkn own Comp Metabolic Dyu019 GLOB 2.8 g/dL 12/17/2019 Unkn own Comp Metabolic Aya695 A/G Ratio 1.5 Ratio 12/17/2019 Unkn own Comp Metabolic Lup282 Osmo 282 mOsmo 12/17/2019 Unkn own Cbc [...] 12/17/19 20 Unknown Cbc With Differential Ord2 [place]% 6.2 % 12/17/19 20 Unknown Cbc With [...] K/ul 020 Unknown Cbc With Differential Ord2 [place] ABS# 0.6 K/ul 12/17/19 20 Unknown Cbc [...] 4.2 Ratio 12/17/2019 Unknown C A/B FLU 0479662 Influenza A Scr Negative 09/23/2019 Unk nown C A/B FLU 8140262 Influenza B Scr Negative 09/23/2019 Unk nown C A/B FLU 2519351 Influenza Intrp B AG:PRID:PT:NOSE:NOM:IF See Footnote 09/23/2019 Unknown Procedures Procedure Codes Date THER/PROPH/DIAG INJ SC/IM CPT-4: 05922 04/28/2021 THER/PROPH/DIAG INJ SC/IM CPT-4: 15501 03/03/2021 THER/PROPH/DIAG INJ SC/IM CPT-4: 11513 01/05/2021 THER/PROPH/DIAG INJ SC/IM CPT-4: 95664 10/28/2020 THER/PROPH/DIAG INJ SC/IM CPT-4: 59366 08/04/2020 THER/PROPH/DIAG INJ SC/IM CPT-4: 06666 05/26/2020 TRIAMCINOLONE ACET INJ NOS 10 mg CPT-4: J3301 020 THER/PROPH/DIAG INJ SC/IM CPT-4: 61943 03/19/2020 THER/PROPH/DIAG INJ SC/IM CPT-4: 33343 12/27/2019 THER/PROPH/DIAG INJ SC/IM CPT-4: 62653 10/24/2019 TRIAMCINOLONE ACET INJ NOS 10 mg CPT-4: J3301 019 THER/PROPH/DIAG INJ SC/IM CPT-4: 86541 08/19/2019 Vital Signs Date Vital 08/09/2021 Blood Pressure 1: 142/68 Code: 8480-6 BMI: 30.7 Code: 71831-7 Heart Rate 1: 63 bpm Height: 5'2" Code: 8302-2 SpO2: 97% Temperature: 3 6.4 (C) / 97.6 (F) Weight: 168 lbs Code: 04091-4 06/01/2020 Blood Pressure 1: 130/80 Code: 8480-6 BMI: 28.5 Code: 64461-1 Heart Rate 1: 69 bpm Height: 5'2" Code: 8302-2 SpO2: 97% Temperature: 3 6.9 (C) / 98.4 (F) Weight: 156 lbs Code: 33370-7 05/26/2020 Blood Pressure 1: 128/78 Code: 8480-6 Heart Rate 1: 74 bpm Height: Code: 8302-2 SpO2: 98% Weight: Code: 60349-2 04/02/2020 Height: Code: 8302-2 Weight: Code: 294 63-7 12/16/2019 Blood Pressure 1: 132/80 Code: 8480-6 BMI: 28.9 Code: 94731-8 Heart Rate 1: 68 bpm Height: 5'2" Code: 8302-2 SpO2: 97% Weight: 158 lb s Code: 21873-7 09/27/2019 Blood Pressure 1: 110/60 Code: 8480-6 BMI: 28.5 Code: 25944-3 Heart Rate 1: 76 bpm Height: 5'2" Code: 8302-2 SpO2: 98% Temperature: 3 6.9 (C) / 98.5 (F) Weight: 156 lbs Code: 30316-0 09/23/2019 Blood Pressure 1: 124/80 Code: 8480-6 Heart Rate 1: 81 bpm SpO2: 98% Temperature: 36.7 (C) / 98.1 (F) 08/19/2019 Blood Pressure 1: 130/78 Code: 8480-6 BMI: 28.0 Code: 52486-8 Heart Rate 1: 68 bpm Height: 5'2" Code: 8302-2 SpO2: 98% Weight: 153 lb s Code: 26696-1 06/27/2019 Heart Rate 1: 68 bpm Height: Code: 8302-2 Weigh t: Code: 93984-4 06/24/2019 Blood Pressure 1: 132/74 Code: 8480-6 BMI: 27.4 Code: 90951-3 Heart Rate 1: 66 bpm Height: 5'2" Code: 8302-2 SpO2: 98% Weight: 150 lb s Code: 17521-3 05/30/2019 Blood Pressure 1: 104/60 Code: 8480-6 BMI: 27.5 Code: 15596-7 Heart Rate 1: 66 bpm Height: 5'2" Code: 8302-2 SpO2: 98% Weight: 150 lb s 5 oz Code: 01286-5 Functional Status No Functional Status data Reason For Visit Reason For Visit Effective Dates Notes sinus congestion 08/09/2021 headache 06/01/2020 headache 05/26/2020 well woman exam (40-65 years) 12/16/2019 cough 09/27/2019 fever 09/23/2019 menopausal symptoms 08/19/2019 lower leg pain 06/27/2019 lower leg pain 06/24/2019 anxiety 05/30/2019 Encounters Encounter Performer Location Codes Date ([id number]) 60127 EST. PATIENT, LEVEL IV Diagnosis: Generalized anxiety disorder[ICD10: F41.9] Diagnosis: Cough[ICD10: R05.9] Diagnosis: Other allergic rhinitis[ICD10: J30.89] Diagnosis: Encounter for screening mammogram for malignant neoplasm of breast[ICD10: Z12.31] [facility] CPT-4: 41677 08/09/2021 ([id number]) 03044 EST. PATIENT, LEVEL III Diagnosis: Headache[ICD10: R51] Diagnosis: Other allergic rhinitis[ICD10: J30.89] Farzana Groves MD, [facility] CPT-4: 70211 06/01/2020 65196 EST. PATIENT, LEVEL III Diagnosis: Other acute sinusitis[ICD10: J01.80] Diagnosis: Other allergic rhinitis[ICD10: J30.89] Diagnosis: Migraine without status migrainosus, not intractable, unspecified migraine type[ICD10: G43.909] Diagnosis: Menopausal and female climacteric states[ICD10: N95.1] [facility] CPT-4: 24722 05/26/2020 ([id number]) 67426 EST. PATIENT, LEVEL III Diagnosis: Generalized anxiety disorder[ICD10: F41.1] Alena [facility] MD, [facility] CPT-4: 07366 04/02/2020 ([id number]) PREV VISIT EST AGE 40-64 Diagnosis: Encounter for gynecological examination (general) (routine) without abnormal findings[ICD10: Z01.419] [facility] CPT -4: 89179 12/16/2019 ([id number]) 11440 EST. PATIENT, LEVEL III Diagnosis: Cough[ICD10: R05] Diagnosis: Acute bronchitis[ICD10: J20.9] [facility] CPT-4: 25492 09/27/2019 ([id number]) 96291 EST. PATIENT, LEVEL III Diagnosis: Fever[ICD10: R50.9] Diagnosis: Body aches[ICD10: R52] Farzana Faith MD, [facility] CPT -4: 48401 09/23/2019 ([id number]) 68017 EST. PATIENT, LEVEL III Diagnosis: Menopausal and female climacteric states[ICD10: N95.1] Farzana Faith MD, [facility] CPT-4: 25784 08/19/2019 09115 EST. PATIENT, LEVEL III Diagnosis: Pain in left ankle and joints of left foot[ICD10: M25.572] Diagnosis: Pain in left knee[ICD10: M25.562] Jaycee gupta MD, [facility] CPT-4: 44484 06/27/2019 36516 EST. PATIENT, LEVEL III Diagnosis: Pain in left ankle and joints of left foot[ICD10: M25.572] Diagnosis: Pain in left knee[ICD10: M25.562] Jaycee gupta MD, [facility] CPT-4: 77670 06/24/2019 ([id number]) PREV VISIT NEW AGE 40-64 Diagnosis: Encounter for general adult medical examination without abnormal findings[ICD10: Z00.00] Alena Faith MD, [facility] CPT-4: 41553 05/30/2019 Plan of Care Planned Activity Notes Codes Status Date Patient Education: Patient Medication Summary Completed 08/23/2021 [...] sent 08/09/2021 [facility] [phone] [facility] ([facility] min[facility] Complex 08/09/2021 Patient Education: Patient Medication Summary Completed 08/09/2021 Patient Education: prednisone- [employer] Coupon [id number] Completed 08/09/2021 Care Plan: Lipid Pending 08/09/2021 Care Plan: Cbc With Differential Pending 08/09/2021 Care Plan: Comp Metabolic Pending Care Plan: Tsh Pending 08/09/2021 Appointment: Injection 04/28/2021 Patient Education: Patient [...] without contrast. 06/01/2020 [facility] [phone] [phone] (15 min) Moderate 06/01/2020 Patient Education: Patient [...] or concerns. 05/26/2020 Appointment: Jaycee Lindo WPtel: [phone] (30 min) Complex 05/26/2020 Patient Education: Patient Medication Summary Completed 05/26/2020 Visit Plan: Anxiety - the patient has un controlled anxiety and will benefit from a short term dose of xanax for control of symptoms. 04/02/2020 Appointment: Alena Faith WPtel: [facility] TeleHealth 04/02/2020 Patient Education: Patient Medication Summary Completed 04/02/2020 Appointment: Injection 03/19/2020 Patient Education: Patient Medication Summary Completed 03/19/2020 Appointment: Injection 03/18/2020 Appointment: Injection 12/27/2019 Patient Education: Patient Medication Summary Completed 12/27/2019 Appointment: Alena Faith WPtel: [facility] Well Woman 12/24/2019 Visit Plan: Well Adult [...] prn. 12/16/2019 Appointment: Farzana Cristina WPtel: [phone] [facility] 12/16/2019 Patient Education: Patient Medication Summary Completed 12/16/2019 Appointment: Alena Faith WPtel: [facility] (15 min) Moderate 12/03/2019 Appointment: Injection 10/24/2019 Patient Education: Patient Medication Summary Completed 10/24/2019 Visit Plan: Bronchitis - acute case of b ronchitis identified. Pt has been given antibiotics, breathing treatments as appropriate, and pt has been instructed to call if symptoms are not improved, or if symptoms acutely worsen. 09/27/2019 Appointment: Farzana Cristina WPtel: [phone] (15 min) Moderate 09/27/2019 Patient Education: Patient Medication Summary Completed 09/27/2019 Visit Plan: URI -viral -flu swab to r/o flu - Pt advised to increase fluids, vitamin C. Discussed natural and expected course of this diagnosis and need to alert me if symptoms do not follow expected course, or if any worse. 09/23/2019 Appointment: Farzana Cristina WPtel: [address] [place], [place] [phone] (30 min) Complex 09/23/2019 Patient Education: Patient Medication Summary Completed 09/23/2019 Visit Plan: Post-surgical menopause - co ntinue to taper depo dose and eventually off medication completely -injection today in the office. 08/19/2019 Appointment: Farzana Cristina WPtel: [phone] (15 min) Moderate 08/19/2019 Patient Education: Patient Medication Summary Completed 08/19/2019 Appointment: Farzana Cristina WPtel: [phone] (30 min) Complex 08/16/2019 Visit Plan: Left knee, ankle, foot pain - will send RX - will refer to ortho - The pt is to use prn antiinflammatories to manage acute pain. The patient is to call the office if the pain is worsening or does not improve. 06/27/2019 Appointment: Jaycee Lindo WPtel: [phone] (30 min) Complex 06/27/2019 Patient Education: Patient Medication Summary Completed 06/27/2019 Care Plan: Referral Order SNOMED-CT : 30 [id number] Pending 06/27/2019 Visit Plan: Left knee, ankle, foot pain - will send RX - if no improvement will refer to ortho - The pt is to use prn antiinflammatories to manage acute pain. The patient is to call the office if the pain is worsening or does not improve. 06/24/2019 Appointment: Jaycee Lindo WPtel[facility] ([facility] min) [facility] 06/24/2019 Patient Education: Patient Medication Summary Completed [...] Referral: Nathan Dudley Referral Completed Instructions Comment DUE FOR ANNUAL MAMMOGRAM- order faxed DUE TO ANNU[facility]- orders given at visit CONTINUE XYZOL OR ZYRTEC STEROID SHOT TODAY PREDNISONE TABLETS TAKE 2 TABLETS DAILY X 5 DAYS PHENERGAN W/CODEINE COUGH MEDICINE . Allergies exacerbation with cough - jimena caro - recommended pt to use allergy medication [...] office. tomorrow at 10:15 with the nurse practit ferny. Left knee, ankle, foot pain - will [...]
--- OUTSIDE RECORDS SUMMARY | 2021-10-12 12:00 | XMS REPORT | CCD ---
Author Author Kaleigh Faith Organization Alena Faith MD, [facility] Address [address] [place] [address] Phone Care Team Providers Care Associate Broker Name Role Phone Alena Faith PP Unavailable CCM Unavailable Summary Purpose Interface Exchange Insurance Providers Payer name Policy type / Coverage type Covered republican ID Effective Begin Date Effective End Date [facility] Commercial Insurance [id number] Unknown Unknown Family history Mother Diagnosis Age At Onset Diabetes mellitus Type 2 Unknown Alcoholism Unknown Depression Unknown Father Diagnosis Age At Onset Diabetes mellitus Type 2 Unknown Social History Social History Element Codes Description Effective Dates Marital status Unknown Garry 05/30/2019 Number of children Unknown 2 05/30/2019 Employment Unknown Currently employed [employer] 05/30/[address]: 51202157 Current some days smoker Alcohol history SNOMED CT: 339200278 Never drinks alcohol 2018 Allergies, Adverse Reactions, [...] Fill Instructions atorvastatin 20 mg tablet RxNorm: 556876 Take 1 Tablet( s) Oral every night at bedtime 09/01/2021 12/29/2021 Active Miralax 17 gram/dose oral powder RxNorm: 842501 Take 1 scoop Or al every day 08/31/2021 09/29/2021 Active Alysa Allergy 180 mg tablet RxNorm: 708979 Take 1 Tab let(s) Oral every day for first 5 days take twice daily 08/31/2021 No Stop Date Active omeprazole 20 mg tablet,delayed release RxNorm: 600405 Take 1 Tablet(s) Oral every day 08/31/2021 09/13/2021 Active prednisone 20 mg tablet RxNorm: 366745 Take 2 Tablet(s) Oral ev alex day 08/23/2021 08/27/2021 Inactive azithromycin 250 mg tablet RxNorm: 101885 Take 1 Tablet (s) Oral every day take 2 tablets day 1, then take 1 tablet daily on days 2-5 08/23/2021 08/27/20 21 Inactive Please disregard Cefdinir RX. cefdinir 300 mg capsule RxNorm: 552648 Take 1 Capsule(s) Oral t wo times a day 08/23/2021 08/23/2021 Inactive azithromycin 250 mg tablet RxNorm: 012963 Take 1 Tablet (s) Oral every day take 2 tablets day 1, then take 1 tablet daily on days 2-5 08/23/2021 08/23/20 21 Inactive Please disregard Cefdinir RX. promethazine 6.25 mg-codeine 10 mg/5 mL syrup RxNorm: 611581 Take 5 Milliliter(s) Oral every 4-6 hours as needed cough 08/09/2021 Inactive prednisone 20 mg tablet RxNorm: 274232 Take 2 Tablet(s) Oral ev alex day 08/09/2021 08/13/2021 Inactive promethazine 6.25 mg-codeine 10 mg/5 mL syrup RxNorm: 634194 Take 5 Milliliter(s) Oral every 4-6 hours as needed cough 08/09/2021 Inactive Kenalog 40 mg/mL suspension for injection RxNorm: 2964915 Take 1 Milliliter(s) Injection 08/09/2021 08/09/2021 Inactive alprazolam 0.5 mg tablet RxNorm: 518204 Take 1 Tablet(s ) Oral two times a day as needed FOR ANXIETY 07/30/2021 08/28/2021 Inactive alprazolam 0.5 mg tablet RxNorm: 288511 1 Tablet(s) Ora l two times a day as needed anxiety 06/03/2021 06/03/2021 Inactive Depo-Estradiol 5 mg/mL intramuscular oil RxNorm: 751299 0.75 Milliliter(s) Intramuscular 04/28/2021 04/28/2021 Inactive alprazolam 0.5 mg tablet RxNorm: 257974 1 Tablet(s) Ora l two times a day as needed anxiety 04/05/2021 04/05/2021 Inactive Depo-Estradiol 5 mg/mL intramuscular oil RxNorm: 809997 0.75 Milliliter(s) Intramuscular 03/03/2021 03/03/2021 Inactive alprazolam 0.5 mg tablet RxNorm: 937927 1 Tablet(s) Ora l two times a day as needed anxiety 03/01/2021 03/01/2021 Inactive alprazolam 0.5 mg tablet RxNorm: 335990 1 Tablet(s) Ora l two times a day as needed anxiety 01/28/2021 02/26/2021 Inactive Depo-Provera 150 mg/mL intramuscular suspension RxNorm: 1000 128 Milliliter(s) Intramuscular 01/05/2021 01/05/2021 Inactive escitalopram 10 mg tablet RxNorm: 829361 TAKE ONE TABLE T BY MOUTH EVERY NIGHT AT BEDTIME Tablet(s) Oral 12/30/2020 01/01/2021 Inactive alprazolam 0.5 mg tablet RxNorm: 621823 1 Tablet(s) Ora l two times a day as needed anxiety 12/30/2020 01/27/2021 Inactive escitalopram 5 mg tablet RxNorm: 399411 TAKE ONE TABLET BY MOUTH EVERY NIGHT AT BEDTIME 11/30/2020 12/29/2020 Inactive alprazolam 0.5 mg tablet RxNorm: 544823 1 Tablet(s) Ora l two times a day as needed anxiety 11/30/2020 12/29/2020 Inactive atorvastatin 20 mg tablet RxNorm: 683565 TAKE ONE TABLET BY RADHA TH DAILY 11/26/2020 11/26/2020 Inactive Depo-Estradiol 5 mg/mL intramuscular oil RxNorm: 565480 3/4 Milliliter(s) Intramuscular monthly 10/28/2020 12/27/2020 Inactive Depo-Provera 150 mg/mL intramuscular suspension RxNorm: 1000 128 Milliliter(s) Intramuscular 10/28/2020 10/28/2020 Inactive alprazolam 0.5 mg tablet RxNorm: 645582 1 Tablet(s) Ora l two times a day as needed anxiety 10/01/2020 10/29/2020 Inactive acyclovir 400 mg tablet RxNorm: 363003 TAKE ONE TABLET BY MOUTH FOUR TIMES A DAY 08/31/2020 09/01/2020 Inactive alprazolam 0.5 mg tablet RxNorm: 095946 1 Tablet(s) Ora l two times a day as needed anxiety 08/31/2020 09/29/2020 Inactive atorvastatin 20 mg tablet RxNorm: 224334 1 Tablet(s) Oral every day 08/18/2020 08/17/2020 Inactive atorvastatin 20 mg tablet RxNorm: 159898 1 Tablet(s) Oral every day 08/18/2020 11/25/2020 Inactive alprazolam 0.5 mg tablet RxNorm: 012867 1 Tablet(s) Ora l two times a day as needed anxiety 08/07/2020 08/30/2020 Inactive Depo-Provera 150 mg/mL intramuscular suspension RxNorm: 1000 128 Milliliter(s) Intramuscular 08/04/2020 08/04/2020 Inactive acyclovir 400 mg tablet RxNorm: 284666 TAKE ONE TABLET BY MOUTH FOUR TIMES A DAY 07/21/2020 08/30/2020 Inactive alprazolam 0.5 mg tablet RxNorm: 737313 1 Tablet(s) Ora l two times a day as needed anxiety 07/07/2020 08/05/2020 Inactive alprazolam 0.5 mg tablet RxNorm: 801299 1 Tablet(s) Ora l two times a day as needed anxiety 06/18/2020 07/05/2020 Inactive escitalopram 5 mg tablet RxNorm: 430734 1 Tablet(s) Oral every night at bedtime 06/08/2020 10/06/2020 Inactive prednisone 20 mg tablet RxNorm: 759491 2 Tablet(s) Oral every day 0 06/01/2020 06/06/2020 Inactive Depo-Provera 150 mg/mL intramuscular suspension RxNorm: 1000 128 0.75 Milliliter(s) Intramuscular 05/28/2020 05/28/2020 Inactive Kenalog 40 mg/mL suspension for injection RxNorm: 5932397 1 Milliliter(s) Injection 05/28/2020 05/28/2020 Inactive Zithromax Z-Kraig 250 mg tablet RxNorm: 855444 Tablet(s) Oral as directed 05/26/2020 04/04/2021 Inactive alprazolam 0.5 mg tablet RxNorm: 686267 1 Tablet(s) Ora l two times a day as needed anxiety 05/11/2020 06/09/2020 Inactive alprazolam 0.5 mg tablet RxNorm: 129650 1 Tablet(s) Ora l two times a day as needed anxiety 04/02/2020 05/10/2020 Inactive Depo-Provera 150 mg/mL intramuscular suspension RxNorm: 1000 128 Milliliter(s) Intramuscular 03/19/2020 03/19/2020 Inactive acyclovir 400 mg tablet RxNorm: 166453 1 Tablet(s) Oral four times a day fever blisters 01/02/2020 02/01/2020 Inactive Depo-Provera 150 mg/mL intramuscular suspension RxNorm: 1000 128 Milliliter(s) Intramuscular 12/27/2019 12/27/2019 Inactive pravastatin 10 mg tablet RxNorm: 135192 1 Tablet(s) Oral every night at bedtime 12/19/2019 12/18/2019 Inactive pravastatin 10 mg tablet RxNorm: 948351 1 Tablet(s) Oral every night at bedtime 12/19/2019 04/17/2020 Inactive Depo-Estradiol 5 mg/mL intramuscular oil RxNorm: 751358 3/4 Milliliter(s) Intramuscular monthly 10/24/2019 10/24/2019 Inactive Kenalog 40 mg/mL suspension for injection RxNorm: 0620308 Milliliter(s) Injection 09/27/2019 09/27/2019 Inactive Phenergan with Codeine Syrup RxNorm: 5-10 Millil iter(s) Oral Every 6 hrs as needed 09/27/2019 05/31/2020 Inactive prednisone 20 mg tablet RxNorm: 045437 2 Tablet(s) Oral every day 1 11/28/2018 10/02/2019 Inactive start tomorrow doxycycline hyclate 100 mg tablet RxNorm: 0482235 1 Tabl et(s) Oral two times a day 09/27/2019 10/04/2019 Inactive start if symptom s do not improve Depo-Estradiol 5 mg/mL intramuscular oil RxNorm: 274144 3/4 Milliliter(s) Intramuscular monthly 08/20/2019 08/20/2019 Inactive Depo-Estradiol 5 mg/mL intramuscular oil RxNorm: 132024 3/4 Milliliter(s) Intramuscular monthly 08/15/2019 09/14/2019 Inactive gabapentin 100 mg capsule RxNorm: 581753 1 Capsule(s) O ral every night at bedtime 07/31/2019 09/22/2019 Inactive gabapentin 100 mg capsule RxNorm: 859519 1 Capsule(s) PO QHS 201807/26/2019 Inactive naproxen 500 mg tablet RxNorm: 563959 1 Tablet(s) PO BID 06/24/2019 0 06/28/2019 Inactive escitalopram 5 mg tablet RxNorm: 653435 1 Tablet(s) PO QHS 05/30/20 19 09/22/2019 Inactive ranitidine 150 mg capsule RxNorm: 731225 1 Capsule(s) PO BID 201809/22/2019 Inactive eszopiclone 1 mg tablet RxNorm: 373882 Tablet(s) PO as needed 06/0105/31/2020 Inactive acyclovir 400 mg tablet RxNorm: 754836 1 Tablet(s) PO PRN fever blisters 01/02/2020 01/01/2020 Inactive clonidine HCl 0.1 mg tablet RxNorm: 789470 Tablet(s) PO as needed 0 05/30/2019 05/29/2019 Inactive Medication Administered Medication Codes Instructions Start Date Status Kenalog 40 mg/mL suspension for injection RxNorm: 1706786 1Milli liter 08/09/2021 No longer Active Depo-Estradiol 5 mg/mL intramuscular oil RxNorm: 238889 0.75Mil liliter 04/28/2021 No longer Active Depo-Estradiol 5 mg/mL intramuscular oil RxNorm: 713009 0.75Mil liliter 03/03/2021 No longer Active Depo-Provera 150 mg/mL intramuscular suspension RxNorm: 9853931 Milliliter 01/05/2021 No longer Active Depo-Provera 150 mg/mL intramuscular suspension RxNorm: 6522997 Milliliter 10/28/2020 No longer Active Depo-Provera 150 mg/mL intramuscular suspension RxNorm: 0798818 Milliliter 08/04/2020 No longer Active Depo-Provera 150 mg/mL intramuscular suspension RxNorm: 0572365 0.75Milliliter 05/28/2020 No longer Active Kenalog 40 mg/mL suspension for injection RxNorm: 7131822 1Milli liter 05/28/2020 No longer Active Depo-Provera 150 mg/mL intramuscular suspension RxNorm: 8474808 Milliliter 03/19/2020 No longer Active Depo-Provera 150 mg/mL intramuscular suspension RxNorm: 8554727 Milliliter 12/27/2019 No longer Active Depo-Estradiol 5 mg/mL intramuscular oil RxNorm: 188758 3/4Mill ilitermonthly 10/24/2019 Active Kenalog 40 mg/mL suspension for injection RxNorm: 3478988 Millilite r 09/27/2019 No longer Active Depo-Estradiol 5 mg/mL intramuscular oil RxNorm: 462590 3/4Mill ilitermonthly 08/20/2019 Active Immunizations No Immunization data Results Observation Observation Code Item Item Code Result Date S [facility] Location Cbc With Differential Ord2 [...] 08/31/20 21 Unknown Cbc With Differential Ord2 [place]% 6.0 % 08/31/20 21 Unknown Cbc With [...] K/ul 021 Unknown Cbc With Differential Ord2 [place] ABS# 0.7 K/ul 08/31/20 21 Unknown Cbc With Differential Ord2 Eos ABS# 0.3 K/ul 08/31/20 21 Unknown Cbc With Differential Ord2 Baso ABS# 0.0 K/ul 08/31/20 21 Unknown Comp Metabolic Ydu560 NA 142 mEq/L 08/31/2021 Unkn own Comp Metabolic Ggs292 K 4.4 mEq/L 08/31/2021 Unkn own Comp Metabolic Afl920 CL 101 mEq/L 08/31/2021 Unkn own Comp Metabolic Zak856 CO2 32.0 mEq/L 08/31/2021 Unk nown Comp Metabolic Wys858 ANION GAP 13 08/31/2021 Unkn own Comp Metabolic Dzp844 GLUCOSE 89 mg/dL 08/31/2021 Unkn own Comp Metabolic Ygy367 Creat 0.7 mg/dL 08/31/2021 Unkn own Comp Metabolic Nmt417 eGFR 90 ml/min/1.73m2 08/31/20 21 Unknown Comp Metabolic Mak317 BUN 19 mg/dL 08/31/2021 Unkn own Comp Metabolic Hzb415 B/C Ratio 26.4 Ratio 08/31/2021 Unk nown Comp Metabolic Uot026 CALCIUM 9.2 mg/dL 08/31/2021 Unkn own Comp Metabolic Tlf677 ALK PHOS 85 U/L 08/31/2021 Unkn own Comp Metabolic Aok114 AST(SGOT) 16 U/L 08/31/2021 Unkn own Comp Metabolic Mpb415 ALT(SGPT) 19 U/L 08/31/2021 Unkn own Comp Metabolic Bxu369 BILI T 0.6 mg/dL 08/31/2021 Unkn own Comp Metabolic Elk852 ALBUMIN 4.2 g/dL 08/31/2021 Unkn own Comp Metabolic Jve047 TPRO 7.1 g/dL 08/31/2021 Unkn own Comp Metabolic Vuq819 GLOB 2.9 g/dL 08/31/2021 Unkn own Comp Metabolic Irc733 A/G Ratio 1.5 Ratio 08/31/2021 Unkn own Comp Metabolic Fno162 Osmo 285 mOsmo 08/31/2021 Unkn own Tsh [...] C/HDL 4.5 Ratio 08/06/2020 Unknown Comp Metabolic Cpg509 NA 138 mEq/L 08/06/2020 Unkn own Comp Metabolic Iar661 K 4.5 mEq/L 08/06/2020 Unkn own Comp Metabolic Vra397 CL 103 mEq/L 08/06/2020 Unkn own Comp Metabolic Qga732 CO2 28.0 mEq/L 08/06/2020 Unk nown Comp Metabolic Mcz703 ANION GAP 12 08/06/2020 Unkn own Comp Metabolic Vby619 GLUCOSE 90 mg/dL 08/06/2020 Unkn own Comp Metabolic Yth963 Creat 0.7 mg/dL 08/06/2020 Unkn own Comp Metabolic Rgd520 eGFR 88 ml/min/1.73m2 08/06/20 20 Unknown Comp Metabolic Ujb238 BUN 20 mg/dL 08/06/2020 Unkn own Comp Metabolic Xus193 B/C Ratio 27.0 Ratio 08/06/2020 Unk nown Comp Metabolic Igu948 CALCIUM 9.5 mg/dL 08/06/2020 Unkn own Comp Metabolic Kwg211 ALK PHOS 87 U/L 08/06/2020 Unkn own Comp Metabolic Qdp609 AST(SGOT) 17 U/L 08/06/2020 Unkn own Comp Metabolic Nzy471 ALT(SGPT) 20 U/L 08/06/2020 Unkn own Comp Metabolic Bkb961 BILI T 0.6 mg/dL 08/06/2020 Unkn own Comp Metabolic Uli383 ALBUMIN 4.5 g/dL 08/06/2020 Unkn own Comp Metabolic Rje933 TPRO 7.6 g/dL 08/06/2020 Unkn own Comp Metabolic Snl320 GLOB 3.1 g/dL 08/06/2020 Unkn own Comp Metabolic Fhe957 A/G Ratio 1.5 Ratio 08/06/2020 Unkn own Comp Metabolic Nlr494 Osmo 278 mOsmo 08/06/2020 Unkn own Cbc [...] pg 08/06/20 Unknown Cbc With Differential Ord2 Morrill% 5.4 % 08/06/20 Unknown Cbc With Differential [...] K/ul 020 Unknown Cbc With Differential Ord2 [place] ABS# 0.6 K/ul 08/06/20 Unknown Cbc With Differential Ord2 Eos ABS# 0.2 K/ul 08/06/20 Unknown Cbc With Differential Ord2 Baso ABS# 0.0 K/ul 08/06/20 Unknown Tsh Ord6 TSH (3rd IS) 1.38 uIU/mL 12/17/2019 Unkn own Comp Metabolic Pcd891 NA 141 mEq/L 12/17/2019 Unkn own Comp Metabolic Ydy914 K 4.3 mEq/L 12/17/2019 Unkn own Comp Metabolic Wgo751 CL 104 mEq/L 12/17/2019 Unkn own Comp Metabolic Waq584 CO2 29.0 mEq/L 12/17/2019 Unk nown Comp Metabolic Pyk775 ANION GAP 12 12/17/2019 Unkn own Comp Metabolic Nwx347 GLUCOSE 83 mg/dL 12/17/2019 Unkn own Comp Metabolic Rbo906 Creat 0.7 mg/dL 12/17/2019 Unkn own Comp Metabolic Teq103 eGFR 102 ml/min/1.73m2 020 Unknown Comp Metabolic Zmu398 BUN 16 mg/dL 12/17/2019 Unkn own Comp Metabolic Bka608 B/C Ratio 24.6 Ratio 12/17/2019 Unk nown Comp Metabolic Lfg100 CALCIUM 9.3 mg/dL 12/17/2019 Unkn own Comp Metabolic Xdq865 ALK PHOS 79 U/L 12/17/2019 Unkn own Comp Metabolic Kvj618 AST(SGOT) 19 U/L 12/17/2019 Unkn own Comp Metabolic Pto196 ALT(SGPT) 26 U/L 12/17/2019 Unkn own Comp Metabolic Xlj976 BILI T 0.5 mg/dL 12/17/2019 Unkn own Comp Metabolic Fcp812 ALBUMIN 4.2 g/dL 12/17/2019 Unkn own Comp Metabolic Ljg233 TPRO 7.0 g/dL 12/17/2019 Unkn own Comp Metabolic Pzy947 GLOB 2.8 g/dL 12/17/2019 Unkn own Comp Metabolic Cbu547 A/G Ratio 1.5 Ratio 12/17/2019 Unkn own Comp Metabolic Qdv457 Osmo 282 mOsmo 12/17/2019 Unkn own Cbc [...] 12/17/19 20 Unknown Cbc With Differential Ord2 Morrill% 6.2 % 12/17/19 20 Unknown Cbc With [...] K/ul 020 Unknown Cbc With Differential Ord2 [place] ABS# 0.6 K/ul 12/17/19 20 Unknown Cbc [...] 4.2 Ratio 12/17/2019 Unknown C A/B FLU 5335719 Influenza A Scr Negative 09/23/2019 Unk nown C A/B FLU 2522504 Influenza B Scr Negative 09/23/2019 Unk nown C A/B FLU [id number] Influenza Intrp B AG:PRID:PT:[email or web address]:NOM:IF See Footnote 09/23/2019 Unknown Procedures Procedure Codes Date THER/PROPH/DIAG INJ SC/IM CPT-4: 67913 04/28/2021 THER/PROPH/DIAG INJ SC/IM CPT-4: 22482 03/03/2021 THER/PROPH/DIAG INJ SC/IM CPT-4: 20032 01/05/2021 THER/PROPH/DIAG INJ SC/IM CPT-4: 01681 10/28/2020 THER/PROPH/DIAG INJ SC/IM CPT-4: 42076 08/04/2020 THER/PROPH/DIAG INJ SC/IM CPT-4: 43413 05/26/2020 TRIAMCINOLONE ACET INJ NOS 10 mg CPT-4: J3301 020 THER/PROPH/DIAG INJ SC/IM CPT-4: 83338 03/19/2020 THER/PROPH/DIAG INJ SC/IM CPT-4: 89109 12/27/2019 THER/PROPH/DIAG INJ SC/IM CPT-4: 52552 10/24/2019 TRIAMCINOLONE ACET INJ NOS 10 mg CPT-4: J3301 019 THER/PROPH/DIAG INJ SC/IM CPT-4: 71283 08/19/2019 Vital Signs Date Vital 08/31/2021 Blood Pressure 1: 156/82 Code: 8480-6 Heart Rate 1: 81 bpm Height: 5'2" Code: 8302-2 Height: 5'2" Code: 8302-2 SpO2: 99% Temperature: 3 6.2 (C) / 97.1 (F) Weight: Code: 24028-5 08/09/2021 Blood Pressure 1: 142/68 Code: 8480-6 BMI: 30.7 Code: 51158-7 Heart Rate 1: 63 bpm Height: 5'2" Code: 8302-2 SpO2: 97% Temperature: 3 6.4 (C) / 97.6 (F) Weight: 168 lbs Code: 30885-2 06/01/2020 Blood Pressure 1: 130/80 Code: 8480-6 BMI: 28.5 Code: 52064-1 Heart Rate 1: 69 bpm Height: 5'2" Code: 8302-2 SpO2: 97% Temperature: 3 6.9 (C) / 98.4 (F) Weight: 156 lbs Code: 04506-6 05/26/2020 Blood Pressure 1: 128/78 Code: 8480-6 Heart Rate 1: 74 bpm Height: Code: 8302-2 SpO2: 98% Weight: Code: 45690-1 04/02/2020 Height: Code: 8302-2 Weight: Code: 294 63-7 12/16/2019 Blood Pressure 1: 132/80 Code: 8480-6 BMI: 28.9 Code: 93343-0 Heart Rate 1: 68 bpm Height: 5'2" Code: 8302-2 SpO2: 97% Weight: 158 lb s Code: 31268-8 09/27/2019 Blood Pressure 1: 110/60 Code: 8480-6 BMI: 28.5 Code: 54346-2 Heart Rate 1: 76 bpm Height: 5'2" Code: 8302-2 SpO2: 98% Temperature: 3 6.9 (C) / 98.5 (F) Weight: 156 lbs Code: 82915-1 09/23/2019 Blood Pressure 1: 124/80 Code: 8480-6 Heart Rate 1: 81 bpm SpO2: 98% Temperature: 36.7 (C) / 98.1 (F) 08/19/2019 Blood Pressure 1: 130/78 Code: 8480-6 BMI: 28.0 Code: 02505-7 Heart Rate 1: 68 bpm Height: 5'2" Code: 8302-2 SpO2: 98% Weight: 153 lb s Code: 36504-1 06/27/2019 Heart Rate 1: 68 bpm Height: Code: 8302-2 Weigh t: Code: 74214-2 06/24/2019 Blood Pressure 1: 132/74 Code: 8480-6 BMI: 27.4 Code: 46102-7 Heart Rate 1: 66 bpm Height: 5'2" Code: 8302-2 SpO2: 98% Weight: 150 lb s Code: 45196-8 05/30/2019 Blood Pressure 1: 104/60 Code: 8480-6 BMI: 27.5 Code: 86324-9 Heart Rate 1: 66 bpm Height: 5'2" Code: 8302-2 SpO2: 98% Weight: 150 lb s 5 oz Code: 34046-1 Functional Status No Functional Status data Reason For Visit Reason For Visit Effective Dates Notes cough 08/31/2021 sinus congestion 08/09/2021 headache 06/01/2020 headache 05/26/2020 well woman exam (40-65 years) 12/16/2019 cough 09/27/2019 fever 09/23/2019 menopausal symptoms 08/19/2019 lower leg pain 06/27/2019 lower leg pain 06/24/2019 anxiety 05/30/2019 Encounters Encounter Performer Location Codes Date ([id number]) 21178 EST. PATIENT, LEVEL IV Diagnosis: Acute bronchitis[ICD10: J20.9] Diagnosis: Laryngitis[ICD10: J04.0] Diagnosis: Other allergic rhinitis[ICD10: J30.89] Diagnosis: Slow transit constipation[ICD10: K59.01] Mariel Faith MD, [facility] CPT-4: 63068 08/31/2021 ([id number]) 25241 EST. PATIENT, LEVEL IV Diagnosis: Generalized anxiety disorder[ICD10: F41.9] Diagnosis: Cough[ICD10: R05.9] Diagnosis: Other allergic rhinitis[ICD10: J30.89] Diagnosis: Encounter for screening mammogram for malignant neoplasm of breast[ICD10: Z12.31] [facility] CPT-4: 67154 08/09/2021 ([id number]) 11637 EST. PATIENT, LEVEL III Diagnosis: Headache[ICD10: R51] Diagnosis: Other allergic rhinitis[ICD10: J30.89] Farzana Groves MD, [facility] CPT-4: 63388 06/01/2020 [id number] EST. PATIENT, LEVEL III Diagnosis: Other acute sinusitis[ICD10: J01.80] Diagnosis: Other allergic rhinitis[ICD10: J30.89] Diagnosis: Migraine without status migrainosus, not intractable, unspecified migraine type[ICD10: G43.909] Diagnosis: Menopausal and female climacteric states[ICD10: N95.1] Jaycee Faith MD, [facility] CPT-4: 13822 05/26/2020 ([id number]) 56930 EST. PATIENT, LEVEL III Diagnosis: Generalized anxiety disorder[ICD10: F41.1] Alena Faith MD, [facility] CPT-4: 90448 04/02/2020 ([id number]) PREV VISIT EST AGE 40-64 Diagnosis: Encounter for gynecological examination (general) (routine) without abnormal findings[ICD10: Z01.419] Farzana Faith MD, [facility] CPT -4: 11963 12/16/2019 ([id number]) 21815 EST. PATIENT, LEVEL III Diagnosis: Cough[ICD10: R05] Diagnosis: Acute bronchitis[ICD10: J20.9] Farzana pulido MD, [facility] CPT-4: 87738 09/27/2019 ([id number]) 29290 EST. PATIENT, LEVEL III Diagnosis: Fever[ICD10: R50.9] Diagnosis: Body aches[ICD10: R52] Farzana Faith MD, [facility] CPT -4: 47714 09/23/2019 ([id number]) 10774 EST. PATIENT, LEVEL III Diagnosis: Menopausal and female climacteric states[ICD10: N95.1] Farzana Faith MD, [facility] CPT-4: 35277 08/19/2019 40267 EST. PATIENT, LEVEL III Diagnosis: Pain in left ankle and joints of left foot[ICD10: M25.572] Diagnosis: Pain in left knee[ICD10: M25.562] [facility] CPT-4: 79942 06/27/2019 47612 EST. PATIENT, LEVEL III Diagnosis: Pain in left ankle and joints of left foot[ICD10: M25.572] Diagnosis: Pain in left knee[ICD10: M25.562] [facility] CPT-4: 80737 06/24/2019 ([id number]) PREV VISIT NEW AGE 40-64 Diagnosis: Encounter for general adult medical examination without abnormal findings[ICD10: Z00.00] [facility] CPT-4: 53422 05/30/2019 Plan of Care Planned Activity Notes [...] sent 08/31/2021 [phone] ([facility] min) Complex 08/31/2021 Patient Education: Patient [...] sent 08/09/2021 [facility]ment[phone] (30 min) Complex 08/09/2021 Patient Education: Patient Medication Summary Completed 08/09/2021 Patient Education: prednisone- [employer] Coupon [id number] Completed 08/09/2021 Appointment: Injection 04/28/2021 Patient Education: [...] without contrast. 06/01/2020 Appointment: Farzana Cristina WPtel: [facility] [place] [address] (15 min) Moderate 06/01/2020 Patient Education: Patient [...] or concerns. 05/26/2020 Appointment: Jaycee Lindo WPtel: [facility] (30 min) Complex 05/26/2020 Patient Education: Patient Medication Summary Completed 05/26/2020 Visit Plan: Anxiety - the patient has un controlled anxiety and will benefit from a short term dose of xanax for control of symptoms. 04/02/2020 Appointment: Alena Faith WPtel: [facility] TeleHealth 04/02/2020 Patient Education: Patient Medication Summary Completed 04/02/2020 Appointment: Injection 03/19/2020 Patient Education: Patient Medication Summary Completed 03/19/2020 Appointment: Injection 03/18/2020 Appointment: Injection 12/27/2019 Patient Education: Patient Medication Summary Completed 12/27/2019 Appointment: Alena Faith WPtel: [facility] [facility] Woman 12/24/2019 Visit Plan: Well Adult Female - exam com pleted. Pap and breast exam completed. Pt will be called with results of her testing. She was advised to continue with yearly annual exams. Safe sex practices discussed during office visit today. Call if any abnormal gynecologic issues during the next year, otherwise, RTC yearly or prn. 12/16/2019 Appointment: Farzana Cristina WPtel: [phone] [facility] 12/16/2019 Patient Education: Patient Medication Summary Completed 12/16/2019 Appointment: Alena Faith WPtel: [facility] (15 min) Moderate 12/03/2019 Appointment: Injection 10/24/2019 Patient Education: Patient Medication Summary Completed 10/24/2019 Visit Plan: Bronchitis - acute case of b ronchitis identified. Pt has been given antibiotics, breathing treatments as appropriate, and pt has been instructed to call if symptoms are not improved, or if symptoms acutely worsen. 09/27/2019 Appointment: Farzana Cristina WPtel: [phone] (15 min) Moderate 09/27/2019 Patient Education: Patient Medication Summary Completed 09/27/2019 Visit Plan: URI -viral -flu swab to r/o flu - Pt advised to increase fluids, vitamin C. Discussed natural and expected course of this diagnosis and need to alert me if symptoms do not follow expected course, or if any worse. 09/23/2019 Appointment: Farzana Cristina WPtel: [phone] (30 min) Complex 09/23/2019 Patient Education: Patient Medication Summary Completed 09/23/2019 Visit Plan: Post-surgical menopause - co ntinue to taper depo dose and eventually off medication completely -injection today in the office. 08/19/2019 Appointment: Farzana Cristina WPtel: [phone] [place] (15 min) Moderate 08/19/2019 Patient Education: Patient Medication Summary Completed 08/19/2019 Appointment: Farzana Cristina WPtel: [phone] [place] (30 min) Complex 08/16/2019 Visit Plan: Left knee, ankle, foot pain - will send RX - will refer to ortho - The pt is to use prn antiinflammatories to manage acute pain. The patient is to call the office if the pain is worsening or does not improve. 06/27/2019 Appointment: Jaycee Lindo WPtel: [id number] (30 min) Complex 06/27/2019 Patient Education: Patient Medication Summary Completed 06/27/2019 Care Plan: Referral Order SNOMED-CT : [id number] Pending 06/27/2019 Visit Plan: Left knee, ankle, foot pain - will send RX - if no improvement will refer to ortho - The pt is to use prn antiinflammatories to manage acute pain. The patient is to call the office if the pain is worsening or does not improve. 06/24/2019 Appointment: Jaycee Lindo WPtel: [id number] (30 min) Complex 06/24/2019 Patient Education: Patient [...]
--- OUTSIDE RECORDS SUMMARY | 2021-10-12 12:00 | XMS REPORT | CCD ---
Author Author Kaleigh Faith Organization [facility] Address [address] [place] [address] Phone Care Team Providers Care Remote Sensing Surveyor Name Role Phone [facility] Unavailable CCM Unavailable Summary Purpose Interface Exchange Insurance Providers Payer name Policy type / Coverage type Covered constitution party ID Effective Begin Date Effective End Date [facility] Commercial Insurance [id number] Unknown Unknown Family history Mother Diagnosis Age At Onset Diabetes mellitus Type 2 Unknown Alcoholism Unknown Depression Unknown Father Diagnosis Age At Onset Diabetes mellitus Type 2 Unknown Social History Social History Element Codes Description Effective Dates Marital status Unknown Garry 05/30/2019 Number of children Unknown 2 05/30/2019 Employment 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 cefdinir 300 mg capsule RxNorm: 340905 Take 1 Capsule(s) Oral t wo times a day 08/23/2021 08/23/2021 Inactive azithromycin 250 mg tablet RxNorm: 330653 Take 1 Tablet (s) Oral every day take 2 tablets day 1, then take 1 tablet daily on days 2-5 08/23/2021 08/23/20 21 Inactive Please disregard Cefdinir RX. promethazine 6.25 mg-codeine 10 mg/5 mL syrup RxNorm: 322368 Take 5 Milliliter(s) Oral every 4-6 hours as needed cough 08/09/2021 Inactive prednisone 20 mg tablet RxNorm: 007929 Take 2 Tablet(s) Oral ev alex day 08/09/2021 08/13/2021 Inactive promethazine 6.25 mg-codeine 10 mg/5 mL syrup RxNorm: 574216 Take 5 Milliliter(s) Oral every 4-6 hours as needed cough 08/09/2021 Inactive Kenalog 40 mg/mL suspension for injection RxNorm: 9523492 Take 1 Milliliter(s) Injection 08/09/2021 08/09/2021 Inactive alprazolam 0.5 mg tablet RxNorm: 057051 Take 1 Tablet(s ) Oral two times a day as needed FOR ANXIETY 07/30/2021 08/28/2021 Active alprazolam 0.5 mg tablet RxNorm: 950581 1 Tablet(s) Ora l two times a day as needed anxiety 06/03/2021 06/03/2021 Inactive Depo-Estradiol 5 mg/mL intramuscular oil RxNorm: 970534 0.75 Milliliter(s) Intramuscular 04/28/2021 04/28/2021 Inactive alprazolam 0.5 mg tablet RxNorm: 440393 1 Tablet(s) Ora l two times a day as needed anxiety 04/05/2021 04/05/2021 Inactive Depo-Estradiol 5 mg/mL intramuscular oil RxNorm: 946326 0.75 Milliliter(s) Intramuscular 03/03/2021 03/03/2021 Inactive alprazolam 0.5 mg tablet RxNorm: 525717 1 Tablet(s) Ora l two times a day as needed anxiety 03/01/2021 03/01/2021 Inactive alprazolam 0.5 mg tablet RxNorm: 415496 1 Tablet(s) Ora l two times a day as needed anxiety 01/28/2021 02/26/2021 Inactive Depo-Provera 150 mg/mL intramuscular suspension RxNorm: 1000 128 Milliliter(s) Intramuscular 01/05/2021 01/05/2021 Inactive escitalopram 10 mg tablet RxNorm: 138161 TAKE ONE TABLE T BY MOUTH EVERY NIGHT AT BEDTIME Tablet(s) Oral 12/30/2020 01/01/2021 Inactive alprazolam 0.5 mg tablet RxNorm: 171011 1 Tablet(s) Ora l two times a day as needed anxiety 12/30/2020 01/27/2021 Inactive escitalopram 5 mg tablet RxNorm: 155639 TAKE ONE TABLET BY MOUTH EVERY NIGHT AT BEDTIME 11/30/2020 12/29/2020 Inactive alprazolam 0.5 mg tablet RxNorm: 521092 1 Tablet(s) Ora l two times a day as needed anxiety 11/30/2020 12/29/2020 Inactive atorvastatin 20 mg tablet RxNorm: 788264 TAKE ONE TABLET BY RADHA TH DAILY 11/26/2020 No Stop Date Active Depo-Estradiol 5 mg/mL intramuscular oil RxNorm: 252481 3/4 Milliliter(s) Intramuscular monthly 10/28/2020 12/27/2020 Inactive Depo-Provera 150 mg/mL intramuscular suspension RxNorm: 1000 128 Milliliter(s) Intramuscular 10/28/2020 10/28/2020 Inactive alprazolam 0.5 mg tablet RxNorm: 682544 1 Tablet(s) Ora l two times a day as needed anxiety 10/01/2020 10/29/2020 Inactive acyclovir 400 mg tablet RxNorm: 570802 TAKE ONE TABLET BY MOUTH FOUR TIMES A DAY 08/31/2020 09/01/2020 Inactive alprazolam 0.5 mg tablet RxNorm: 005861 1 Tablet(s) Ora l two times a day as needed anxiety 08/31/2020 09/29/2020 Inactive atorvastatin 20 mg tablet RxNorm: 882459 1 Tablet(s) Oral every day 08/18/2020 08/17/2020 Inactive atorvastatin 20 mg tablet RxNorm: 052741 1 Tablet(s) Oral every day 08/18/2020 11/25/2020 Inactive alprazolam 0.5 mg tablet RxNorm: 248649 1 Tablet(s) Ora l two times a day as needed anxiety 08/07/2020 08/30/2020 Inactive Depo-Provera 150 mg/mL intramuscular suspension RxNorm: 1000 128 Milliliter(s) Intramuscular 08/04/2020 08/04/2020 Inactive acyclovir 400 mg tablet RxNorm: 409188 TAKE ONE TABLET BY MOUTH FOUR TIMES A DAY 07/21/2020 08/30/2020 Inactive alprazolam 0.5 mg tablet RxNorm: 092203 1 Tablet(s) Ora l two times a day as needed anxiety 07/07/2020 08/05/2020 Inactive alprazolam 0.5 mg tablet RxNorm: 132936 1 Tablet(s) Ora l two times a day as needed anxiety 06/18/2020 07/05/2020 Inactive escitalopram 5 mg tablet RxNorm: 680177 1 Tablet(s) Oral every night at bedtime 06/08/2020 10/06/2020 Inactive prednisone 20 mg tablet RxNorm: 206491 2 Tablet(s) Oral every day 0 06/01/2020 06/06/2020 Inactive Depo-Provera 150 mg/mL intramuscular suspension RxNorm: 1000 128 0.75 Milliliter(s) Intramuscular 05/28/2020 05/28/2020 Inactive Kenalog 40 mg/mL suspension for injection RxNorm: 1433530 1 Milliliter(s) Injection 05/28/2020 05/28/2020 Inactive Zithromax Z-Kraig 250 mg tablet RxNorm: 947947 Tablet(s) Oral as directed 05/26/2020 04/04/2021 Inactive alprazolam 0.5 mg tablet RxNorm: 240635 1 Tablet(s) Ora l two times a day as needed anxiety 05/11/2020 06/09/2020 Inactive alprazolam 0.5 mg tablet RxNorm: 143748 1 Tablet(s) Ora l two times a day as needed anxiety 04/02/2020 05/10/2020 Inactive Depo-Provera 150 mg/mL intramuscular suspension RxNorm: 1000 128 Milliliter(s) Intramuscular 03/19/2020 03/19/2020 Inactive acyclovir 400 mg tablet RxNorm: 158053 1 Tablet(s) Oral four times a day fever blisters 01/02/2020 02/01/2020 Inactive Depo-Provera 150 mg/mL intramuscular suspension RxNorm: 1000 128 Milliliter(s) Intramuscular 12/27/2019 12/27/2019 Inactive pravastatin 10 mg tablet RxNorm: 868971 1 Tablet(s) Oral every night at bedtime 12/19/2019 12/18/2019 Inactive pravastatin 10 mg tablet RxNorm: 997251 1 Tablet(s) Oral every night at bedtime 12/19/2019 04/17/2020 Inactive Depo-Estradiol 5 mg/mL intramuscular oil RxNorm: 720603 3/4 Milliliter(s) Intramuscular monthly 10/24/2019 10/24/2019 Inactive Kenalog 40 mg/mL suspension for injection RxNorm: 9204245 Milliliter(s) Injection 09/27/2019 09/27/2019 Inactive Phenergan with Codeine Syrup RxNorm: 5-10 Millil iter(s) Oral Every 6 hrs as needed 09/27/2019 05/31/2020 Inactive prednisone 20 mg tablet RxNorm: 417302 2 Tablet(s) Oral every day 1 11/28/2018 10/02/2019 Inactive start tomorrow doxycycline hyclate 100 mg tablet RxNorm: 3710448 1 Tabl et(s) Oral two times a day 09/27/2019 10/04/2019 Inactive start if symptom s do not improve Depo-Estradiol 5 mg/mL intramuscular oil RxNorm: 563011 3/4 Milliliter(s) Intramuscular monthly 08/20/2019 08/20/2019 Inactive Depo-Estradiol 5 mg/mL intramuscular oil RxNorm: 979279 3/4 Milliliter(s) Intramuscular monthly 08/15/2019 09/14/2019 Inactive gabapentin 100 mg capsule RxNorm: 362948 1 Capsule(s) O ral every night at bedtime 07/31/2019 09/22/2019 Inactive gabapentin 100 mg capsule RxNorm: 120050 1 Capsule(s) PO QHS 201807/26/2019 Inactive naproxen 500 mg tablet RxNorm: 804169 1 Tablet(s) PO BID 06/24/2019 0 06/28/2019 Inactive escitalopram 5 mg tablet RxNorm: 607821 1 Tablet(s) PO QHS 05/30/20 19 09/22/2019 Inactive ranitidine 150 mg capsule RxNorm: 675472 1 Capsule(s) PO BID 201809/22/2019 Inactive eszopiclone 1 mg tablet RxNorm: 904764 Tablet(s) PO as needed 06/0105/31/2020 Inactive acyclovir 400 mg tablet RxNorm: 493911 1 Tablet(s) PO PRN fever blisters 01/02/2020 01/01/2020 Inactive clonidine HCl 0.1 mg tablet RxNorm: 933569 Tablet(s) PO as needed 0 05/30/2019 05/29/2019 Inactive Medication Administered Medication Codes Instructions Start Date Status Kenalog 40 mg/mL suspension for injection RxNorm: 9643873 1Milli liter 08/09/2021 No longer Active Depo-Estradiol 5 mg/mL intramuscular oil RxNorm: 237610 0.75Mil liliter 04/28/2021 No longer Active Depo-Estradiol 5 mg/mL intramuscular oil RxNorm: 983449 0.75Mil liliter 03/03/2021 No longer Active Depo-Provera 150 mg/mL intramuscular suspension RxNorm: 7756114 Milliliter 01/05/2021 No longer Active Depo-Provera 150 mg/mL intramuscular suspension RxNorm: 2372525 Milliliter 10/28/2020 No longer Active Depo-Provera 150 mg/mL intramuscular suspension RxNorm: 1564421 Milliliter 08/04/2020 No longer Active Depo-Provera 150 mg/mL intramuscular suspension RxNorm: 8425218 0.75Milliliter 05/28/2020 No longer Active Kenalog 40 mg/mL suspension for injection RxNorm: 6139614 1Milli liter 05/28/2020 No longer Active Depo-Provera 150 mg/mL intramuscular suspension RxNorm: 0121741 Milliliter 03/19/2020 No longer Active Depo-Provera 150 mg/mL intramuscular suspension RxNorm: 6997428 Milliliter 12/27/2019 No longer Active Depo-Estradiol 5 mg/mL intramuscular oil RxNorm: 361803 3/4Mill ilitermonthly 10/24/2019 Active Kenalog 40 mg/mL suspension for injection RxNorm: 2059815 Millilite r 09/27/2019 No longer Active Depo-Estradiol 5 mg/mL intramuscular oil RxNorm: 556037 3/4Mill ilitermonthly 08/20/2019 Active Immunizations No Immunization data Results Observation Observation Code Item Item Code Result Date S ervice Location Lipid Ord30 CHOL 249 mg/dL 08/06/2020 Unknown Lipid Ord30 HDL 55.0 mg/dl 08/06/2020 Unknown Lipid Ord30 TRIG 82 mg/dL 08/06/2020 Unknown Lipid Ord30 LDL 178 mg/dL 08/06/2020 Unknown Lipid Ord30 C/HDL 4.5 Ratio 08/06/2020 Unknown Comp Metabolic Sfu299 NA 138 mEq/L 08/06/2020 Unkn own Comp Metabolic Cad550 K 4.5 mEq/L 08/06/2020 Unkn own Comp Metabolic Ekd361 CL 103 mEq/L 08/06/2020 Unkn own Comp Metabolic Jav442 CO2 28.0 mEq/L 08/06/2020 Unk nown Comp Metabolic Fda268 ANION GAP 12 08/06/2020 Unkn own Comp Metabolic Esg366 GLUCOSE 90 mg/dL 08/06/2020 Unkn own Comp Metabolic Bmr758 Creat 0.7 mg/dL 08/06/2020 Unkn own Comp Metabolic Bjv889 eGFR 88 ml/min/1.73m2 08/06/20 20 Unknown Comp Metabolic Tox413 BUN 20 mg/dL 08/06/2020 Unkn own Comp Metabolic Sxh623 B/C Ratio 27.0 Ratio 08/06/2020 Unk nown Comp Metabolic Eqq533 CALCIUM 9.5 mg/dL 08/06/2020 Unkn own Comp Metabolic Pti864 ALK PHOS 87 U/L 08/06/2020 Unkn own Comp Metabolic Equ043 AST(SGOT) 17 U/L 08/06/2020 Unkn own Comp Metabolic Uqn107 ALT(SGPT) 20 U/L 08/06/2020 Unkn own Comp Metabolic Naj817 BILI T 0.6 mg/dL 08/06/2020 Unkn own Comp Metabolic Kfn080 ALBUMIN 4.5 g/dL 08/06/2020 Unkn own Comp Metabolic Zha909 TPRO 7.6 g/dL 08/06/2020 Unkn own Comp Metabolic Hip938 GLOB 3.1 g/dL 08/06/2020 Unkn own Comp Metabolic Ijr436 A/G Ratio 1.5 Ratio 08/06/2020 Unkn own Comp Metabolic Sof274 Osmo 278 mOsmo 08/06/2020 Unkn own Cbc [...] pg 08/06/20 Unknown Cbc With Differential Ord2 [place]% 5.4 % 08/06/20 Unknown Cbc With Differential [...] With Differential Ord2 Lymph ABS# 1.92 K/ul Unknown Cbc With Differential Ord2 [place] ABS# 0.6 K/ul 08/06/20 Unknown Cbc With Differential Ord2 Eos ABS# 0.2 K/ul 08/06/20 Unknown Cbc With Differential Ord2 Baso ABS# 0.0 K/ul 08/06/20 Unknown Tsh Ord6 TSH (3rd IS) 1.38 uIU/mL 12/17/2019 Unkn own Comp Metabolic Ksa053 NA 141 mEq/L 12/17/2019 Unkn own Comp Metabolic Qci534 K 4.3 mEq/L 12/17/2019 Unkn own Comp Metabolic Dlh459 CL 104 mEq/L 12/17/2019 Unkn own Comp Metabolic Ipl117 CO2 29.0 mEq/L 12/17/2019 Unk nown Comp Metabolic Jye634 ANION GAP 12 12/17/2019 Unkn own Comp Metabolic Swm435 GLUCOSE 83 mg/dL 12/17/2019 Unkn own Comp Metabolic Ncf057 Creat 0.7 mg/dL 12/17/2019 Unkn own Comp Metabolic Lez405 eGFR 102 ml/min/1.73m2 020 Unknown Comp Metabolic Lwu655 BUN 16 mg/dL 12/17/2019 Unkn own Comp Metabolic Bty953 B/C Ratio 24.6 Ratio 12/17/2019 Unk nown Comp Metabolic Ejk425 CALCIUM 9.3 mg/dL 12/17/2019 Unkn own Comp Metabolic Bgv965 ALK PHOS 79 U/L 12/17/2019 Unkn own Comp Metabolic Hro743 AST(SGOT) 19 U/L 12/17/2019 Unkn own Comp Metabolic Uqb430 ALT(SGPT) 26 U/L 12/17/2019 Unkn own Comp Metabolic Xpz010 BILI T 0.5 mg/dL 12/17/2019 Unkn own Comp Metabolic Rhs895 ALBUMIN 4.2 g/dL 12/17/2019 Unkn own Comp Metabolic Fsf673 TPRO 7.0 g/dL 12/17/2019 Unkn own Comp Metabolic Cnc700 GLOB 2.8 g/dL 12/17/2019 Unkn own Comp Metabolic Jbv017 A/G Ratio 1.5 Ratio 12/17/2019 Unkn own Comp Metabolic Mia732 Osmo 282 mOsmo 12/17/2019 Unkn own Cbc [...] 12/17/19 20 Unknown Cbc With Differential Ord2 [place]% 6.2 % 12/17/19 20 Unknown Cbc With [...] K/ul 020 Unknown Cbc With Differential Ord2 [place] ABS# 0.6 K/ul 12/17/19 20 Unknown Cbc [...] 4.2 Ratio 12/17/2019 Unknown C A/B FLU 9348089 Influenza A Scr Negative 09/23/2019 Unk nown C A/B FLU 9665802 Influenza B Scr Negative 09/23/2019 Unk nown C A/B FLU [id number] Influenza Intrp B AG:PRID:PT:NOSE:NOM:IF See Footnote 09/23/2019 Unknown Procedures Procedure Codes Date THER/PROPH/DIAG INJ SC/IM CPT-4: 84026 04/28/2021 THER/PROPH/DIAG INJ SC/IM CPT-4: 62596 03/03/2021 THER/PROPH/DIAG INJ SC/IM CPT-4: 10438 01/05/2021 THER/PROPH/DIAG INJ SC/IM CPT-4: 64153 10/28/2020 THER/PROPH/DIAG INJ SC/IM CPT-4: 84067 08/04/2020 THER/PROPH/DIAG INJ SC/IM CPT-4: 91409 05/26/2020 TRIAMCINOLONE ACET INJ NOS 10 mg CPT-4: J3301 020 THER/PROPH/DIAG INJ SC/IM CPT-4: 58866 03/19/2020 THER/PROPH/DIAG INJ SC/IM CPT-4: 10629 12/27/2019 THER/PROPH/DIAG INJ SC/IM CPT-4: 97252 10/24/2019 TRIAMCINOLONE ACET INJ NOS 10 mg CPT-4: J3301 019 THER/PROPH/DIAG INJ SC/IM CPT-4: 48133 08/19/2019 Vital Signs Date Vital 08/09/2021 Blood Pressure 1: 142/68 Code: 8480-6 BMI: 30.7 Code: 79722-9 Heart Rate 1: 63 bpm Height: 5'2" Code: 8302-2 SpO2: 97% Temperature: 3 6.4 (C) / 97.6 (F) Weight: 168 lbs Code: 26665-7 06/01/2020 Blood Pressure 1: 130/80 Code: 8480-6 BMI: 28.5 Code: 73591-0 Heart Rate 1: 69 bpm Height: 5'2" Code: 8302-2 SpO2: 97% Temperature: 3 6.9 (C) / 98.4 (F) Weight: 156 lbs Code: 04674-1 05/26/2020 Blood Pressure 1: 128/78 Code: 8480-6 Heart Rate 1: 74 bpm Height: Code: 8302-2 SpO2: 98% Weight: Code: 17598-7 04/02/2020 Height: Code: 8302-2 Weight: Code: 294 63-7 12/16/2019 Blood Pressure 1: 132/80 Code: 8480-6 BMI: 28.9 Code: 40035-5 Heart Rate 1: 68 bpm Height: 5'2" Code: 8302-2 SpO2: 97% Weight: 158 lb s Code: 19791-0 09/27/2019 Blood Pressure 1: 110/60 Code: 8480-6 BMI: 28.5 Code: 67174-7 Heart Rate 1: 76 bpm Height: 5'2" Code: 8302-2 SpO2: 98% Temperature: 3 6.9 (C) / 98.5 (F) Weight: 156 lbs Code: 89746-9 09/23/2019 Blood Pressure 1: 124/80 Code: 8480-6 Heart Rate 1: 81 bpm SpO2: 98% Temperature: 36.7 (C) / 98.1 (F) 08/19/2019 Blood Pressure 1: 130/78 Code: 8480-6 BMI: 28.0 Code: 44468-8 Heart Rate 1: 68 bpm Height: 5'2" Code: 8302-2 SpO2: 98% Weight: 153 lb s Code: 56043-9 06/27/2019 Heart Rate 1: 68 bpm Height: Code: 8302-2 Weigh t: Code: 59900-5 06/24/2019 Blood Pressure 1: 132/74 Code: 8480-6 BMI: 27.4 Code: 02555-4 Heart Rate 1: 66 bpm Height: 5'2" Code: 8302-2 SpO2: 98% Weight: 150 lb s Code: 15135-0 05/30/2019 Blood Pressure 1: 104/60 Code: 8480-6 BMI: 27.5 Code: 38698-0 Heart Rate 1: 66 bpm Height: 5'2" Code: 8302-2 SpO2: 98% Weight: 150 lb s 5 oz Code: 12928-3 Functional Status No Functional Status data Reason For Visit Reason For Visit Effective Dates Notes sinus congestion 08/09/2021 headache 06/01/2020 headache 05/26/2020 well woman exam (40-65 years) 12/16/2019 cough 09/27/2019 fever 09/23/2019 menopausal symptoms 08/19/2019 lower leg pain 06/27/2019 lower leg pain 06/24/2019 anxiety 05/30/2019 Encounters Encounter Performer Location Codes Date () 07304 EST. PATIENT, LEVEL IV Diagnosis: Generalized anxiety disorder[ICD10: F41.9] Diagnosis: Cough[ICD10: R05.9] Diagnosis: Other allergic rhinitis[ICD10: J30.89] Diagnosis: Encounter for screening mammogram for malignant neoplasm of breast[ICD10: Z12.31] Mariel Faith MD, [facility] CPT-4: 79032 08/09/2021 ([id number]) 72328 EST. PATIENT, LEVEL III Diagnosis: Headache[ICD10: R51] Diagnosis: Other allergic rhinitis[ICD10: J30.89] Farzana Groves MD, [facility] CPT-4: 79439 06/01/2020 13970 EST. PATIENT, LEVEL III Diagnosis: Other acute sinusitis[ICD10: J01.80] Diagnosis: Other allergic rhinitis[ICD10: J30.89] Diagnosis: Migraine without status migrainosus, not intractable, unspecified migraine type[ICD10: G43.909] Diagnosis: Menopausal and female climacteric states[ICD10: N95.1] [facility] CPT-4: 25328 05/26/2020 ([id number]) 45867 EST. PATIENT, LEVEL III Diagnosis: Generalized anxiety disorder[ICD10: F41.1] [facility] CPT-4: 34656 04/02/2020 ([id number]) PREV VISIT EST AGE 40-64 Diagnosis: Encounter for gynecological examination (general) (routine) without abnormal findings[ICD10: Z01.419] Farzana Faith MD, [facility] CPT -4: 85693 12/16/2019 ([id number]) 06930 EST. PATIENT, LEVEL III Diagnosis: Cough[ICD10: R05] Diagnosis: Acute bronchitis[ICD10: J20.9] Farzana pulido MD, [facility] CPT-4: 85456 09/27/2019 ([id number]) 26580 EST. PATIENT, LEVEL III Diagnosis: Fever[ICD10: R50.9] Diagnosis: Body aches[ICD10: R52] Farzana Faith MD, [facility] CPT -4: 04123 09/23/2019 ([id number]) 38476 EST. PATIENT, LEVEL III Diagnosis: Menopausal and female climacteric states[ICD10: N95.1] [facility] CPT-4: 59324 08/19/2019 15268 EST. PATIENT, LEVEL III Diagnosis: Pain in left ankle and joints of left foot[ICD10: M25.572] Diagnosis: Pain in left knee[ICD10: M25.562] [facility] CPT-4: 59958 06/27/2019 20780 EST. PATIENT, LEVEL III Diagnosis: Pain in left ankle and joints of left foot[ICD10: M25.572] Diagnosis: Pain in left knee[ICD10: M25.562] [facility] CPT-4: 62929 06/24/2019 ([id number]) PREV VISIT NEW AGE 40-64 Diagnosis: Encounter for general adult medical examination without abnormal findings[ICD10: Z00.00] [facility] CPT-4: 50982 05/30/2019 Plan of Care Planned Activity Notes [...] sent 08/09/2021 Appointment: Mar[facility] Gil [facility]el[facility] ([facility] min) Complex 08/09/2021 Patient Education: Patient Medication Summary Completed 08/09/2021 Patient Education: prednisone- [employer] Coupon [id number] Completed 08/09/2021 Care Plan: Lipid Pending 08/09/2021 [...] without contrast. 06/01/2020 Appointment: Farzana Cristina WPtel: [phone] (15 min) Moderate 06/01/2020 Patient Education: Patient [...] concerns. 05/26/2020 Appointment: Jaycee Lindo WPtel: [facility] (30 min) Complex 05/26/2020 Patient Education: Patient Medication Summary Completed 05/26/2020 Visit Plan: Anxiety - the patient has un controlled anxiety and will benefit from a short term dose of xanax for control of symptoms. 04/02/2020 Appointment: Alena Faith WPtel: [phone] TeleHealth 04/02/2020 Patient Education: Patient Medication Summary Completed 04/02/2020 Appointment: Injection 03/19/2020 Patient Education: Patient Medication Summary Completed 03/19/2020 Appointment: Injection 03/18/2020 Appointment: Injection 12/27/2019 Patient Education: Patient Medication Summary Completed 12/27/2019 Appointment: Alena Faith WPtel: [phone] [phone] Well Woman 12/24/2019 Visit Plan: Well Adult [...] prn. 12/16/2019 Appointment: Farzana Cristina WPtel: [phone] [facility] 12/16/2019 Patient Education: Patient Medication Summary Completed 12/16/2019 Appointment: Alena Faith WPtel: [phone] (15 min) Moderate 12/03/2019 Appointment: Injection 10/24/2019 Patient Education: Patient Medication Summary Completed 10/24/2019 Visit Plan: Bronchitis - acute case of b ronchitis identified. Pt has been given antibiotics, breathing treatments as appropriate, and pt has been instructed to call if symptoms are not improved, or if symptoms acutely worsen. 09/27/2019 Appointment: Farzana Cristina WPtel: [address] [place], [place] [phone] (15 min) Moderate 09/27/2019 Patient Education: Patient Medication Summary Completed 09/27/2019 Visit Plan: URI -viral -flu swab to r/o flu - Pt advised to increase fluids, vitamin C. Discussed natural and expected course of this diagnosis and need to alert me if symptoms do not follow expected course, or if any worse. 09/23/2019 Appointment: Farzana Cristina WPtel: [phone] (30 min) Complex 09/23/2019 Patient Education: Patient Medication Summary Completed 09/23/2019 Visit Plan: Post-surgical menopause - co ntinue to taper depo dose and eventually off medication completely -injection today in the office. 08/19/2019 Appointment: Farzana Cristina WPtel: [phone] (15 min) Moderate 08/19/2019 Patient Education: Patient Medication Summary Completed 08/19/2019 Appointment: Farzana Cristina WPtel: [address] [place], [place] [phone] [place] (30 min) Complex 08/16/2019 Visit Plan: Left knee, ankle, foot pain - will send RX - will refer to ortho - The pt is to use prn antiinflammatories to manage acute pain. The patient is to call the office if the pain is worsening or does not improve. 06/27/2019 Appointment: Jaycee Lindo WPtel: [phone] [facility] (30 min) Complex 06/27/2019 Patient Education: Patient Medication Summary Completed 06/27/2019 Care Plan: Referral Order SNOMED-CT : 30 8022019 Pending 06/27/2019 Visit Plan: Left knee, ankle, foot pain - will send RX - if no improvement will refer to ortho - The pt is to use prn antiinflammatories to manage acute pain. The patient is to call the office if the pain is worsening or does not improve. 06/24/2019 App[facility]ment[phone] [place] ([facility] min) Complex 06/24/2019 Patient Education: [...] we will look for her medications from [facility] to find out what her depo dose [...] we will look for her medications from [facility] to find out what her depo dose [...]
--- OUTSIDE RECORDS SUMMARY | 2021-10-12 12:00 | XMS REPORT | CCD ---
Author Author Kaleigh Faith Organization Alena Faith MD, [facility] Address [address] [place] [address] Phone Care Team Providers Care House Builder Name Role Phone Alena Faith PP Unavailable CCM Unavailable Summary Purpose Interface Exchange Insurance Providers Payer name Policy type / Coverage type Covered republican ID Effective Begin Date Effective End Date [facility] Commercial Insurance [id number] Unknown Unknown Family history Mother Diagnosis Age At Onset Diabetes mellitus Type 2 Unknown Alcoholism Unknown Depression Unknown Father Diagnosis Age At Onset Diabetes mellitus Type 2 Unknown Social History Social History Element Codes Description Effective Dates Marital status Unknown Garry 05/30/2019 Number of children Unknown 2 05/30/2019 Employment Unknown Currently employed [employer] 05/30/[address]: 82729708 Current some days smoker Alcohol history SNOMED CT: 162986393 Never drinks alcohol 2018 Allergies, Adverse Reactions, [...] Start Date Stop Date Status Fill Instructions Miralax 17 gram/dose oral powder RxNorm: 627806 Take 1 scoop Or al every day 08/31/2021 09/29/2021 Active Alysa Allergy 180 mg tablet RxNorm: 602022 Take 1 Tab let(s) Oral every day for first 5 days take twice daily 08/31/2021 No Stop Date Active omeprazole 20 mg tablet,delayed release RxNorm: 588098 Take 1 Tablet(s) Oral every day 08/31/2021 09/13/2021 Active prednisone 20 mg tablet RxNorm: 582007 Take 2 Tablet(s) Oral 08/23/202108/2708/27/2021 Inactive azithromycin 250 mg tablet RxNorm: 681423 Take 1 Tablet (s) Oral every day take 2 tablets day 1, then take 1 tablet daily on days 2-5 08/23/2021 08/27/20 Inactive Please disregard Cefdinir RX. cefdinir 300 mg capsule RxNorm: 753063 Take 1 Capsule(s) Oral t wo times a day 08/23/2021 08/23/2021 Inactive azithromycin 250 mg tablet RxNorm: 509724 Take 1 Tablet (s) Oral every day take 2 tablets day 1, then take 1 tablet daily on days 2-5 08/23/2021 08/23/20 Inactive Please disregard Cefdinir RX. promethazine 6.25 mg-codeine 10 mg/5 mL syrup RxNorm: 706154 Take 5 Milliliter(s) Oral every 4-6 hours as needed cough 08/09/2021 Inactive prednisone 20 mg tablet RxNorm: 410420 Take 2 Tablet(s) Oral ev alex day 08/09/2021 08/13/2021 Inactive promethazine 6.25 mg-codeine 10 mg/5 mL syrup RxNorm: 827773 Take 5 Milliliter(s) Oral every 4-6 hours as needed cough 08/09/2021 Inactive Kenalog 40 mg/mL suspension for injection RxNorm: 2349043 Take 1 Milliliter(s) Injection 08/09/2021 08/09/2021 Inactive alprazolam 0.5 mg tablet RxNorm: 499232 Take 1 Tablet(s ) Oral two times a day as needed FOR ANXIETY 07/30/2021 08/28/2021 Inactive alprazolam 0.5 mg tablet RxNorm: 726186 1 Tablet(s) Ora l two times a day as needed anxiety 06/03/2021 06/03/2021 Inactive Depo-Estradiol 5 mg/mL intramuscular oil RxNorm: 385009 0.75 Milliliter(s) Intramuscular 04/28/2021 04/28/2021 Inactive alprazolam 0.5 mg tablet RxNorm: 051363 1 Tablet(s) Ora l two times a day as needed anxiety 04/05/2021 04/05/2021 Inactive Depo-Estradiol 5 mg/mL intramuscular oil RxNorm: 000840 0.75 Milliliter(s) Intramuscular 03/03/2021 03/03/2021 Inactive alprazolam 0.5 mg tablet RxNorm: 827618 1 Tablet(s) Ora l two times a day as needed anxiety 03/01/2021 03/01/2021 Inactive alprazolam 0.5 mg tablet RxNorm: 158019 1 Tablet(s) Ora l two times a day as needed anxiety 01/28/2021 02/26/2021 Inactive Depo-Provera 150 mg/mL intramuscular suspension RxNorm: 1000 128 Milliliter(s) Intramuscular 01/05/2021 01/05/2021 Inactive escitalopram 10 mg tablet RxNorm: 073812 TAKE ONE TABLE T BY MOUTH EVERY NIGHT AT BEDTIME Tablet(s) Oral 12/30/2020 01/01/2021 Inactive alprazolam 0.5 mg tablet RxNorm: 369225 1 Tablet(s) Ora l two times a day as needed anxiety 12/30/2020 01/27/2021 Inactive escitalopram 5 mg tablet RxNorm: 837419 TAKE ONE TABLET BY MOUTH EVERY NIGHT AT BEDTIME 11/30/2020 12/29/2020 Inactive alprazolam 0.5 mg tablet RxNorm: 519788 1 Tablet(s) Ora l two times a day as needed anxiety 11/30/2020 12/29/2020 Inactive atorvastatin 20 mg tablet RxNorm: 820649 TAKE ONE TABLET BY RADHA TH DAILY 11/26/2020 No Stop Date Active Depo-Estradiol 5 mg/mL intramuscular oil RxNorm: 801952 3/4 Milliliter(s) Intramuscular monthly 10/28/2020 12/27/2020 Inactive Depo-Provera 150 mg/mL intramuscular suspension RxNorm: 1000 128 Milliliter(s) Intramuscular 10/28/2020 10/28/2020 Inactive alprazolam 0.5 mg tablet RxNorm: 335834 1 Tablet(s) Ora l two times a day as needed anxiety 10/01/2020 10/29/2020 Inactive acyclovir 400 mg tablet RxNorm: 19721016 TAKE ONE TABLET BY MOUTH FOUR TIMES A DAY 08/31/2020 09/01/2020 Inactive alprazolam 0.5 mg tablet RxNorm: 062717 1 Tablet(s) Ora l two times a day as needed anxiety 08/31/2020 09/29/2020 Inactive atorvastatin 20 mg tablet RxNorm: 699928 1 Tablet(s) Oral every day 08/18/2020 08/17/2020 Inactive atorvastatin 20 mg tablet RxNorm: 556264 1 Tablet(s) Oral every day 08/18/2020 11/25/2020 Inactive alprazolam 0.5 mg tablet RxNorm: 455530 1 Tablet(s) Ora l two times a day as needed anxiety 08/07/2020 08/30/2020 Inactive Depo-Provera 150 mg/mL intramuscular suspension RxNorm: 1000 128 Milliliter(s) Intramuscular 08/04/2020 08/04/2020 Inactive acyclovir 400 mg tablet RxNorm: 537387 TAKE ONE TABLET BY MOUTH FOUR TIMES A DAY 07/21/2020 08/30/2020 Inactive alprazolam 0.5 mg tablet RxNorm: 750142 1 Tablet(s) Ora l two times a day as needed anxiety 07/07/2020 08/05/2020 Inactive alprazolam 0.5 mg tablet RxNorm: 505927 1 Tablet(s) Ora l two times a day as needed anxiety 06/18/2020 07/05/2020 Inactive escitalopram 5 mg tablet RxNorm: 351361 1 Tablet(s) Oral every night at bedtime 06/08/2020 10/06/2020 Inactive prednisone 20 mg tablet RxNorm: 128452 2 Tablet(s) Oral every day 0 06/01/2020 06/06/2020 Inactive Depo-Provera 150 mg/mL intramuscular suspension RxNorm: 1000 128 0.75 Milliliter(s) Intramuscular 05/28/2020 05/28/2020 Inactive Kenalog 40 mg/mL suspension for injection RxNorm: 0332446 1 Milliliter(s) Injection 05/28/2020 05/28/2020 Inactive Zithromax Z-Kraig 250 mg tablet RxNorm: 794488 Tablet(s) Oral as directed 05/26/2020 04/04/2021 Inactive alprazolam 0.5 mg tablet RxNorm: 541665 1 Tablet(s) Ora l two times a day as needed anxiety 05/11/2020 06/09/2020 Inactive alprazolam 0.5 mg tablet RxNorm: 617433 1 Tablet(s) Ora l two times a day as needed anxiety 04/02/2020 05/10/2020 Inactive Depo-Provera 150 mg/mL intramuscular suspension RxNorm: 1000 128 Milliliter(s) Intramuscular 03/19/2020 03/19/2020 Inactive acyclovir 400 mg tablet RxNorm: 198288 1 Tablet(s) Oral four times a day fever blisters 01/02/2020 02/01/2020 Inactive Depo-Provera 150 mg/mL intramuscular suspension RxNorm: 1000 128 Milliliter(s) Intramuscular 12/27/2019 12/27/2019 Inactive pravastatin 10 mg tablet RxNorm: 636117 1 Tablet(s) Oral every night at bedtime 12/19/2019 12/18/2019 Inactive pravastatin 10 mg tablet RxNorm: 734257 1 Tablet(s) Oral every night at bedtime 12/19/2019 04/17/2020 Inactive Depo-Estradiol 5 mg/mL intramuscular oil RxNorm: 065759 3/4 Milliliter(s) Intramuscular monthly 10/24/2019 10/24/2019 Inactive Kenalog 40 mg/mL suspension for injection RxNorm: 4434217 Milliliter(s) Injection 09/27/2019 09/27/2019 Inactive Phenergan with Codeine Syrup RxNorm: 5-10 Millil iter(s) Oral Every 6 hrs as needed 09/27/2019 05/31/2020 Inactive prednisone 20 mg tablet RxNorm: 644260 2 Tablet(s) Oral every day 1 11/28/2018 10/02/2019 Inactive start tomorrow doxycycline hyclate 100 mg tablet RxNorm: 5946057 1 Tabl et(s) Oral two times a day 09/27/2019 10/04/2019 Inactive start if symptom s do not improve Depo-Estradiol 5 mg/mL intramuscular oil RxNorm: 369524 3/4 Milliliter(s) Intramuscular monthly 08/20/2019 08/20/2019 Inactive Depo-Estradiol 5 mg/mL intramuscular oil RxNorm: 806125 3/4 Milliliter(s) Intramuscular monthly 08/15/2019 09/14/2019 Inactive gabapentin 100 mg capsule RxNorm: 649137 1 Capsule(s) O ral every night at bedtime 07/31/2019 09/22/2019 Inactive gabapentin 100 mg capsule RxNorm: 276056 1 Capsule(s) PO QHS 201807/26/2019 Inactive naproxen 500 mg tablet RxNorm: 762726 1 Tablet(s) PO BID 06/24/2019 0 06/28/2019 Inactive escitalopram 5 mg tablet RxNorm: 496458 1 Tablet(s) PO QHS 05/30/20 19 09/22/2019 Inactive ranitidine 150 mg capsule RxNorm: 371952 1 Capsule(s) PO BID 201809/22/2019 Inactive eszopiclone 1 mg tablet RxNorm: 557509 Tablet(s) PO as needed 06/0105/31/2020 Inactive acyclovir 400 mg tablet RxNorm: 578136 1 Tablet(s) PO PRN fever blisters 01/02/2020 01/01/2020 Inactive clonidine HCl 0.1 mg tablet RxNorm: 206870 Tablet(s) PO as needed 0 05/30/2019 05/29/2019 Inactive Medication Administered Medication Codes Instructions Start Date Status Kenalog 40 mg/mL suspension for injection RxNorm: 4609806 1Milli liter 08/09/2021 No longer Active Depo-Estradiol 5 mg/mL intramuscular oil RxNorm: 798047 0.75Mil liliter 04/28/2021 No longer Active Depo-Estradiol 5 mg/mL intramuscular oil RxNorm: 733033 0.75Mil liliter 03/03/2021 No longer Active Depo-Provera 150 mg/mL intramuscular suspension RxNorm: 1536034 Milliliter 01/05/2021 No longer Active Depo-Provera 150 mg/mL intramuscular suspension RxNorm: 1116514 Milliliter 10/28/2020 No longer Active Depo-Provera 150 mg/mL intramuscular suspension RxNorm: 9423671 Milliliter 08/04/2020 No longer Active Depo-Provera 150 mg/mL intramuscular suspension RxNorm: 1957319 0.75Milliliter 05/28/2020 No longer Active Kenalog 40 mg/mL suspension for injection RxNorm: 0373085 1Milli liter 05/28/2020 No longer Active Depo-Provera 150 mg/mL intramuscular suspension RxNorm: 6612443 Milliliter 03/19/2020 No longer Active Depo-Provera 150 mg/mL intramuscular suspension RxNorm: 1132112 Milliliter 12/27/2019 No longer Active Depo-Estradiol 5 mg/mL intramuscular oil RxNorm: 342695 3/4Mill ilitermonthly 10/24/2019 Active Kenalog 40 mg/mL suspension for injection RxNorm: 6548780 Millilite r 09/27/2019 No longer Active Depo-Estradiol 5 mg/mL intramuscular oil RxNorm: 182559 3/4Mill ilitermonthly 08/20/2019 Active Immunizations No Immunization data Results Observation Observation Code Item Item Code Result Date S vice Location Cbc With Differential Ord2 WBC 11.77 [...] 08/31/20 21 Unknown Cbc With Differential Ord2 [place]% 6.0 % 08/31/20 21 Unknown Cbc With [...] K/ul 021 Unknown Cbc With Differential Ord2 [place] ABS# 0.7 K/ul 08/31/20 21 Unknown Cbc With Differential Ord2 Eos ABS# 0.3 K/ul 08/31/20 21 Unknown Cbc With Differential Ord2 Baso ABS# 0.0 K/ul 08/31/20 21 Unknown Comp Metabolic Gqu238 NA 142 mEq/L 08/31/2021 Unkn own Comp Metabolic Iad013 K 4.4 mEq/L 08/31/2021 Unkn own Comp Metabolic Mal024 CL 101 mEq/L 08/31/2021 Unkn own Comp Metabolic Vvq939 CO2 32.0 mEq/L 08/31/2021 Unk nown Comp Metabolic Jnv833 ANION GAP 13 08/31/2021 Unkn own Comp Metabolic Dgr772 GLUCOSE 89 mg/dL 08/31/2021 Unkn own Comp Metabolic Pmz125 Creat 0.7 mg/dL 08/31/2021 Unkn own Comp Metabolic Npi821 eGFR 90 ml/min/1.73m2 08/31/20 21 Unknown Comp Metabolic Rhw008 BUN 19 mg/dL 08/31/2021 Unkn own Comp Metabolic Dcm236 B/C Ratio 26.4 Ratio 08/31/2021 Unk nown Comp Metabolic Fbb026 CALCIUM 9.2 mg/dL 08/31/2021 Unkn own Comp Metabolic Hyo929 ALK PHOS 85 U/L 08/31/2021 Unkn own Comp Metabolic Azl024 AST(SGOT) 16 U/L 08/31/2021 Unkn own Comp Metabolic Zvv972 ALT(SGPT) 19 U/L 08/31/2021 Unkn own Comp Metabolic Bbm516 BILI T 0.6 mg/dL 08/31/2021 Unkn own Comp Metabolic Kbj164 ALBUMIN 4.2 g/dL 08/31/2021 Unkn own Comp Metabolic Fwl186 TPRO 7.1 g/dL 08/31/2021 Unkn own Comp Metabolic Ysz218 GLOB 2.9 g/dL 08/31/2021 Unkn own Comp Metabolic Ggl027 A/G Ratio 1.5 Ratio 08/31/2021 Unkn own Comp Metabolic Ime668 Osmo 285 mOsmo 08/31/2021 Unkn own Tsh [...] C/HDL 4.5 Ratio 08/06/2020 Unknown Comp Metabolic Xoy006 NA 138 mEq/L 08/06/2020 Unkn own Comp Metabolic Owp125 K 4.5 mEq/L 08/06/2020 Unkn own Comp Metabolic Ezk710 CL 103 mEq/L 08/06/2020 Unkn own Comp Metabolic Asy964 CO2 28.0 mEq/L 08/06/2020 Unk nown Comp Metabolic Zmm787 ANION GAP 12 08/06/2020 Unkn own Comp Metabolic Kpq628 GLUCOSE 90 mg/dL 08/06/2020 Unkn own Comp Metabolic Eae752 Creat 0.7 mg/dL 08/06/2020 Unkn own Comp Metabolic Oqe586 eGFR 88 ml/min/1.73m2 08/06/20 20 Unknown Comp Metabolic Arx152 BUN 20 mg/dL 08/06/2020 Unkn own Comp Metabolic Nqt403 B/C Ratio 27.0 Ratio 08/06/2020 Unk nown Comp Metabolic Gzs827 CALCIUM 9.5 mg/dL 08/06/2020 Unkn own Comp Metabolic Ubs909 ALK PHOS 87 U/L 08/06/2020 Unkn own Comp Metabolic Cin776 AST(SGOT) 17 U/L 08/06/2020 Unkn own Comp Metabolic Osr649 ALT(SGPT) 20 U/L 08/06/2020 Unkn own Comp Metabolic Jed006 BILI T 0.6 mg/dL 08/06/2020 Unkn own Comp Metabolic Cwy452 ALBUMIN 4.5 g/dL 08/06/2020 Unkn own Comp Metabolic Ipa456 TPRO 7.6 g/dL 08/06/2020 Unkn own Comp Metabolic Eat144 GLOB 3.1 g/dL 08/06/2020 Unkn own Comp Metabolic Wgi504 A/G Ratio 1.5 Ratio 08/06/2020 Unkn own Comp Metabolic Drj724 Osmo 278 mOsmo 08/06/2020 Unkn own Cbc [...] pg 08/06/20 Unknown Cbc With Differential Ord2 [place]% 5.4 % 08/06/20 Unknown Cbc With Differential [...] K/ul 020 Unknown Cbc With Differential Ord2 [place] ABS# 0.6 K/ul 08/06/20 Unknown Cbc With Differential Ord2 Eos ABS# 0.2 K/ul 08/06/20 Unknown Cbc With Differential Ord2 Baso ABS# 0.0 K/ul 08/06/20 Unknown Tsh Ord6 TSH (3rd IS) 1.38 uIU/mL 12/17/2019 Unkn own Comp Metabolic Ccs504 NA 141 mEq/L 12/17/2019 Unkn own Comp Metabolic Duq620 K 4.3 mEq/L 12/17/2019 Unkn own Comp Metabolic Ggo790 CL 104 mEq/L 12/17/2019 Unkn own Comp Metabolic Srp524 CO2 29.0 mEq/L 12/17/2019 Unk nown Comp Metabolic Hoj553 ANION GAP 12 12/17/2019 Unkn own Comp Metabolic Szd802 GLUCOSE 83 mg/dL 12/17/2019 Unkn own Comp Metabolic Gcl765 Creat 0.7 mg/dL 12/17/2019 Unkn own Comp Metabolic Fca745 eGFR 102 ml/min/1.73m2 020 Unknown Comp Metabolic Brk153 BUN 16 mg/dL 12/17/2019 Unkn own Comp Metabolic Vzj628 B/C Ratio 24.6 Ratio 12/17/2019 Unk nown Comp Metabolic Mof260 CALCIUM 9.3 mg/dL 12/17/2019 Unkn own Comp Metabolic Ohc077 ALK PHOS 79 U/L 12/17/2019 Unkn own Comp Metabolic Jue855 AST(SGOT) 19 U/L 12/17/2019 Unkn own Comp Metabolic Hfm377 ALT(SGPT) 26 U/L 12/17/2019 Unkn own Comp Metabolic Erd127 BILI T 0.5 mg/dL 12/17/2019 Unkn own Comp Metabolic Amq819 ALBUMIN 4.2 g/dL 12/17/2019 Unkn own Comp Metabolic Ehk634 TPRO 7.0 g/dL 12/17/2019 Unkn own Comp Metabolic Uaz828 GLOB 2.8 g/dL 12/17/2019 Unkn own Comp Metabolic Hos880 A/G Ratio 1.5 Ratio 12/17/2019 Unkn own Comp Metabolic Aqh494 Osmo 282 mOsmo 12/17/2019 Unkn own Cbc [...] 12/17/19 20 Unknown Cbc With Differential Ord2 [place]% 6.2 % 12/17/19 20 Unknown Cbc With [...] K/ul 020 Unknown Cbc With Differential Ord2 [place] ABS# 0.6 K/ul 12/17/19 20 Unknown Cbc [...] 4.2 Ratio 12/17/2019 Unknown C A/B FLU [id number] Influenza A Scr Negative 09/23/2019 Unk nown C A/B FLU [id number] Influenza B Scr Negative 09/23/2019 Unk nown C A/B FLU [id number] Influenza Intrp B AG:PRID:[email or web address]:NOM:IF See Footnote 09/23/2019 Unknown Procedures Procedure Codes Date THER/PROPH/DIAG INJ SC/IM CPT-4: 45172 04/28/2021 THER/PROPH/DIAG INJ SC/IM CPT-4: 19558 03/03/2021 THER/PROPH/DIAG INJ SC/IM CPT-4: 22718 01/05/2021 THER/PROPH/DIAG INJ SC/IM CPT-4: 20685 10/28/2020 THER/PROPH/DIAG INJ SC/IM CPT-4: 86914 08/04/2020 THER/PROPH/DIAG INJ SC/IM CPT-4: 84261 05/26/2020 TRIAMCINOLONE ACET INJ NOS 10 mg CPT-4: J3301 020 THER/PROPH/DIAG INJ SC/IM CPT-4: 72517 03/19/2020 THER/PROPH/DIAG INJ SC/IM CPT-4: 34882 12/27/2019 THER/PROPH/DIAG INJ SC/IM CPT-4: 39415 10/24/2019 TRIAMCINOLONE ACET INJ NOS 10 mg CPT-4: J3301 019 THER/PROPH/DIAG INJ SC/IM CPT-4: 85890 08/19/2019 Vital Signs Date Vital 08/31/2021 Blood Pressure 1: 156/82 Code: 8480-6 Heart Rate 1: 81 bpm Height: 5'2" Code: 8302-2 Height: 5'2" Code: 8302-2 SpO2: 99% Temperature: 3 6.2 (C) / 97.1 (F) Weight: Code: 93352-0 08/09/2021 Blood Pressure 1: 142/68 Code: 8480-6 BMI: 30.7 Code: 79759-6 Heart Rate 1: 63 bpm Height: 5'2" Code: 8302-2 SpO2: 97% Temperature: 3 6.4 (C) / 97.6 (F) Weight: 168 lbs Code: 21158-4 06/01/2020 Blood Pressure 1: 130/80 Code: 8480-6 BMI: 28.5 Code: 30563-7 Heart Rate 1: 69 bpm Height: 5'2" Code: 8302-2 SpO2: 97% Temperature: 3 6.9 (C) / 98.4 (F) Weight: 156 lbs Code: 32868-5 05/26/2020 Blood Pressure 1: 128/78 Code: 8480-6 Heart Rate 1: 74 bpm Height: Code: 8302-2 SpO2: 98% Weight: Code: 32910-3 04/02/2020 Height: Code: 8302-2 Weight: Code: 294 63-7 12/16/2019 Blood Pressure 1: 132/80 Code: 8480-6 BMI: 28.9 Code: 34044-3 Heart Rate 1: 68 bpm Height: 5'2" Code: 8302-2 SpO2: 97% Weight: 158 lb s Code: 22876-9 09/27/2019 Blood Pressure 1: 110/60 Code: 8480-6 BMI: 28.5 Code: 98925-1 Heart Rate 1: 76 bpm Height: 5'2" Code: 8302-2 SpO2: 98% Temperature: 3 6.9 (C) / 98.5 (F) Weight: 156 lbs Code: 66063-8 09/23/2019 Blood Pressure 1: 124/80 Code: 8480-6 Heart Rate 1: 81 bpm SpO2: 98% Temperature: 36.7 (C) / 98.1 (F) 08/19/2019 Blood Pressure 1: 130/78 Code: 8480-6 BMI: 28.0 Code: 08929-6 Heart Rate 1: 68 bpm Height: 5'2" Code: 8302-2 SpO2: 98% Weight: 153 lb s Code: 85472-7 06/27/2019 Heart Rate 1: 68 bpm Height: Code: 8302-2 Weigh t: Code: 48023-1 06/24/2019 Blood Pressure 1: 132/74 Code: 8480-6 BMI: 27.4 Code: 32411-9 Heart Rate 1: 66 bpm Height: 5'2" Code: 8302-2 SpO2: 98% Weight: 150 lb s Code: 19140-0 05/30/2019 Blood Pressure 1: 104/60 Code: 8480-6 BMI: 27.5 Code: 81942-4 Heart Rate 1: 66 bpm Height: 5'2" Code: 8302-2 SpO2: 98% Weight: 150 lb s 5 oz Code: 67135-5 Functional Status No Functional Status data Reason For Visit Reason For Visit Effective Dates Notes cough 08/31/2021 sinus congestion 08/09/2021 headache 06/01/2020 headache 05/26/2020 well woman exam (40-65 years) 12/16/2019 cough 09/27/2019 fever 09/23/2019 menopausal symptoms 08/19/2019 lower leg pain 06/27/2019 lower leg pain 06/24/2019 anxiety 05/30/2019 Encounters Encounter Performer Location Codes Date EST. PATIENT, LEVEL IV Diagnosis: Acute bronchitis[ICD10: J20.9] Diagnosis: Laryngitis[ICD10: J04.0] Diagnosis: Other allergic rhinitis[ICD10: J30.89] Diagnosis: Slow transit constipation[ICD10: K59.01] Mariel Faith MD, [facility] CPT-4: 93993 08/31/2021 [id number] EST. PATIENT, LEVEL IV Diagnosis: Generalized anxiety disorder[ICD10: F41.9] Diagnosis: Cough[ICD10: R05.9] Diagnosis: Other allergic rhinitis[ICD10: J30.89] Diagnosis: Encounter for screening mammogram for malignant neoplasm of breast[ICD10: Z12.31] Mariel Faith MD, [facility] CPT-4: 08285 08/09/2021 [id number] EST. PATIENT, LEVEL III Diagnosis: Headache[ICD10: R51] Diagnosis: Other allergic rhinitis[ICD10: J30.89] Farzana Groves MD, [facility] CPT-4: 28541 06/01/2020 [id number] EST. PATIENT, LEVEL III Diagnosis: Other acute sinusitis[ICD10: J01.80] Diagnosis: Other allergic rhinitis[ICD10: J30.89] Diagnosis: Migraine without status migrainosus, not intractable, unspecified migraine type[ICD10: G43.909] Diagnosis: Menopausal and female climacteric states[ICD10: N95.1] Jaycee Faith MD, [facility] CPT-4: 56401 05/26/2020 ([id number]) 05158 EST. PATIENT, LEVEL III Diagnosis: Generalized anxiety disorder[ICD10: F41.1] Alena Faith MD, [facility] CPT-4: 57588 04/02/2020 ([id number]) PREV VISIT EST AGE 40-64 Diagnosis: Encounter for gynecological examination (general) (routine) without abnormal findings[ICD10: Z01.419] Farzana Faith MD, [facility] CPT -4: 68063 12/16/2019 ([id number]) 26529 EST. PATIENT, LEVEL III Diagnosis: Cough[ICD10: R05] Diagnosis: Acute bronchitis[ICD10: J20.9] Farzana pulido MD, [facility] CPT-4: 97502 09/27/2019 ([id number]) 42291 EST. PATIENT, LEVEL III Diagnosis: Fever[ICD10: R50.9] Diagnosis: Body aches[ICD10: R52] Farzana Faith MD, [facility] CPT -4: 51600 09/23/2019 ([id number]) 81501 EST. PATIENT, LEVEL III Diagnosis: Menopausal and female climacteric states[ICD10: N95.1] Farzana Faith MD, [facility] CPT-4: 39782 08/19/2019 [id number] EST. PATIENT, LEVEL III Diagnosis: Pain in left ankle and joints of left foot[ICD10: M25.572] Diagnosis: Pain in left knee[ICD10: M25.562] Jaycee gupta MD, [facility] CPT-4: 48082 06/27/2019 [id number] EST. PATIENT, LEVEL III Diagnosis: Pain in left ankle and joints of left foot[ICD10: M25.572] Diagnosis: Pain in left knee[ICD10: M25.562] [facility] CPT-4: 15849 06/24/2019 ([id number]) PREV VISIT NEW AGE 40-64 Diagnosis: Encounter for general adult medical examination without abnormal findings[ICD10: Z00.00] [facility] CPT-4: 64363 05/30/2019 Plan of Care Planned Activity Notes [...] and escitalopram. Fasting lab orders sent 08/31/2021 Patient Education: Patient Medication Summary Completed [...] orders sent 08/09/2021 Appointment: [phone] (30 min) Complex 08/09/2021 Patient Education: Patient Medication Summary Completed 08/09/2021 Patient Education: prednisone- [employer] Coupon [id number] Completed 08/09/2021 Appointment: Injection 04/28/2021 Patient Education: [...] contrast. 06/01/2020 Appointment: Farzana Cristina WPtel: [phone] [phone] (15 min) Moderate 06/01/2020 Patient Education: [...] or concerns. 05/26/2020 Appointment: Jaycee Lindo WPtel: [facility] (30 min) Complex 05/26/2020 Patient Education: Patient Medication Summary Completed 05/26/2020 Visit Plan: Anxiety - the patient has un controlled anxiety and will benefit from a short term dose of xanax for control of symptoms. 04/02/2020 Appointment: Alena Faith WPtel: [facility] TeleHealth 04/02/2020 Patient Education: Patient Medication Summary Completed 04/02/2020 Appointment: Injection 03/19/2020 Patient Education: Patient Medication Summary Completed 03/19/2020 Appointment: Injection 03/18/2020 Appointment: Injection 12/27/2019 Patient Education: Patient Medication Summary Completed 12/27/2019 Appointment: Alena Faith WPtel: [phone] [facility] [facility] 12/24/2019 Visit Plan: Well [...] or prn. 12/16/2019 Appointment: Farzana Cristina WPtel: [phone] [facility] 12/16/2019 Patient Education: Patient Medication Summary Completed 12/16/2019 Appointment: Alena Faith WPtel: [address] [place], [place] [phone] (15 min) Moderate 12/03/2019 Appointment: Injection 10/24/2019 Patient Education: Patient Medication Summary Completed 10/24/2019 Visit Plan: Bronchitis - acute case of b ronchitis identified. Pt has been given antibiotics, breathing treatments as appropriate, and pt has been instructed to call if symptoms are not improved, or if symptoms acutely worsen. 09/27/2019 Appointment: Farzana Cristina WPtel: [address] [place], [place] [phone] (15 min) Moderate 09/27/2019 Patient Education: Patient Medication Summary Completed 09/27/2019 Visit Plan: URI -viral -flu swab to r/o flu - Pt advised to increase fluids, vitamin C. Discussed natural and expected course of this diagnosis and need to alert me if symptoms do not follow expected course, or if any worse. 09/23/2019 Appointment: Farzana Cristina WPtel: [phone] (30 min) Complex 09/23/2019 Patient Education: Patient Medication Summary Completed 09/23/2019 Visit Plan: Post-surgical menopause - co ntinue to taper depo dose and eventually off medication completely -injection today in the office. 08/19/2019 Appointment: Farzana Cristina WPtel: [phone] (15 min) Moderate 08/19/2019 Patient Education: Patient Medication Summary Completed 08/19/2019 Appointment: Farzana Cristina WPtel: [address] [place], [place] [phone] [place] (30 min) Complex 08/16/2019 Visit Plan: Left knee, ankle, foot pain - will send RX - will refer to ortho - The pt is to use prn antiinflammatories to manage acute pain. The patient is to call the office if the pain is worsening or does not improve. 06/27/2019 Appointment: Jaycee Lindo WPtel: [phone] [facility] [place] (30 min) Complex 06/27/2019 Patient Education: Patient Medication Summary Completed 06/27/2019 Care Plan: Referral Order SNOMED-CT : 30 [id number] Pending 06/27/2019 Visit Plan: Left knee, ankle, foot pain - will send RX - if no improvement will refer to ortho - The pt is to use prn antiinflammatories to manage acute pain. The patient is to call the office if the pain is worsening or does not improve. 06/24/2019 Appointment: Jayce[facility] [phone] [id number] [place] (30 min) Complex 06/24/2019 Patient Education: [...] look for her medications from [facility] to find out what her depo dose [...] MEDICINE . Allergies exacerbation with cough - vania - recommended pt to use allergy [...] look for her medications from [facility] to find out what her depo dose [...]
--- OUTSIDE RECORDS SUMMARY | 2021-10-12 12:01 | XMS REPORT | CCD ---
Author Author Kaleigh Faith Organization Alena Faith MD, [facility] Address [address] [place] [address] Phone Care Team Providers Care Real Estate Photographer Name Role Phone Alena Faith PP Unavailable CCM Unavailable Summary Purpose Interface Exchange Insurance Providers Payer name Policy type / Coverage type Covered alliance party ID Effective Begin Date Effective End Date [facility] Commercial Insurance [id number] Unknown Unknown Family history Mother Diagnosis Age At Onset Diabetes mellitus Type 2 Unknown Alcoholism Unknown Depression Unknown Father Diagnosis Age At Onset Diabetes mellitus Type 2 Unknown Social History Social History Element Codes Description Effective Dates Marital status Unknown Garry 05/30/2019 Number of children Unknown 2 05/30/2019 Employment Unknown 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[employer] 05/30/[address]: 49054949 Current some days smoker Alcohol history SNOMED CT: 904135534 Never drinks alcohol 2018 Allergies, Adverse Reactions, Alerts Substance Reaction Codes Entered Date Inactivated Date Status Penicillin Unknown 05/30/2019 No Inactive Date Active Problems Condition Codes Effective Dates Condition Status Cough ICD-10: R05.9 ICD-9: 786.2 08/09/2021 Active [...] findings ICD-10: Z01.419 ICD-9: V72.31 12/16/2019 Active Acute bronchitis ICD-10: J20.9 ICD-9: 466.0 09/27/2019 Active Cough ICD-10: R05 ICD-9: 786.2 09/27/2019 [...] 6.25 mg-codeine 10 mg/5 mL syrup RxNorm: 577916 Take 5 Milliliter(s) Oral every 4-6 hours as needed cough 08/09/2021 1 Inactive prednisone 20 mg tablet RxNorm: 900870 Take 2 Tablet(s) Oral ev alex day 08/09/2021 08/13/2021 Inactive promethazine 6.25 mg-codeine 10 mg/5 mL syrup RxNorm: 057264 Take 5 Milliliter(s) Oral every 4-6 hours as needed cough 08/09/2021 1 Inactive Kenalog 40 mg/mL suspension for injection RxNorm: 3192847 Take 1 Milliliter(s) Injection 08/09/2021 08/09/2021 Inactive alprazolam 0.5 mg tablet RxNorm: 666072 Take 1 Tablet(s ) Oral two times a day as needed FOR ANXIETY 07/30/2021 08/28/2021 Active alprazolam 0.5 mg tablet RxNorm: 425578 1 Tablet(s) Ora l two times a day as needed anxiety 06/03/2021 06/03/2021 Inactive Depo-Estradiol 5 mg/mL intramuscular oil RxNorm: 841564 0.75 Milliliter(s) Intramuscular 04/28/2021 04/28/2021 Inactive alprazolam 0.5 mg tablet RxNorm: 144842 1 Tablet(s) Ora l two times a day as needed anxiety 04/05/2021 04/05/2021 Inactive Depo-Estradiol 5 mg/mL intramuscular oil RxNorm: 473997 0.75 Milliliter(s) Intramuscular 03/03/2021 03/03/2021 Inactive alprazolam 0.5 mg tablet RxNorm: 907309 1 Tablet(s) Ora l two times a day as needed anxiety 03/01/2021 03/01/2021 Inactive alprazolam 0.5 mg tablet RxNorm: 198890 1 Tablet(s) Ora l two times a day as needed anxiety 01/28/2021 02/26/2021 Inactive Depo-Provera 150 mg/mL intramuscular suspension RxNorm: 1000 128 Milliliter(s) Intramuscular 01/05/2021 01/05/2021 Inactive escitalopram 10 mg tablet RxNorm: 175653 TAKE ONE TABLE T BY MOUTH EVERY NIGHT AT BEDTIME Tablet(s) Oral 12/30/2020 01/01/2021 Inactive alprazolam 0.5 mg tablet RxNorm: 734476 1 Tablet(s) Ora l two times a day as needed anxiety 12/30/2020 01/27/2021 Inactive escitalopram 5 mg tablet RxNorm: 429616 TAKE ONE TABLET BY MOUTH EVERY NIGHT AT BEDTIME 11/30/2020 12/29/2020 Inactive alprazolam 0.5 mg tablet RxNorm: 030118 1 Tablet(s) Ora l two times a day as needed anxiety 11/30/2020 12/29/2020 Inactive atorvastatin 20 mg tablet RxNorm: 651277 TAKE ONE TABLET BY RADHA TH DAILY 11/26/2020 No Stop Date Active Depo-Estradiol 5 mg/mL intramuscular oil RxNorm: 381493 3/4 Milliliter(s) Intramuscular monthly 10/28/2020 12/27/2020 Inactive Depo-Provera 150 mg/mL intramuscular suspension RxNorm: 1000 128 Milliliter(s) Intramuscular 10/28/2020 10/28/2020 Inactive alprazolam 0.5 mg tablet RxNorm: 547862 1 Tablet(s) Ora l two times a day as needed anxiety 10/01/2020 10/29/2020 Inactive acyclovir 400 mg tablet RxNorm: 687156 TAKE ONE TABLET BY MOUTH FOUR TIMES A DAY 08/31/2020 09/01/2020 Inactive alprazolam 0.5 mg tablet RxNorm: 243374 1 Tablet(s) Ora l two times a day as needed anxiety 08/31/2020 09/29/2020 Inactive atorvastatin 20 mg tablet RxNorm: 591290 1 Tablet(s) Oral every day 08/18/2020 08/17/2020 Inactive atorvastatin 20 mg tablet RxNorm: 687839 1 Tablet(s) Oral every day 08/18/2020 11/25/2020 Inactive alprazolam 0.5 mg tablet RxNorm: 708549 1 Tablet(s) Ora l two times a day as needed anxiety 08/07/2020 08/30/2020 Inactive Depo-Provera 150 mg/mL intramuscular suspension RxNorm: 1000 128 Milliliter(s) Intramuscular 08/04/2020 08/04/2020 Inactive acyclovir 400 mg tablet RxNorm: 618214 TAKE ONE TABLET BY MOUTH FOUR TIMES A DAY 07/21/2020 08/30/2020 Inactive alprazolam 0.5 mg tablet RxNorm: 303893 1 Tablet(s) Ora l two times a day as needed anxiety 07/07/2020 08/05/2020 Inactive alprazolam 0.5 mg tablet RxNorm: 200805 1 Tablet(s) Ora l two times a day as needed anxiety 06/18/2020 07/05/2020 Inactive escitalopram 5 mg tablet RxNorm: 014151 1 Tablet(s) Oral every night at bedtime 06/08/2020 10/06/2020 Inactive prednisone 20 mg tablet RxNorm: 468468 2 Tablet(s) Oral every day 0 06/01/2020 06/06/2020 Inactive Depo-Provera 150 mg/mL intramuscular suspension RxNorm: 1000 128 0.75 Milliliter(s) Intramuscular 05/28/2020 05/28/2020 Inactive Kenalog 40 mg/mL suspension for injection RxNorm: 1136358 1 Milliliter(s) Injection 05/28/2020 05/28/2020 Inactive Zithromax Z-Kraig 250 mg tablet RxNorm: 291945 Tablet(s) Oral as directed 05/26/2020 04/04/2021 Inactive alprazolam 0.5 mg tablet RxNorm: 971120 1 Tablet(s) Ora l two times a day as needed anxiety 05/11/2020 06/09/2020 Inactive alprazolam 0.5 mg tablet RxNorm: 111865 1 Tablet(s) Ora l two times a day as needed anxiety 04/02/2020 05/10/2020 Inactive Depo-Provera 150 mg/mL intramuscular suspension RxNorm: 1000 128 Milliliter(s) Intramuscular 03/19/2020 03/19/2020 Inactive acyclovir 400 mg tablet RxNorm: 365424 1 Tablet(s) Oral four times a day fever blisters 01/02/2020 02/01/2020 Inactive Depo-Provera 150 mg/mL intramuscular suspension RxNorm: 1000 128 Milliliter(s) Intramuscular 12/27/2019 12/27/2019 Inactive pravastatin 10 mg tablet RxNorm: 446964 1 Tablet(s) Oral every night at bedtime 12/19/2019 12/18/2019 Inactive pravastatin 10 mg tablet RxNorm: 677783 1 Tablet(s) Oral every night at bedtime 12/19/2019 04/17/2020 Inactive Depo-Estradiol 5 mg/mL intramuscular oil RxNorm: 669072 3/4 Milliliter(s) Intramuscular monthly 10/24/2019 10/24/2019 Inactive Kenalog 40 mg/mL suspension for injection RxNorm: 9534392 Milliliter(s) Injection 09/27/2019 09/27/2019 Inactive Phenergan with Codeine Syrup RxNorm: 5-10 Millil iter(s) Oral Every 6 hrs as needed 09/27/2019 05/31/2020 Inactive prednisone 20 mg tablet RxNorm: 813618 2 Tablet(s) Oral every day 1 11/28/2018 10/02/2019 Inactive start tomorrow doxycycline hyclate 100 mg tablet RxNorm: 3304832 1 Tabl et(s) Oral two times a day 09/27/2019 10/04/2019 Inactive start if symptom s do not improve Depo-Estradiol 5 mg/mL intramuscular oil RxNorm: 273064 3/4 Milliliter(s) Intramuscular monthly 08/20/2019 08/20/2019 Inactive Depo-Estradiol 5 mg/mL intramuscular oil RxNorm: 719451 3/4 Milliliter(s) Intramuscular monthly 08/15/2019 09/14/2019 Inactive gabapentin 100 mg capsule RxNorm: 337060 1 Capsule(s) O ral every night at bedtime 07/31/2019 09/22/2019 Inactive gabapentin 100 mg capsule RxNorm: 452357 1 Capsule(s) PO QHS 201807/26/2019 Inactive naproxen 500 mg tablet RxNorm: 104161 1 Tablet(s) PO BID 06/24/2019 0 06/28/2019 Inactive escitalopram 5 mg tablet RxNorm: 050134 1 Tablet(s) PO QHS 05/30/20 19 09/22/2019 Inactive ranitidine 150 mg capsule RxNorm: 944028 1 Capsule(s) PO BID 201809/22/2019 Inactive eszopiclone 1 mg tablet RxNorm: 788197 Tablet(s) PO as needed 06/0105/31/2020 Inactive acyclovir 400 mg tablet RxNorm: 539480 1 Tablet(s) PO PRN fever blisters 01/02/2020 01/01/2020 Inactive clonidine HCl 0.1 mg tablet RxNorm: 362267 Tablet(s) PO as needed 0 05/30/2019 05/29/2019 Inactive Medication Administered Medication Codes Instructions Start Date Status Kenalog 40 mg/mL suspension for injection RxNorm: 3534864 1Milli liter 08/09/2021 No longer Active Depo-Estradiol 5 mg/mL intramuscular oil RxNorm: 478995 0.75Mil liliter 04/28/2021 No longer Active Depo-Estradiol 5 mg/mL intramuscular oil RxNorm: 907366 0.75Mil liliter 03/03/2021 No longer Active Depo-Provera 150 mg/mL intramuscular suspension RxNorm: 3203429 Milliliter 01/05/2021 No longer Active Depo-Provera 150 mg/mL intramuscular suspension RxNorm: 4682199 Milliliter 10/28/2020 No longer Active Depo-Provera 150 mg/mL intramuscular suspension RxNorm: 8245323 Milliliter 08/04/2020 No longer Active Depo-Provera 150 mg/mL intramuscular suspension RxNorm: 0814064 0.75Milliliter 05/28/2020 No longer Active Kenalog 40 mg/mL suspension for injection RxNorm: 5367122 1Milli liter 05/28/2020 No longer Active Depo-Provera 150 mg/mL intramuscular suspension RxNorm: 1031485 Milliliter 03/19/2020 No longer Active Depo-Provera 150 mg/mL intramuscular suspension RxNorm: 2681584 Milliliter 12/27/2019 No longer Active Depo-Estradiol 5 mg/mL intramuscular oil RxNorm: 306775 3/4Mill ilitermonthly 10/24/2019 Active Kenalog 40 mg/mL suspension for injection RxNorm: 7349118 Millilite r 09/27/2019 No longer Active Depo-Estradiol 5 mg/mL intramuscular oil RxNorm: 822005 3/4Mill ilitermonthly 08/20/2019 Active Immunizations No Immunization data Results Observation Observation Code Item Item Code Result Date S [facility] Location Lipid Ord30 CHOL 249 mg/dL 08/06/2020 Unknown Lipid Ord30 HDL 55.0 mg/dl 08/06/2020 Unknown Lipid Ord30 TRIG 82 mg/dL 08/06/2020 Unknown Lipid Ord30 LDL 178 mg/dL 08/06/2020 Unknown Lipid Ord30 C/HDL 4.5 Ratio 08/06/2020 Unknown Comp Metabolic Txr200 NA 138 mEq/L 08/06/2020 Unkn own Comp Metabolic Wmo331 K 4.5 mEq/L 08/06/2020 Unkn own Comp Metabolic Kye894 CL 103 mEq/L 08/06/2020 Unkn own Comp Metabolic Tbm667 CO2 28.0 mEq/L 08/06/2020 Unk nown Comp Metabolic Lka622 ANION GAP 12 08/06/2020 Unkn own Comp Metabolic Ygs333 GLUCOSE 90 mg/dL 08/06/2020 Unkn own Comp Metabolic Djr164 Creat 0.7 mg/dL 08/06/2020 Unkn own Comp Metabolic Zno490 eGFR 88 ml/min/1.73m2 08/06/20 20 Unknown Comp Metabolic Jyi889 BUN 20 mg/dL 08/06/2020 Unkn own Comp Metabolic Ryv118 B/C Ratio 27.0 Ratio 08/06/2020 Unk nown Comp Metabolic Ngr169 CALCIUM 9.5 mg/dL 08/06/2020 Unkn own Comp Metabolic Akz174 ALK PHOS 87 U/L 08/06/2020 Unkn own Comp Metabolic Evg363 AST(SGOT) 17 U/L 08/06/2020 Unkn own Comp Metabolic Mnh003 ALT(SGPT) 20 U/L 08/06/2020 Unkn own Comp Metabolic Ojb684 BILI T 0.6 mg/dL 08/06/2020 Unkn own Comp Metabolic Tcx980 ALBUMIN 4.5 g/dL 08/06/2020 Unkn own Comp Metabolic Dfq280 TPRO 7.6 g/dL 08/06/2020 Unkn own Comp Metabolic Zsf457 GLOB 3.1 g/dL 08/06/2020 Unkn own Comp Metabolic Bvb187 A/G Ratio 1.5 Ratio 08/06/2020 Unkn own Comp Metabolic Xim342 Osmo 278 mOsmo 08/06/2020 Unkn own Cbc [...] pg 08/06/20 Unknown Cbc With Differential Ord2 Clare% 5.4 % 08/06/20 Unknown Cbc With Differential Ord2 Eos% 2.2 % 08/06/20 Unknown Cbc With Differential Ord2 MCHC 32.7 pg 08/06/20 Unknown Cbc With Differential Ord2 PLT 258 K/ul 08/06/20 Unknown Cbc With Differential Ord2 Baso% 0.3 % 08/06/20 Unknown Cbc With Differential Ord2 Neut ABS# 7.81 K/ul 10/22/20 20 Unknown Cbc With Differential Ord2 RDW 13.4 % 08/06/20 Unknown Cbc With Differential Ord2 Lymph ABS# 1.92 K/ul 020 Unknown Cbc With Differential Ord2 Clare ABS# 0.6 K/ul 08/06/20 20 Unknown Cbc With Differential Ord2 Eos ABS# 0.2 K/ul 08/06/20 20 Unknown Cbc With Differential Ord2 Baso ABS# 0.0 K/ul 08/06/20 20 Unknown Tsh Ord6 TSH (3rd IS) 1.38 uIU/mL 12/17/2019 Unkn own Comp Metabolic Ays627 NA 141 mEq/L 12/17/2019 Unkn own Comp Metabolic Zuu043 K 4.3 mEq/L 12/17/2019 Unkn own Comp Metabolic Yav223 CL 104 mEq/L 12/17/2019 Unkn own Comp Metabolic Bzy405 CO2 29.0 mEq/L 12/17/2019 Unk nown Comp Metabolic Wqo987 ANION GAP 12 12/17/2019 Unkn own Comp Metabolic Bnq536 GLUCOSE 83 mg/dL 12/17/2019 Unkn own Comp Metabolic Bgc065 Creat 0.7 mg/dL 12/17/2019 Unkn own Comp Metabolic Aed930 eGFR 102 ml/min/1.73m2 020 Unknown Comp Metabolic Szb434 BUN 16 mg/dL 12/17/2019 Unkn own Comp Metabolic Pfk075 B/C Ratio 24.6 Ratio 12/17/2019 Unk nown Comp Metabolic Mie216 CALCIUM 9.3 mg/dL 12/17/2019 Unkn own Comp Metabolic Bjn317 ALK PHOS 79 U/L 12/17/2019 Unkn own Comp Metabolic Qla608 AST(SGOT) 19 U/L 12/17/2019 Unkn own Comp Metabolic Qhz551 ALT(SGPT) 26 U/L 12/17/2019 Unkn own Comp Metabolic Mch976 BILI T 0.5 mg/dL 12/17/2019 Unkn own Comp Metabolic Vvx458 ALBUMIN 4.2 g/dL 12/17/2019 Unkn own Comp Metabolic Mjz762 TPRO 7.0 g/dL 12/17/2019 Unkn own Comp Metabolic Myp559 GLOB 2.8 g/dL 12/17/2019 Unkn own Comp Metabolic Xfp224 A/G Ratio 1.5 Ratio 12/17/2019 Unkn own Comp Metabolic Yjc916 Osmo 282 mOsmo 12/17/2019 Unkn own Cbc [...] 12/17/19 20 Unknown Cbc With Differential Ord2 Clare% 6.2 % 12/17/19 20 Unknown Cbc With [...] K/ul 020 Unknown Cbc With Differential Ord2 Clare ABS# 0.6 K/ul 12/17/19 20 Unknown Cbc [...] 4.2 Ratio 12/17/2019 Unknown C A/B FLU [id number] Influenza A Scr Negative 09/23/2019 Unk nown C A/B FLU [id number] Influenza B Scr Negative 09/23/2019 Unk nown C A/B FLU [id number] Influenza Intrp B AG:PRID:PT:NOSE:NOM:IF See Footnote 09/23/2019 Unknown Procedures Procedure Codes Date THER/PROPH/DIAG INJ SC/IM CPT-4: 75669 04/28/2021 THER/PROPH/DIAG INJ SC/IM CPT-4: 29854 03/03/2021 THER/PROPH/DIAG INJ SC/IM CPT-4: 26203 01/05/2021 THER/PROPH/DIAG INJ SC/IM CPT-4: 43390 10/28/2020 THER/PROPH/DIAG INJ SC/IM CPT-4: 75475 08/04/2020 THER/PROPH/DIAG INJ SC/IM CPT-4: 33622 05/26/2020 TRIAMCINOLONE ACET INJ NOS 10 mg CPT-4: J3301 020 THER/PROPH/DIAG INJ SC/IM CPT-4: 08043 03/19/2020 THER/PROPH/DIAG INJ SC/IM CPT-4: 52262 12/27/2019 THER/PROPH/DIAG INJ SC/IM CPT-4: 81707 10/24/2019 TRIAMCINOLONE ACET INJ NOS 10 mg CPT-4: J3301 019 THER/PROPH/DIAG INJ SC/IM CPT-4: 22646 08/19/2019 Vital Signs Date Vital 08/09/2021 Blood Pressure 1: 142/68 Code: 8480-6 BMI: 30.7 Code: 21186-5 Heart Rate 1: 63 bpm Height: 5'2" Code: 8302-2 SpO2: 97% Temperature: 3 6.4 (C) / 97.6 (F) Weight: 168 lbs Code: 76165-6 06/01/2020 Blood Pressure 1: 130/80 Code: 8480-6 BMI: 28.5 Code: 97719-1 Heart Rate 1: 69 bpm Height: 5'2" Code: 8302-2 SpO2: 97% Temperature: 3 6.9 (C) / 98.4 (F) Weight: 156 lbs Code: 02173-7 05/26/2020 Blood Pressure 1: 128/78 Code: 8480-6 Heart Rate 1: 74 bpm Height: Code: 8302-2 SpO2: 98% Weight: Code: 91025-9 04/02/2020 Height: Code: 8302-2 Weight: Code: 294 63-7 12/16/2019 Blood Pressure 1: 132/80 Code: 8480-6 BMI: 28.9 Code: 35600-8 Heart Rate 1: 68 bpm Height: 5'2" Code: 8302-2 SpO2: 97% Weight: 158 lb s Code: 49229-5 09/27/2019 Blood Pressure 1: 110/60 Code: 8480-6 BMI: 28.5 Code: 69801-4 Heart Rate 1: 76 bpm Height: 5'2" Code: 8302-2 SpO2: 98% Temperature: 3 6.9 (C) / 98.5 (F) Weight: 156 lbs Code: 37007-8 09/23/2019 Blood Pressure 1: 124/80 Code: 8480-6 Heart Rate 1: 81 bpm SpO2: 98% Temperature: 36.7 (C) / 98.1 (F) 08/19/2019 Blood Pressure 1: 130/78 Code: 8480-6 BMI: 28.0 Code: 97292-4 Heart Rate 1: 68 bpm Height: 5'2" Code: 8302-2 SpO2: 98% Weight: 153 lb s Code: 92547-7 06/27/2019 Heart Rate 1: 68 bpm Height: Code: 8302-2 Weigh t: Code: 06088-1 06/24/2019 Blood Pressure 1: 132/74 Code: 8480-6 BMI: 27.4 Code: 68404-3 Heart Rate 1: 66 bpm Height: 5'2" Code: 8302-2 SpO2: 98% Weight: 150 lb s Code: 69176-3 05/30/2019 Blood Pressure 1: 104/60 Code: 8480-6 BMI: 27.5 Code: 31847-7 Heart Rate 1: 66 bpm Height: 5'2" Code: 8302-2 SpO2: 98% Weight: 150 lb s 5 oz Code: 22984-1 Functional Status No Functional Status data Reason For Visit Reason For Visit Effective Dates Notes sinus congestion 08/09/2021 headache 06/01/2020 headache 05/26/2020 well woman exam (40-65 years) 12/16/2019 cough 09/27/2019 fever 09/23/2019 menopausal symptoms 08/19/2019 lower leg pain 06/27/2019 lower leg pain 06/24/2019 anxiety 05/30/2019 Encounters Encounter Performer Location Codes Date () 35136 EST. PATIENT, LEVEL IV Diagnosis: Generalized anxiety disorder[ICD10: F41.9] Diagnosis: Cough[ICD10: R05.9] Diagnosis: Other allergic rhinitis[ICD10: J30.89] Diagnosis: Encounter for screening mammogram for malignant neoplasm of breast[ICD10: Z12.31] Mariel Faith MD, [facility] CPT-4: 40122 08/09/2021 ([id number]) 65310 EST. PATIENT, LEVEL III Diagnosis: Headache[ICD10: R51] Diagnosis: Other allergic rhinitis[ICD10: J30.89] Farzana Groves MD, [facility] CPT-4: 61673 06/01/2020 [id number] EST. PATIENT, LEVEL III Diagnosis: Other acute sinusitis[ICD10: J01.80] Diagnosis: Other allergic rhinitis[ICD10: J30.89] Diagnosis: Migraine without status migrainosus, not intractable, unspecified migraine type[ICD10: G43.909] Diagnosis: Menopausal and female climacteric states[ICD10: N95.1] Jaycee Faith MD, [facility] CPT-4: 53535 05/26/2020 ([id number]) 28319 EST. PATIENT, LEVEL III Diagnosis: Generalized anxiety disorder[ICD10: F41.1] Alena Faith MD, [facility] CPT-4: 98079 04/02/2020 ([id number]) PREV VISIT EST AGE 40-64 Diagnosis: Encounter for gynecological examination (general) (routine) without abnormal findings[ICD10: Z01.419] Farzana Faith MD, [facility] CPT -4: 72998 12/16/2019 ([id number]) 24555 EST. PATIENT, LEVEL III Diagnosis: Cough[ICD10: R05] Diagnosis: Acute bronchitis[ICD10: J20.9] Farzana pulido MD, [facility] CPT-4: 72640 09/27/2019 ([id number]) 75445 EST. PATIENT, LEVEL III Diagnosis: Fever[ICD10: R50.9] Diagnosis: Body aches[ICD10: R52] Farzana Faith MD, [facility] CPT -4: 64727 09/23/2019 ([id number]) 57666 EST. PATIENT, LEVEL III Diagnosis: Menopausal and female climacteric states[ICD10: N95.1] [facility] CPT-4: 01323 08/19/2019 08868 EST. PATIENT, LEVEL III Diagnosis: Pain in left ankle and joints of left foot[ICD10: M25.572] Diagnosis: Pain in left knee[ICD10: M25.562] Jaycee gupta MD, [facility] CPT-4: 52547 06/27/2019 22950 EST. PATIENT, LEVEL III Diagnosis: Pain in left ankle and joints of left foot[ICD10: M25.572] Diagnosis: Pain in left knee[ICD10: M25.562] Jaycee gupta MD, [facility] CPT-4: 25224 06/24/2019 ([id number]) PREV VISIT NEW AGE 40-64 Diagnosis: Encounter for general adult medical examination without abnormal findings[ICD10: Z00.00] Alena Faith MD, [facility] CPT-4: 68344 05/30/2019 Plan of Care Planned Activity Notes Codes Status Date Visit Plan: Allergies exacerbation with cough - [...] orders sent 08/09/2021 Appointment: Mariel Gil WPtel: [address] [place], [place] [address] (30 min) Complex 08/09/2021 Patient Education: Patient Medication Summary Completed 08/09/2021 Patient Education: prednisone- [employer] Coupon [id number] Completed 08/09/2021 Care Plan: Lipid Pending 08/09/2021 [...] without contrast. 06/01/2020 Appointment: Farzana Cristina WPtel: [address] [place], [place] [phone] (15 min) Moderate 06/01/2020 Patient Education: Patient [...] concerns. 05/26/2020 Appointment: Jaycee Lindo WPtel: [phone] [facility] (30 min) Complex 05/26/2020 Patient Education: Patient Medication Summary Completed 05/26/2020 Visit Plan: Anxiety - the patient has un controlled anxiety and will benefit from a short term dose of xanax for control of symptoms. 04/02/2020 Appointment: Alena Faith WPtel: [facility] TeleHealth 04/02/2020 Patient Education: Patient Medication Summary Completed 04/02/2020 Appointment: Injection 03/19/2020 Patient Education: Patient Medication Summary Completed 03/19/2020 Appointment: Injection 03/18/2020 Appointment: Injection 12/27/2019 Patient Education: Patient Medication Summary Completed 12/27/2019 Appointment: Alena Faith WPtel: [facility] Well Woman 12/24/2019 Visit Plan: Well Adult Female - exam com pleted. Pap and breast exam completed. Pt will be called with results of her testing. She was advised to continue with yearly annual exams. Safe sex practices discussed during office visit today. Call if any abnormal gynecologic issues during the next year, otherwise, RTC yearly or prn. 12/16/2019 Appointment: Farzana Cristina WPtel: [phone] Well Woman 12/16/2019 Patient Education: Patient Medication Summary Completed 12/16/2019 Appointment: Alena Faith WPtel: [facility]9 [facility] (15 min) Moderate 12/03/2019 Appointment: Injection 10/24/2019 Patient Education: Patient Medication Summary Completed 10/24/2019 Visit Plan: Bronchitis - acute case of b ronchitis identified. Pt has been given antibiotics, breathing treatments as appropriate, and pt has been instructed to call if symptoms are not improved, or if symptoms acutely worsen. 09/27/2019 Appointment: Farzana Cristina WPtel: [phone] (15 min) Moderate 09/27/2019 Patient Education: Patient Medication Summary Completed 09/27/2019 Visit Plan: URI -viral -flu swab to r/o flu - Pt advised to increase fluids, vitamin C. Discussed natural and expected course of this diagnosis and need to alert me if symptoms do not follow expected course, or if any worse. 09/23/2019 Appointment: Farzana Cristina WPtel: [phone] (30 min) Complex 09/23/2019 Patient Education: Patient Medication Summary Completed 09/23/2019 Visit Plan: Post-surgical menopause - co ntinue to taper depo dose and eventually off medication completely -injection today in the office. 08/19/2019 Appointment: Farzana Cristina WPtel: [phone] (15 min) Moderate 08/19/2019 Patient Education: Patient Medication Summary Completed 08/19/2019 Appointment: Farzana Cristina WPtel: [phone] (30 min) Complex 08/16/2019 Visit Plan: Left knee, ankle, foot pain - will send RX - will refer to ortho - The pt is to use prn antiinflammatories to manage acute pain. The patient is to call the office if the pain is worsening or does not improve. 06/27/2019 Appointment: [facility]ce[facility] Lindo [facility]Ptel[facility] ([facility] 06/27/2019 Patient Education: Patient Medication Summary Completed 06/27/2019 Care Plan: Referral Order SNOMED-CT : 30 [id number] Pending 06/27/2019 Visit Plan: Left knee, ankle, foot pain - will send RX - if no improvement will refer to ortho - The pt is to use prn antiinflammatories to manage acute pain. The patient is to call the office if the pain is worsening or does not improve. 06/24/2019 Appointment: Jaycee Lindo WPtel[facility] ([facility] min) Complex 06/24/2019 Patient Education: Patient [...] we will look for her medications from [facility] to find out what her depo [...] office. tomorrow at 10:15 with the nurse sheron [...] we will look for her medications from [facility] to find out what her depo [...]
--- NOTE | 2021-10-12 12:39 | Progress Note-Pre Operative ---
Pre-Operative Progress Note H&P Reviewed The H&P was reviewed, patient examined and no changes noted. Date Seen by Provider: Oct 12, 2021 Time Seen by Provider: 12:38 Date H&P Reviewed: Oct 12, 2021 Time H&P Reviewed: 12:38 Pre-Operative Diagnosis: dysphagia SOHEILA CAIN DO Oct 12, 2021 12:38
[2021-10-12 12:41] VITALS: BP 140/72
--- NOTE | 2021-10-12 13:30 | Discharge Inst-Simple/Standard ---
Discharge Inst-Standard Discharge Medications New, Converted or Re-Newed RX: RX on Chart Patient Instructions/Follow Up Plan of Care/Instructions/FU: 2 weeks Caitlin Activity as Tolerated: Yes Discharge Diet: Regular Diet SOHEILA CAIN DO Oct 12, 2021 13:30
--- NOTE | 2021-10-12 13:32 | Progress Note-Post Operative ---
Post-Operative Progess Note Surgeon (s)/Channel Opener Outsoles (s) Surgeon SOHEILA CAIN DO Channel Opener Outsoles: na Pre-Operative Diagnosis dysphagia Post-Operative Diagnosis slight reflux esophagitis Procedure & Operative Findings Date of Procedure 10/12/21 Procedure Performed/Findings egd c biopsies Anesthesia Type per maxillofacial surgeon Estimated Blood Loss Estimated blood loss (mL): none Specimens/Packing Specimens Removed antrum, ge SOHEILA CAIN DO Oct 12, 2021 13:32
--- NOTE | 2021-10-12 13:36 | Anesthesia-General Post-Op ---
MAC Patient Condition Mental Status/LOC: Same as Preop Cardiovascular: Satisfactory Nausea/Vomiting: Absent Respiratory: Satisfactory Pain: Controlled Complications: Absent Post Op Complications Complications None Follow Up Care/Instructions Patient Instructions None needed. Anesthesiology Discharge Order Discharge Order Patient is doing well, no complaints, stable vital signs, no apparent adverse anesthesia problems. No complications reported per nursing. FRANCIS SINHA CRNA Oct 12, 2021 13:36
[2021-10-12 14:00] VITALS: BP 127/62
[2021-10-12 14:03] VITALS: BP 140/72
--- NOTE | 2021-10-12 20:13 | OPERATIVE REPORT ---
DATE OF SERVICE: 10/12/2021 PREOPERATIVE DIAGNOSIS: Dysphagia. POSTOPERATIVE DIAGNOSES: Reflux esophagitis. PROCEDURES PERFORMED: EGD with biopsies. SURGEON: Soheila Tucker DO. ANESTHESIA: Per SHIP FASTENER. ESTIMATED BLOOD LOSS: None. COMPLICATIONS: None. INDICATIONS FOR PROCEDURE: The patient is a 51-year-old female having dysphagia symptoms. She was recommended to have EGD for further evaluation. She understands the risks and benefits and wishes to proceed. Consent was signed in the chart. DESCRIPTION OF PROCEDURE: The patient was taken to the endoscopy suite and placed in a left lateral recumbent position. A timeout was performed. Scope was inserted in the mouth, down the esophagus, stomach and into the duodenum without difficulty. There were no polyps, masses or ulcerations in the duodenum. Scope was slowly retracted back into the stomach, where it was further insufflated. No polyps, masses or ulcerations in the stomach. Biopsy of the antrum was obtained. Scope was retroflexed noting no other pathology. Scope was returned to its normal position, slowly withdrawn to the distal esophagus, slight changes of reflux esophagitis were present. Biopsy of the GE junction was obtained. Scope was then slowly retracted back until completely removed, noting no other pathology. The patient tolerated the procedure well without any complications. She was taken to the recovery room in stable condition. RECOMMENDATIONS: The patient will stop omeprazole and will be placed on Protonix 40 mg daily. We will see how her symptoms are doing at that time. She will follow up in two weeks. Further recommendations pending biopsy results. Job ID: [id number] DocumentID: [id number] Dictated Date: 10/12/2021 13:34:33 Bottom Bleacher Date: 10/12/2021 20:12:59 Dictated By: SOHEILA TUCKER DO
== END ==
LOC: ENDO 11:55
PROVIDERS: ATTEND Surgery
DX: K21.00 Gastro-esophageal reflux disease with esophagitis, without bleeding (principal); E78.00 Pure hypercholesterolemia, unspecified; J45.909 Unspecified asthma, uncomplicated; F41.9 Anxiety disorder, unspecified; Z90.710 Acquired absence of both cervix and uterus; Z79.899 Other long term (current) drug therapy; Z83.3 Family history of diabetes mellitus
CPT/HCPCS: 88305

== ENCOUNTER 2022-12-06 10:31 | Emergency (ER) | payer BC ==
[~2022-12-06] VITALS: Ht 167.7 cm; Wt 72.6 kg
[~2022-12-06 10:31] MED LIST changes: -HURRICAINE EXT TUBE (BENZOCAINE) XX PRN; -LACTATED RINGERS 1,000 ML IV ONE; -LACTATED RINGERS 1,000 ML IV STA; -MIDAZOLAM 2 MG/2 ML (VERSED) VIAL ONE; +OMEP20TA56 PO; -OMEP20TA7 PO; -PROPOFOL INJECTION 50 ML IV ONE
[2022-12-06 11:10] LABS: BASOPHILS % (AUTO) 1 % (0-10); EOSINOPHILS # (AUTO) 0.5 10^3/uL (0.0-0.3); EOSINOPHILS % (AUTO) 12 % (0-10); HEMATOCRIT 39 % (35-52); HEMOGLOBIN 12.9 g/dL (11.5-16.0); LYMPHOCYTES # (AUTO) 1.4 10^3/uL (1.0-4.0); LYMPHOCYTES % (AUTO) 32 % (12-44); MEAN CORPUSCULAR HEMOGLOBIN 30 pg (25-34); MEAN CORPUSCULAR HGB CONC 33 g/dL (32-36); MEAN CORPUSCULAR VOLUME 90 fL (80-99); MEAN PLATELET VOLUME 10.3 fL (9.0-12.2); MONOCYTES # (AUTO) 0.5 10^3/uL (0.0-1.0); MONOCYTES % (AUTO) 10 % (0-12); NEUTROPHILS # (AUTO) 2.1 10^3/uL (1.8-7.8); NEUTROPHILS % (AUTO) 46 % (42-75); PLATELET COUNT 188 10^3/uL (130-400); WHITE BLOOD COUNT 4.5 10^3/uL (4.3-11.0)
--- NOTE | 2022-12-06 11:10 | ED Abdominal Pain ---
General Chief Complaint: Abdominal/GI Problems Stated Complaint: ABD PAIN Nursing Triage Note: C/O ABDOMINAL PAIN FOR A FEW YEARS HOWEVER WITH IN THE LAST FEW MONTHS HAVING DIFFICULTY AND IS SCHEDULED TO SEE ANT FOR ASSESSMENT. ON MONDAY STOMACH PAIN STARTED TO GET WORSE. Source of Information: Patient Exam Limitations: No Limitations (MATILDE DIXON) History of Present Illness Date Seen by Provider: Dec 06, 2022 Time Seen by Provider: 11:07 Initial Comments Patient is a 52-year-old female with a history of total hysterectomy, appendectomy who presents ED with epigastric, right upper quadrant abdominal pain. She describes it as pressure rates 8 out of 10. Pain has been intermittent over the past few years. Worsening pain over the weekend. Seems to be worse with eating or when she lies down. She reports a radiating pain to her mid back described as pressure. No vomiting or diarrhea. She has a history of constipation and frequently has a bowel movement every 1-1/2-week. She did take some Ex-Lax yesterday and did have a bowel movement that was soft. Denies any blood in her stool. Excessive NSAID use or alcohol use. She states she has had a upper EGD done in the past by Dr. Cain which was unremarkable. Schedule follow-up with Dr. Cain on Monday. No urinary symptoms, fever, chest pain, cough or shortness of breath, headache or dizziness. She does report some burning sensation to her chest certain movements when she lies down makes the pain worse (MATILDE DIXON) Allergies and Home Medications Allergies Coded Allergies: Penicillins (Verified Allergy, Unknown, FROM CHILDHOOD, 12/06/22) Patient Home Medication List Home Medication List Reviewed: Yes (MATILDE DIXON) Acyclovir (Acyclovir) 400 Mg Tablet, 400 MG PO DAILY PRN for fever blisters, (Reported) Entered as Reported by: NAYELY LI on 02/19/20 0852 Albuterol Sulfate (Ventolin Hfa) 1 Puff Puff, 2 PUFF INH Q4H PRN for WHEEZING, (Reported) Entered as Reported by: NAYELY LI on 10/05/21 1147 Atorvastatin Calcium (Atorvastatin Calcium) 20 Mg Tablet, 20 MG PO HS, (Reported) Entered as Reported by: NAYELY LI on 10/05/21 1147 Escitalopram Oxalate (Escitalopram Oxalate) 10 Mg Tablet, 10 MG PO DAILY, (Reported) Entered as Reported by: NAYELY LI on 10/05/21 1147 Fexofenadine HCl (Aye Allergy) 180 Mg Tablet, 180 MG PO DAILY, (Reported) Entered as Reported by: NAYELY LI on 10/05/21 1147 Pantoprazole Sodium (Protonix) 40 Mg Tablet.dr, 40 MG PO DAILY Prescribed by: SOHEILA CAIN on 10/12/21 1328 Pantoprazole Sodium (Protonix) 40 Mg Tablet.dr, 40 MG PO DAILY Prescribed by: NAVID ACOSTA on 12/06/22 1335 Review of Systems Review of Systems Constitutional: No chills, No diaphoresis, No malaise, No weakness EENTM: No Eye Pain, No Ear Pain, No Mouth Pain Respiratory: Denies Cough Cardiovascular: Denies Chest Pain Gastrointestinal: Abdominal Pain, Constipated; Denies Diarrhea, Denies Nausea, Denies Vomiting Genitourinary: Denies Burning, Denies Discharge Musculoskeletal: No back pain, No joint pain Skin: No change in color, No change in hair/nails (MATILDE DIXON) All Other Systems Reviewed Negative Unless Noted: Yes (MATILDE DIXON) Past Gworjam-Amtvxg-Brhgrw Hx Patient Social History Tobacco Use?: No Use of E-Cig and/or Vaping dev: Yes E-Cig or Vaping type used: Nicotine Use of E-Cig and/or Vaping Danish: Light User Substance use?: No Alcohol Use?: Yes Alcohol type: Hard Liquor Alcohol Frequency: Once in a while Pt feels they are or have been: No (MATILDE DIXON) Immunizations Up To Date Tetanus Booster (TDap): Unknown Influenza Vaccine Up-to-Date: No; Not Current First/Initial COVID19 Vaccinat: yes Second COVID19 Vaccination Mike: yes (MATILDE DIXON) Seasonal Allergies Seasonal Allergies: Yes (MATILDE DIXON) Past Medical History Surgery/Hospitalization HX: SEASONAL ALLERGIES, ASTHMA, ANXIETY HYSTERECTOMY REMOVAL OF OVARIES, RIGHT SHOULDER AND LEFT KNEE SCOPE, APPY Surgeries: Yes (SHOULDER scope, knee scope) Appendectomy, Hysterectomy, Tonsillectomy Respiratory: Yes Asthma Cardiac: No 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 Sexually Transmitted Disease: No HIV/AIDS: No Genitourinary: No Gastrointestinal: Yes (dysphagia) Gastroesophageal Reflux, Polyps Musculoskeletal: No Endocrine: No HEENT: Yes (GLASSES) Loss of Vision: Denies Hearing Impairment: Denies Cancer: No Psychosocial: Yes Anxiety Integumentary: No Blood Disorders: Yes (HX ANEMIA ) Adverse Reaction/Blood Tranf: No (N/A) (MATILDE DIXON) Physical Exam Vital Signs Vital Signs - First Documented 12/06/22 10:38 Temp 37.0 Pulse 69 Resp 18 B/P (MAP) 143/78 (99) Pulse Ox 98 O2 Delivery Room Air (TYRONE KAM MD) Vital Signs Capillary Refill : Less Than 3 Seconds (MATILDE DIXON) Height/Weight/BMI Height: 5'2.00" Weight: 156lbs. 0.0oz. 70.736869mj; 25.00 BMI Method:Stated General Appearance: WD/WN, no apparent distress HEENT: PERRL/EOMI, normal ENT inspection, TMs normal, pharynx normal Neck: non-tender, full range of motion, supple, normal inspection Respiratory: chest non-tender, lungs clear, normal breath sounds, no respiratory distress Cardiovascular: regular rate, rhythm, no edema, no gallop, no JVD Gastrointestinal: normal bowel sounds, soft, tenderness (Epigastric tenderness, right upper quadrant tenderness. 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, no motor/sensory deficits, alert, normal mood/affect, oriented x 3 Skin: normal color, warm/dry (MATILDE DIXON) Progress/Results/Core Measures Results/Orders Lab Results Laboratory Tests Test 12/06/22 10:35 12/06/22 10:49 12/06/22 11:00 Range/Units Urine Color YELLOW Urine Clarity CLEAR Urine pH 5.5 5-9 Urine Specific [place] >=1.030 1.016-1.022 Urine Protein NEGATIVE NEGATIVE Urine Glucose (UA) NEGATIVE NEGATIVE Urine Ketones NEGATIVE NEGATIVE Urine Nitrite NEGATIVE NEGATIVE Urine Bilirubin NEGATIVE NEGATIVE Urine Urobilinogen 0.2 < = 1.0 MG/DL Urine Leukocyte Esterase NEGATIVE NEGATIVE Urine RBC (Auto) NEGATIVE NEGATIVE Urine RBC NONE /HPF Urine WBC NONE /HPF Urine Squamous Epithelial Cells 10-25 H /HPF Urine Crystals NONE /LPF Urine Bacteria TRACE /HPF Urine Casts NONE /LPF Urine Mucus MODERATE H /LPF Urine Culture Indicated NO Influenza Type A (RT-PCR) Not Detected Not Detecte Influenza Type B (RT-PCR) Not Detected Not Detecte SARS-CoV-2 RNA (RT-PCR) Detected H Not Detecte White Blood Count 4.5 4.3-11.0 10^3/uL Red Blood Count 4.28 3.80-5.11 10^6/uL Hemoglobin 12.9 11.5-16.0 g/dL Hematocrit 39 35-52 % Mean Corpuscular Volume 90 80-99 fL Mean Corpuscular Hemoglobin 30 25-34 pg Mean Corpuscular Hemoglobin Concent 33 32-36 g/dL Red Cell Distribution Width 13.3 10.0-14.5 % Platelet Count 188 130-400 10^3/uL Mean Platelet Volume 10.3 9.0-12.2 fL Immature Granulocyte % (Auto) 0 % Neutrophils (%) (Auto) 46 42-75 % Lymphocytes (%) (Auto) 32 12-44 % Monocytes (%) (Auto) 10 0-12 % Eosinophils (%) (Auto) 12 H 0-10 % Basophils (%) (Auto) 1 0-10 % Neutrophils # (Auto) 2.1 1.8-7.8 10^3/uL Lymphocytes # (Auto) 1.4 1.0-4.0 10^3/uL Monocytes # (Auto) 0.5 0.0-1.0 10^3/uL Eosinophils # (Auto) 0.5 H 0.0-0.3 10^3/uL Basophils # (Auto) 0.0 0.0-0.1 10^3/uL Immature Granulocyte # (Auto) 0.0 0.0-0.1 10^3/uL Sodium Level 141 135-145 MMOL/L Potassium Level 4.1 3.6-5.0 MMOL/L Chloride Level 107 98-107 MMOL/L Carbon Dioxide Level 23 21-32 MMOL/L Anion Gap 11 5-14 MMOL/L Blood Urea Nitrogen 12 7-18 MG/DL Creatinine 0.71 0.60-1.30 MG/DL Estimat Glomerular Filtration Rate 101 BUN/Creatinine Ratio 17 Glucose Level 90 70-105 MG/DL Calcium Level 8.7 8.5-10.1 MG/DL Corrected Calcium 8.6 8.5-10.1 MG/DL Total Bilirubin 0.2 0.1-1.0 MG/DL Aspartate Amino Transf (AST/SGOT) 28 5-34 U/L Alanine Aminotransferase (ALT/SGPT) 42 0-55 U/L Alkaline Phosphatase 108 40-136 U/L Total Protein 6.9 6.4-8.2 GM/DL Albumin 4.1 3.2-4.5 GM/DL Lipase 33 8-78 U/L (TYRONE KAM MD) Medications Given in ED Current Medications Medications Dose Ordered Sig/Mariana Route Start Time Stop Time Status Last Admin Dose Admin Al Hydrox/Mg Hydrox/Simethicone 30 ml ONCE ONCE PO 12/06/22 13:15 12/06/22 13:16 DC 12/06/22 13:08 30 ML Famotidine 20 mg ONCE ONCE PO 12/06/22 11:15 12/06/22 11:16 DC 12/06/22 11:12 20 MG Lidocaine HCl 15 ml ONCE ONCE PO 12/06/22 13:15 12/06/22 13:16 DC 12/06/22 13:08 15 ML (TYRONE KAM MD) Vital Signs/I&O 12/06/22 12/06/22 12/06/22 10:38 10:38 13:45 Temp 37.0 Pulse 69 58 Resp 18 18 B/P (MAP) 143/78 (99) 143/73 Pulse Ox 98 100 O2 Delivery Room Air Room Air Room Air (TYRONE KAM MD) Blood Pressure Mean: 99 Departure Communication (PCP) Patient presents ED with upper abdominal pain. History of similar pain but worse over the weekend. No vomiting or diarrhea. History of constipation. On exam she has right upper quadrant epigastric tenderness with radiation to mid back. Vital signs stable. Lab work was reassuring. Due to the right upper quadrant pain ultrasound was ordered. Ultrasound shows gallstones without evidence of acute cholecystitis. She was given Pepcid with minimal improvement. GI cocktail with resolution of pain and back pain. No evidence of surgical abdomen. History of hysterectomy and appendectomy. She has no chest pain, or shortness of breath. She does report some flulike symptoms since last . She tested positive for COVID. She states the coughing is improving. No evidence of pneumonia while auscultating her lung sounds. She is at her last day of isolation. Continue wearing a mask for additional 5 days. May return to work after 5 days of isolation and asymptomatic. She scheduled follow-up with Dr. Cain on Monday. Discussed diet changes. Avoid eating late at night elevate head at night. I Believe this is secondary to acid reflex. Return precaution were discussed with patient. We will start patient on Protonix. (MATILDE DIXON) Impression Primary Impression: Abdominal pain Disposition: HOME, SELF-CARE Condition: Stable Departure-Patient Inst. Decision time for Depature: 13:35 (MATILDE DIXON) Referrals: LYNN MARMOLEJO MD (PCP/Family) Primary Care Physician SOHEILA CAIN DO Patient Instructions: Abdominal Pain, Adult ED Add. Discharge Instructions: If no improvement with the Protonix may consider Tums, Mylanta. Follow-up with Dr. Cain outpatient. Watch diet All discharge instructions reviewed with patient and/or family. Voiced understanding. Scripts Pantoprazole Sodium (Protonix) 40 Mg Tablet. 40 MG PO DAILY, #14 TAB Prov: MATILDE DIXON 12/06/22 ATTENDING PHYSICIAN NOTE: I was physically present as attending physician in the emergency department during the care of this patient, but I was not directly involved in the decision making or delivery of care for this patient. (TYRONE KAM MD) MATILDE DIXON Dec 06, 2022 11:10 TYRONE KAM MD Dec 06, 2022 19:36
[2022-12-06 11:12] LABS: BILIRUBIN,URINE NEGATIVE (NEGATIVE); CLARITY,URINE CLEAR; COLOR,URINE YELLOW; GLUCOSE, URINE (UA) NEGATIVE (NEGATIVE); KETONES,URINE NEGATIVE (NEGATIVE); LEUKOCYTE ESTERASE ,URINE NEGATIVE (NEGATIVE); NITRITE,URINE NEGATIVE (NEGATIVE); PH,URINE 5.5 (5-9); PROTEIN,URINE NEGATIVE (NEGATIVE)
[2022-12-06] MEDS ORDERED: FAMOTIDINE 20 MG (PEPCID) TABLET PO ONE (11:15)
[2022-12-06 11:18] LABS: ALBUMIN 4.1 GM/DL (3.2-4.5)
[2022-12-06 11:19] LABS: POTASSIUM 4.1 MMOL/L (3.6-5.0)
[2022-12-06 11:20] LABS: CALCIUM 8.7 MG/DL (8.5-10.1)
[2022-12-06 11:21] LABS: TOTAL PROTEIN 6.9 GM/DL (6.4-8.2)
[2022-12-06 11:23] LABS: BILIRUBIN,TOTAL 0.2 MG/DL (0.1-1.0)
[2022-12-06 11:24] LABS: CREATININE SERUM 0.71 MG/DL (0.60-1.30)
[2022-12-06 11:26] LABS: BACTERIA,URINE TRACE /HPF
--- NOTE | 2022-12-06 12:44 | Diagnostic Imaging Report ---
PROCEDURE: US Gallbladder. TECHNIQUE: Multiple real-time grayscale images were obtained over the right upper quadrant in various projections. INDICATION: Right upper quadrant pain. COMPARISON: None available. FINDINGS: The liver is normal in size and echogenicity. There is no focal hepatic mass. The main portal vein is patent with antegrade flow. There are 2 nonmobile isoechoic nodules within the gallbladder lumen that could represent adherent stones versus small polyps. The largest measures 0.6 cm. The common bile duct measures up to 0.5 cm in diameter. No intrahepatic biliary dilation. The visualized portions of the pancreas are normal. Portions of the head and tail are obscured by overlying bowel gas. The right kidney is normal in size. No hydronephrosis, shadowing calculi, or suspicious mass lesion. IMPRESSION: 1. There are either 2 small adherent gallstones versus polyps within the gallbladder lumen. No features of acute cholecystitis. Consider followup right upper quadrant ultrasound 6 months to ensure stability. 2. No biliary obstruction. Dictated by: Dictated on workstation # [id number]
[2022-12-06] MEDS ORDERED: LIDOCAINE 2% VISCOUS 15 ML UDC PO ONE (13:15)
[2022-12-06] MEDS ORDERED: ANTACID SUSP 30 ML UDC (MYLANTA) PO ONE (13:15)
[2022-12-06] MEDS ORDERED: PANT40TA2 PO (13:35)
[2022-12-06 13:45] VITALS: BP 143/73
== END 2022-12-06 13:45 | disposition home or self-care (01) ==
LOC: EDUNIT# 10:31 → ER 10:33
DX: R10.13 Epigastric pain (principal); R10.11 Right upper quadrant pain; U07.1 COVID-19; F17.290 Nicotine dependence, other tobacco product, uncomplicated; Z90.49 Acquired absence of other specified parts of digestive tract; Z87.19 Personal history of other diseases of the digestive system
CPT/HCPCS: 36415; 76705; 80053; 81000; 83690; 85025; 87636

== ENCOUNTER 2022-12-14 06:11 | Outpatient (CLI) | payer BC ==
[~2022-12-14] VITALS: Ht 157.5 cm; Wt 70.0 kg
[2022-12-15] MEDS ORDERED: ALPR0.5T7 PO (11:13)
== END 2022-12-15 15:11 | disposition home or self-care (01) ==
LOC: PREOP 06:11
PROVIDERS: ATTEND Surgery
DX: Z01.818 Encounter for other preprocedural examination (principal)

== ENCOUNTER 2022-12-21 08:24 | Day surgery (SDC) | payer BC ==
[~2022-12-21] VITALS: Ht 157 cm; Wt 70.0 kg
[2022-12-21] VITALS (12 sets, daily range): BP systolic 116–169; BP diastolic 68–91
[~2022-12-21 08:24] MED LIST changes: +ALPR0.5T7 PO
--- NOTE | 2022-12-21 08:47 | Progress Note-Pre Operative ---
Pre-Operative Progress Note Date H&P Reviewed: Dec 21, 2022 Time H&P Reviewed: 08:47 History & Physical: H&P Reviewed, Patient Examed, No changes noted Pre-Operative Diagnosis: symptomatic cholelithiasis SOHEILA CAIN DO Dec 21, 2022 08:47
[2022-12-21] MEDS: LACTATED RINGERS 1,000 ML IV PRN ×2 (09:00→11:47)
[2022-12-21] MEDS ORDERED: CLINDAMYCIN 600 MG/50 ML IVPB 50 ML IV ONE ×2 (09:11→09:30)
[2022-12-21] MEDS ORDERED: BUP/EPI 0.25% 1:200,000 (MARCAINE) 30 ML VIAL ONE (09:55)
[2022-12-21] MEDS ORDERED: proPOfol 200 MG/20 ML (DIPRIVAN) VIAL IV ONE (10:54)
[2022-12-21] MEDS ORDERED: ONDANSETRON 4 MG/2 ML (SDV) Z0FRAN ONE ×2 (10:54→12:40)
[2022-12-21] MEDS ORDERED: fentaNYL INJ 100 MCG/2 ML AMP ONE (10:54)
[2022-12-21] MEDS ORDERED: LIDOCAINE PF 2% 5 ML (XYLOCAINE) VIAL ONE (10:54)
[2022-12-21] MEDS ORDERED: SEVOFLURANE (ULTANE) 15 ML INHAL SOLN ONE ×2 (10:54→11:54)
[2022-12-21] MEDS ORDERED: MIDAZOLAM 2 MG/2 ML (VERSED) VIAL ONE (10:55)
[2022-12-21] MEDS ORDERED: ROCURONIUM 50 MG/5 ML (ZEMURON) VIAL IV ONE (11:23)
[2022-12-21] MEDS ORDERED: BUP/EPI 0.25% 1:200,000 (MARCAINE) 30 ML VIAL INJ ONE (11:30)
[2022-12-21] MEDS ORDERED: IOHEXOL 300 MG/ML 100 ML (OMNIPAQUE 300) VIAL INJ ONE (11:31)
[2022-12-21] MEDS ORDERED: HYDROmorphone 2 MG/ML VIAL (DILAUDID) ONE ×2 (11:41→12:37)
[2022-12-21] MEDS ORDERED: SUGAMMADEX 500 MG/5 ML VIAL (BRIDION) IV ONE (11:55)
[2022-12-21] MEDS ORDERED: KETOROLAC 30 MG/ML VIAL ONE (11:57)
--- NOTE | 2022-12-21 11:58 | Progress Note-Post Operative ---
Post-Operative Progess Note Surgeon (s)/Vp Data (s) Surgeon SOHEILA CAIN DO Vp Data: Dr. Lomax to assist in retraction dissection and closure. Pre-Operative Diagnosis symptomatic cholelithiasis Post-Operative Diagnosis same Procedure & Operative Findings Date of Procedure 12/21/22 Procedure Performed/Findings PROCEDURE: Laparoscopic cholecystectomy with intraoperative cholangiogram. COMPLICATIONS: None. PROCEDURE: The patient was taken to the operating suite and was prepped and draped in sterile fashion. A surgical pause was performed. Just superior to the umbilicus, a 12 mm incision was made. Dissection was taken down to the fascia, which was then scored and grasped with a Jeff and the abdomen was then entered. A 0 Vicryl suture was placed in a [id number] fashion and a Bruno trocar was placed and secured. Pneumoperitoneum was achieved. A 5mm trochar place in the subxyphoid and 2 in the right upper quadrant. Abdomen inspected and noted multiple intrabdominal adhesions pelvis and right gutter. The gallbladder was then grasped and elevated. The cystic duct, and cystic artery were then dissected out. Clip was placed on the distal portion of the cystic duct which was then partially transected. An arrow catheter was inserted into the duct. The cholangiogram was then performed. No filing defects and contrast made its way into the duodenum. Catheter removed. Clips were placed on proximal portion of the cystic duct and then the duct was then transected. Clips were placed along the proximal and distal portion of the cystic artery which was then transected. Hook cautery was used to dissect the gallbladder from the gallbladder fossa achieving hemostasis. The gallbladder was placed in an Endobag and removed through the 12 mm trocar site. The abdomen was then reinspected. Copious amounts of irrigation were used to irrigate the abdomen and there were no signs of active bleeding. Hemostasis had been achieved. The 12 mm fascial defect was then closed with 0 Vicryl suture that had been placed in a [id number] fashion. The abdomen was then desufflated, the trocars were removed. The abdomen was then washed and dried. The skin was then closed using 4-0 Monocryl in a subcuticular fashion. The abdomen was washed and dried and Skin Affix was place over incisions. Patient tolerated the procedure well without any complications and was taken to the recovery room in stable condition. Anesthesia Type general Estimated Blood Loss Estimated blood loss (mL): minimal Specimens/Packing Specimens Removed gallbladder SOHEILA CAIN DO Dec 21, 2022 11:58
[2022-12-21] MEDS ORDERED: DOCU-143 PO (12:01)
[2022-12-21] MEDS ORDERED: ACHD5005 PO (12:01)
--- NOTE | 2022-12-21 12:02 | Discharge Inst-Simple/Standard ---
Discharge Inst-Standard Discharge Medications New, Converted or Re-Newed RX: Transmitted to Pharmacy Patient Instructions/Follow Up Plan of Care/Instructions/FU: 2 weeks Caitlin Activity as Tolerated: Yes Discharge Diet: Regular Diet Other Inst to Patient Follow up Appt: Make appointment for 2 weeks. Instructions: No lifting greater than 10 pounds. No strenuous activity. May shower in 24 hours, no tub bath or soaking. Use incentive spirometer at home as directed. No Smoking Skin/Wound Care: You have special glue over incision, it will fall off on it's own. Symptoms to Report: Appetite Changes, Extremity Discoloration, Numbness/Tingling, Swelling Increased, Bleeding Excessive, Eyesight Changes, Pain Increased, Urine Color Change, Constipation(Persistent), Fever over 101 degree F, Pain/Pressure in chest, Urinating Difficulty, Cough Up/Vomit Blood, Heart Beat Irreg/Pounding, Pain/Pressure in jaw, Vaginal Bleeding Increase, Cramps in feet or legs, Lightheadedness, Pain/Pressure in shoulder, Diarrhea(Persistent), Memory Changes Suddenly, Questions/Concerns, Weight gain consecutive days, Dizziness/Fainting, Nausea/Vomiting, Shortness of Breath, Weight gain over 2 pounds. If eyes or skin turn yellow notify physician. If questions or concerns contact your physician Or seek help at emergency department. SOHEILA CAIN DO Dec 21, 2022 12:02
[2022-12-21] MEDS ORDERED: ONDANSETRON 4 MG/2 ML (SDV) Z0FRAN IVP PRN (12:30)
[2022-12-21] MEDS ORDERED: HYDROmorphone 2 MG/ML VIAL (DILAUDID) IV ONE (12:30)
[2022-12-21] MEDS ORDERED: HYDROcodone/APAP 5 MG/325 MG (LORTAB) TAB ONE (13:29)
[2022-12-21] MEDS ORDERED: HYDROcodone/APAP 5 MG/325 MG (LORTAB) TAB PO ONE (13:30)
--- NOTE | 2022-12-21 17:13 | Diagnostic Imaging Report ---
INDICATION: Cholecystectomy. EXAMINATION: Operative cholangiogram performed. Single view obtained. 2.8 seconds of fluoroscopy time was used. FINDINGS: Single fluoroscopic view demonstrates nondilated biliary tree with no overt filling defect. Contrast is seen passing to the duodenum. IMPRESSION: Unremarkable Limited operative cholangiogram. Dictated by: Dictated on workstation # [id number]
--- NOTE | 2022-12-22 07:48 | Anesthesia-General Post-Op ---
General Patient Condition Mental Status/LOC: Same as Preop Cardiovascular: Satisfactory Nausea/Vomiting: Absent Respiratory: Satisfactory Pain: Controlled Complications: Absent Post Op Complications Complications None Follow Up Care/Instructions Patient Instructions None needed. Anesthesia/Patient Condition Patient Condition Patient is doing well, no complaints, stable vital signs, no apparent adverse anesthesia problems. No complications reported per nursing. D/C home per [facility] Criteria: Yes NICOLE RUDOLPH CRNA Dec 22, 2022 07:48
== END 2022-12-21 14:30 | disposition home or self-care (01) ==
LOC: SDC 08:24
PROVIDERS: ATTEND Surgery
DX: K80.10 Calculus of gallbladder with chronic cholecystitis without obstruction (principal); F17.290 Nicotine dependence, other tobacco product, uncomplicated; K21.9 Gastro-esophageal reflux disease without esophagitis; Z79.899 Other long term (current) drug therapy
CPT/HCPCS: 76000; 87081